=== PATIENT | male | born 1960 | race Caucasian/White ===

== ENCOUNTER 2017-10-08 10:06 | Emergency (ER) | payer MEDICAID ==
[~2017-10-08] VITALS: Ht 172.7 cm; Wt 59.0 kg
[~2017-10-08 10:06] MED LIST: DIVA500E1 PO
--- NOTE | 2017-10-08 10:07 | NUR ---
PT BIBA BLS AFTER FALL TO BED 7
[2017-10-08 10:10] VITALS: BP 161/80
--- NOTE | 2017-10-08 10:17 | NUR ---
57Y/M BIBA C/O RT HAND, RT KNEE PAIN S/P TRIP AND FALL YESTERDAY WITHOUT LOC. HE STATES HE LANDED ON HIS HANDS, ABRASIONS NOTED TO ROSEMARY HANDS. PATIENT STATES PAIN OF 7/10 AT THIS TIME; VSS; PATIENT POSITIONED FOR COMFORT; HOB ELEVATED; BEDRAILS UP X 1; BED DOWN. ER MD MADE AWARE OF PT STATUS.
[2017-10-08] MEDS ORDERED: oxyCODONE/APAP 5/325 MG 1 TAB TAB PO ONE (10:25)
[2017-10-08] MEDS ORDERED: cefTRIAXone 1,000 MG in LIDOCAINE MPF 1% - **ER/OR** 2.1 ML IM ONE (10:25)
--- NOTE | 2017-10-08 12:02 | NUR ---
Patient discharged with v/s stable. Written and verbal after care instructions given and explained. Patient alert, oriented and verbalized understanding of instructions. Ambulatory with steady gait. All questions addressed prior to discharge. ID band removed. Patient advised to follow up with PMD. Rx of DOXYCYCLINE HYCLATE AND MOTRIN given. Patient educated on indication of medication including possible reaction and side effects. Opportunity to ask questions provided and answered.
[2017-10-08 12:03] VITALS: BP 159/79
== END 2017-10-08 12:02 | disposition home or self-care (01) ==
LOC: MED 10:06
DX: S80.01XA Contusion of right knee, initial encounter (principal); S60.221A Contusion of right hand, initial encounter; Z88.0 Allergy status to penicillin; F17.210 Nicotine dependence, cigarettes, uncomplicated; W18.30XA Fall on same level, unspecified, initial encounter; Y93.89 Activity, other specified; Y92.89 Other specified places as the place of occurrence of the external cause; Y99.8 Other external cause status
CPT/HCPCS: 73110; 73130; 73562; 90471; 90715; 96372; 99284; J0696; J2001

== ENCOUNTER 2018-11-20 08:39 | Inpatient (IN) | payer OTHER, MEDICAID ==
[~2018-11-20] VITALS: Ht 175.3 cm; Wt 72.6 kg
--- NOTE | 2018-11-20 08:41 | NUR ---
0838-- PT BIBA BLS TO ER BED 5
--- NOTE | 2018-11-20 08:45 | NUR ---
PT BIB AMBULANCE TO THE ED FROM BOARD/CARE FOR C/O COUGH/CONGESTION X 4 DAYS WITH CHEST DISCOMFORT UPON COUGHING. LUNGS CLEAR ON AUSCULTATION. NO SOB OR DIFFICULTY BREATHING NOTED. SPO2 95% IN ROOM AIR. HOB ELEVATED. STATES PAIN OF 10/10 AT THIS TIME. DENIES OTHER PROBLEM AT THIS TIME. MED HX: COPD/HTN/SCHIZOEFFECTIVE
[2018-11-20 08:46] VITALS: BP 142/95
--- NOTE | 2018-11-20 08:53 | NUR ---
PT BEING EVALUATED BY EDUARDO RODRIGUEZ.
[2018-11-20] MEDS ORDERED: ALBUTEROL SULFATE/IPRATROPIU 3 ML SOL IH ONE (09:00)
--- NOTE | 2018-11-20 09:06 | NUR ---
X-RAY AT THE BEDSIDE.
--- NOTE | 2018-11-20 09:18 | NUR ---
EDUARDO RODRIGUEZ AT THE BEDSIDE.
--- NOTE | 2018-11-20 09:26 | NUR ---
RT AT THE BEDSIDE.
--- NOTE | 2018-11-20 09:42 | NUR ---
CALLED AND TALKED WITH PRISCILA THE ANIMAL CARE TAKER AT [facility] [phone] REGARDING LAST TB SHOT FOR PT. PER PRISCILA, LAST TB WAS GIVEN MAR 2010
[2018-11-20] MEDS ORDERED: LEVOFLOXACIN 750 MG/D5W PREMIX 150 ML IV ONE (09:50)
[2018-11-20] MEDS ORDERED: NACL 0.9% 1,000 ML IV ONE (09:50)
--- NOTE | 2018-11-20 10:02 | NUR ---
PT TAKEN TO THE CT.
[2018-11-20] MEDS ORDERED: ROB PO (10:10)
[2018-11-20] MEDS ORDERED: VALP250S5 PO (10:10)
[2018-11-20] MEDS ORDERED: OLAN15TA1 PO ×2 (10:10)
[2018-11-20] MEDS ORDERED: QUET200T PO (10:10)
[2018-11-20] MEDS ORDERED: OLAN2.5T1 PO (10:10)
[2018-11-20] MEDS ORDERED: QUET400T PO (10:10)
[2018-11-20] MEDS ORDERED: IBUP-1842 PO (10:10)
[2018-11-20 10:18] LABS: BASOPHILS % (AUTO) 0.2 % (0.0-2.0); EOSINOPHILS % (AUTO) 0.1 % (0.0-4.0); HEMATOCRIT 30.4 % (36-52); HEMOGLOBIN 10.2 g/dL (12.0-18.0); LYMPHOCYTES # (AUTO) 1.1 K/uL (2.0-11.5); LYMPHOCYTES % (AUTO) 13.2 % (20.5-51.1); MEAN CORPUSCULAR HEMOGLOBIN 28 pg (27-31); MEAN CORPUSCULAR HGB CONC 34 g/dL (33-37); MEAN CORPUSCULAR VOLUME 84.3 fL (80-94); MONOCYTES # (AUTO) 1.2 K/uL (0.8-1.0); NEUTROPHILS # (AUTO) 6.1 K/uL (1.8-7.7); NEUTROPHILS % (AUTO) 72.5 % (42.2-75.2); PLATELET COUNT (AUTO) 299 K/uL (140-450); RED BLOOD CELL COUNT(AUTO) 3.61 MIL/uL (4.20-6.10); RED CELL DISTRIBUTION WIDTH 15.6 % (11.6-13.7); WHITE BLOOD COUNT (AUTO) 8.5 K/uL (4.8-10.8)
[2018-11-20 10:51] LABS: ALBUMIN 2.4 g/dL (3.4-5.0); ANION GAP 11.7 (8-16); CARBON DIOXIDE 26.4 mmol/L (21-32); CREATININE 0.9 mg/dL (0.7-1.3); POTASSIUM 4.1 mmol/L (3.5-5.1); TOTAL BILIRUBIN 0.3 mg/dL (0.0-1.0)
[2018-11-20] MEDS ORDERED: LORazepam 2 MG/ML VIAL IM/IVP PRN (11:25)
[2018-11-20] MEDS ORDERED: ACETAMINOPHEN 325 MG TAB PO PRN (11:25)
[2018-11-20] MEDS ORDERED: MORPHINE SULFATE 2 MG/ML SYR IVP PRN (11:25)
[2018-11-20] MEDS ORDERED: ONDANSETRON 4 MG/2 ML VIAL IM/IVP PRN (11:25)
[2018-11-20] MEDS ORDERED: DOCUSATE SODIUM 100 MG GELCAP PO PRN (11:25)
[2018-11-20] MEDS ORDERED: HYDROcodone/APAP 5/325 MG 1 TAB TAB PO PRN (11:25)
[2018-11-20 12:09] LABS: PROTHROMBIN TIME 11.2 secs (10.8-13.4)
[2018-11-20] MEDS: NACL 0.9% 1,000 ML IV SCH ×2 (12:15→22:45)
[2018-11-20 12:20] LABS: MAGNESIUM 1.8 mg/dL (1.8-2.4); PHOSPHORUS 3.5 mg/dL (2.5-4.9)
[2018-11-20 12:21] LABS: FREE T4 (FREE THYROXINE) 0.72 ng/dL (0.76-1.46); THYROID STIMULATING HORMONE 4.13 uIU/mL (0.34-3.74)
[2018-11-20] MEDS ORDERED: hydrALAZINE 20 MG/ML VIAL IVP PRN (12:35)
[2018-11-20] MEDS ORDERED: ALBUTEROL SULFATE/IPRATROPIU 3 ML SOL IH SCH (13:00)
--- NOTE | 2018-11-20 13:00 | NUR ---
RECEIVED PATIENT REPORT FROM ED NURSE. PT IS AWAKE AND ALERT, NO S/S OF ANY ACUTE DISTRESS OR SOB. PT IS ON ROOM AIR, SKIN IS INTACT. IV SITE IS ON THE L AC, 20 G. PT IS AMBULATORY AND NOT A FALL RISK. NARES SWABBED FOR MRSA. BP IS ELEVATED (163/102) AT THIS TIME. MD IS AWARE OF PT'S HYPERTENSION. CALL LIGHT GIVEN WITHIN REACH. WILL CONTINUE TO MONITOR PT.
[2018-11-20 13:30] VITALS: BP 163/102
[2018-11-20 13:31] LABS: APPEARANCE,URINE CLEAR (CLEAR); BILIRUBIN,URINE NEGATIVE (NEGATIVE); BLOOD, URINE NEGATIVE (NEGATIVE); COLOR,URINE YELLOW (YELLOW); LEUKOCYTE ESTERASE ,URINE NEGATIVE (NEGATIVE); NITRITE, URINE NEGATIVE (NEGATIVE); PH,URINE 7.5 (5.0-9.0); UGLUCOSE NEGATIVE (NEGATIVE)
[2018-11-20 13:38] LABS: BARBITURATE, URINE NEG. ng/ml (NEG <=200); BENZODIAZEPINE, URINE NEG. ng/mL (NEG <=200); CANNABINOID, URINE NEG. ng/mL (NEG <=50); COCAINE, URINE NEG. ng/mL (NEG <=300); OPIATE, URINE NEG. ng/mL (NEG <=2000); PHENCYCLIDINE SCREEN,URINE NEG. ng/mL (NEG <=25)
--- NOTE | 2018-11-20 14:33 | NUR ---
PT IS TALKING ABOUT LEAVING AMA BECAUSE OUR HOSPITAL DOES NOT ALLOW TO SMOKE CIGARETTES. I TOLD PT THAT I NEED TO TALK TO THE MD FIRST, ABOUT POSSIBLY GETTING HIM A NICOTINE PATCH. I NOTIFIED DR PEREYRA OF PT'S DESIRE TO LEAVE AMA. SHE INFORMED ME THAT PT HAS A CONSERVATOR AND CANNOT MAKE HIS OWN DECISIONS. SHE SAID THAT SHE WILL GO TALK WITH THE PATIENT AND POSSIBLY ORDER HIM A NICOTINE PATCH.
[2018-11-20] MEDS ORDERED: BENZONATATE 100 MG CAPLF PO PRN (15:30)
[2018-11-20] MEDS ORDERED: PANTOPRAZOLE 40 MG TABEC PO SCH (15:45)
[2018-11-20 16:00] VITALS: BP 159/107
--- NOTE | 2018-11-20 16:07 | NUR ---
PT GIVEN A SAMPLE CUP AND IS AWARE THAT WE NEED A SAMPLE OF HIS SPUTUM FOR CULTURE.
[2018-11-20] MEDS: hydrALAZINE 20 MG/ML VIAL IVP SCH ×2 (16:33→18:30)
--- NOTE | 2018-11-20 16:42 | NUR ---
PRN HYDRALAZINE ADMINISTERED FOR PT'S BP OF 170/104. WILL REASSESS BP IN AN HOUR.
[2018-11-20] MEDS ORDERED: SODIUM FERRIC GLUCONATE 125 MG in NACL 0.9% 100 ML IV SCH (17:00)
[2018-11-20] MEDS ORDERED: LISINOPRIL 10 MG TAB PO SCH (18:00)
--- NOTE | 2018-11-20 18:02 | NUR ---
BP RECHECKED, IT IS 159/102 AT THIS TIME. ORDERED LISINOPRIL ADMINISTERED, WILL RECHECK IN ABOUT 15 MINUTES AND IF DBP IS STILL ABOVE 100, WILL ADMINISTER ANOTHER DOSE OF PRN HYDRALAZINE, PER DR PEREYRA.
[2018-11-20] MEDS: CLINDAMYCIN PHOS 600MG/D5W PM 50 ML IV SCH ×2 (18:06→23:07)
--- NOTE | 2018-11-20 18:30 | NUR ---
BP IS 184/108 AT THIS TIME, PRN HYDRALAZINE ADMINISTERED PER MD ORDER
--- NOTE | 2018-11-20 19:20 | NUR ---
PT ENDORSED TO UNIFIED COMMUNICATIONS ENGINEER IN STABLE CONDITION.
[2018-11-20] MEDS: BUDESONIDE 0.25 MG/2 ML NEBU INH SCH (19:30)
--- NOTE | 2018-11-20 19:30 | NUR ---
RECEIVED PT ON BED, AAOX4, ABLE TO MAKE NEEDS KNOWN, VITAL SIGNS TAKEN, BP SLIGHTLY ELEVATED BUT STABLE, 98% ON ROOM AIR, DENIES ANY PAIN, NO SOB NOTED, IVF INFUSING WELL, PLAN OF CARE DISCUSSED, INSTRUCTED TO COLLECT SPUTUM FOR TEST, CUP AT BEDSIDE, SAFETY MEASURES IN PLACE, CALL LIGHT WITHIN REACH.
--- NOTE | 2018-11-20 19:39 | NUR ---
PT REFUSED HHN TX OF PULMICORT. RN JIL AT BEDSIDE. PT IS AWAKE AND ALERT ON ROOM AIR WITH SPO2 98%. NO SOB OR DISTRESS NOTED. WILL CONTINUE TO MONITOR.
[2018-11-20 20:00] VITALS: BP 159/98
[2018-11-20] MEDS: guaiFENesin 600 MG TABER PO SCH (20:35)
[2018-11-20] MEDS: QUEtiapine FUMARATE 100 MG TAB PO SCH (20:35)
[2018-11-20] MEDS: methylPREDNISolone SS 40 MG/ML VIAL IVP SCH (20:38)
--- NOTE | 2018-11-20 20:40 | NUR ---
PT AMBULATORY TO BR WITH STEADY GAIT, VOIDED FREELY, NO SOB NOTED ON EXERTION, DUE MEDS ADMINISTERED, ALL NEEDS ATTENDED.
[2018-11-20] MEDS: OLANZapine 5 MG TAB PO SCH (20:49)
[2018-11-20] MEDS ORDERED: OLANZapine 2.5 MG TAB ONE (20:52)
[2018-11-20] MEDS ORDERED: VALPROIC ACID 250 MG/5 ML UDC PO SCH (21:00)
--- NOTE | 2018-11-20 21:30 | NUR ---
PT WANTS TO TAKE A SHOWER, PT BP STILL ELEVATED AT THIS TIME, ADVISE PT TO DO IT WHEN HIS BP IS BETTER, VERBALIZED UNDERSTANDING, PT PROVIDED WASHCLOTHS AND TOWEL, ABLE TO DO SPONGE BATH INDEPENDENTLY, MONITORED CLOSELY.
--- NOTE | 2018-11-20 23:30 | NUR ---
PT RESTING, VITAL SIGNS STABLE, NO SOB NOTED, DENIES ANY PAIN, CLEOCIN IVPB INFUSING WELL, UNABLE TO PROVIDE SPUTUM, PT HAS DRY COUGH, WILL TRY AGAIN LATER, CONTINUE TO MONITOR CLOSELY.
[2018-11-21] VITALS: BP 143/90
[2018-11-21 04:00] VITALS: BP 134/93
--- NOTE | 2018-11-21 04:00 | NUR ---
PT SLEEPING, EASILY AROUSABLE, VITAL SIGNS STABLE, BP-134/93, SAT-92% ON ROOM AIR, NO SIGNS OF RESP DISTRESS, MONITORED CLOSELY.
[2018-11-21] MEDS: methylPREDNISolone SS 40 MG/ML VIAL IVP SCH ×3 (05:03→20:57)
[2018-11-21] MEDS: CLINDAMYCIN PHOS 600MG/D5W PM 50 ML IV SCH ×3 (05:04→18:02)
[2018-11-21 06:16] LABS: ANION GAP 13.6 (8-16); CARBON DIOXIDE 22.5 mmol/L (21-32); POTASSIUM 4.1 mmol/L (3.5-5.1)
[2018-11-21] MEDS: LEVOTHYROXINE 0.025 MG TAB PO SCH (06:19)
[2018-11-21 06:34] LABS: CHOL/HDL RATIO 3.5 (1-4.5); MAGNESIUM 1.9 mg/dL (1.8-2.4); PHOSPHORUS 4.3 mg/dL (2.5-4.9)
--- NOTE | 2018-11-21 07:10 | NUR ---
PT SLEEPING, NO SIGNS OF DISTRESS, BEDSIDE REPORT GIVEN TO PINA LOZANO FOR CONTINUITY OF CARE.
--- NOTE | 2018-11-21 07:15 | NUR ---
OBTAINED PT REPORT FROM STORE DETECTIVE NURSE. PT IS ASLEEP, NO S/S OF ANY ACUTE DISTRESS NOTED. PT IS ON ROOM AIR, SKIN INTACT. IV SITE IS ON THE LAC 20 G, INFUSING NS 100 ML/HR. PT IS AMBULATORY AND NOT A FALL RISK. CALL LIGHT IS WITHIN REACH. WILL CONTINUE TO MONITOR.
[2018-11-21 07:17] LABS: HEMATOCRIT 34.1 % (36-52); HEMOGLOBIN 11.3 g/dL (12.0-18.0); LYMPHOCYTES # (AUTO) 0.9 K/uL (2.0-11.5); LYMPHOCYTES % (AUTO) 12.3 % (20.5-51.1); MEAN CORPUSCULAR HEMOGLOBIN 28 pg (27-31); MEAN CORPUSCULAR HGB CONC 33 g/dL (33-37); MEAN CORPUSCULAR VOLUME 85.4 fL (80-94); MONOCYTES # (AUTO) 0.2 K/uL (0.8-1.0); MONOCYTES % (AUTO) 3.4 % (1.7-9.3); NEUTROPHILS # (AUTO) 5.8 K/uL (1.8-7.7); NEUTROPHILS % (AUTO) 84.3 % (42.2-75.2); PLATELET COUNT (AUTO) 320 K/uL (140-450); RED BLOOD CELL COUNT(AUTO) 3.99 MIL/uL (4.20-6.10); RED CELL DISTRIBUTION WIDTH 15.8 % (11.6-13.7); WHITE BLOOD COUNT (AUTO) 6.9 K/uL (4.8-10.8)
[2018-11-21] MEDS: BUDESONIDE 0.25 MG/2 ML NEBU INH SCH ×2 (07:30→19:51)
[2018-11-21 07:52] VITALS: BP 131/98
[2018-11-21] MEDS: FERROUS SULFATE 325 MG TABEC PO SCH (08:00)
[2018-11-21] MEDS: LACTOBACILLUS RHAMNOSUS GG 1 EACH CAP PO SCH (09:00)
[2018-11-21] MEDS: NICOTINE TRANSD SYS 21 MG/24 HR PATCH TD SCH (09:00)
[2018-11-21] MEDS: LISINOPRIL 10 MG TAB PO SCH (09:00)
[2018-11-21] MEDS: guaiFENesin 600 MG TABER PO SCH ×2 (09:00→20:56)
[2018-11-21] MEDS: QUEtiapine FUMARATE 100 MG TAB PO SCH ×2 (09:00→20:56)
[2018-11-21] MEDS ORDERED: VALPROIC ACID 250 MG/5 ML UDC PO SCH ×2 (09:00→10:00)
[2018-11-21] MEDS ORDERED: LACTOBACILLUS RHAMNOSUS GG 1 EACH CAP PO SCH (09:00)
[2018-11-21] MEDS: PANTOPRAZOLE 40 MG TABEC PO SCH (09:00)
[2018-11-21] MEDS: OLANZapine 5 MG TAB PO SCH ×2 (09:00→20:56)
[2018-11-21] MEDS: NACL 0.9% 1,000 ML IV SCH ×2 (09:15→20:59)
--- NOTE | 2018-11-21 09:23 | NUR ---
PATIENT HAS BEEN SCREENED AND CATEGORIZED MODERATE NUTRITION RISK. PATIENT WILL BE SEEN WITHIN 3-5 DAYS OF ADMISSION. 11/22/18[address]
[2018-11-21] MEDS: LEVOFLOXACIN 750 MG/D5W PREMIX 150 ML IV SCH (10:35)
--- NOTE | 2018-11-21 10:50 | NUR ---
PT REFUSED THE ORDERED AM HEPARIN SUBQ INJECTION AND NICOTINE PATCH.
[2018-11-21 12:00] VITALS: BP 156/93
--- NOTE | 2018-11-21 12:00 | NUR ---
PT IS TALKING ABOUT WANTING TO GO HOME TO HIS BOARD AND CARE AND BE ABLE TO SMOKE AGAIN. STATES THAT HE WANTS US TO GET HIM A RIDE SO HE CAN LEAVE. DR PEREYRA IS AWARE AND SHE ALREADY SPOKE WITH HIM ABOUT THIS. SHE IS GOING TO CONTACT HIS B&C CONSERVATOR REGARDING THIS ISSUE.
[2018-11-21 16:00] VITALS: BP 164/93
--- NOTE | 2018-11-21 16:35 | NUR ---
PT REFUSED HIS SCHEDULED 17:[address] PEREYRA IS AWARE AND SHE WILL CANCEL THE ORDER.
--- NOTE | 2018-11-21 17:00 | NUR ---
PT REFUSED THE BILATERAL LE ULTRASOUND. DR PEREYRA WAS MADE AWARE BY THE MINING CONSULTANT.
--- NOTE | 2018-11-21 19:20 | NUR ---
PT ENDORSED TO RN ER NURSE IN STABLE CONDITION.
--- NOTE | 2018-11-21 19:21 | NUR ---
RECEIVED REPORT AT PT BEDSIDE FROM PINA LOZANO. PT IS AAOX4, ON ROOM AIR WITH SOME EXPIRATORY WHEEZING TO UPPER LOBES BL AND DIMINISHED LOWER LOBES BL. ABLE TO FOLLOW COMMANDS, AND ABLE TO MAKE NEEDS KNOWN. PT AMBULATES WITH STEADY GAIT INDEPENDENTLY. SKIN IS CLEAN, DRY, AND INTACT. PT HAS A 20G IV TO LEFT AC, ASYMPTOMATIC AND INTACT WITH IV FLUIDS INFUSING. NO SIGNS OR SYMPTOMS OF DISTRESS NOTED. DBP SLIGHTLY ELEVATED AT 107. OTHER VITAL SIGNS STABLE, DENIES HAVING ANY TYPE OF PAIN AT THIS MOMENT. BED IN LOWEST POSITION, CALL LIGHT WITHIN REACH. SAFETY MEASURES IN PLACE. WILL CONTINUE TO MONITOR.
[2018-11-21 20:00] VITALS: BP 149/107
--- NOTE | 2018-11-21 21:00 | NUR ---
ADMINISTERED SCHEDULED MEDICATIONS, PT TOLERATED WELL. PATIENT REFUSED HEPARIN INJECTION SAYING HE DIDN'T NEED THAT ONE. DR SORIA MADE AWARE OF REFUSAL.
[2018-11-22] VITALS: BP 165/99
--- NOTE | 2018-11-22 | NUR ---
VITAL SIGNS STABLE, DENIES HAVING ANY TYPE OF PAIN AT THIS MOMENT. NO SIGNS OR SYMPTOMS OF DISTRESS NOTED. BED IN LOWEST POSITION, CALL LIGHT WITHIN REACH. SAFETY MEASURES IN PLACE. WILL CONTINUE TO MONITOR.
[2018-11-22] MEDS: CLINDAMYCIN PHOS 600MG/D5W PM 50 ML IV SCH ×4 (00:33→17:56)
--- NOTE | 2018-11-22 00:35 | NUR ---
PT REPORTED FEELING ANXIOUS AND NOT BEING ABLE TO SLEEP, HE ASKED FOR ANXIETY MEDICATION. ATIVAN WAS AVAILABLE FOR ANXIETY PER ORDERS. ADMINISTERED 1MG (0.5ML) IV ATIVAN ORDERED, PT TOLERATED WELL.
--- NOTE | 2018-11-22 02:49 | NUR ---
PT AMBULATED TO RESTROOM WITH UNSTEADIER GAIT THAN BEFORE, HELPED PT WITH STANDBY ASSIST. NO SIGNS OR SYMPTOMS OF DISTRESS NOTED. BED IN LOWEST POSITION, CALL LIGHT WITHIN REACH. SAFETY MEASURES IN PLACE. WILL CONTINUE TO MONITOR.
--- NOTE | 2018-11-22 03:01 | NUR ---
TRIED TO PUT YELLOW GOWN ON PT ALONG WITH ARMBAND. PT REFUSED TO CHANGE GOWNS. ARMBAND AND FALLING STAR SIGN WERE PUT IN PLACE. BED ALARM TURNED ON. NO SIGNS OR SYMPTOMS OF DISTRESS NOTED. BED IN LOWEST POSITION, CALL LIGHT WITHIN REACH. SAFETY MEASURES IN PLACE. WILL CONTINUE TO MONITOR.
[2018-11-22 04:00] VITALS: BP 144/95
[2018-11-22] MEDS: methylPREDNISolone SS 40 MG/ML VIAL IVP SCH ×3 (05:28→20:58)
[2018-11-22] MEDS: LEVOTHYROXINE 0.025 MG TAB PO SCH (05:31)
--- NOTE | 2018-11-22 05:34 | NUR ---
ADMINISTERED SCHEDULED MEDICATIONS, PT TOLERATED WELL. NO SIGNS OR SYMPTOMS OF DISTRESS NOTED. BED IN LOWEST POSITION, CALL LIGHT WITHIN REACH. SAFETY MEASURES IN PLACE. WILL CONTINUE TO MONITOR.
[2018-11-22 06:14] LABS: FOLIC ACID 7.3 ng/mL (>3.0)
[2018-11-22 06:53] LABS: HEMATOCRIT 30.4 % (36-52); HEMOGLOBIN 10.1 g/dL (12.0-18.0); MEAN CORPUSCULAR HEMOGLOBIN 28 pg (27-31); MEAN CORPUSCULAR HGB CONC 33 g/dL (33-37); MEAN CORPUSCULAR VOLUME 84.8 fL (80-94); PLATELET COUNT (AUTO) 276 K/uL (140-450); RED BLOOD CELL COUNT(AUTO) 3.59 MIL/uL (4.20-6.10); RED CELL DISTRIBUTION WIDTH 15.8 % (11.6-13.7); WHITE BLOOD COUNT (AUTO) 20.2 K/uL (4.8-10.8)
[2018-11-22 07:04] LABS: MAGNESIUM 1.7 mg/dL (1.8-2.4)
[2018-11-22 07:12] LABS: ANION GAP 12.8 (8-16); CARBON DIOXIDE 23.7 mmol/L (21-32); CREATININE 0.8 mg/dL (0.7-1.3); POTASSIUM 4.5 mmol/L (3.5-5.1)
--- NOTE | 2018-11-22 07:27 | NUR ---
ENDORSED PT TO DAY SHIFT RN ISAI FOR CONTINUITY OF CARE, PT IN STABLE CONDITION.
[2018-11-22] MEDS: BUDESONIDE 0.25 MG/2 ML NEBU INH SCH ×2 (07:30→22:10)
--- NOTE | 2018-11-22 07:30 | NUR ---
SBAR REPORT RECEIVED AT PT BEDSIDE. PATIENT RESTING IN BED. ALERT AND ORIENTED, DROWSY. INTERMITTENT COUGHS, NON PRODUCTIVE. UPDATED ON CURRENT PLAN OF CARE, IN AGREEMENT. FALL PRECAUTIONS ENSURED. NO ACUTE DISTRESS NOTED. DENIES PAIN.
[2018-11-22 07:56] LABS: LYMPHOCYTES % (MANUAL) 7 % (20-46); MONOCYTES % (MANUAL) 3 % (5-12)
[2018-11-22 08:00] VITALS: BP 150/88
[2018-11-22] MEDS: FERROUS SULFATE 325 MG TABEC PO SCH (08:18)
[2018-11-22] MEDS: LISINOPRIL 10 MG TAB PO SCH (08:19)
[2018-11-22] MEDS: OLANZapine 5 MG TAB PO SCH ×2 (08:19→20:59)
[2018-11-22] MEDS: LACTOBACILLUS RHAMNOSUS GG 1 EACH CAP PO SCH (08:19)
[2018-11-22] MEDS: QUEtiapine FUMARATE 100 MG TAB PO SCH ×2 (08:19→20:58)
[2018-11-22] MEDS: PANTOPRAZOLE 40 MG TABEC PO SCH (08:19)
[2018-11-22] MEDS: guaiFENesin 600 MG TABER PO SCH ×2 (08:19→20:58)
[2018-11-22] MEDS: NACL 0.9% 1,000 ML IV SCH (08:20)
[2018-11-22] MEDS: NICOTINE TRANSD SYS 21 MG/24 HR PATCH TD SCH ×2 (08:21→10:40)
[2018-11-22] MEDS ORDERED: VALPROIC ACID 250 MG/5 ML UDC PO SCH (09:00)
--- NOTE | 2018-11-22 10:56 | NUR ---
PATIENT RESTING IN BED, NO ACUTE DISTRESS NOTED. DENIES PAIN/DISCOMFORT, CONTINUED ON ROOM AIR.
[2018-11-22] MEDS: LEVOFLOXACIN 750 MG/D5W PREMIX 150 ML IV SCH (11:31)
[2018-11-22 12:00] VITALS: BP 146/91
--- NOTE | 2018-11-22 14:06 | NUR ---
PATIENT CONTINUES DROWSY. NO ACUTE DISTRESS NOTED. DENIES PAIN/DISCOMFORT.
[2018-11-22] MEDS ORDERED: MAGNESIUM OXIDE 400 MG TAB PO SCH (14:56)
[2018-11-22 16:00] VITALS: BP 158/98
--- NOTE | 2018-11-22 16:40 | NUR ---
PATIENT RESTING IN BED, NO ACUTE DISTRESS NOTED. AMBULATORY TO BATHROOM WITH MINIMAL ASSIST. CALL LIGHT WITHIN REACH.
--- NOTE | 2018-11-22 19:16 | NUR ---
SBAR REPORT GIVEN AT PT BEDSIDE. PATIENT RESTING IN BED. NO ACUTE DISTRESS NOTED.
--- NOTE | 2018-11-22 19:17 | NUR ---
RECEIVED BEDSIDE REPORT FROM DAY SHIFT NURSEISAI. NO SOB OR ANY RESP DISTRESS NOTED. BREATHING EVEN AND UNLABORED. SKIN INTACT, WARM AND DRY TO TOUCH. IV SITE ON LAC, 20G, INTACT AND PATENT, RUNNING NS @ 80MLS/HR. BOARD UPDATED, BED IN LOW POSITION, CALL LIGHT WITHIN REACH.
[2018-11-22 20:00] VITALS: BP 164/99
--- NOTE | 2018-11-22 20:04 | NUR ---
PATIENT SHOWERING AT THIS TIME. WILL RETURN LATER FOR SCHEDULED BREATHING TREATMENT.
[2018-11-22] MEDS: VALPROIC ACID 250 MG/5 ML UDC PO SCH (20:55)
[2018-11-22] MEDS: hydrALAZINE 20 MG/ML VIAL IVP PRN (21:01)
--- NOTE | 2018-11-22 21:15 | NUR ---
GIVEN SCHEDULE MEDS ORDERED. GIVEN HYDRALAZINE D/T PT BP 164/99. PT TOLERATED WELL. WILL CONTINUE TO MONITOR.
--- NOTE | 2018-11-22 22:05 | NUR ---
CHECKED BP, 151/89. PT C/O COUGHING, GIVEN BENZONATATE ORDERED. PT TOLERATED WELL. WILL CONTINUE TO MONITOR.
[2018-11-22] MEDS: ALBUTEROL SULFATE/IPRATROPIU 3 ML SOL IH PRN (22:10)
--- NOTE | 2018-11-22 22:28 | NUR ---
RECEIVED PATIENT ON ROOM AIR, PULSE OX SAT 95%. PATIENT STATES TO BE COUGHING AND FEELING SOB. SCHEDULED BREATHING TREATMENT GIVEN ALONG WITH PRN BREATHING TREATMENT. TOLERATED TREATMENTS WELL. ORAL RINSE DONE POST TX. PATIENT STATES TO BE FEELING BETTER. NO RESPIRATORY DISTRESS NOTED AT THIS TIME. WILL CONTINUE TO MONITOR.
[2018-11-23] VITALS: BP 139/85
[2018-11-23] MEDS: CLINDAMYCIN PHOS 600MG/D5W PM 50 ML IV SCH ×4 (00:07→17:41)
--- NOTE | 2018-11-23 00:07 | NUR ---
PT PULLED OUT IV LINE. SITE INTACT AND NO BLEEDING. START IV ON RFA WITH 20G, GOOD BLOOD RETURN NOTED. PT TOLERATED WELL. GIVEN CLINDAMYCIN ORDERED.
--- NOTE | 2018-11-23 02:00 | NUR ---
PT LYING IN BED. BREATHING EVEN AND UNLABORED. BED IN LOW POSITION. CALL LIGHT WITHIN REACH.
[2018-11-23] MEDS: hydrALAZINE 20 MG/ML VIAL IVP PRN ×3 (03:55→20:46)
--- NOTE | 2018-11-23 03:55 | NUR ---
VS CHECKED, BP 153/95 NOTED. GIVEN HYDRALAZINE ORDERED. WILL CONTINUE TO MONITOR.
[2018-11-23 04:00] VITALS: BP 153/95
[2018-11-23] MEDS: methylPREDNISolone SS 40 MG/ML VIAL IVP SCH ×3 (04:57→20:44)
--- NOTE | 2018-11-23 05:01 | NUR ---
GIVEN SOLU-MEDROL AND CLINDAMYCIN ORDERED. PT TOLERATED WELL. BP CHECKED, 151/89. WILL CONTINUE TO MONITOR.
[2018-11-23] MEDS: LEVOTHYROXINE 0.025 MG TAB PO SCH (05:53)
--- NOTE | 2018-11-23 05:53 | NUR ---
GIVEN SYNTHROID DR. ORDERED. PT TOLERATED WELL.
[2018-11-23 07:03] LABS: ANION GAP 13.4 (8-16); CARBON DIOXIDE 23.8 mmol/L (21-32); CREATININE 0.8 mg/dL (0.7-1.3); POTASSIUM 4.2 mmol/L (3.5-5.1)
--- NOTE | 2018-11-23 07:11 | NUR ---
ENDORSED PT TO DAY SHIFT NURSE. PT IN STABLE CONDITION.
[2018-11-23] MEDS: BUDESONIDE 0.25 MG/2 ML NEBU INH SCH ×2 (07:12→19:35)
--- NOTE | 2018-11-23 07:12 | NUR ---
RECEIVED BED SIDE REPORT FROM ETHNOGRAPHER RN LUIZ. PT AWAKE BUT SLEEPY. EYES CLOSED, MASK OVER EYES. INTRODUCED SELF, URINAL AT BEDSIDE. SKIN INTACT. R FORARM 20G RUNNING NS AT 80ML/HR. PT NOT COUGHING, IN NO PAIN. WILL CONTINUE TO MONITOR
[2018-11-23 07:16] LABS: MAGNESIUM 1.7 mg/dL (1.8-2.4); PHOSPHORUS 3.7 mg/dL (2.5-4.9)
[2018-11-23 07:59] VITALS: BP 137/88
[2018-11-23 08:14] LABS: BASOPHILS % (AUTO) 0.1 % (0.0-2.0); HEMATOCRIT 28.5 % (36-52); HEMOGLOBIN 9.6 g/dL (12.0-18.0); LYMPHOCYTES # (AUTO) 1.1 K/uL (2.0-11.5); LYMPHOCYTES % (AUTO) 5.3 % (20.5-51.1); MEAN CORPUSCULAR HEMOGLOBIN 28 pg (27-31); MEAN CORPUSCULAR HGB CONC 34 g/dL (33-37); MEAN CORPUSCULAR VOLUME 84.4 fL (80-94); MONOCYTES # (AUTO) 0.7 K/uL (0.8-1.0); MONOCYTES % (AUTO) 3.4 % (1.7-9.3); NEUTROPHILS # (AUTO) 19.5 K/uL (1.8-7.7); NEUTROPHILS % (AUTO) 91.2 % (42.2-75.2); PLATELET COUNT (AUTO) 284 K/uL (140-450); RED BLOOD CELL COUNT(AUTO) 3.38 MIL/uL (4.20-6.10); RED CELL DISTRIBUTION WIDTH 15.8 % (11.6-13.7); WHITE BLOOD COUNT (AUTO) 21.3 K/uL (4.8-10.8)
[2018-11-23] MEDS: LACTOBACILLUS RHAMNOSUS GG 1 EACH CAP PO SCH (09:02)
[2018-11-23] MEDS: FERROUS SULFATE 325 MG TABEC PO SCH (09:03)
[2018-11-23] MEDS: guaiFENesin 600 MG TABER PO SCH ×2 (09:03→20:45)
[2018-11-23] MEDS: VALPROIC ACID 250 MG/5 ML UDC PO SCH ×2 (09:03→20:44)
[2018-11-23] MEDS: LISINOPRIL 10 MG TAB PO SCH (09:03)
[2018-11-23] MEDS: QUEtiapine FUMARATE 100 MG TAB PO SCH ×2 (09:04→20:45)
[2018-11-23] MEDS: PANTOPRAZOLE 40 MG TABEC PO SCH (09:04)
[2018-11-23] MEDS: NICOTINE TRANSD SYS 21 MG/24 HR PATCH TD SCH (09:05)
[2018-11-23] MEDS: OLANZapine 5 MG TAB PO SCH ×2 (09:05→20:45)
[2018-11-23] MEDS: LEVOFLOXACIN 750 MG/D5W PREMIX 150 ML IV SCH (09:07)
--- NOTE | 2018-11-23 09:43 | NUR ---
GAVE AM MEDS. PT REFUSED HEPARIN. EDUCATED PT ON THE IMPORTANCE OF RECEIVING HEPARIN D/T NOT BEING ACTIVE AND MOBILE HE NORMALLY IS. PT STILL REFUSED
[2018-11-23] MEDS ORDERED: LACTULOSE 20 GM/30 ML UDC PO SCH (11:00)
[2018-11-23] MEDS ORDERED: MAGNESIUM OXIDE 400 MG TAB PO SCH (11:00)
[2018-11-23] MEDS: NACL 0.9% 1,000 ML IV SCH ×3 (11:15→23:45)
--- NOTE | 2018-11-23 11:30 | NUR ---
PT REFUSED MAG OXIDE AND LACTULOSE. EDUCATED PT ON THE IMPORTANCE OF TAKING MEDS. PT STILL REFUSED. NOTIFIED MD AND MD MADE AWARE
[2018-11-23 12:00] VITALS: BP 142/89
--- NOTE | 2018-11-23 13:18 | NUR ---
Late entry. Confirmed with RN that Levoquin IVPB completed at 1200 and 1000ml 0.9NS IV bolus completed at 1130.
--- NOTE | 2018-11-23 15:20 | NUR ---
PT STABLE, RESTING IN BED. CALL LIGHT WITHIN REACH. PT ABLE TO AMBULATE TO BATHROOM WITH A STEADY GAIT.
[2018-11-23 15:55] VITALS: BP 165/102
[2018-11-23] MEDS: ALBUTEROL SULFATE/IPRATROPIU 3 ML SOL IH PRN (16:28)
--- NOTE | 2018-11-23 19:02 | NUR ---
ENDORSED PT TO DINING ROOM COORDINATOR PINA DEE. PT IN STABLE CONDITION
--- NOTE | 2018-11-23 19:10 | NUR ---
RECEIVED BEDSIDE REPORT FROM DAY SHIFT NURSE. NO SOB OR ANY RESP DISTRESS NOTED. BREATHING EVEN AND UNLABORED. SKIN INTACT, WARM AND DRY TO TOUCH. IV SITE ON RFA, 20G, INTACT AND PATENT, RUNNING NS @ 80MLS/HR. BOARD UPDATED, BED IN LOW POSITION, CALL LIGHT WITHIN REACH.
[2018-11-23 20:00] VITALS: BP 177/94
--- NOTE | 2018-11-23 20:53 | NUR ---
GIVEN ALL SCHEDULE MEDS DR. ORDERED. BP177/94, GIVEN HYDRALAZINE DR. ORDERED. PT TOLERATED WELL. WILL CONTINUE TO MONITOR.
[2018-11-24] VITALS: BP 149/85
[2018-11-24] MEDS: CLINDAMYCIN PHOS 600MG/D5W PM 50 ML IV SCH ×2 (00:03→05:09)
--- NOTE | 2018-11-24 00:03 | NUR ---
GIVEN CLINDAMYCIN DR. ORDERED. PT TOLERATED WELL. WILL CONTINUE TO MONITOR.
--- NOTE | 2018-11-24 02:46 | NUR ---
PT AWAKE IN BED. ENCOURAGE PT TO SLEEP. NO ACUTE DISTRESS NOTED. BED IN LOW POSITION. CALL LIGHT WITHIN REACH.
[2018-11-24] MEDS: NACL 0.9% 1,000 ML IV SCH (03:36)
[2018-11-24 04:00] VITALS: BP 140/76
[2018-11-24] MEDS: methylPREDNISolone SS 40 MG/ML VIAL IVP SCH ×2 (05:03→12:16)
--- NOTE | 2018-11-24 05:09 | NUR ---
GIVEN SOLU-MEDROL, CLINDAMYCIN DR. ORDERED. PT C/O BILATERAL FEET PAIN 11/06, GIVEN NORCO DR. ORDERED. PT TOLERATED WELL. WILL CONTINUE TO MONITOR.
[2018-11-24] MEDS: LEVOTHYROXINE 0.025 MG TAB PO SCH (05:35)
--- NOTE | 2018-11-24 05:35 | NUR ---
GIVEN SYNTHROID DR. ORDERED. PT TOLERATED WELL.
--- NOTE | 2018-11-24 07:20 | NUR ---
ENDORSED PT TO DAY SHIFT NURSE. PT IN STABLE CONDITION.
--- NOTE | 2018-11-24 07:21 | NUR ---
RECEIVED BEDSIDE REPORT FROM NIGHT NURSE. PT STABLE AT THIS TIME BREATHING UNLABORED AOX3, PT HAS A RIGHT FOREARM IV THAT IS ASYMPTOMATIC AND PATENT INFUSING 80 ML/HR OF NORMAL SALINE AT THIS TIME. EXPLAINED TO PATIENT TO NOTIFY WHEN HAVING BOWEL MOVEMENT FOR OCCULT BLOOD SAMPLE, ENDORSED TO ME BY NIGHT NURSE. ALL SAFETY MEASURES IN PLACE WITH CALL LIGHT WITHIN REACH.
[2018-11-24 07:31] LABS: MAGNESIUM 1.8 mg/dL (1.8-2.4); PHOSPHORUS 3.9 mg/dL (2.5-4.9)
--- NOTE | 2018-11-24 07:55 | NUR ---
DR MEDRANO AND RESIDENTS AT BEDSIDE EXPLAINING TO PT THAT IF HE WANTS TO DISCHARGE TODAY WE CAN PLAN ON DOING THAT TODAY.
[2018-11-24 08:00] VITALS: BP 149/90
[2018-11-24] MEDS: BUDESONIDE 0.25 MG/2 ML NEBU INH SCH (08:00)
[2018-11-24 08:06] LABS: ANION GAP 10.9 (8-16); CARBON DIOXIDE 24.4 mmol/L (21-32); CREATININE 0.9 mg/dL (0.7-1.3); POTASSIUM 4.3 mmol/L (3.5-5.1)
[2018-11-24] MEDS: VALPROIC ACID 250 MG/5 ML UDC PO SCH (08:13)
[2018-11-24] MEDS: NICOTINE TRANSD SYS 21 MG/24 HR PATCH TD SCH (08:13)
[2018-11-24] MEDS: LACTOBACILLUS RHAMNOSUS GG 1 EACH CAP PO SCH (08:14)
[2018-11-24] MEDS: OLANZapine 5 MG TAB PO SCH (08:14)
[2018-11-24] MEDS: guaiFENesin 600 MG TABER PO SCH (08:15)
[2018-11-24] MEDS: PANTOPRAZOLE 40 MG TABEC PO SCH (08:15)
[2018-11-24] MEDS: QUEtiapine FUMARATE 100 MG TAB PO SCH (08:15)
[2018-11-24] MEDS: LISINOPRIL 10 MG TAB PO SCH (08:16)
[2018-11-24] MEDS: FERROUS SULFATE 325 MG TABEC PO SCH (08:16)
--- NOTE | 2018-11-24 08:22 | NUR ---
ADMINISTERED MEDICATIONS, PT REFUSED HEPARIN STATING HE DOES NOT NEED IT OVER CONCERN FOR HIS BLOOD OCCULT AND THAT HE IS GOING HOME TODAY. PLATELET LEVELS WNL ON 11/23/18 MOST RECENT LAB VALUES. DISCUSSED WITH PATIENT THAT I WILL INFORM HIM WHEN DISCHARGE ORDER IS PLACED AND KEEP HIM UP TO DATE. PT HAS NO REQUESTS AT THIS TIME AND IS BREATHING UNLABORED WITH NO SIGNS OF DISTRESS. Addendum: 11/24/18 at 0826 by Maikol Stern RN REVIEWED MEDICATION INDICATIONS WITH PT WELL.
[2018-11-24] MEDS ORDERED: LACT10CA1 PO (08:56)
[2018-11-24] MEDS ORDERED: CLIN300C2 PO ×2 (08:56→14:20)
[2018-11-24] MEDS ORDERED: OLAN15TA1 PO (08:56)
[2018-11-24] MEDS ORDERED: LEVO750T2 PO (08:56)
[2018-11-24] MEDS ORDERED: SODIUM CHLORIDE 1 GM TAB PO SCH (09:00)
[2018-11-24] MEDS ORDERED: LACTULOSE 20 GM/30 ML UDC PO SCH (09:00)
[2018-11-24] MEDS: LEVOFLOXACIN 750 MG/D5W PREMIX 150 ML IV SCH (09:10)
[2018-11-24 09:19] LABS: BASOPHILS % (AUTO) 0.1 % (0.0-2.0); HEMATOCRIT 31.4 % (36-52); HEMOGLOBIN 10.3 g/dL (12.0-18.0); LYMPHOCYTES # (AUTO) 1.7 K/uL (2.0-11.5); LYMPHOCYTES % (AUTO) 8.9 % (20.5-51.1); MEAN CORPUSCULAR HEMOGLOBIN 28 pg (27-31); MEAN CORPUSCULAR HGB CONC 33 g/dL (33-37); MONOCYTES % (AUTO) 5.1 % (1.7-9.3); NEUTROPHILS # (AUTO) 16.6 K/uL (1.8-7.7); NEUTROPHILS % (AUTO) 85.9 % (42.2-75.2); PLATELET COUNT (AUTO) 334 K/uL (140-450); RED CELL DISTRIBUTION WIDTH 15.9 % (11.6-13.7); WHITE BLOOD COUNT (AUTO) 19.3 K/uL (4.8-10.8)
--- NOTE | 2018-11-24 09:19 | NUR ---
ADMINISTERED MEDICATIONS. WAS RELAYED A MESSAGE FROM DR DOMINGUEZ TO MAKE SURE I GIVE THE SODIUM CHLORIDE TABLETS SOON POSSIBLE INFORMED THEM I DID ADMINISTER THEM JUST NOW. PT IS FREE OF OBVIOUS SIGNS OF DISTRESS AT THIS TIME.
--- NOTE | 2018-11-24 10:10 | NUR ---
DR DOMINGUEZ AT BEDSIDE, EXPLAINED TO PATIENT WE ARE PENDING RESULTS THIS AFTERNOON OF BLOOD VALUES THEN HE CAN DISCHARGE IF ALL IS FINE. PT IS AGREEABLE AND FREE OF OBVIOUS SIGNS OF DISTRESS.
[2018-11-24] MEDS ORDERED: METR500T1 PO (10:40)
[2018-11-24] MEDS ORDERED: ALBU-118 IH (10:40)
--- NOTE | 2018-11-24 11:39 | NUR ---
WAS INQUIRED BY LAB RATHER TO CONTINUE WITH LAB DRAW DUE TO PATIENT POSSIBLE DISCHARGE. INFORMED THEM THAT DR. DOMINGUEZ INFORMED ME THAT HE IS PENDING DISCHARGE RELIANT ON LAB RESULTS AND TO CONTINUE WITH ORDERED LAB DRAW.
[2018-11-24 12:00] VITALS: BP 149/99
[2018-11-24] MEDS ORDERED: CLINDAMYCIN PHOS 600MG/D5W PM 50 ML IV SCH (12:00)
[2018-11-24] MEDS: hydrALAZINE 20 MG/ML VIAL IVP PRN (12:16)
[2018-11-24 12:22] LABS: ANION GAP 15.3 (8-16); CARBON DIOXIDE 23.2 mmol/L (21-32); POTASSIUM 4.5 mmol/L (3.5-5.1)
[2018-11-24 12:23] LABS: CREATININE 0.9 mg/dL (0.7-1.3)
--- NOTE | 2018-11-24 12:25 | NUR ---
ADMINISTERED MEDICATIONS INCLUDING HYDRALAZINE PRN DUE TO 149/[address] DOMINGUEZ OF THIS. Addendum: 11/24/18 at 1226 by Maikol Stern RN PT RESTING IN BED EATING LUNCH NO OBVIOUS DISTRESS.
--- NOTE | 2018-11-24 12:39 | NUR ---
SPOKE WITH DR DOMINGUEZ WHO INFORMED ME TO RECHECK BLOOD PRESSURE IN ABOUT HALF AN HOUR AND IF IT IS TRENDING DOWN THEN HE IS OKAY TO DISCHARGE.
[2018-11-24 13:16] VITALS: BP 132/88
--- NOTE | 2018-11-24 13:16 | NUR ---
PATIENT BLOOD PRESSURE 132/88 WITH HEART RATE 102
--- NOTE | 2018-11-24 13:40 | NUR ---
Spoke with Melanie director from board and care located at [address] [facility]. Informed her that pt is already discharged and is ready to be picked up. They will come and pick pack worker the pt at 1500. Informed Pablito ADAMS regarding time of pick pack worker will be at 1500.
--- NOTE | 2018-11-24 13:48 | NUR ---
DR CORADO INFORMED ME THAT THE PATIENT SHOULD NOT DISCHARGE WITH FLAGYL AND TO INFORM DR. DOMINGUEZ OF THIS. INFORMED CHARGE NURSE DR. DOMINGUEZ NOT AVAILABLE AT THIS TIME AND I WAS INFORMED DR. DOMINGUEZ WILL BE BACK SOON. I ALSO SPOKE WITH MOSHE AT [facility] WHO INFORMED ME SHE WILL COME BUILDING SUPERINTENDENT THE PATIENT AT ABOUT 1500.
--- NOTE | 2018-11-24 13:54 | NUR ---
PT INFORMING ME THAT HE IS UP TO DATE WITH HIS VACCINES AND NOT INTERESTED IN RECEIVING THE PNEUMONIA VACCINE.
--- NOTE | 2018-11-24 14:06 | NUR ---
NOTIFIED DR. DOMINGUEZ OF PATIENT LACK OF BOWEL MOVEMENT AND THAT PATIENT REPORTS IT'S NORMAL FOR HIM TO GO GREATER THAN 3 DAYS BEFORE A BOWEL MOVEMENT. SHE INFORMED ME SHE WILL ORDER DULCOLAX FOR HIM TO TAKE BEFORE DISCHARGE. ALSO INFORMED HER OF DR. CORADO'S INSTRUCTIONS TO RELAY TO HER TO DISCONTINUE FLAGYL A DISCHARGE MEDICATION.
--- NOTE | 2018-11-24 14:18 | NUR ---
ADMINISTERED SUPPOSITORY PT TOLERATED WELL NO OBVIOUS SIGNS OF DISTRESS AT THIS TIME.
--- NOTE | 2018-11-24 14:26 | NUR ---
SPOKE WITH SECURITY AND REQUESTED THEY BRING A PAIR OF PANTS FOR PATIENT SINCE PATIENT SAID HIS PERSONAL PANTS HE HAD IN HIS POSSESSION THAT HE PUT ON TO DISCHARGE ON SMELL BAD AND HE DOESN'T KNOW WHY. THEY INFORMED ME THEY WILL BRING HIM A PAIR OF PANTS.
[2018-11-24] MEDS ORDERED: BISACODYL 10 MG SUPP RC SCH (14:30)
--- NOTE | 2018-11-24 14:34 | NUR ---
PT IS REFUSING PANTS SECURITY BROUGHT HIM STATING HE DOESN'T NEED THEM.
--- NOTE | 2018-11-24 14:53 | NUR ---
PT INFORMED ME THAT HE HAD A BOWEL MOVEMENT FORMED WITH NO ISSUES.
--- NOTE | 2018-11-24 15:32 | NUR ---
REVIEWED DISCHARGE PAPERWORK WITH PATIENT AND HE SIGNED ALL PAPERWORK REVIEWING EACH SHEET AND PT DENIES ANY QUESTIONS. PT HAS POSSESSIONS WITH HIM AND ALL DRAWERS CHECKED FOR ANY REMAINING PROPERTIES AND HE STATES HE HAS EVERYTHING WITH HIM. IV REMOVED WITH CATHETER TIP INTACT. PT IS REQUESTING ALL ID BANDS REMOVED EXCEPT ONE ON HIS LEFT WRIST. LEFT THIS BAND PER PATIENT REQUEST. PATIENT IS WEARING HIS CLOTHING HE CAME IN AND PREVIOUSLY DENIED A CLEAN PAIR OF SHORTS BROUGHT TO HIM TO WEAR IF HE DESIRED TO. DISCHARGE PACKET WITH PATIENT AND PAPERWORK INCLUDING FOLLOW UP APPOINTMENT DATE AND DISCHARGING MEDICINE PRESCRIPTIONS EXPLAINED TO PATIENT WELL TRANSPORTER, MYRNA, WHO IS EMPLOYEE AT PATIENT'S [employer] [employer], AND WHO PATIENT STATES CAN DISCUSS ALL HEALTH INFORMATION IN HIS REGARD. ESCORTED PATIENT TO FRONT OF HOSPITAL VIA WHEELCHAIR AND ASSISTED PATIENT TO CAR BEING DRIVEN BY MYRNA. Addendum: 11/24/18 at 1535 by Maikol Stern RN *CLARIFICATION 1525 WAS EXACT MINUTE OF PATIENT DEPARTURE FROM HOSPITAL.
== END 2018-11-24 15:25 | DRG 177 ==
LOC: MED 08:39 → MTU 11:24
PROVIDERS: ADMIT General Practice; ATTEND General Practice
DX: J69.0 Pneumonitis due to inhalation of food and vomit (principal); E43 Unspecified severe protein-calorie malnutrition; J96.01 Acute respiratory failure with hypoxia; J44.1 Chronic obstructive pulmonary disease with (acute) exacerbation; E87.1 Hypo-osmolality and hyponatremia; J44.0 Chronic obstructive pulmonary disease with (acute) lower respiratory infection; M94.0 Chondrocostal junction syndrome [Tietze]; D64.9 Anemia, unspecified; F20.9 Schizophrenia, unspecified; F17.210 Nicotine dependence, cigarettes, uncomplicated; I10 Essential (primary) hypertension; E02 Subclinical iodine-deficiency hypothyroidism; D72.829 Elevated white blood cell count, unspecified; T38.0X5A Adverse effect of glucocorticoids and synthetic analogues, initial encounter; E83.42 Hypomagnesemia; Z68.23 Body mass index [BMI] 23.0-23.9, adult; Z88.0 Allergy status to penicillin; Y92.89 Other specified places as the place of occurrence of the external cause
CPT/HCPCS: 36415; 71045; 71250; 76604; 80048; 80053; 80305; 81003; 82140; 82150; 82607; 82728; 82746; 83036; 83540; 83605; 83690; 83735; 83880; 84100; 84439; 84443; 84479; 84484; 85025; 85045; 85610; 85730; 87040; 87070; 87081; 87186; 87205; 94640; 94761; 96365; 97110; 97116; 97161-GP; 97530; 99285; J0360; J1644; J1956; J2060; J2916; J2920; J3490; J7030; J7060; J7620; J7626; Q0092

== ENCOUNTER 2019-01-30 19:36 | Inpatient (IN) | payer OTHER, MEDICAID ==
[~2019-01-30] VITALS: Ht 175.3 cm; Wt 81.6 kg
[2019-01-30 19:36] VITALS: BP 148/90
[~2019-01-30 19:36] MED LIST changes: +ALBU-118 IH; +CLIN300C2 PO; -DIVA500E1 PO; +IBUP-1842 PO; +LACT10CA1 PO; +LEVO750T2 PO; +OLAN15TA1 PO; +QUET200T PO; +QUET400T PO; +ROB PO; +VALP250S5 PO
--- NOTE | 2019-01-30 19:36 | NUR ---
VIOLETTA FROM [facility], TO BED AT THIS TIME.
--- NOTE | 2019-01-30 19:40 | NUR ---
58 [facility] EXTREMELY SLEEPY, DROOLING, 2 HRS AGO. PT IS AOX4, GCS 15, NO DROOLING AT THIS TIME. SIDERAILS X2 ERMD AWARE OF STATUS. HX COPD, SCHIZOPHRENIA, HTN, HYPOTHYROID RX SEROQUEL, ZYPREXA, DEPAKENE, SYNTHROID ALLERGIES:PCN
[2019-01-30] MEDS ORDERED: NACL 0.9% 500 ML IV SCH (20:23)
--- NOTE | 2019-01-30 20:32 | NUR ---
PT WENT TO CT
--- NOTE | 2019-01-30 21:05 | NUR ---
PT AMBULATED WITH ISOLATION PPE MASK ON TO BED #1
[2019-01-30 21:12] LABS: BASOPHILS % (AUTO) 0.4 % (0.0-2.0); EOSINOPHILS # (AUTO) 0.1 K/uL (0-0.4); HEMATOCRIT 27.9 % (36-52); HEMOGLOBIN 9.5 g/dL (12.0-18.0); LYMPHOCYTES # (AUTO) 1.9 K/uL (2.0-11.5); LYMPHOCYTES % (AUTO) 29.3 % (20.5-51.1); MEAN CORPUSCULAR HEMOGLOBIN 29 pg (27-31); MEAN CORPUSCULAR HGB CONC 34 g/dL (33-37); MEAN CORPUSCULAR VOLUME 84.3 fL (80-94); MONOCYTES # (AUTO) 0.7 K/uL (0.8-1.0); MONOCYTES % (AUTO) 11.2 % (1.7-9.3); NEUTROPHILS # (AUTO) 3.7 K/uL (1.8-7.7); NEUTROPHILS % (AUTO) 58.1 % (42.2-75.2); PLATELET COUNT (AUTO) 340 K/uL (140-450); RED BLOOD CELL COUNT(AUTO) 3.31 MIL/uL (4.20-6.10); RED CELL DISTRIBUTION WIDTH 17.2 % (11.6-13.7); WHITE BLOOD COUNT (AUTO) 6.3 K/uL (4.8-10.8)
[2019-01-30 21:29] LABS: PROTHROMBIN TIME 12.5 secs (10.8-13.4)
[2019-01-30 21:40] LABS: ALBUMIN 2.2 g/dL (3.4-5.0); CARBON DIOXIDE 26.5 mmol/L (21-32); CREATININE 0.9 mg/dL (0.7-1.3); POTASSIUM 4.5 mmol/L (3.5-5.1); TOTAL BILIRUBIN 0.2 mg/dL (0.0-1.0)
[2019-01-30] MEDS ORDERED: LEVOFLOXACIN 500 MG/D5W PREMIX 100 ML IV ONE (22:00)
[2019-01-30 22:09] LABS: APPEARANCE,URINE CLEAR (CLEAR); BILIRUBIN,URINE NEGATIVE (NEGATIVE); BLOOD, URINE NEGATIVE (NEGATIVE); COLOR,URINE YELLOW (YELLOW); LEUKOCYTE ESTERASE ,URINE NEGATIVE (NEGATIVE); NITRITE, URINE NEGATIVE (NEGATIVE); UGLUCOSE NEGATIVE (NEGATIVE)
[2019-01-30] MEDS ORDERED: ACETAMINOPHEN 325 MG TAB PO PRN (22:15)
[2019-01-30] MEDS ORDERED: ONDANSETRON 4 MG/2 ML VIAL IM/IVP PRN (22:15)
[2019-01-30] MEDS ORDERED: MORPHINE SULFATE 2 MG/ML SYR IVP PRN (22:15)
[2019-01-30] MEDS ORDERED: HYDROcodone/APAP 7.5/325 MG 1 TAB PO PRN (22:15)
[2019-01-30] MEDS ORDERED: DOCUSATE SODIUM 100 MG GELCAP PO PRN (22:15)
--- NOTE | 2019-01-30 22:51 | NUR ---
Patient will be admitted to care of [facility]. Admited to Med/Surg. Will go to room 117. Belongings list completed. Report to PINA MIGUEL.
--- NOTE | 2019-01-30 23:00 | NUR ---
ADMITTED 58 YEARS OLD MALE FROM ER VIA WHEELCHAIR TO 117. CARE BOARD STARTED. CC: GENERALIZED WEAKNESS. DX: HYPONATREMIA AND PNA. ORIENTED TO ROOM AND UNIT ROUTINES. SEE NURSING ADMISSION ASSESSMENT AND HISTORY. ORIENTED TO ROOM AND UNIT ROUTINES. CALL LIGHT WITHIN REACH.
[2019-01-30 23:33] LABS: BARBITURATE, URINE NEG. ng/ml (NEG <=200); BENZODIAZEPINE, URINE NEG. ng/mL (NEG <=200); CANNABINOID, URINE NEG. ng/mL (NEG <=50); COCAINE, URINE NEG. ng/mL (NEG <=300); OPIATE, URINE NEG. ng/mL (NEG <=2000); PHENCYCLIDINE SCREEN,URINE NEG. ng/mL (NEG <=25)
[2019-01-30 23:45] LABS: CHOL/HDL RATIO 3.1 (1-4.5); MAGNESIUM 1.6 mg/dL (1.8-2.4); PHOSPHORUS 4.1 mg/dL (2.5-4.9); THYROID STIMULATING HORMONE 5.89 uIU/mL (0.34-3.74)
[2019-01-30] MEDS: NACL 0.9% 1,000 ML IV SCH (23:58)
[2019-01-31 00:05] VITALS: BP 156/95
--- NOTE | 2019-01-31 00:45 | NUR ---
CT OF CHEST WITH IV CONTRAST ORDERED. PATIENT SIGNED CONSENT. NPO TILL CT DONE. ASSISTED BRP. CALL LIGHT WITHIN REACH.
[2019-01-31] MEDS ORDERED: ALBUTEROL SULFATE/IPRATROPIU 3 ML SOL IH PRN (01:50)
[2019-01-31] MEDS ORDERED: MAGNESIUM OXIDE 400 MG TAB PO SCH ×2 (02:30→11:15)
--- NOTE | 2019-01-31 03:19 | NUR ---
ASLEEP, ASSISTED BY MARKETING COMMUNICATIONS ASSOCIATE TO BRP. CT OF CHEST AT 0500. CONSENT SIGNED. CALL LIGHT WITHIN REACH.
[2019-01-31] MEDS ORDERED: CLINDAMYCIN 600 MG/4 ML VIAL ONE (04:40)
[2019-01-31] MEDS: CLINDAMYCIN 600 MG in DEXTROSE 5% 50 ML IV SCH ×3 (05:02→19:59)
--- NOTE | 2019-01-31 06:12 | NUR ---
TO CT DEPARTMENT VIA WHEELCHAIR.
--- NOTE | 2019-01-31 06:40 | NUR ---
BACK FROM CT DEPARTMENT, NO DISTRESS. TOLERATED WELL. CALL LIGHT WITHIN REACH.
--- NOTE | 2019-01-31 07:25 | NUR ---
ENDORSED CARE AT BEDSIDE WITH ARNAUD HELLER, PATIENT IN STABLE CONDITION.
--- NOTE | 2019-01-31 07:38 | NUR ---
RECEIVED REPORT FROM [employer] CONSERVATION LABORER RN. PT AAOX4, SITTING UP IN BED AWAITING BREAKFAST. IV IN RIGHT AC 20G INFUSING NS @ 100ML/HR. ORIENTED PT TO ROOM AND UNIT ROUTINES. DISCUSSED POC WITH PT, PT VERBALIZED UNDERSTANDING. CALL LIGHT WITHIN REACH. BED IN LOW POSITION, WILL ROUND FREQUENTLY ON PT.
[2019-01-31 08:00] VITALS: BP 171/95
[2019-01-31] MEDS: BUDESONIDE 0.5 MG/2 ML NEBU INH SCH ×2 (08:01→19:43)
[2019-01-31] MEDS: NACL 0.9% 1,000 ML IV SCH ×2 (08:11→17:32)
[2019-01-31 08:15] LABS: BASOPHILS % (AUTO) 0.1 % (0.0-2.0); EOSINOPHILS % (AUTO) 0.7 % (0.0-4.0); HEMATOCRIT 31.2 % (36-52); HEMOGLOBIN 10.5 g/dL (12.0-18.0); LYMPHOCYTES # (AUTO) 1.2 K/uL (2.0-11.5); LYMPHOCYTES % (AUTO) 17.3 % (20.5-51.1); MEAN CORPUSCULAR HEMOGLOBIN 29 pg (27-31); MEAN CORPUSCULAR HGB CONC 34 g/dL (33-37); MEAN CORPUSCULAR VOLUME 84.9 fL (80-94); MONOCYTES % (AUTO) 14.1 % (1.7-9.3); NEUTROPHILS # (AUTO) 4.7 K/uL (1.8-7.7); NEUTROPHILS % (AUTO) 67.8 % (42.2-75.2); PLATELET COUNT (AUTO) 439 K/uL (140-450); RED BLOOD CELL COUNT(AUTO) 3.67 MIL/uL (4.20-6.10); RED CELL DISTRIBUTION WIDTH 17.2 % (11.6-13.7); WHITE BLOOD COUNT (AUTO) 6.9 K/uL (4.8-10.8)
--- NOTE | 2019-01-31 08:21 | NUR ---
PATIENT HAS BEEN SCREENED AND CATEGORIZED MODERATE NUTRITION RISK. PATIENT WILL BE SEEN WITHIN 3-5 DAYS OF ADMISSION. 02/03/[address]
[2019-01-31] MEDS ORDERED: LACTOBACILLUS RHAMNOSUS GG 1 EACH CAP PO SCH (09:00)
--- NOTE | 2019-01-31 09:21 | NUR ---
INSTRUCTED PT THAT CLEAN CATCH URINE SAMPLE IS ORDERED BY . PT VERBALIZED UNDERSTANDING. 24HR URINE COLLECTION ALSO REQUIRED. WILL BEGIN COLLECTION.
--- NOTE | 2019-01-31 09:27 | NUR ---
PT RESTING IN BED. ASKING FOR SNACK. WILL CALL [facility]. TO GET PT SANDWICH. ALL OTHER NEEDS MET. WILL CONTINUE TO ROUND ON PT.
[2019-01-31] MEDS: VALPROIC ACID 250 MG/5 ML UDC PO SCH (09:35)
[2019-01-31] MEDS: NICOTINE TRANSD SYS 21 MG/24 HR PATCH TD SCH (09:35)
[2019-01-31] MEDS: QUEtiapine FUMARATE 100 MG TAB PO SCH ×3 (09:36→19:58)
[2019-01-31] MEDS: OLANZapine 5 MG TAB PO SCH ×2 (09:36→19:58)
[2019-01-31] MEDS: LISINOPRIL 5 MG TAB PO SCH (09:37)
[2019-01-31] MEDS: LACTOBACILLUS RHAMNOSUS GG 1 EACH CAP PO SCH (09:37)
[2019-01-31] MEDS: hydrALAZINE 20 MG/ML VIAL IVP PRN (09:38)
[2019-01-31 09:50] LABS: ANION GAP 14.3 (8-16); CARBON DIOXIDE 25.5 mmol/L (21-32); CREATININE 0.9 mg/dL (0.7-1.3); POTASSIUM 4.8 mmol/L (3.5-5.1)
[2019-01-31 09:55] LABS: MAGNESIUM 1.7 mg/dL (1.8-2.4); PHOSPHORUS 3.8 mg/dL (2.5-4.9)
--- NOTE | 2019-01-31 11:28 | NUR ---
PT RESTING IN BED WATCHING TV. WILL CONTINUE TO ROUND FREQUENTLY ON PT.
--- NOTE | 2019-01-31 15:57 | NUR ---
PT SLEEPING IN BED. ALL NEEDS MET. WILL CONTINUE TO ROUND FREQUENTLY ON PT
--- NOTE | 2019-01-31 15:59 | NUR ---
PT NOT COMPLIANT WITH URINE COLLECTION. PT USING RESTROOM AFTER INSTRUCTED TO UE URINAL. REINFORCED INSTRUCTIONS ON COLLECTING URINE. PT VERBALIZED UNDERSTANDING.
[2019-01-31 16:00] VITALS: BP 142/84
--- NOTE | 2019-01-31 17:45 | NUR ---
PT RESTING IN BED. ALL NEEDS MET. WILL CONTINUE TO ROUND FREQUENTLY ON PT.
--- NOTE | 2019-01-31 19:35 | NUR ---
RECEIVED FROM AM RN IN BED AT THIS TIME BUT SEEN HIM COME OUT FROM RESTROOM LOCATED INSIDE ROOM AND URINATED . REMINDED TO PLEASE URINATE IN URINAL RT WITH 24 HOUR URINE COLLECTION. "OK" CALL LIGHT WITH IN REACH. CARE PLANS FOR THE NIGHT DISCUSSED WITH HIM. PER AM RN PT. HAVE PERIODS OF FORGETFULNESS. BED ALARM ON. WITH RAC #20 INFUSING NS AT 100 ML /H. DX. OF PNA AND HYPONATREMIA. VERBALIZES NEEDS WELL.
--- NOTE | 2019-01-31 19:52 | NUR ---
ENDORSED PT TO WHIPPED TOPPING FINISHER FOR CONTINUITY OF CARE. PT IN STABLE CONDITION AT THIS TIME.
[2019-01-31] MEDS: methylPREDNISolone SS 40 MG/ML VIAL IVP SCH (19:59)
[2019-01-31] MEDS: LEVOFLOXACIN 500 MG/D5W PREMIX 100 ML IV SCH (20:48)
--- NOTE | 2019-01-31 21:36 | NUR ---
MD FOWLER INFECTION SPECIALIST IN HERE TO SEE PT. NO ORDERS GIVEN. PT. REMINDED AGAIN TO URINATE IN URINAL FOR 24 HOUR COLLECTION. "OK" ABLE TO COLLECT URINE 400 ML THIS TIME IN MY SHIFT. PLACED IN BAG . PROVIDED WITH SANDWICH AND PUDDING REQUESTED BY PT. NO COMPLAINTS DONE.
[2019-01-31 23:10] VITALS: BP 160/96
--- NOTE | 2019-02-01 | NUR ---
CNAS ATTENDING TO PT.S PERSONAL HYGIENE AND REMINDED HIM TO URINATE IN URINAL. "OK"
--- NOTE | 2019-02-01 01:03 | NUR ---
PT. BEEN SLEEPING WELL . NO RESTLESSNESS. PT. PERSONAL HYGIENE DONE AT 0000 BY CNAS. STILL ON 24 HOUR URINE COLLECTION.
--- NOTE | 2019-02-01 03:29 | NUR ---
SLEEPING WELL. NO RESTLESSNESS. CALL LIGHT WITH IN REACH. USING URINAL TO URINATE.
[2019-02-01] MEDS: NACL 0.9% 1,000 ML IV SCH ×2 (04:11→14:11)
[2019-02-01] MEDS: CLINDAMYCIN 600 MG in DEXTROSE 5% 50 ML IV SCH ×3 (04:57→21:36)
[2019-02-01 06:07] LABS: T4 (THYROXINE) 4.7 ug/dL (4.5-12.0)
--- NOTE | 2019-02-01 06:47 | NUR ---
SLEEPING WELL AT THIS TIME. NO RESTLESSNESS. PROVIDED WITH WARM BLANKET . COMFORTABLE. IVF SITE TO RAC INTACT AND WITH GOOD BLOOD RETURN.
--- NOTE | 2019-02-01 07:15 | NUR ---
RECEIVED REPORT FROM WIRE PHOTO OPERATOR NEWS NURSE. PATIENT IS SLEEPING IN BED. PATIENT IS ON ROOM AIR WITH AN IV TO RIGHT AC. INFORMED ON 24H URINE COLLECTION. INFORMED PATIENT TO USE URINAL AND TO NOT VOID IN TOILET. WILL CONTINUE TO MONITOR
--- NOTE | 2019-02-01 07:25 | NUR ---
ENDORSED TO THE NEXT RN FOR CONTINUITY OF CARE. AWAKE AND ALERT. ABLE TO VERBALIZE NEEDS WELL.
[2019-02-01] MEDS: BUDESONIDE 0.5 MG/2 ML NEBU INH SCH ×2 (07:52→19:51)
[2019-02-01 08:00] VITALS: BP 152/70
[2019-02-01] MEDS: LACTOBACILLUS RHAMNOSUS GG 1 EACH CAP PO SCH (08:26)
[2019-02-01] MEDS: QUEtiapine FUMARATE 100 MG TAB PO SCH ×3 (08:26→20:31)
[2019-02-01] MEDS: VALPROIC ACID 250 MG/5 ML UDC PO SCH (08:27)
[2019-02-01] MEDS: OLANZapine 5 MG TAB PO SCH ×2 (08:27→20:30)
[2019-02-01] MEDS: LISINOPRIL 5 MG TAB PO SCH (08:29)
[2019-02-01] MEDS: methylPREDNISolone SS 40 MG/ML VIAL IVP SCH ×2 (08:29→20:31)
[2019-02-01] MEDS: NICOTINE TRANSD SYS 21 MG/24 HR PATCH TD SCH (08:29)
--- NOTE | 2019-02-01 09:00 | NUR ---
PATIENT IS SITTING UP IN BED EATING BREAKFAST. PATIENT WAS GIVEN MORNING MEDICATION AND TOLERATED WELL.
[2019-02-01 09:28] LABS: BASOPHILS % (AUTO) 0.2 % (0.0-2.0); EOSINOPHILS % (AUTO) 0.1 % (0.0-4.0); HEMATOCRIT 30.6 % (36-52); HEMOGLOBIN 10.1 g/dL (12.0-18.0); LYMPHOCYTES # (AUTO) 0.9 K/uL (2.0-11.5); LYMPHOCYTES % (AUTO) 12.3 % (20.5-51.1); MEAN CORPUSCULAR HEMOGLOBIN 28 pg (27-31); MEAN CORPUSCULAR HGB CONC 33 g/dL (33-37); MEAN CORPUSCULAR VOLUME 86.1 fL (80-94); MONOCYTES # (AUTO) 0.5 K/uL (0.8-1.0); MONOCYTES % (AUTO) 6.5 % (1.7-9.3); NEUTROPHILS # (AUTO) 6.1 K/uL (1.8-7.7); NEUTROPHILS % (AUTO) 80.9 % (42.2-75.2); PLATELET COUNT (AUTO) 390 K/uL (140-450); RED BLOOD CELL COUNT(AUTO) 3.56 MIL/uL (4.20-6.10); RED CELL DISTRIBUTION WIDTH 17.6 % (11.6-13.7); WHITE BLOOD COUNT (AUTO) 7.6 K/uL (4.8-10.8)
[2019-02-01 09:34] LABS: ANION GAP 13.2 (8-16); CARBON DIOXIDE 23.4 mmol/L (21-32); CREATININE 0.9 mg/dL (0.7-1.3); POTASSIUM 4.6 mmol/L (3.5-5.1)
[2019-02-01 09:38] LABS: MAGNESIUM 1.6 mg/dL (1.8-2.4); PHOSPHORUS 3.6 mg/dL (2.5-4.9)
--- NOTE | 2019-02-01 12:00 | NUR ---
PATIENT IS RESTING QUIETLY IN BED. NO SIGNS OF RESP DISTRESS. PATIENT ON ROOM AIR, WILL CONTINUE TO MONITOR
[2019-02-01 16:00] VITALS: BP 163/97
--- NOTE | 2019-02-01 16:00 | NUR ---
SPOKE TO PATIENT REGARDING OBTAINING CONSENT FOR CT NEEDLE BIOPSY. PATIENT REFUSED PROCEDURE. NOTIFIED MD BANGURA. MD INFORMED ME HE WILL SPEAK TO PATIENT REGARDING THE MATTER. WILL CONTINUE TO MONITOR SITUATION.
--- NOTE | 2019-02-01 19:30 | NUR ---
RECEIVED FROM AM RN IN BED AWAKE AND ALERT. VERBALIZES WELL. NO SOB. NO C/O PAIN DONE. NEW IVF SITE TO LEFT HAND NOTED. ENCOURAGED PT. TO PLEASE USE CALL LIGHT FOR ANY HELP HE MAY NEED. CARE PLANS FOR THE NIGHT DISCUSSED WITH HIM. DX. PNA AND HYPONATREMIA.
--- NOTE | 2019-02-01 20:00 | NUR ---
RECEIVED PATIENT ON ROOM AIR, PULSE OX SAT 96%. SCHEDULED BREATHING TREATMENT ADMINISTERED. TOLERATED WELL WITHOUT ADVERSE SIDE EFFECTS. ORAL RINSE DONE POST TX. NO ACUTE RESPIRATORY DISTRESS NOTED AT THIS TIME. WILL CONTINUE TO MONITOR.
[2019-02-01] MEDS: LEVOFLOXACIN 500 MG/D5W PREMIX 100 ML IV SCH (20:31)
--- NOTE | 2019-02-01 20:38 | NUR ---
PT. ABLE TO STAND UP AND USE URINAL TO URINATE. NOTED ABLE TO VERBALIZE SIMPLE NEEDS MORE CLEARLY BUT TALKING SLOW. ENCOURAGED TO USE CALL LIGHT FOR HELP. "OK" IVF SITE INTACT AND NO INFILTRATION NOTED #22.
[2019-02-02] MEDS: NACL 0.9% 1,000 ML IV SCH ×2 (00:11→04:46)
[2019-02-02 00:14] VITALS: BP 144/88
--- NOTE | 2019-02-02 00:23 | NUR ---
PT. STOOD UP TO URINATE IN URINAL. ENCOURAGED TO CALL FOR HELP. NOTED STEADY UPON STANDING UP. ABLE TO VERBALIZE NEEDS WELL. IVF SITE INTACT. CALL LIGHT WITH IN REACH. NO SOB. DENIES PAIN.
--- NOTE | 2019-02-02 02:00 | NUR ---
SLEEPING WELL. NO RESTLESSNESS. CALL LIGHT WITH IN REACH.
[2019-02-02] MEDS: CLINDAMYCIN 600 MG in DEXTROSE 5% 50 ML IV SCH (04:35)
[2019-02-02 05:08] VITALS: BP 166/95
[2019-02-02] MEDS: hydrALAZINE 20 MG/ML VIAL IVP PRN (05:13)
[2019-02-02 06:25] VITALS: BP 150/84
--- NOTE | 2019-02-02 06:25 | NUR ---
PT. SLEEPING AT THIS TIME. LATEST BP WNL. ABLE TO WAKE UP EASILY WHEN TOUCHED OR CALLED BY NAME. A/O X 4. ROM X 4. CLEAR SPEECH. WILL ENDORSE TO AM RN FOR CONTINUITY OF CARE.
--- NOTE | 2019-02-02 07:05 | NUR ---
RECEIVED REPORT FROM TELEMETRY RN NURSE. WAS INFORMED PATIENT WANTS TO LEAVE AMA. PATIENT IS INFORMED ON CONSEQUENCES OF LEAVING. DR BANGURA INFORMED ON THIS AND TALKED TO PATIENT. WILL CONTINUE WITH AMA PAPERWORK.
[2019-02-02] MEDS: BUDESONIDE 0.5 MG/2 ML NEBU INH SCH (07:38)
--- NOTE | 2019-02-02 08:04 | NUR ---
SPOKE WITH HAI AT [facility] TO NOTIFY OF PT AMA AND TO REQUEST RIDE FOR PT.
--- NOTE | 2019-02-02 08:04 | NUR ---
PT GOING AMA. [facility] CALLED AT TO NOTIFY OF PT LEAVING HOSPITAL. PER SHOT EXAMINER, PT WILL BE PICKED UP IN 20MINS. PT WILL WAIT OUTSIDE FOR RIDE. PT IN STABLE CONDITION.
--- NOTE | 2019-02-02 08:07 | NUR ---
PT LEFT AMA. IV WAS REMOVED PRIOR, CANNULA INTACT. PATIENT GOT DRESSED AND TOOK ALL OF HIS BELONGINGS. WRIST BANDS WERE ALL REMOVED FROM PATIENTS WRISTS. PT LEFT IN STABLE CONDITION.
== END 2019-02-02 08:05 | disposition left against medical advice (07) | DRG 193 ==
LOC: MED 19:36 → MTU 22:11
PROVIDERS: ADMIT General Practice; ATTEND General Practice
DX: J18.9 Pneumonia, unspecified organism (principal); G93.41 Metabolic encephalopathy; E43 Unspecified severe protein-calorie malnutrition; J96.01 Acute respiratory failure with hypoxia; E87.1 Hypo-osmolality and hyponatremia; J44.0 Chronic obstructive pulmonary disease with (acute) lower respiratory infection; J44.1 Chronic obstructive pulmonary disease with (acute) exacerbation; E03.9 Hypothyroidism, unspecified; F20.9 Schizophrenia, unspecified; I10 Essential (primary) hypertension; F17.210 Nicotine dependence, cigarettes, uncomplicated; I16.0 Hypertensive urgency; R91.8 Other nonspecific abnormal finding of lung field; Z53.21 Procedure and treatment not carried out due to patient leaving prior to being seen by health care provider; Z68.26 Body mass index [BMI] 26.0-26.9, adult; Z88.0 Allergy status to penicillin; Z56.0 Unemployment, unspecified
CPT/HCPCS: 36415; 70450; 71045; 71260; 80048; 80053; 80305; 81003; 82150; 82436; 82570; 82948; 83036; 83605; 83690; 83735; 83880; 83930; 83935; 84100; 84436; 84443; 84484; 85025; 85610; 85730; 87040; 87081; 87086; 93005; 94640; 96360; 99285; J0360; J1956; J2920; J3490; J7030; J7060; J7620; J7626; Q9967

== ENCOUNTER 2019-02-12 20:23 | Emergency (ER) | payer OTHER, MEDICAID ==
[~2019-02-12] VITALS: Ht 170.2 cm; Wt 95.3 kg
[2019-02-12 20:23] VITALS: BP 170/94
[~2019-02-12 20:23] MED LIST changes: -CLIN300C2 PO; -LACT10CA1 PO; -LEVO750T2 PO
--- NOTE | 2019-02-12 20:24 | NUR ---
PT BIBA TO BED 10.
--- NOTE | 2019-02-12 20:26 | NUR ---
Dr. Montoya examining patient.
[2019-02-12] MEDS ORDERED: NACL 0.9% 1,000 ML IV ONE ×2 (20:35→22:35)
--- NOTE | 2019-02-12 20:35 | NUR ---
EMT PERFORMING EKG AT BEDSIDE.
--- NOTE | 2019-02-12 20:39 | NUR ---
XRAY AT BEDSIDE.
[2019-02-12 21:11] LABS: BASOPHILS % (AUTO) 0.4 % (0.0-2.0); EOSINOPHILS % (AUTO) 0.5 % (0.0-4.0); HEMATOCRIT 26.4 % (36-52); LYMPHOCYTES # (AUTO) 2.4 K/uL (2.0-11.5); LYMPHOCYTES % (AUTO) 32.2 % (20.5-51.1); MEAN CORPUSCULAR HEMOGLOBIN 29 pg (27-31); MEAN CORPUSCULAR HGB CONC 34 g/dL (33-37); MEAN CORPUSCULAR VOLUME 85.5 fL (80-94); MONOCYTES # (AUTO) 0.7 K/uL (0.8-1.0); MONOCYTES % (AUTO) 9.4 % (1.7-9.3); NEUTROPHILS # (AUTO) 4.4 K/uL (1.8-7.7); NEUTROPHILS % (AUTO) 57.5 % (42.2-75.2); PLATELET COUNT (AUTO) 329 K/uL (140-450); RED BLOOD CELL COUNT(AUTO) 3.09 MIL/uL (4.20-6.10); RED CELL DISTRIBUTION WIDTH 17.4 % (11.6-13.7); WHITE BLOOD COUNT (AUTO) 7.6 K/uL (4.8-10.8)
--- NOTE | 2019-02-12 21:20 | NUR ---
PT C/O LT ANTERIOR CHEST WALL PAIN X2 MONTHS. NON CARDIAC RELATED CHEST PAIN. PT STATES HE LIVES IN [facility] IN [place]. DENIES DRUG USE. RESPIRATIONS EVEN, UNLABORED. DENIES ABD PAIN. SITTING IN BED, CALM AND PLEASANT. NO COMPLAINTS AT THIS TIME. MEDHX: HTN, COPD, PSYCH HX ALLERGIES: PENICILLIN
[2019-02-12 21:34] LABS: APPEARANCE,URINE CLEAR (CLEAR); BILIRUBIN,URINE NEGATIVE (NEGATIVE); BLOOD, URINE NEGATIVE (NEGATIVE); COLOR,URINE YELLOW (YELLOW); LEUKOCYTE ESTERASE ,URINE NEGATIVE (NEGATIVE); NITRITE, URINE NEGATIVE (NEGATIVE); UGLUCOSE NEGATIVE (NEGATIVE)
[2019-02-12 21:45] LABS: ALBUMIN 2.5 g/dL (3.4-5.0); ANION GAP 11.7 (8-16); CARBON DIOXIDE 24.7 mmol/L (21-32); CREATININE 0.8 mg/dL (0.7-1.3); POTASSIUM 4.4 mmol/L (3.5-5.1); TOTAL BILIRUBIN 0.2 mg/dL (0.0-1.0)
[2019-02-12 23:05] LABS: POTASSIUM 4.1 mmol/L (3.5-5.1)
[2019-02-12 23:06] LABS: ANION GAP 13.2 (8-16); CARBON DIOXIDE 23.9 mmol/L (21-32); CREATININE 0.8 mg/dL (0.7-1.3)
[2019-02-12] MEDS ORDERED: cloNIDine 0.1 MG TAB PO ONE ×2 (23:10→23:30)
[2019-02-12] MEDS ORDERED: LEVOFLOXACIN 750 MG TAB PO ONE (23:10)
--- NOTE | 2019-02-12 23:36 | NUR ---
Patient discharged with v/s stable. Written and verbal after care instructions given and explained. Patient alert, oriented and verbalized understanding of instructions. Ambulatory with to car. All questions addressed prior to discharge. ID band removed. Patient advised to follow up with PMD. Rx of IBURPROFEN AND LEVAQUIN given. Patient educated on indication of medication including possible reaction and side effects. Opportunity to ask questions provided and answered. PTS RIDE AWAITING OUTSIDE OF ER
[2019-02-12 23:41] VITALS: BP 169/106
--- NOTE | 2019-02-14 13:18 | NUR ---
Late entry. Confirmed with RN that 0.9 NS 1000ml IV completed at 2335
== END 2019-02-12 23:36 | disposition home or self-care (01) ==
LOC: MED 20:23
DX: J18.9 Pneumonia, unspecified organism (principal); R07.89 Other chest pain; E87.1 Hypo-osmolality and hyponatremia; D64.9 Anemia, unspecified; I10 Essential (primary) hypertension; J44.9 Chronic obstructive pulmonary disease, unspecified; F17.210 Nicotine dependence, cigarettes, uncomplicated; Z79.899 Other long term (current) drug therapy; Z79.1 Long term (current) use of non-steroidal anti-inflammatories (NSAID); Z79.51 Long term (current) use of inhaled steroids; Z88.0 Allergy status to penicillin
CPT/HCPCS: 36415; 71045; 80048; 80053; 81003; 83605; 83880; 84484; 85025; 87040; 87086; 93005; 99284; J7030

== ENCOUNTER 2022-07-25 15:32 | Emergency (ER) | payer OTHER, MEDICAID ==
[~2022-07-25] VITALS: Ht 170.2 cm; Wt 68.0 kg
--- NOTE | 2022-07-25 15:46 | NUR ---
BIBA BLS TO ER BED 4
[2022-07-25 15:58] VITALS: BP 155/85
--- NOTE | 2022-07-25 16:52 | NUR ---
PT REFUSING TO PUT ON GOWN.
[2022-07-25] MEDS ORDERED: BACTO TP (17:58)
[2022-07-25] MEDS ORDERED: IBUPROFEN 600 MG TAB PO ONE (18:00)
[2022-07-25] MEDS ORDERED: ACETAMINOPHEN EXTRA STRENGTH 500 MG TAB PO ONE (18:00)
--- NOTE | 2022-07-25 18:00 | NUR ---
MOTHER JOVON DEDRA [phone]
[2022-07-25] MEDS ORDERED: ACETAMINOPHEN EXTRA STRENGTH 500 MG TAB ONE (19:21)
--- NOTE | 2022-07-25 19:21 | NUR ---
REPORT GIVEN TO EDDIE RANDALL. TRANSFER OF CARE AT THIS TIME.
[2022-07-25] MEDS ORDERED: IBUPROFEN 600 MG TAB ONE (19:22)
--- NOTE | 2022-07-25 20:04 | NUR ---
ATTEMPTED TO CONTACT PT BROTHER BRENT , LEFT VOICEMAIL. SPOKE WITH PT MOTHER, UNABLE TO CIVIL ENGINEERING PROFESSOR PT.
[2022-07-25 22:38] VITALS: BP 145/78
--- NOTE | 2022-07-25 22:54 | NUR ---
Laying down on bed at this time. Provided c food and juice. No complaints of pain
--- NOTE | 2022-07-26 00:02 | NUR ---
Patient discharged with v/s stable. Written and verbal after care instructions given and explained. Patient alert, oriented and verbalized understanding of instructions. Wheel Chair Assisted with to fpc. All questions addressed prior to discharge. ID band removed. Patient advised to follow up with PMD. Rx of BACTROBAN given.
== END 2022-07-26 00:02 | disposition home or self-care (01) ==
LOC: MED 15:32
DX: S90.31XA Contusion of right foot, initial encounter (principal); Z20.822 Contact with and (suspected) exposure to COVID-19; J44.9 Chronic obstructive pulmonary disease, unspecified; I10 Essential (primary) hypertension; Z88.0 Allergy status to penicillin; Z79.899 Other long term (current) drug therapy; X58.XXXA Exposure to other specified factors, initial encounter; Y93.89 Activity, other specified; Y92.89 Other specified places as the place of occurrence of the external cause; Y99.8 Other external cause status
CPT/HCPCS: 29515; 73630; 87426; 99284; Q0092

== ENCOUNTER 2022-09-03 14:01 | Inpatient (IN) | payer OTHER, MEDICAID ==
[~2022-09-03] VITALS: Ht 172.7 cm; Wt 65.8 kg
[~2022-09-03 14:01] MED LIST changes: +BACTO TP
[2022-09-03 14:15] VITALS: BP 167/96
--- NOTE | 2022-09-03 15:23 | NUR ---
PT REFUSED TO COME BACK. STATED " GIVE ME 30 MINUTES TO FINISH MY SMOKES ".
--- NOTE | 2022-09-03 16:57 | NUR ---
AMB BED 3, PT STATES THAT 'HE RAN OUT OF SMOKES SO IM GOOD NOW"
--- NOTE | 2022-09-03 17:10 | NUR ---
FIRST CONTACT. PT REFUSING TO REMOVE ANY CLOTHING,. WARM BLANKETS PROVIDED. PT SMELLS OF ALCOHOL AND CIGARETTE SMOKE. PT DENIES CONSUMING OF SMOKING ANYTHING.
[2022-09-03 17:18] LABS: BASOPHILS % (AUTO) 0.2 % (0.0-2.0); EOSINOPHILS % (AUTO) 0.1 % (0.0-4.0); HEMOGLOBIN 12.2 g/dL (12.0-18.0); LYMPHOCYTES # (AUTO) 1.8 K/uL (2.0-11.5); LYMPHOCYTES % (AUTO) 12.9 % (20.5-51.1); MEAN CORPUSCULAR HEMOGLOBIN 28 pg (27-31); MEAN CORPUSCULAR HGB CONC 34 g/dL (33-37); MEAN CORPUSCULAR VOLUME 81.3 fL (80-94); MONOCYTES # (AUTO) 0.7 K/uL (0.8-1.0); MONOCYTES % (AUTO) 4.8 % (1.7-9.3); NEUTROPHILS # (AUTO) 11.4 K/uL (1.8-7.7); PLATELET COUNT (AUTO) 482 K/uL (140-450); RED BLOOD CELL COUNT(AUTO) 4.43 MIL/uL (4.20-6.10); RED CELL DISTRIBUTION WIDTH 17.8 % (11.6-13.7); WHITE BLOOD COUNT (AUTO) 13.9 K/uL (4.8-10.8)
[2022-09-03 17:48] LABS: ALBUMIN 3.2 g/dL (3.4-5.0); ANION GAP 15.2 (8-16); CARBON DIOXIDE 25.5 mmol/L (21-32); CREATININE 0.7 mg/dL (0.6-1.3); POTASSIUM 4.7 mmol/L (3.5-5.1); TOTAL BILIRUBIN 0.2 mg/dL (0.0-1.0)
[2022-09-03] MEDS ORDERED: NACL 0.9% 2,000 ML IV ONE (17:55)
[2022-09-03] MEDS ORDERED: cefTRIAXone 2,000 MG in DEXTROSE 5% 100 ML IV ONE (17:55)
[2022-09-03] MEDS ORDERED: POTASSIUM CHLORIDE 10 MEQ TABER PO PRN (18:00)
[2022-09-03] MEDS ORDERED: MAG SULF 2000 MG/WATER PREMIX 50 ML IV PRN (18:00)
[2022-09-03] MEDS ORDERED: ACETAMINOPHEN 325 MG TAB PO PRN (18:00)
[2022-09-03] MEDS ORDERED: VANCOMYCIN PER PHARMACY MC PRN (18:00)
[2022-09-03] MEDS ORDERED: ONDANSETRON 4 MG/2 ML VIAL IVP PRN (18:00)
[2022-09-03] MEDS ORDERED: ZOLPIDEM 10 MG TAB PO PRN (18:00)
[2022-09-03] MEDS ORDERED: LORazepam 2 MG/ML VIAL IVP PRN (18:00)
[2022-09-03] MEDS ORDERED: NACL 0.9% 1,000 ML IV ONE (18:00)
[2022-09-03] MEDS ORDERED: MORPHINE SULFATE 2 MG/ML SYR IVP PRN (18:00)
[2022-09-03] MEDS ORDERED: DOCUSATE SODIUM 100 MG GELCAP PO PRN (18:00)
[2022-09-03] MEDS ORDERED: INSULIN LISPRO SLIDING SCALE 100 UNITS/ML VIAL SUBQ PRN (18:00)
[2022-09-03] MEDS ORDERED: DEXTROSE 50% 50 ML SYR IVP PRN (18:00)
[2022-09-03 18:10] VITALS: BP 168/98
--- NOTE | 2022-09-03 18:11 | NUR ---
ASSESMENT PER FLOWSHEET. IV ESTABLISHED. COMFORT MEASURES AND SUPPORTIVE CARE INITIATED. SEEN BY ERMD. PENDING ADMIT. PT AGREES TO STAY.
[2022-09-03] MEDS ORDERED: cefTRIAXone 2,000 MG VIAL ONE (18:18)
--- NOTE | 2022-09-03 19:35 | NUR ---
PENDING ADMIT. PT REMAINS STABLE. INCREASED B/P NOTED. ENDORSED TO EDDIE HELLER.
[2022-09-03] MEDS ORDERED: VANCOMYCIN 1,000 MG in DEXTROSE 5% 250 ML IV SCH (20:00)
--- NOTE | 2022-09-03 20:00 | NUR ---
PT DECLINCING MEDICAL CARE . REFUSAL OF MEDICATIONS AND ANTIBOTICS
[2022-09-03] MEDS ORDERED: VANCOMYCIN 1,000 MG VIAL ONE (20:41)
--- NOTE | 2022-09-03 20:51 | NUR ---
PT HAS BEEN TO ADMITED TO HOSIPTAL PT IS REFUSING TO STAY . AMA FORM SIGNED. PT IS A&OX4 . PT RESIDES IN A USP. [facility] WAS CONTACTED SPOKE TO ASHU EXPLAINED THE AMA PROCESS AND RISKS . Addendum: 09/03/22 at 2248 by MNURPM PT SIGNED AMA FORM AND LEFT AMA
--- NOTE | 2022-09-03 20:52 | NUR ---
CALLED DR. CEDENO TO NOTIFY HIM THAT PT WISHES TO AMA AT THIS TIME.
[2022-09-03] MEDS ORDERED: BLOOD GLUCOSE MONITORING 1 DEV DEV FS SCH (21:00)
--- NOTE | 2022-09-03 21:05 | NUR ---
CALLED ALLAN LANDRY AT [phone]. LEFT MESSAGE WITH EXCHANGE TO PHONE BACK.
--- NOTE | 2022-09-03 21:36 | NUR ---
RETURN CALL FROM SHANIQUA MCNEAL FROM CONSERVATIVE OFFICE, INFORMED OF PT REQUEST TO AMA AND PT CONDITION. SHANIQUA IN AGREEANCE THAT IF PT IS ABLE TO MAKE NEEDS KNOWN AND IS DECLINING TREATMENT THEN PT CANNOT BE KEPT AGAINST HIS WILL.
== END 2022-09-04 18:23 | disposition left against medical advice (07) | DRG 872 ==
LOC: MED 14:01 → MTU 17:56
PROVIDERS: ADMIT Family Medicine; ATTEND Family Medicine
DX: A41.9 Sepsis, unspecified organism (principal); L03.115 Cellulitis of right lower limb; E87.1 Hypo-osmolality and hyponatremia; M86.9 Osteomyelitis, unspecified; E11.69 Type 2 diabetes mellitus with other specified complication; I10 Essential (primary) hypertension; Z20.822 Contact with and (suspected) exposure to COVID-19; F20.9 Schizophrenia, unspecified; L08.9 Local infection of the skin and subcutaneous tissue, unspecified; J44.9 Chronic obstructive pulmonary disease, unspecified; Z88.0 Allergy status to penicillin
CPT/HCPCS: 36415; 73630; 80053; 83605; 85025; 87040; 96361; 96365; 99285; J0696; J1815; J3370; J7060

== ENCOUNTER 2022-09-05 21:05 | Emergency (ER) | payer OTHER, MEDICAID ==
[~2022-09-05] VITALS: Ht 170.2 cm; Wt 72.6 kg
--- NOTE | 2022-09-05 21:44 | NUR ---
called to triage no response
[2022-09-05 21:45] VITALS: BP 187/84
--- NOTE | 2022-09-06 01:30 | NUR ---
c/o right leg pain 03/08. hx schizophrenia, HTN, COPD, allergy, PCN. allergy to penicillin
[2022-09-06] MEDS ORDERED: SULF-59 PO (03:43)
[2022-09-06] MEDS ORDERED: ACET-8905 PO (03:43)
[2022-09-06] MEDS ORDERED: IBUP-2213 PO (03:43)
--- NOTE | 2022-09-06 04:10 | NUR ---
PT IS ASKING FOR SOCKS, ITEM WAS PROVIDED.
[2022-09-06 04:14] VITALS: BP 187/84
--- NOTE | 2022-09-06 04:17 | NUR ---
Patient discharged with v/s stable. Written and verbal after care instructions given and explained. Patient verbalized understanding. Ambulatory with steady gait. All questions addressed prior to discharge. Advised to follow up with PMD. PATIENT LEFT WITH HIS BELONIGINGS.
== END 2022-09-06 04:17 | disposition home or self-care (01) ==
LOC: MED 21:05
DX: L03.116 Cellulitis of left lower limb (principal); L03.115 Cellulitis of right lower limb; L97.529 Non-pressure chronic ulcer of other part of left foot with unspecified severity; L97.519 Non-pressure chronic ulcer of other part of right foot with unspecified severity; J44.9 Chronic obstructive pulmonary disease, unspecified; E11.9 Type 2 diabetes mellitus without complications; I10 Essential (primary) hypertension; F17.210 Nicotine dependence, cigarettes, uncomplicated; Z79.899 Other long term (current) drug therapy; Z79.1 Long term (current) use of non-steroidal anti-inflammatories (NSAID); Z79.2 Long term (current) use of antibiotics; Z88.0 Allergy status to penicillin
CPT/HCPCS: 99283

== ENCOUNTER 2022-09-20 22:38 | Inpatient (IN) | payer OTHER, MEDICAID ==
[~2022-09-20] VITALS: Ht 160 cm; Wt 50.8 kg
[~2022-09-20 22:38] MED LIST changes: +ACET-8905 PO; +IBUP-2213 PO; +SULF-59 PO
[2022-09-20 22:55] VITALS: BP 112/75
--- NOTE | 2022-09-20 22:58 | NUR ---
PT OFFLOADED TO [facility]
--- NOTE | 2022-09-21 06:41 | NUR ---
Dr. Becerra examining patient.
--- NOTE | 2022-09-21 06:48 | NUR ---
PT TAKEN TO BED 8
[2022-09-21] MEDS ORDERED: LEVOFLOXACIN 500 MG/D5W PREMIX 100 ML IV ONE (07:00)
--- NOTE | 2022-09-21 07:24 | NUR ---
PT BLOODDRAWS AND SWABS WALKED TO LAB AND HANDED TO LAB PERSONEL
--- NOTE | 2022-09-21 07:27 | NUR ---
Pt report given to Thuy RANDALL. Transfer of care at this time.
--- NOTE | 2022-09-21 07:28 | NUR ---
REPORT RECEIVED FROM CRISTINE RANDALL. ASSUMED CARE AT THIS TIME
[2022-09-21 07:52] LABS: HEMATOCRIT 37.3 % (36-52); HEMOGLOBIN 13.2 g/dL (12.0-18.0); MEAN CORPUSCULAR HEMOGLOBIN 28 pg (27-31); MEAN CORPUSCULAR HGB CONC 36 g/dL (33-37); PLATELET COUNT (AUTO) 398 K/uL (140-450); RED BLOOD CELL COUNT(AUTO) 4.78 MIL/uL (4.20-6.10); RED CELL DISTRIBUTION WIDTH 17.5 % (11.6-13.7); WHITE BLOOD COUNT (AUTO) 9.1 K/uL (4.8-10.8)
--- NOTE | 2022-09-21 08:00 | NUR ---
Note undone in EDM - 09/21/22 at 1111 by PHSEP 62Y0 MALE PT BIBA C/O INCREASED ROSEMARY FOOT PAIN AND URINARY RETENTION . PAIN AT MOST ON BEARING WEIGHT. WOUNDS NOTED ON L SIDE OF FOOT AND R 4TH AND 5TH DIGIT. NO ACTIVE DRAINAGE. ABD DISTENDED, NON TENDER. PT RECENTLY SEEN IN ER FOR FOOT PAIN S/S- LEFT AMA. DENIES N/V/D, CHEST PAIN, SOB, FEVER OR CHILLS. 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 SEIZURE PADS IN PLACE. HX: COPD, HTN, DIABETES, SEIZURES, SCHIZO ALLERGIES: PENICILLIN
--- NOTE | 2022-09-21 08:00 | NUR ---
[age] MALE PT BIBA C/O INCREASED ROSEMARY FOOT PAIN AND URINARY RETENTION . PAIN AT MOST ON BEARING WEIGHT. WOUNDS NOTED ON L 5TH DIGIT, R SIDE OF FOOT AND R 4TH AND 5TH DIGIT. NO ACTIVE DRAINAGE. ABD DISTENDED, NON TENDER. PT RECENTLY SEEN IN ER FOR FOOT PAIN S/S- LEFT AMA. DENIES N/V/D, CHEST PAIN, SOB, FEVER OR CHILLS. 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 SEIZURE PADS IN PLACE. HX: COPD, HTN, DIABETES, SEIZURES, SCHIZO ALLERGIES: PENICILLIN
--- NOTE | 2022-09-21 08:00 | NUR ---
Note undone in EDM - 09/21/22 at 1115 by PHSEP 62Y0 MALE PT BIBA C/O INCREASED ROSEMARY FOOT PAIN AND URINARY RETENTION . PAIN AT MOST ON BEARING WEIGHT. WOUNDS NOTED ON L 5TH DIGIT, R SIDE OF FOOT AND R 4TH AND 5TH DIGIT. NO ACTIVE DRAINAGE. ABD DISTENDED, NON TENDER. PT RECENTLY SEEN IN ER FOR FOOT PAIN S/S- LEFT AMA. DENIES N/V/D, CHEST PAIN, SOB, FEVER OR CHILLS. 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 SEIZURE PADS IN PLACE. HX: COPD, HTN, DIABETES, SEIZURES, SCHIZO ALLERGIES: PENICILLIN
--- NOTE | 2022-09-21 08:01 | NUR ---
RECEIVED CALL FROM ALLAN LANDRY AT THE [facility] OFFICE. PER ALLAN, PT IS ON A CONSERVATORSHIP AND IS NOT ABLE TO SIGN. ALLAN STATED THAT PAPERWORK CAN BE FAXED TO [phone] AND TO NOTIFY THEM IF DISCHARGED FOR TRANSPORTATION.
[2022-09-21 08:07] LABS: LYMPHOCYTES % (MANUAL) 14 % (20-46); MONOCYTES % (MANUAL) 7 % (5-12)
--- NOTE | 2022-09-21 08:20 | NUR ---
SPOKE WITH ALLAN LANDRY, ASSIGNED DEPUTY ON HIS CASE ([phone] OR [phone]). STATED THEY CALLED 911 LAST WEEK TO TAKE HIM TO HOSPITAL FOR HIS FEET BUT PT REFUSED TREATMENT AND PD AND PARAMEDICS REFUSED TO TAKE HIM TO HOSPITAL. SHE REPORTED THAT HE WAS TAKING [place] FOR HIS FEET PAIN AND DIDNT WANT TO GO TO HOSPITAL BECAUSE "HE WASNT FEELING THE PAIN". DR CALVO AWARE. PT HISTORY: SCHIZOPHRENIA, COPD, HTN, HYPERTHROIDISM, EPILEPSY ALLERGIES:PCN
[2022-09-21 09:03] LABS: APPEARANCE,URINE CLEAR (CLEAR); BILIRUBIN,URINE NEGATIVE (NEGATIVE); BLOOD, URINE NEGATIVE (NEGATIVE); COLOR,URINE YELLOW (YELLOW); LEUKOCYTE ESTERASE ,URINE NEGATIVE (NEGATIVE); NITRITE, URINE NEGATIVE (NEGATIVE); PH,URINE 6.5 (5.0-9.0); UGLUCOSE NEGATIVE (NEGATIVE)
[2022-09-21] MEDS ORDERED: OLAN2.5T1 PO (09:12)
[2022-09-21] MEDS ORDERED: LEVO-481 PO (09:12)
[2022-09-21] MEDS ORDERED: QUET200T PO (09:12)
[2022-09-21] MEDS ORDERED: QUET400T PO (09:12)
[2022-09-21] MEDS ORDERED: AMLO5TAB PO (09:12)
[2022-09-21] MEDS ORDERED: VALP-22 PO (09:12)
[2022-09-21] MEDS ORDERED: OLAN20TA1 PO (09:12)
[2022-09-21 09:15] LABS: ALBUMIN 2.9 g/dL (3.4-5.0); CARBON DIOXIDE 28.6 mmol/L (21-32); CREATININE 0.6 mg/dL (0.6-1.3); POTASSIUM 3.7 mmol/L (3.5-5.1); TOTAL BILIRUBIN 0.2 mg/dL (0.0-1.0)
[2022-09-21] MEDS ORDERED: KETOROLAC 15 MG/ML VIAL IVP ONE (09:30)
--- NOTE | 2022-09-21 09:34 | NUR ---
xray at bedside
[2022-09-21 10:07] LABS: ANION GAP 9.1 (8-16)
[2022-09-21] MEDS ORDERED: NACL 0.9% 1,000 ML IV ONE (10:25)
[2022-09-21] MEDS ORDERED: ACETAMINOPHEN 325 MG TAB PO PRN (10:30)
[2022-09-21] MEDS ORDERED: ONDANSETRON 4 MG/2 ML VIAL IM/IVP PRN (10:30)
[2022-09-21] MEDS ORDERED: guaiFENesin DM 200/20 MG-10 ML 10 ML UDC PO PRN (10:30)
[2022-09-21] MEDS ORDERED: ZOLPIDEM 5 MG TAB PO PRN (10:30)
[2022-09-21] MEDS ORDERED: DOCUSATE SODIUM 100 MG GELCAP PO PRN (10:30)
[2022-09-21] MEDS ORDERED: HYDROcodone/APAP 7.5/325 MG 1 TAB PO PRN (10:30)
--- NOTE | 2022-09-21 10:45 | NUR ---
MD HAQUE AT BEDSIDE FOR EVALUATION
--- NOTE | 2022-09-21 10:53 | NUR ---
BP 162/116. DR HAQUE AT BEDSIDE AND AWARE. NO ORDERS RECEIVED.
--- NOTE | 2022-09-21 10:53 | NUR ---
MD SCANLON AT [facility] FOR EVALUAITION Addendum: 09/21/22 at 1058 by PHSEP REQUESTING BNP UPDATE - [phone]
[2022-09-21 10:55] LABS: PROTHROMBIN TIME 10.4 secs (10.8-13.4)
[2022-09-21] MEDS ORDERED: FUROSEMIDE 20 MG/2 ML VIAL IVP SCH (10:55)
[2022-09-21] MEDS: amLODIPine 5 MG TAB PO SCH (10:55)
[2022-09-21] MEDS: NACL 0.9% 1,000 ML IV SCH ×2 (10:58→20:36)
[2022-09-21 11:07] LABS: CHOL/HDL RATIO 1.7 (1-4.5); FREE T4 (FREE THYROXINE) 0.94 ng/dL (0.76-1.46); MAGNESIUM 1.2 mg/dL (1.8-2.4); PHOSPHORUS 3.1 mg/dL (2.5-4.9); THYROID STIMULATING HORMONE 1.01 uIU/mL (0.34-3.74)
--- NOTE | 2022-09-21 11:25 | NUR ---
2000ML CLEAR YELLOW URINE COLLECTED AND EMPTIED VIA FRIEDMAN
--- NOTE | 2022-09-21 11:28 | NUR ---
Patient will be admitted to care of MD HAQUE. Admited to TELE. Will go to room 110A. Belongings list completed. Report to ALBERT RN.
--- NOTE | 2022-09-21 11:30 | NUR ---
The patient's care was reviewed and supervised by Christy Sibley RN.
[2022-09-21 12:05] LABS: ANION GAP 7.6 (8-16); CARBON DIOXIDE 29.8 mmol/L (21-32); CREATININE 0.6 mg/dL (0.6-1.3); POTASSIUM 3.4 mmol/L (3.5-5.1)
--- NOTE | 2022-09-21 12:30 | NUR ---
RECEIVED PATIENT FROM ED NURSE. PATIENT WAS SEEN ON BED AWAKE ALERT AND HAVING A FLIGHT OF IDEAS.
--- NOTE | 2022-09-21 15:17 | NUR ---
PATIENT HAS BEEN SCREENED AND CATEGORIZED MODERATE NUTRITION RISK. PATIENT WILL BE SEEN WITHIN 3-5 DAYS OF ADMISSION. REVIEWED BY KACI JU[address]REZ RD
[2022-09-21 16:00] VITALS: BP 135/76
[2022-09-21] MEDS: FUROSEMIDE 20 MG/2 ML VIAL IVP SCH (17:26)
--- NOTE | 2022-09-21 17:50 | NUR ---
COLLECTED PATIENT URINE FOR DRUG SCREENING. LAB NOTIFIED.
[2022-09-21] MEDS: POTASSIUM CHLORIDE 10 MEQ TABER PO PRN (18:05)
[2022-09-21 18:22] LABS: BARBITURATE, URINE NEGATIVE ng/ml (NEG <=200); BENZODIAZEPINE, URINE NEGATIVE ng/mL (NEG <=200); CANNABINOID, URINE NEGATIVE ng/mL (NEG <=50); COCAINE, URINE NEGATIVE ng/mL (NEG <=300); PHENCYCLIDINE SCREEN,URINE NEGATIVE ng/mL (NEG <=25)
[2022-09-21 18:23] LABS: OPIATE, URINE POSITIVE ng/mL (NEG <=2000)
--- NOTE | 2022-09-21 19:25 | NUR ---
ENDORSED PATIENT TO PM NURSE FOR CONTINUATION OF CARE. PATIENT SEEN ON BED AWAKE, READING BOOK.
[2022-09-21 20:00] VITALS: BP 165/109
[2022-09-21] MEDS: QUEtiapine FUMARATE 100 MG TAB PO SCH (20:36)
[2022-09-21] MEDS: OLANZapine 5 MG TAB PO SCH (20:36)
--- NOTE | 2022-09-21 21:47 | NUR ---
NOTIFIED MD ABOUT LOW MAG OF 1.2 STATES TO GIVE 1G X1
[2022-09-21] MEDS ORDERED: MAG SULF 2000 MG/WATER PREMIX 50 ML IV SCH (21:50)
--- NOTE | 2022-09-21 21:56 | NUR ---
NOTIFIED THAT SYSTEM DOESN'T ALLOW 1 G OF MAGNESIUM STATES OK TO GIVE 2GRAMS
[2022-09-21] MEDS ORDERED: MAG SULF 2000 MG/WATER PREMIX 50 ML IV ONE (21:58)
--- NOTE | 2022-09-21 23:50 | NUR ---
PT. WITH NOTED GANGRENE TO 4TH AND 5TH DIGIT TO RT. FOOT, PHOTO TAKEN AND PLACED IN CHART
[2022-09-22] VITALS: BP 156/97
[2022-09-22 04:00] VITALS: BP 128/89
[2022-09-22] MEDS: NACL 0.9% 1,000 ML IV SCH (05:19)
[2022-09-22] MEDS: PANTOPRAZOLE 40 MG TABEC PO SCH (05:47)
[2022-09-22 06:55] LABS: BASOPHILS % (AUTO) 0.1 % (0.0-2.0); HEMATOCRIT 36.3 % (36-52); HEMOGLOBIN 12.5 g/dL (12.0-18.0); LYMPHOCYTES # (AUTO) 0.8 K/uL (2.0-11.5); LYMPHOCYTES % (AUTO) 10.3 % (20.5-51.1); MEAN CORPUSCULAR HEMOGLOBIN 27 pg (27-31); MEAN CORPUSCULAR HGB CONC 35 g/dL (33-37); MEAN CORPUSCULAR VOLUME 79.1 fL (80-94); MONOCYTES # (AUTO) 0.5 K/uL (0.8-1.0); MONOCYTES % (AUTO) 6.8 % (1.7-9.3); NEUTROPHILS # (AUTO) 6.3 K/uL (1.8-7.7); NEUTROPHILS % (AUTO) 82.8 % (42.2-75.2); PLATELET COUNT (AUTO) 346 K/uL (140-450); RED BLOOD CELL COUNT(AUTO) 4.58 MIL/uL (4.20-6.10); RED CELL DISTRIBUTION WIDTH 16.4 % (11.6-13.7); WHITE BLOOD COUNT (AUTO) 7.6 K/uL (4.8-10.8)
[2022-09-22 07:02] LABS: ANION GAP 8.8 (8-16); CARBON DIOXIDE 30.4 mmol/L (21-32); CREATININE 0.6 mg/dL (0.6-1.3); POTASSIUM 3.2 mmol/L (3.5-5.1)
--- NOTE | 2022-09-22 07:30 | NUR ---
RECEIVED REPORT FROM HAM ROLLING MACHINE OPERATOR NURSE. PT CURRENTLY RESTING WITH CHEST RISING AND FALLING. NO ACUTE S/S OF DISTRESS. ALL SAFETY MEASURES IN PLACE. CALL LIGHT WITHIN REACH.
[2022-09-22 08:00] VITALS: BP 113/76
[2022-09-22 08:08] LABS: T4 (THYROXINE) 6.6 ug/dL (4.5-12.0)
[2022-09-22] MEDS: VALPROIC ACID 250 MG/5 ML UDC PO SCH (09:00)
[2022-09-22] MEDS ORDERED: OLANZapine 5 MG TAB PO SCH (09:00)
[2022-09-22] MEDS: QUEtiapine FUMARATE 100 MG TAB PO SCH ×2 (09:00→20:24)
[2022-09-22] MEDS: FUROSEMIDE 20 MG/2 ML VIAL IVP SCH ×2 (09:00→17:30)
[2022-09-22] MEDS: LEVOFLOXACIN 750 MG/D5W PREMIX 150 ML IV SCH (09:00)
[2022-09-22] MEDS: amLODIPine 5 MG TAB PO SCH (09:00)
--- NOTE | 2022-09-22 09:08 | NUR ---
PT. REFUSES WOUND CONSULT. PT. DOES NOT WANT TO BE TOUCHED. ALL RISKS AND BENEFITS EXPLAINED PT STILL REFUSED. ATTEMPTS X 3. PRIMARY RN AT BEDSIDE POC DISCUSSED MAY START WITH SKIN CARE PROTOCOL IF PT. ALLOWS.
--- NOTE | 2022-09-22 09:10 | NUR ---
REFUSING ALL MEDICATIONS AND WOUND CARE EVAL BY WOUND NURSE AT BEDSIDE. WANTS TO LEAVE AMA. PATIENT IS AAOX3. NOTIFIED DR. RAJPUT, WILL CONTACT CONSERVATOR ALLAN LANDRY [phone] ON FILE AND LET HER KNOW.
--- NOTE | 2022-09-22 09:20 | NUR ---
CALLED CONSERVGARETT LEMUS, UNABLE AT THIS TIME PER TOP STITCHER. LEFT MSG AND CALL BACK NUMBER.
[2022-09-22] MEDS: hydrALAZINE 20 MG/ML VIAL IVP PRN (12:56)
--- NOTE | 2022-09-22 13:00 | NUR ---
BP 184/126, HR:122, NOTIFIED DR. RAJPUT. HYDRALAZINE PRN ORDERED, GIVEN PER MD ORDERS.
[2022-09-22 13:05] VITALS: BP 184/126
--- NOTE | 2022-09-22 13:19 | NUR ---
DC PLANNING ASSESSMENT COMPLETE PLEASE REFER TO ASSESSMENT FOR ADDITIONAL DETAILS ATTEMPTED TO MEET PT AT BEDSIDE HOWEVER, PT STRUGGLED TO PARTICIPATE IN ASSESSMENT, PT SPEAKING TO HIMSELF. THEREFORE JUAN OUTREACHED TO ALLAN LANDRY [facility], HOWEVER, NO ANSWER. MESSAGE LEFT, REQUESTING RETURN PHONE CALL. OUTREACHED TO SECOND NUMBER ON FILE, AND SPOKE WITH PAUL. PAUL REPORTS ALLAN OUT IN THE FIELD AND CALL WAS FORWARDED TO ROLA Taveras DEPUTY OF THE DAY. COLLAT INFO GATHERED FROM ROLA. NOTIFIED ROLA PT REQUESTING TO AMA.ROLA REPORTS PT UNABLE TO DENY MEDICAL CARE HE [facility] AND DOES NOT HAVE AUTHORITY TO AMA. MARIBEL REPORTS HE IS EMAILING/CALLING ALLAN AND IS REQUESTING SHE CALL HOSPITAL. 1015AM;JUAN NOTIFIED PHYSICIAN AND PTS NURSE, PER MARIBEL, PT DOES NOT HAVE AUTHORITY TO DECLINE MEDICAL TX AND CAN NOT SIGN AMA. MARIBEL REPORTS TENTATIVE DC PLAN IS FOR PT TO RETURN TO [facility] PENDING PHYSICIANS RECOMMENDATIONS. Addendum: 09/22/22 at 1320 by Kelly CASTILLO Amended: Links added. Addendum: 09/24/22 at 1249 by Kelly CASTILLO 1045: OUTREACHED TO PTS CONSERVATOR; ALLAN [phone] HOWEVER SPOKE WITH PAUL CAPTION WRITER WHO REPORTS ALLAN IS OUT OF THE OFFICE FOR HER FLEX TUESDAY. JUAN REQUESTED TO SPEAK WITH DEPUTChip OF THE DAY MICHELLE HOWEVER, PAUL REPORTS HE IS CURRENTLY ON ANOTHER CALL. JUAN REQUESTED SHE NOTIFY MICHELLE OF PTS NONCOMPLIANCE WITH MEDICATION AND IS REQUESTING FOR CONSERVATOR SPEAK WITH PT. PAUL REPORTS E-MAIL WILL BE SENT TO MICHELLE, ALL CONTACT INFO FOR JUAN AND LOREE, PROVIDED TO PAUL
[2022-09-22 16:00] VITALS: BP 190/107
[2022-09-22 17:00] VITALS: BP 155/105
[2022-09-22] MEDS: NICOTINE TRANSD SYS 14 MG/24 HR PATCH TD SCH (17:30)
--- NOTE | 2022-09-22 17:37 | NUR ---
SCHEDULED MEDICATIONS DUE GIVEN. WILL CONTINUE TO MONITOR.
--- NOTE | 2022-09-22 17:55 | NUR ---
PT REFUSING ALL MEDICATIONS. UNABLE TO COVER POTASSIUM PRN.
--- NOTE | 2022-09-22 19:22 | NUR ---
GAVE REPORT TO DIRECTOR COUNSELING BUREAU NURSE. PT IN STABLE CONDITION.
--- NOTE | 2022-09-22 19:23 | NUR ---
RECEIVED PT FROM MORNING SHIFT NURSE. PT IS AOX3 AND ON BEDREST. PT IS ON ROOM 6L NC AND ON REGULAR DIET. PT HAS FRIEDMAN CATHETER AND HAS RIGHT UPPER ARM GAUGE 20 RUNNING WITH NS AT TKO. PT HAS CELLULITIS ON 2ND, 4TH AND 5TH ON RIGHT TOE AND ON 5TH LEFT TOE. NO COMPLAIN OF PAIN AND NO S/S OF RESPIRATORY DISTRESS NOTED. ALL SAFETY MEASURES IMPLEMENTED. BED IN LOW POSITION, BED WHEELS ON LOCK AND CALL LIGHT WITHIN REACH.
--- NOTE | 2022-09-22 20:00 | NUR ---
ACCORDING TO CHRISTY, PT REFUSED VS. EDUCATED THE PT THE IMPORTANCE OF IT BUT PT STILL REFUSED OF TAKING OF IT.
[2022-09-22] MEDS: OLANZapine 5 MG TAB PO SCH (20:24)
--- NOTE | 2022-09-22 20:24 | NUR ---
CONVINCED THE PT TO TOOK THE MEDICATION BUT HIS CONDITION IS TO TAKE IT BY 2'S. ALL SAFETY MEASURES IMPLEMENTED. BED IN LOW POSITION, BED WHEELS ON LOCK AND CALL LIGHT WITHIN REACH.
--- NOTE | 2022-09-22 22:00 | NUR ---
RECONNECT PT'S LEADS OF HEART MONITOR. WATER WAS GIVEN TO PT PER PT REQUESTED. TURN THE PT'S POSITION WELL. ALL SAFETY MEASURES IMPLEMENTED. BED IN LOW POSITION, BED WHEELS ON LOCK AND CALL LIGHT WITHIN REACH.
--- NOTE | 2022-09-23 | NUR ---
PT IS ON SLEEP. CHEST RISE AND FALL SYMMETRICALLY NOTED. RESPIRATION IS EVEN AND UNLABORED. ALL SAFETY MEASURES IMPLEMENTED. BED WHEELS ON LOCK, BED IN LOW POSITION AND CALL LIGHT WITHIN REACH.
--- NOTE | 2022-09-23 02:00 | NUR ---
CHECKED THE PT, STILL ON SLEEP. CHEST RISE AND FALL SYMMETRICALLY NOTED. RESPIRATION IS EVEN AND UNLABORED. ALL SAFETY MEASURES IMPLEMENTED. BED WHEELS ON LOCK, BED IN LOW POSITION AND CALL LIGHT WITHIN REACH.
--- NOTE | 2022-09-23 03:47 | NUR ---
PT REMOVED FRIEDMAN CATHETER. PT REFUSED TO RE-INSERT A NEW ONE. EXPLAINED TO PT BUT PT STILL REFUSED.
--- NOTE | 2022-09-23 03:48 | NUR ---
HEMATURIA WAS NOTED TO PT DUE TO REMOVAL OF FRIEDMAN CATHETER. ALL SAFETY MEASURES IMPLEMENTED. BED IN LOW POSITION, BED WHEELS ON LOCK, BE DIN LOW POSITION AND CALL LIGHT WITHIN REACH.
--- NOTE | 2022-09-23 04:30 | NUR ---
MORNING CARE WAS DONE TO PT. CHANGED DIAPER, GOWN AND LINENS. ALL SAFETY MEASURES IMPLEMENTED. BED IN LOW POSITION, BED WHEELS ON LOCK AND CALL LIGHT WITHIN REACH.
[2022-09-23] MEDS: PANTOPRAZOLE 40 MG TABEC PO SCH (05:35)
--- NOTE | 2022-09-23 05:35 | NUR ---
PT REFUSED PANTOPRAZOLE 40MG. TRIED TO CONVINCED THE PT BUT PT STILL REFUSED.
[2022-09-23 06:48] LABS: BASOPHILS % (AUTO) 0.4 % (0.0-2.0); HEMOGLOBIN 12.3 g/dL (12.0-18.0); LYMPHOCYTES % (AUTO) 12.5 % (20.5-51.1); MEAN CORPUSCULAR HEMOGLOBIN 27 pg (27-31); MEAN CORPUSCULAR HGB CONC 34 g/dL (33-37); MEAN CORPUSCULAR VOLUME 79.4 fL (80-94); MONOCYTES # (AUTO) 0.6 K/uL (0.8-1.0); MONOCYTES % (AUTO) 7.3 % (1.7-9.3); NEUTROPHILS # (AUTO) 6.5 K/uL (1.8-7.7); NEUTROPHILS % (AUTO) 79.8 % (42.2-75.2); PLATELET COUNT (AUTO) 263 K/uL (140-450); RED BLOOD CELL COUNT(AUTO) 4.53 MIL/uL (4.20-6.10); RED CELL DISTRIBUTION WIDTH 16.5 % (11.6-13.7); WHITE BLOOD COUNT (AUTO) 8.2 K/uL (4.8-10.8)
[2022-09-23 06:58] LABS: ANION GAP 7.3 (8-16); CARBON DIOXIDE 33.6 mmol/L (21-32); CREATININE 0.6 mg/dL (0.6-1.3)
--- NOTE | 2022-09-23 07:05 | NUR ---
NOTIFIED DR. RAJPUT THAT PT HAS CRITICAL VALUE OF NA-111 AND K-2.9
[2022-09-23 07:06] LABS: POTASSIUM 2.9 mmol/L (3.5-5.1)
--- NOTE | 2022-09-23 07:22 | NUR ---
Pt is stable. Endorsed pt to morning shift nurse for continuity of care.
--- NOTE | 2022-09-23 07:30 | NUR ---
RECEIVED REPORT FROM BOX PACKER NURSE. PT RECEIVING 6L NASAL CANULA OXYGEN. PT IS SLEEPING WITH CHEST RISING AND FALLING. NO ACUTE S/S OF DISTRESS. ALL SAFETY MEASURES IN PLACE. CALL LIGHT WITHIN REACH.
--- NOTE | 2022-09-23 07:44 | NUR ---
RECEIVED ON SUPPLEMENTAL OXYGEN AT 2 LPM VIA NC SATURATION 94%; PATIENT ASSESSMENT NOTED: AWAKE AND ALERT; PMHX: COPD CHF DIABETES THYROID DISEASE; REVIEWED CXR IMPRESSION DATED 09/22/22; PATIENT STATES SMOKIN HX 15+ YEARS AND CURRENTLY SMOKES; MDI 3 PUFFS CAN'T REMEMBER DRUG TYPE; OXYGEN USE AT HOME NEEDED; PATIENT REQUESTING BREATHING TREATMENT; NEW MEDIA STRATEGIST TO REFER TO PCP FOR ORDERS
[2022-09-23 08:00] VITALS: BP 122/83
--- NOTE | 2022-09-23 08:05 | NUR ---
REVIEWED WITH DR. ABRAHAM RAJPUT PMHX: COPD; PREBOARDER ASSESSMENT NOTED; VORBO DR. RAJPUT: HHN UD ALBUTEROL Q6 PRN FOR SOB/WHEEZE; OXYGEN 2 LPM VIA NC KEEP SATURATION GREATER THAN 90%
--- NOTE | 2022-09-23 08:30 | NUR ---
PATIENT IS NOW STATING " I DON'T WANT THE BREATHING TREATMENT" EVEN THOUGH PATIENT STATED AT 0744 THAT HE WANTED A BREATHING TREATMENT
[2022-09-23] MEDS: amLODIPine 5 MG TAB PO SCH ×2 (09:00→09:31)
[2022-09-23] MEDS: VALPROIC ACID 250 MG/5 ML UDC PO SCH ×2 (09:00→09:30)
--- NOTE | 2022-09-23 09:05 | NUR ---
PT REPORTING FEELING SOB. O2 INCREASED TO 5L, RT NOTIFIED. PT STATES HE DOES NOT WANT BREATHING TX, THAT HE WANTS OXYGEN. EDUCATED ON OXYGEN COMING FROM WALL AND THAT PT HAS NASAL CANULA ON, THE OXYGEN IS GOING THROUGH THE TUBE. PT HAVING SPURTS OF CONFUSION AND FORGETFULNESS. O2 SATURATION AT 94%. NO ACUTE S/S OF DISTRESS.
[2022-09-23] MEDS: LEVOFLOXACIN 750 MG/D5W PREMIX 150 ML IV SCH (09:30)
[2022-09-23] MEDS: QUEtiapine FUMARATE 100 MG TAB PO SCH ×2 (09:30→21:19)
[2022-09-23] MEDS: FUROSEMIDE 20 MG/2 ML VIAL IVP SCH ×2 (09:31→17:00)
[2022-09-23] MEDS: NICOTINE TRANSD SYS 14 MG/24 HR PATCH TD SCH (09:31)
--- NOTE | 2022-09-23 09:47 | NUR ---
PT REFUSED 2 MORNING MEDICATIONS. SEE EMAR. EDUCATION PROVIDED TO PT REGARDING IMPORTANCE OF TAKING THESE MEDS, PT STATES HE "DOES NOT CARE, I DO NOT WANT THEM". IV PATENT AND INTACT, PT REFUSING FRIEDMAN CATH, STATING IT HURTS. PROVIDED WITH URINAL, EDUCATED ON IMPORTANCE OF USING IT SO URINE CAN BE CALCULATED. ALL SAFETY MEASURES IN PLACE, CALL LIGHT WITHIN REACH.
--- NOTE | 2022-09-23 09:55 | NUR ---
UNABLE TO COVER ELECTROLYTES DUE TO PT REFUSAL OF MEDICATION.
--- NOTE | 2022-09-23 11:41 | NUR ---
DC PLANNING A 62 Y.O.MALE PATIENT RESIDENT OF [facility] WHO WAS ADMITTED FOR WORSENING FOOT PAIN.USES CANE TO WALK AROUND.HX OF SCHIZOPHRENIA,COPD,HTN AND SEIZURE DISORDER.PATIENT HAS A CONSERVATOR WHO'S MAKING DECISION FOR HIM.PRELIM BLOOD CULTURE (+) FOR GM POSITIVE COCCI IN CL[place]ERS.ON LEVOFLOXACIN BUT HAS BEEN REFUSING MEDS AND CARE.WANTS TO GO AMA.NA+ LEVEL LOW (114).[facility] FOLLOWING.CM TO FOLLOW. Addendum: 09/27/22 at 1353 by RADHA EDWARD CM DC PLANNING: PT IS AWAKE BUT MUMBLING WORDS.NA LEVEL BETTER AFTER RECEIVING HYPERTONIC SOLUTION.STILL REFUSING CARE.MIGHT NEED SNF PLACEMENT.WILL TALK TO [facility] FOR DC PLAN WHEN PATIENT IS READY.CM TO FOLLOW. Addendum: 09/27/22 at 1417 by RADHA EDWARD CM DC PLANNING LATE ENTRY TALKED TO ALLAN AT [facility] .PATIENT HAS AN ORDER FOR SNF PLACEMENT FOR CELLULITIS, REHAB AND SODIUM MONITORING.PRISCILA, THE [facility] NOT AVAILABLE..ALLAN SAID TO CALL BACK FOR AN ACCEPTING SNF.CM TO FOLLOW. Addendum: 09/27/22 at 1647 by Margo Johnson RN DC PLANNING: PATIENT HAS A DC PLANNING TO SNF FOR PT, WOUND CARE AND POSSIBLE IV ABX FAXED TO [facility] AND [facility] CM TO FOLLOW Addendum: 09/28/22 at 1126 by RADHA EDWARD CM DC PLANNING NA LEVEL 121.[facility] FOLLOWING.DC PLAN -TO SNF FOR WOUND CARE, IVF MGT AND POSSIBLE IV ABX.CM TO FOLLOW. Addendum: 09/28/22 at 1129 by RADHA EDWARD CM LATE ENTRY TALKED TO [facility] AND INFORMED HER OF PLAN FOR SNF. Addendum: 09/29/22 at 1153 by CECELIA TIDWELL CM FAXED PAPERWORK TO [facility], [facility] AND [facility] IS REVIEWING AND WILL POSSIBLE ACCEPT PATIENT Addendum: 09/29/22 at 1230 by RADHA EDWARD CM DC PLANNING PATIENT WILL GO TO [facility] UNDER [address] ALFA NOYOLA.DC HEALTH SERVICES ADMINISTRATOR TO ARRANGE FOR EMS TRANSPORT. Addendum: 09/29/22 at 1341 by CECELIA TIDWELL CM [facility] LOC[facility] AT [address] [address]. [facility]. TRANSPORTATION ARRANGED WITH [facility] FOR A 8 PM WAITRESS TIME. CHARGE NURSE SOUMYA MANZANO OF COURT AWARE OF THE ABOVE INFORMATION. Addendum: 09/30/22 at 1108 by RADHA EDWARD CM DC PLANNING PATIENT WAS NOT PICKED UP BY [facility] LAST NIGHT.PATIENT REFUSED TO GO.TALKED TO HIM TODAY AND STILL REFUSING TO GO .PATIENT CANNOT REFUSE PER CONSERVATOR.WILL GIVE PATIENT PRN FOR AGITATION BEFORE ANOTHER ATTEMPT FOR TRANSFER TO [facility]. Addendum: 09/30/22 at 1212 by RADHA EDWARD CM LATE ENTRY [facility] TRANSPORT BY EMS ARRANGED BY DIRECTOR ASHLEIGH AlvaWAITRESS TIME AT 2PM .FLOOR NURSE [place] NOTIFIED.REACHED OUT TO DIRECTOR OF MED -SURG/TELEMETRY TO ASSIST PATIENT IN CASE PATIENT REFUSES AGAIN.CM TO FOLLOW.
[2022-09-23 12:00] VITALS: BP 153/95
--- NOTE | 2022-09-23 13:01 | NUR ---
PT REFUSING CT. NOTIFIED RADIOLOGY AND DR RAJPUT WELL.
--- NOTE | 2022-09-23 15:40 | NUR ---
PT PULLED IV OUT, SITE ASSESSED NO BLEEDING NOTED. PT REFUSING NEW IV, EDUCATED ON IMPORTANCE, STILL REFUSING. MD NOTIFIED, MD STATED SHE WILL DISCUSS WITH PT IN THE AM.
[2022-09-23 16:00] VITALS: BP 151/93
--- NOTE | 2022-09-23 16:22 | NUR ---
PT STILL NOT PRODUCING URINE, PT ALLOWED A BLADDER SCAN TO BE COMPLETED. >200CC URINE RETENTION. PT EDUCATED ON NEEDING TO REINSERT FRIEDMAN BECAUSE HE IS NOT URINATING. PT STATED HE DOES NOT HAVE TO PEE RIGHT NOW AND WILL NOT LET THE RN PLACE A FRIEDMAN. PT SWATTING RN AWAY. MD WILL BE NOTIFIED.
--- NOTE | 2022-09-23 16:28 | NUR ---
MD ORDER PO 1MG ATIVAN, AND TO REATTEMPT. WILL FOLLOW THROUGH
[2022-09-23] MEDS ORDERED: LORazepam 1 MG TAB PO PRN (16:30)
--- NOTE | 2022-09-23 17:21 | NUR ---
PT REFUSING IV INSERT FOR IV MEDICATION. EDUCATED ON IMPORTANCE OF IT TO HELP WITH THE SODIUM LEVEL. PT STATED HE ABSOLUTELY WILL NOT LET ANYONE INSERT AN IV. PT ACCEPTING ORDERED ATIVAN. EDUCATED ON WHY THIS MEDICATION IS GIVEN.
--- NOTE | 2022-09-23 17:37 | NUR ---
PT REFUSING TO GET BED BATH OR SHEETS CHANGED. YELLING AT THE DRINK BOX MECHANIC TO LEAVE THE ROOM.
--- NOTE | 2022-09-23 18:26 | NUR ---
ATTEMPTED TO PLACE FRIEDMAN FOR PT AGAIN, PT STILL REFUSING AND STATES HE DOES NOT CARE THE REASONING HE WILL NOT LET A CATHETER TO BE PLACED AGAIN. NOTIFIED. STATED NO NEW ORDERS.
--- NOTE | 2022-09-23 19:15 | NUR ---
RECEIVED PT FROM MORNING SHIFT NURSE. PT IS AOX3 AND ON BEDREST. PT IS ON 3L NC AND ON REGULAR DIET. PT HAS NO IV AND DR. RAJPUT WAS ALREADY NOTIFIED BY THE MORNING NURSE. PT HAS CELLULITIS ON 2ND, 4TH AND 5TH ON RIGHT TOE AND ON 5TH LEFT TOE. PT REFUSED ALL THE MEDICAL TREATMENT AND DR. RAJPUT WAS AWARE. NO COMPLAIN OF PAIN AND NO S/S OF RESPIRATORY DISTRESS NOTED. ALL SAFETY MEASURES IMPLEMENTED. BED IN LOW POSITION, BED WHEELS ON LOCK AND CALL LIGHT WITHIN REACH.
[2022-09-23 20:00] VITALS: BP 147/93
[2022-09-23] MEDS: OLANZapine 5 MG TAB PO SCH (21:19)
--- NOTE | 2022-09-23 21:19 | NUR ---
PT REFUSED ALL MEDICATION THAT IS DUE AT 2100 (SEROQUEL AND ZYPREXA). EDUCATED THE PT BUT PT STILL REFUSED.
[2022-09-24] VITALS: BP 149/100
--- NOTE | 2022-09-24 | NUR ---
PT IS ON SLEEP. CHEST RISE AND FALL SYMMETRICALLY NOTED. RESPIRATION IS EVEN AND UNLABORED. ALL SAFETY MEASURES IMPLEMENTED. BED IN LOW POSITION, BED WHEELS ON LOCK AND CALL LIGHT WITHIN REACH.
--- NOTE | 2022-09-24 | NUR ---
IV WAS INFILTRATED. INSERTED NEW IV ON LEFT HAND GAUGE 20. ALL SAFETY MEASURES IMPLEMENTED. BED IN LOW POSITION, BED WHEELS ON LOCK AND CALL LIGHT WITHIN REACH. Addendum: 09/24/22 at 0315 by Magi Manjarrez RN WRONG PT
--- NOTE | 2022-09-24 02:00 | NUR ---
CHECKED THE PT,STILL ON SLEEP. CHEST RISE AND FALL SYMMETRICALLY NOTED. RESPIRATION IS EVEN AND UNLABORED. ALL SAFETY MEASURES IMPLEMENTED. BED IN LOW POSITION, BED WHEELS ON LOCK AND CALL LIGHT WITHIN REACH.
[2022-09-24 04:00] VITALS: BP 134/84
--- NOTE | 2022-09-24 04:00 | NUR ---
PT REFUSED TO CLEANED AND TO THE MORNING CARE. CONVINCED THE PT BUT PT STILL REFUSED AND WANTS TO SLEEP.
[2022-09-24] MEDS: PANTOPRAZOLE 40 MG TABEC PO SCH (05:34)
--- NOTE | 2022-09-24 05:34 | NUR ---
PT REFUSED PANTOPRAZOLE. EDUCATED AND CONVINCED THE PT BUT PT STILL REFUSED IT.
[2022-09-24 06:51] LABS: BASOPHILS % (AUTO) 0.3 % (0.0-2.0); HEMOGLOBIN 12.7 g/dL (12.0-18.0); LYMPHOCYTES # (AUTO) 0.9 K/uL (2.0-11.5); LYMPHOCYTES % (AUTO) 12.3 % (20.5-51.1); MEAN CORPUSCULAR HEMOGLOBIN 27 pg (27-31); MEAN CORPUSCULAR HGB CONC 34 g/dL (33-37); MONOCYTES # (AUTO) 0.5 K/uL (0.8-1.0); MONOCYTES % (AUTO) 7.3 % (1.7-9.3); NEUTROPHILS % (AUTO) 80.1 % (42.2-75.2); PLATELET COUNT (AUTO) 268 K/uL (140-450); RED BLOOD CELL COUNT(AUTO) 4.69 MIL/uL (4.20-6.10); RED CELL DISTRIBUTION WIDTH 16.2 % (11.6-13.7); WHITE BLOOD COUNT (AUTO) 7.5 K/uL (4.8-10.8)
[2022-09-24 06:56] LABS: CREATININE 0.5 mg/dL (0.6-1.3)
--- NOTE | 2022-09-24 07:24 | NUR ---
Pt is stable. Endorsed pt to morning shift nurse for continuity of care.
--- NOTE | 2022-09-24 07:40 | NUR ---
RECEIVED PT CARE OR REPORT FROM JOSE MANUEL HELLER. PT IS RESTING IN BED ON LEFT SIDE IN POSITION. NC OFF OF PATIENT. SPO2 AT 86%. PLACED BACK ON BY JOSE MANUEL. PT HAS OU CLOSED WITH NO VISIBLE S.S OF DISTRESS, DISCOMFORT, PAIN OR SOB. CALL LIGHT IS WITHIN REACH OF PATIENT, ALL NEEDS MET AT THIS TIME. INFORMED BY [facility] SHIFT NURSE THAT PATIENT HAS CONTINUOUSLY REFUSED MEDICATIONS, IV INSERTION AND OTHER MEDICAL CARE. DR. RAJPUT TO COME SPEAK TO PATIENT.
[2022-09-24 08:00] VITALS: BP 129/86
--- NOTE | 2022-09-24 08:53 | NUR ---
ATTEMPT TO ASSESS PT'S SKIN/WOUND, PT. REFUSES, ABLE TO OBSERVED TOES AND INTERSPACE ARE WITH MULTIPLE DRY GANGRENE AND PEELING STABLE SCABS. CONTINUE EXPLAIN RISKS AND BENIFIT TO PT. AND ENCOURAGE PT TO ALLOW STAFF TO PROVIDE CARES. PT. IGNORE AND USE A BLANKET COVER TO HIS HEAD.
[2022-09-24] MEDS: VALPROIC ACID 250 MG/5 ML UDC PO SCH (09:00)
[2022-09-24] MEDS: LEVOFLOXACIN 750 MG/D5W PREMIX 150 ML IV SCH (09:00)
[2022-09-24] MEDS: QUEtiapine FUMARATE 100 MG TAB PO SCH ×2 (09:00→20:52)
[2022-09-24] MEDS: amLODIPine 5 MG TAB PO SCH (09:00)
[2022-09-24] MEDS: NICOTINE TRANSD SYS 14 MG/24 HR PATCH TD SCH ×2 (09:00→10:49)
[2022-09-24] MEDS ORDERED: FUROSEMIDE 20 MG TAB PO SCH (10:45)
[2022-09-24] MEDS ORDERED: NACL 3% 500 ML IV SCH (10:55)
--- NOTE | 2022-09-24 11:18 | NUR ---
KCL 20MEQ ORDERED FOR PATIENT BY DR. SANCHES. TEXTED TO INFORM THAT PATIENT DOES NOT HAVE IV ACCESS AT THIS TIME AND IS REFUSING INSERTION OF NEW IV, REQUESTING THAT MED BE CHANGED TO PO. AWAITING ORDERS.
--- NOTE | 2022-09-24 11:20 | NUR ---
SPOKE WITH DR. SANCHES. DR WANTS TO START PATIENT ON IV FLUIDS FOR DEHYDRATION. EXPLAINED TO DR. THAT PATIENT HAS BEEN REFUSING CARE, INCLUDING IV AND MED REFUSAL. DR STATED HE WOULD SPEAK WITH PATIENT ABOUT PLAN OF CARE. ASKED IF I COULD TRY TO START IV AGAIN.
[2022-09-24] MEDS ORDERED: KCL 20 MEQ IN 100 mL PREMIX 200 ML IV SCH (11:30)
[2022-09-24 12:00] VITALS: BP 144/93
--- NOTE | 2022-09-24 12:00 | NUR ---
SPOKE TO PATIENT ABOUT DEHYDRATION AND NEED FOR IV HYDRATION. ATTEMPTED TO EDUCATE PATIENT. HOWEVER, PT WAS UNWILLING TO LISTEN AND CONTINUES TO REFUSE IV INSERTION.
[2022-09-24] MEDS ORDERED: POTASSIUM CHLORIDE 10 MEQ TABER PO SCH ×2 (13:00→18:10)
--- NOTE | 2022-09-24 13:37 | NUR ---
PT TOOK 2/4 OF KDUR PILLS AND STATED HE DOES NOT WANT TO TAKE THE REST. EXPLAINED TO PATIENT THAT POTASSIUM LEVEL WAS LOW AND EDUCATED ON MEDICATION INDICATION. PT CONTINUES TO REFUSE.
[2022-09-24 14:04] LABS: CARBON DIOXIDE 35.1 mmol/L (21-32); CREATININE 0.6 mg/dL (0.6-1.3); POTASSIUM 3.1 mmol/L (3.5-5.1)
[2022-09-24 16:00] VITALS: BP 144/84
--- NOTE | 2022-09-24 16:22 | NUR ---
09/24/22 RD INITIAL ASSESSMENT COMPLETED PLEASE REFER TO NUTRITION ASSESSMENT UNDER CARE ACTIVITY FOR ESTIMATED NUTRITIONAL NEEDS. 1. CONTINUE REGULAR DIET TOLERATED 2. RECOMMEND ENSURE 1/DAY -PROVIDES 350 KCAL AND [address] TO FOLLOW-UP 3-5 DAYS, MODERATE RISK REVIEWED BY KACI JUÁREZ RD
--- NOTE | 2022-09-24 17:05 | NUR ---
BLADDER SCAN PERFORMED ON PATIENT. HIGHEST AMOUNT NOTED WAS 140ML OF URINE. MULTIPLE AREAS SCANNED.
--- NOTE | 2022-09-24 17:05 | NUR ---
ATTEMPTED TO CALL CONSERVATOR ALLAN RAMIREZ X1 ATTEMPT WITH NO ANSWER, CALL DID NOT GO TO VOICEMAIL.
--- NOTE | 2022-09-24 18:20 | NUR ---
CLEANED LARGE, SOFT, BROWN BM. PATIENT HAD 4 LARGE BMS THROUGHOUT SHIFT.
--- NOTE | 2022-09-24 18:37 | NUR ---
PT IS RESTING ON LEFT SIDE WITH OU CLOSED. NO VISIBLE S/S OF DISTRESS, DISCOMFORT, PAIN OR SOB. CALL LIGHT IS WITHIN REACH. ALL NEEDS MET AT THIS TIME AND THROUGHOUT SHIFT. WILL ENDORSE TO NOC SHIFT.
--- NOTE | 2022-09-24 19:15 | NUR ---
RECEIVED PT FROM MORNING SHIFT NURSE. PT IS AOX3 AND ON BEDREST. PT IS ON ROOM AND ON REGULAR DIET. PT HAS NO IV AND DOCTOR KNOWS IT. PT HAS CELLULITIS ON 2ND, 4TH AND 5TH ON RIGHT TOE AND ON 5TH LEFT TOE. PT REFUSED ALL THE MEDICAL TREATMENT AND DR. RAJPUT WAS AWARE. NO COMPLAIN OF PAIN AND NO S/S OF RESPIRATORY DISTRESS NOTED. ALL SAFETY MEASURES IMPLEMENTED. BED IN LOW POSITION, BED WHEELS ON LOCK AND CALL LIGHT WITHIN REACH.
[2022-09-24 20:00] VITALS: BP 113/90
--- NOTE | 2022-09-24 20:00 | NUR ---
RT PUT 2L NC TO PT. PT IS NOW SATING AT 93%
[2022-09-24 20:26] LABS: ANION GAP 5.4 (8-16); CARBON DIOXIDE 33.9 mmol/L (21-32); CREATININE 0.5 mg/dL (0.6-1.3); POTASSIUM 3.3 mmol/L (3.5-5.1)
--- NOTE | 2022-09-24 20:27 | NUR ---
RECEIVED A CALL FROM LAB THE SODIUM LEVEL OF PT IS 109. NOTIFIED DR. GUAMAN. PSYCH CONSULT WAS ALSO INCLUDED TO THE ORDER OF DR. GUAMAN. ORDER WAS CARRIED OUT AND MADE.
[2022-09-24] MEDS: OLANZapine 5 MG TAB PO SCH (20:51)
--- NOTE | 2022-09-24 20:52 | NUR ---
PT JUST WANT TO TOOK 2 TABLET. 1 TAB OF OLANZAPINE AND 1 TAB OF SEROQUEL AND REFUSED THE 3 REMAINING TABLET. EDUCATED THE PT TO TOOK ALL THE MEDICATION BUT PT STILL REFUSED IT.
[2022-09-24] MEDS: SODIUM CHLORIDE 1 GM TAB PO SCH (21:50)
--- NOTE | 2022-09-24 22:37 | NUR ---
PT REFUSED SALT 1GM TAB. AND CONVINCED PT FOR THE IV BUT PT STILL REFUSED. DR. GUAMAN MADE AWARE
[2022-09-25] VITALS: BP 113/90
[2022-09-25 04:00] VITALS: BP 142/90
--- NOTE | 2022-09-25 04:00 | NUR ---
INSERTED NEW IB ON RIGHT UPPER ARM GAUGE 22.
--- NOTE | 2022-09-25 05:35 | NUR ---
PT REFUSED PANTOPRAZOLE. EDUCATED THE PT BUT PT STILL REFUSED.
[2022-09-25] MEDS: PANTOPRAZOLE 40 MG TABEC PO SCH (05:43)
--- NOTE | 2022-09-25 07:26 | NUR ---
PT IS STABLE. ENDORSED PT TO MORNING SHIFT NURSE FOR CONTINUITY OF CARE.
--- NOTE | 2022-09-25 07:26 | NUR ---
RECEIVED REPORT FROM NIGHTSRIFT NURSE JOSE MNAUEL FOR CONTINUITY OF CARE. PT IN STABLE CONDITION.
[2022-09-25 07:28] LABS: BASOPHILS % (AUTO) 0.2 % (0.0-2.0); HEMOGLOBIN 12.5 g/dL (12.0-18.0); LYMPHOCYTES # (AUTO) 1.3 K/uL (2.0-11.5); LYMPHOCYTES % (AUTO) 15.1 % (20.5-51.1); MEAN CORPUSCULAR HEMOGLOBIN 27 pg (27-31); MEAN CORPUSCULAR HGB CONC 35 g/dL (33-37); MEAN CORPUSCULAR VOLUME 78.3 fL (80-94); MONOCYTES # (AUTO) 0.7 K/uL (0.8-1.0); MONOCYTES % (AUTO) 8.3 % (1.7-9.3); NEUTROPHILS # (AUTO) 6.3 K/uL (1.8-7.7); NEUTROPHILS % (AUTO) 76.4 % (42.2-75.2); PLATELET COUNT (AUTO) 298 K/uL (140-450); WHITE BLOOD COUNT (AUTO) 8.3 K/uL (4.8-10.8)
[2022-09-25 07:33] LABS: ANION GAP 6.4 (8-16); CARBON DIOXIDE 34.6 mmol/L (21-32); CREATININE 0.6 mg/dL (0.6-1.3)
--- NOTE | 2022-09-25 07:51 | NUR ---
RECEIVED CRITICAL LAB VALUE, PT'S NA WAS 112, RESULT REPORTED TO DR. GUAMAN AND DR. SCANLON.
[2022-09-25 08:00] VITALS: BP 146/89
[2022-09-25] MEDS: LEVOFLOXACIN 750 MG/D5W PREMIX 150 ML IV SCH (09:20)
[2022-09-25] MEDS: VALPROIC ACID 250 MG/5 ML UDC PO SCH (09:20)
[2022-09-25] MEDS: QUEtiapine FUMARATE 100 MG TAB PO SCH ×2 (09:21→21:06)
[2022-09-25] MEDS: SODIUM CHLORIDE 1 GM TAB PO SCH (09:21)
[2022-09-25] MEDS: POTASSIUM CHLORIDE 10 MEQ TABER PO PRN (09:22)
[2022-09-25] MEDS: amLODIPine 5 MG TAB PO SCH (09:22)
--- NOTE | 2022-09-25 09:22 | NUR ---
PT COMPLIED WITH CYLINDER DEVALVER, REQUESTING TO TAKE 2 PILLS AT A TIME WITH "LONG BREAKS IN BETWEEN." MEDICATED PRN KDUR 40 MEQ FOR K 3.0.
--- NOTE | 2022-09-25 10:00 | NUR ---
PT REFUSED BED BATH AND LINEN CHANGE. DIAPER VISIBLY SOILED. EDUCATED PT ON RISKS TO SKIN INTEGRITY, PT STILL REFUSED.
--- NOTE | 2022-09-25 10:50 | NUR ---
DR. GUAMAN IN TO SEE PT.
--- NOTE | 2022-09-25 11:05 | NUR ---
RECEIVED NEW ORDER FOR 3% NS TO BE INFUSED AT 50CC/HR FOR TOTAL OF 250CC AND TO REASSESS NA AFTER 1 HOUR OF FINISHED INFUSION.
[2022-09-25] MEDS ORDERED: NACL 3% 500 ML IV SCH (11:15)
[2022-09-25 12:00] VITALS: BP 95/68
--- NOTE | 2022-09-25 13:00 | NUR ---
PT AGREED TO BED BATH AND LINEN CHANGE.
--- NOTE | 2022-09-25 14:00 | NUR ---
DR. SAM IN TO SEE PT.
--- NOTE | 2022-09-25 15:53 | NUR ---
DR. PARIKH CALLED AND PERFORMED TELEPSYCH CONSULT. PT WAS RECEPTIVE AND COOPERATIVE, BUT A/OX1-2. PER DR. PARIKH, HE WILL ADJUST HIS MEDICATION DOSES AND ADD ADDITIONAL PRN MEDICATIONS. PER DR. PARIKH, SINCE PT HAS CONSERVATOR, PT IS NOT ALLOWED TO REFUSED MEDICATIONS OR SIGN AMA, MUST HAVE CONSERVATOR'S AGREEMENT. NOTIFIED DR. GUAMAN.
[2022-09-25 16:00] VITALS: BP 111/80
[2022-09-25] MEDS ORDERED: QUEtiapine FUMARATE 25 MG TAB PO PRN (16:05)
--- NOTE | 2022-09-25 17:30 | NUR ---
SPINDRAW OPERATOR ATTEMPTED TO DRAW CMP, PT BEGAN GETTING AGITATED AND REQUESTED TO "DO IT LATER." WILL ATTEMPT AGAIN.
--- NOTE | 2022-09-25 18:50 | NUR ---
CMP DRAW WAS SUCCESSFUL. RECEIVED NEW ORDER FOR PRN HALDOL 5MG IM FOR AGITATION.
--- NOTE | 2022-09-25 19:30 | NUR ---
RECEIVED REPORT FROM DAY SHIFT NURSE ZABRINA FOR CONTINUITY OF CARE. PATIENT IS A&O X2-3. PATIENT IS ON NC 2-3L (KEEPS REMOVING, AND IS NON-COMPLIANT), BREATHING IS NORMAL WITH SYMMETRICAL RISE AND FALL OF CHEST. IV IS A 20G OSVALDO, NO FLUIDS RUNNING AT THIS TIME. PATIENT IS AWAKE, LYING SEMI-FOWLERS POSITION. BED IS IN LOWEST POSITION, WHEELS LOCKED, CALL LIGHT IN PLACE. WILL CONTINUE TO OBSERVE PATIENT.
--- NOTE | 2022-09-25 19:30 | NUR ---
ENDORSED PT TO NIGHTSHIFT NURSE PATRIZIA Maldonado FOR CONTINUITY OF CARE. PT IN STABLE CONDITION.
[2022-09-25 20:00] VITALS: BP 107/80
[2022-09-25 20:16] LABS: ANION GAP 4.6 (8-16); CARBON DIOXIDE 34.4 mmol/L (21-32); CREATININE 0.7 mg/dL (0.6-1.3)
--- NOTE | 2022-09-25 21:00 | NUR ---
RECEIVED CRITICAL LAB OF NA 118 (TRENDING UP). NOTIFIED YARROW GATHERER PHYSICIAN DR. GUAMAN OF PATIENT'S NEW LABS AND THAT THEY WERE TRENDING UP. RESPONDED STATING "NICE". NO NEW ORDERS WERE GIVEN. WILL CONTINUE TO OBSERVE PATIENT.
[2022-09-25] MEDS: OLANZapine 5 MG TAB PO SCH (21:06)
--- NOTE | 2022-09-25 22:30 | NUR ---
PATIENT HAS BEEN TAKING OFF NC AND THEN COMPLAINING HE CAN'T BREATH. PATIENT REQUIRES NEGOTIATING TO ENCOURAGE HIM TO KEEP NC ON AND TO TAKE MEDS. PATIENT REFUSED MEDS AT FIRST BUT THEN AGREED TO TAKE MEDS ONE AT A TIME EVERY 10 MINUTES. WILL CONTINUE TO OBSERVE PATIENT.
[2022-09-26] VITALS: BP 127/92
--- NOTE | 2022-09-26 | NUR ---
PATIENT IS AWAKE. PATIENT HAS REQUESTED MULTIPLE DRINKS; PATIENT HAS BEEN GIVEN ORANGE JUICE, CRANBERRY JUICE, MILK, AND A BRAND NEW PITCHER OF WATER. PATIENT STILL TAKES NC OFF FROM TIME TO TIME AND THEN COMPLAINS THAT HE CAN'T BREATH. HAVE EDUCATED PATIENT ON THE IMPORTANCE OF KEEPING HIS NC ON. PATIENT INSISTS NO O2 IS COMING FROM NC, DESPITE BEING SHOWN HIS IMPROVED O2 SATURATION ON THE MONITOR WHEN ON IT. WILL CONTINUE TO OBSERVE PATIENT.
[2022-09-26] MEDS: ALBUTEROL 0.083% 2.5 MG/3 ML NEBU INH PRN ×2 (00:22→07:24)
--- NOTE | 2022-09-26 01:40 | NUR ---
PT GIVEN A PRN TREATMENT OF ALBUTEROL BECAUSE HE WAS AUDIBLY WHEEZING AND WAS SHORT OF BREATH. POST TREATMENT AERATION INCREASED. PT IS CONFUSED AND KEEPS TAKING OFF NC, BUT HAS BEEN WILLING TO REPLACE IT WHEN HE REALIZES HE IS HAVING DIFFICULTY BREATHING.
--- NOTE | 2022-09-26 03:37 | NUR ---
PATIENT HAS REFUSED BEING CHANGED DURING THE NIGHT. TOLD PATIENT AT 0330 THAT HE NEEDS TO BE CHANGED AND WE WILL DO IT QUICKLY. PATIENT STILL REFUSED, STATING "NOT NOW, LATER." TONIA ACHARYA WAS PRESENT WITH ME WHEN PATIENT DID THIS REFUSAL. PATIENT ALSO INSISTED THAT A DIAPER BE LEFT FOR HIM, AND HE WILL CHANGE HIMSELF WHEN HE'S READY. LEFT DIAPER FOR PATIENT AT BEDSIDE WITHIN HIS REACH. PATIENT IS ALSO COMPLAINING THAT HE NEEDS COLD O2 GIVEN TO HIM THROUGH HIS MASK AND STATES THAT O2 WE ARE GIVING NOW IS WARM. EXPLAINED TO PATIENT THAT WE JUST HAVE THE ONE FORM OF OXYGEN AVAILABLE AND THAT I HAVE NO WAY OF MAKING THE OXYGEN COLDER. PATIENT DID NOT RESPOND. WILL MAKE ONE MORE ATTEMPT TO CHANGE PATIENT BEFORE END OF SHIFT. WILL CONTINUE TO OBSERVE PATIENT.
[2022-09-26 04:00] VITALS: BP 124/97
[2022-09-26] MEDS: PANTOPRAZOLE 40 MG TABEC PO SCH (05:50)
--- NOTE | 2022-09-26 06:01 | NUR ---
ATTEMPTED WITH PINA MATA AT 0530 TO CONVINCE PATIENT TO ALLOW US TO CHANGE HIM. PATIENT STILL REFUSED. IT WAS EXPLAINED TO PATIENT THAT HE NEEDED TO BE CHANGED SINCE HE WAS WET; BUT PATIENT CONTINUED TO REFUSE TO BE CHANGED AND REFUSED TO ALLOW US TO CHECK HIM. WAS UNABLE TO FIND A METHOD OF NEGOTIATION THAT PATIENT WOULD ACCEPT TO ALLOW US TO CHANGE HIM. LEFT ROOM AND WENT BACK IN TO ADMINISTER 0630 PROTONIX TO PATIENT. PATIENT AGREED TO TAKE THE PROTONIX IF I GAVE HIM 3 CRANBERRY JUICE DRINKS; TOLD PATIENT I CAN GET HIM ONE FOR NOW. PATIENT SAID, HOW ABOUT TWO. I GAVE THE PATIENT TWO CRANBERRY JUICE DRINKS AND HE TOOK THE MEDICATION. WILL CONTINUE TO OBSERVE PATIENT.
--- NOTE | 2022-09-26 06:13 | NUR ---
WAS INFORMED BY HUMAN SERVICES PROGRAM SPECIALIST THAT PATIENT REFUSED MORNING LABS; AND WOULD NOT HAVE HIS BLOOD DRAWN. TALKED TO PATIENT ABOUT LAB DRAW; PATIENT ASKED ME WHAT WAS NEEDED WITH ALL THIS BLOOD THAT WAS TAKEN. I INFORMED PATIENT THAT IT WAS NECESSARY TO RUN TESTS THAT THE DOCTOR ORDERED. PATIENT STILL REFUSED BLOOD DRAW. WILL INFORM DAY SHIFT NURSE OF PATIENT'S REFUSAL.
--- NOTE | 2022-09-26 07:21 | NUR ---
ENDORSED TO DAY SHIFT NURSE KATHERIN FOR CONTINUITY OF CARE. PATIENT IS STABLE.
--- NOTE | 2022-09-26 07:24 | NUR ---
PATIENT PRESENTING WITH INCREASED SOB AT 24 BPM; BREATH SOUNDS RALES WITH EXPIRATORY AUDIBLE WHEEZE; INTERMITTENT SPONTANEOUS COUGH; LOC AWAKE AND ALERT VERBALLY RESPONSIVE; GOOD CHEST RISE; REVIEWED CXR 09/22; PALLETISER OPERATOR SUGGESTION SCHEDULED HHN THERAPY Addendum: 09/26/22 at 1145 by Dilshad Godoy RT RECEIVED ON SUPPLEMENTAL OXYGEN AT 3 LPM VIA NC SATURATION 98%; POST HHN THERAPY TITRATED FIO2 TO 2 LPM
[2022-09-26 07:59] VITALS: BP 156/97
[2022-09-26 08:18] LABS: BASOPHILS % (AUTO) 0.1 % (0.0-2.0); HEMATOCRIT 36.3 % (36-52); HEMOGLOBIN 12.2 g/dL (12.0-18.0); LYMPHOCYTES # (AUTO) 1.7 K/uL (2.0-11.5); LYMPHOCYTES % (AUTO) 17.3 % (20.5-51.1); MEAN CORPUSCULAR HEMOGLOBIN 27 pg (27-31); MEAN CORPUSCULAR HGB CONC 34 g/dL (33-37); MEAN CORPUSCULAR VOLUME 79.5 fL (80-94); MONOCYTES # (AUTO) 0.8 K/uL (0.8-1.0); MONOCYTES % (AUTO) 7.8 % (1.7-9.3); NEUTROPHILS # (AUTO) 7.3 K/uL (1.8-7.7); NEUTROPHILS % (AUTO) 74.8 % (42.2-75.2); PLATELET COUNT (AUTO) 302 K/uL (140-450); RED BLOOD CELL COUNT(AUTO) 4.57 MIL/uL (4.20-6.10); RED CELL DISTRIBUTION WIDTH 16.3 % (11.6-13.7); WHITE BLOOD COUNT (AUTO) 9.7 K/uL (4.8-10.8)
[2022-09-26 08:36] LABS: ANION GAP 6.5 (8-16); CARBON DIOXIDE 34.5 mmol/L (21-32); CREATININE 0.7 mg/dL (0.6-1.3)
[2022-09-26] MEDS ORDERED: NACL 0.9% 1,000 ML IV SCH (08:55)
[2022-09-26] MEDS: QUEtiapine FUMARATE 100 MG TAB PO SCH ×2 (09:16→21:55)
[2022-09-26] MEDS: amLODIPine 5 MG TAB PO SCH (09:16)
[2022-09-26] MEDS: VALPROIC ACID 250 MG/5 ML UDC PO SCH (09:17)
[2022-09-26] MEDS: NICOTINE TRANSD SYS 14 MG/24 HR PATCH TD SCH (09:17)
[2022-09-26] MEDS: LEVOFLOXACIN 750 MG/D5W PREMIX 150 ML IV SCH (12:58)
[2022-09-26] MEDS: ALBUTEROL SULFATE/IPRATROPIU 3 ML SOL IH SCH ×2 (13:00→19:00)
--- NOTE | 2022-09-26 13:24 | NUR ---
PATIENT REFUSED HHN THERAPY; STATED "I DON'T NEED YOU GET OUT OF MY ROOM"
[2022-09-26] MEDS: NACL 0.9% 500 ML IV SCH (14:35)
[2022-09-26 20:00] VITALS: BP 122/89
[2022-09-26] MEDS: OLANZapine 5 MG TAB PO SCH (21:55)
[2022-09-27] MEDS: NACL 0.9% 500 ML IV SCH ×2 (01:50→17:45)
[2022-09-27] MEDS: PANTOPRAZOLE 40 MG TABEC PO SCH (06:30)
[2022-09-27] MEDS: ALBUTEROL SULFATE/IPRATROPIU 3 ML SOL IH SCH ×3 (07:00→19:35)
--- NOTE | 2022-09-27 07:16 | NUR ---
PATIENT REFUSING HHN THERAPY "NO I DON'T WANT IT"; CONFUSED TALKING TO HIMSELF; SATURATION 95% ROOM AIR; HR 103 RR 20; GOOD CHEST RISE; BREATH SOUNDS DIFFUSED EXPIRATORY WHEEZE BILATERAL
--- NOTE | 2022-09-27 07:20 | NUR ---
Patient refuses morning laboratory draw.
[2022-09-27 08:00] VITALS: BP 163/121
[2022-09-27] MEDS: NICOTINE TRANSD SYS 14 MG/24 HR PATCH TD SCH (08:47)
[2022-09-27] MEDS: hydrALAZINE 20 MG/ML VIAL IVP PRN ×2 (08:48→16:25)
[2022-09-27] MEDS: HALOPERIDOL IM 5 MG/ML VIAL IM PRN (08:48)
[2022-09-27] MEDS: QUEtiapine FUMARATE 100 MG TAB PO SCH ×2 (08:59→22:00)
[2022-09-27] MEDS: VALPROIC ACID 250 MG/5 ML UDC PO SCH (08:59)
[2022-09-27] MEDS: amLODIPine 5 MG TAB PO SCH (08:59)
--- NOTE | 2022-09-27 12:13 | NUR ---
WOUND CONSULT NOT DONE. PT. AMA. Addendum: 09/29/22 at 1054 by Noah Mckinley RN (Grace) DELET ABOVE INFORMATION. WRONG PT.
[2022-09-27] MEDS ORDERED: NON ADHERENT DRESSING TP PRN (12:15)
--- NOTE | 2022-09-27 13:12 | NUR ---
PATIENT REFUSED SCHEDULED HHN THERAPY; PATIENT STATED "NO"
[2022-09-27] MEDS: NON ADHERENT DRESSING TP SCH (13:17)
[2022-09-27] MEDS: LEVOFLOXACIN 750 MG/D5W PREMIX 150 ML IV SCH (13:21)
[2022-09-27] MEDS ORDERED: NACL PO (13:48)
[2022-09-27 16:00] VITALS: BP 161/107
[2022-09-27] MEDS ORDERED: NACL 3% 500 ML IV ONE (16:00)
--- NOTE | 2022-09-27 19:25 | NUR ---
Patient endorsement to night team nurse Ana, one haldol IM injection given this morning as patient refused pills and threw the medication and liquid depakote across the room.
[2022-09-27 20:00] VITALS: BP 140/85
--- NOTE | 2022-09-27 20:22 | NUR ---
RN CALLED STATING THAT PATIENT HAD LABORED BREATHING. WENT TO ASSESS PATIENT. NOTED NO RESPIRATORY DISTRESS, HOWEVER PT WAS ONLY SATING AT 90%. PATIENT WAS NOT WEARING THEIR NASAL CANNULA AND PLACED PATIENT BACK ON 2L. PATIENT THEN RETURNED TO SATING IN THE MID TO HIGH 90S.
[2022-09-27] MEDS: OLANZapine 5 MG TAB PO SCH (22:01)
[2022-09-28] VITALS: BP 145/90
[2022-09-28] MEDS: NACL 0.9% 500 ML IV SCH (02:03)
--- NOTE | 2022-09-28 03:00 | NUR ---
still awake , keep talking , bp 140 / 78 , o2 sat 97 % , rr 20 - will medicate Addendum: 09/28/22 at 0306 by Ana Gilbert RN at [phone] pr [phone]
[2022-09-28 04:00] VITALS: BP 152/86
--- NOTE | 2022-09-28 06:00 | NUR ---
THERE IS WOUND ON BOTH FEET , OPEN WOUND ON THE SACRAL AREA - REVIEWED DR'S ORDER NO WOUND CONSULT , NO FNS ORDER - WILL PUT THE ORDER PROTOCOL
[2022-09-28] MEDS: PANTOPRAZOLE 40 MG TABEC PO SCH (06:01)
[2022-09-28 07:08] LABS: ANION GAP 11.3 (8-16); CARBON DIOXIDE 28.1 mmol/L (21-32); CREATININE 0.6 mg/dL (0.6-1.3); POTASSIUM 4.4 mmol/L (3.5-5.1)
[2022-09-28 07:25] LABS: BASOPHILS % (AUTO) 0.3 % (0.0-2.0); HEMATOCRIT 36.7 % (36-52); HEMOGLOBIN 12.3 g/dL (12.0-18.0); LYMPHOCYTES # (AUTO) 1.4 K/uL (2.0-11.5); LYMPHOCYTES % (AUTO) 17.2 % (20.5-51.1); MEAN CORPUSCULAR HEMOGLOBIN 27 pg (27-31); MEAN CORPUSCULAR HGB CONC 33 g/dL (33-37); MEAN CORPUSCULAR VOLUME 80.2 fL (80-94); MONOCYTES # (AUTO) 0.9 K/uL (0.8-1.0); MONOCYTES % (AUTO) 10.9 % (1.7-9.3); NEUTROPHILS # (AUTO) 5.7 K/uL (1.8-7.7); NEUTROPHILS % (AUTO) 71.6 % (42.2-75.2); PLATELET COUNT (AUTO) 289 K/uL (140-450); RED BLOOD CELL COUNT(AUTO) 4.58 MIL/uL (4.20-6.10); RED CELL DISTRIBUTION WIDTH 16.6 % (11.6-13.7); WHITE BLOOD COUNT (AUTO) 7.9 K/uL (4.8-10.8)
--- NOTE | 2022-09-28 07:28 | NUR ---
ENDORSED PT FOR CONT. OF CARE , I ENDORSED TO AM NURSE TO TAKE A PHOTO OF THE WOUND . ANDD FF UP THE FNS , WOUND CONSULT , AND REMIND THE DR. IF THE DR. WANT TO MONITOR THE BLOOD SUGAR - AM NURSE VERBALIZES UNDERSTANDING .
[2022-09-28 08:00] VITALS: BP 176/114
[2022-09-28] MEDS: amLODIPine 5 MG TAB PO SCH (09:00)
[2022-09-28] MEDS: VALPROIC ACID 250 MG/5 ML UDC PO SCH (09:00)
[2022-09-28] MEDS: NICOTINE TRANSD SYS 14 MG/24 HR PATCH TD SCH (09:00)
[2022-09-28] MEDS: QUEtiapine FUMARATE 100 MG TAB PO SCH ×2 (09:00→21:06)
[2022-09-28] MEDS: hydrALAZINE 20 MG/ML VIAL IVP PRN (10:13)
[2022-09-28] MEDS: NON ADHERENT DRESSING TP SCH (13:00)
[2022-09-28] MEDS: LEVOFLOXACIN 750 MG/D5W PREMIX 150 ML IV SCH (13:43)
--- NOTE | 2022-09-28 14:46 | NUR ---
09/28/22 RD FOLLOW UP COMPLETED PLEASE REFER TO NUTRITION ASSESSMENT UNDER CARE ACTIVITY FOR ESTIMATED NUTRITIONAL NEEDS. 1. CONTINUE REGULAR DIET WITH ENSURE BID FOR WOUND SUPPORT - ENSURE PROVIDES 700 KCAL AND 40 GM PROTEIN DAILY 2. MONITOR PO INTAKE AND NUTRITION RELATED LAB VALUES 3. RD TO FOLLOW-UP 3-5 DAYS, MODERATE RISK REVIEWED BY KACI JUÁREZ RD
[2022-09-28] MEDS ORDERED: NACL 3% 500 ML IV ONE (15:00)
[2022-09-28 15:20] LABS: ANION GAP 8.8 (8-16); CARBON DIOXIDE 28.6 mmol/L (21-32); CREATININE 0.6 mg/dL (0.6-1.3); POTASSIUM 4.4 mmol/L (3.5-5.1)
--- NOTE | 2022-09-28 15:21 | NUR ---
ATTEMPTED TO DO WOUND CARE PATIENT REFUSED
--- NOTE | 2022-09-28 15:42 | NUR ---
RECEIVED CALL FROM LAB REGARDING SODIUM OF 117 NOTIFIED ADMINISTRATION DEAN ABOUT CURRENT LEVEL
--- NOTE | 2022-09-28 16:41 | NUR ---
P.T. NOTES P.T. EVAL INITIATED; REFER TO EVAL FOR DETAILS.
[2022-09-28] MEDS: MORPHINE SULFATE 2 MG/ML SYR IVP PRN (17:36)
--- NOTE | 2022-09-28 17:45 | NUR ---
PT. WITH SKIN TEAR TO BUTTOCKS, OPTIFOAM PLACEED, AND ENCOURAGED PATIENT TO TURN TO SIDE TO RELIEVE PRESSURE
[2022-09-28 20:00] VITALS: BP 142/94
[2022-09-28] MEDS: OLANZapine 5 MG TAB PO SCH (21:02)
--- NOTE | 2022-09-28 21:02 | NUR ---
ADMINISTERED ALL SCHEDULED MEDICATIONS ORDERED. PATIENT AWAKE ON 2L NC SATING 98%. NO ACUTE DISTRESS. CONFUSED. IVF INFUSING ORDERED. NO COMPLAINTS OF PAIN. CALL LIGHT WITHIN REACH. BED WHEELS LOCKED IN LOW POSITION.
--- NOTE | 2022-09-29 03:00 | NUR ---
PATIENT REFUSED TO BE CHANGED.
[2022-09-29] MEDS: PANTOPRAZOLE 40 MG TABEC PO SCH (06:53)
--- NOTE | 2022-09-29 07:23 | NUR ---
BEDSIDE REPORT GIVEN TO AM NURSE FOR CONTINUITY OF CARE.
--- NOTE | 2022-09-29 07:45 | NUR ---
Patient agitation yelling about needing oxygen and has an oxygen saturation of 92% on room air.
[2022-09-29 08:00] VITALS: BP 126/54
[2022-09-29] MEDS: ALBUTEROL SULFATE/IPRATROPIU 3 ML SOL IH SCH ×3 (08:00→20:03)
--- NOTE | 2022-09-29 08:00 | NUR ---
PT REFUSED DUONEB TX. STATED "GO AWAY. I DON'T WANT THAT." NO DISTRESS NOTED.
[2022-09-29] MEDS: NICOTINE TRANSD SYS 14 MG/24 HR PATCH TD SCH (09:09)
[2022-09-29] MEDS: QUEtiapine FUMARATE 100 MG TAB PO SCH ×2 (09:09→20:35)
[2022-09-29] MEDS: amLODIPine 5 MG TAB PO SCH (09:10)
[2022-09-29] MEDS: VALPROIC ACID 250 MG/5 ML UDC PO SCH (09:10)
--- NOTE | 2022-09-29 09:53 | NUR ---
SKIN ASSESSMENT DONE, PT IS MORE APPROACHABLE NOW. PT. WITH WORD SALAD WITH A C.N.A. ASSISTANCE TO DISTRACT PT. BY TALKING TO HIM DURING ASSESSMENT. BILATERAL FEET COLD TO TOUCH LIGHT PURPLE COLOR, PT. UNABLE TO SAID PAIN SCALE BUT WITHDRAW HIS FEET WHEN DORSAL FEET WERE TOUCHED. LEFT FIFTH TOE DRY GANGRENE, RIGHT FOURTH AND FIFTH TOES AND INTERSPACES DRY GANGRENE, LEFT AND RIGHT LATERAL FEET DRY STABLE BROWN SCABS. PT. REFUSES TO TURN AND REMOVING CLOTHING TO ASSESS TRUNK OF BODY, PT. START TO HOLDING BLANKET TO COVER. DR. BAUMAN INFORM OF RECOMMEND ARTERIAL ULTRASOUND TO BILATERAL FEET CHARGE NURSE ZABRINA NOTIFY. RECOMMENDATIONS -ARTERIAL ULTRASOUNDS TO BLE/FEET/TOES -APPLY SOAKED BETADINE 4X4 DRESSING TO LEFT FIFTH TOE DRY GANGRENE, RIGHT FOURTH AND FIFTH TOES AND INTERSPACES DRY GANGRENE, LEFT AND RIGHT LATERAL FEET DRY STABLE BROWN SCABS, COVER WITH DRY DRESSING AND SECURE WITH TAPE. NO COMPRESSION DRESSING PLEASE
[2022-09-29] MEDS: HALOPERIDOL IM 5 MG/ML VIAL IM PRN (11:00)
--- NOTE | 2022-09-29 11:03 | NUR ---
Patient psychosis repeating words like "radios" in a shouting voice.
[2022-09-29] MEDS: LEVOFLOXACIN 750 MG/D5W PREMIX 150 ML IV SCH (12:36)
[2022-09-29] MEDS ORDERED: GAUZE TP SCH (13:00)
[2022-09-29] MEDS ORDERED: QUET25TA46 PO (13:31)
[2022-09-29] MEDS ORDERED: LEVO750P5 IV (13:31)
--- NOTE | 2022-09-29 13:52 | NUR ---
RN MEDICALLY CLEARED PATIENT FOR PT TREATMENT HOWEVER PATIENT REFUSED STATING EVERYTHING HURTS. MAX ENCOURAGEMENT GIVEN BUT PATIENT CONTINUES TO REFUSE. WILL TRY AGAIN TOMORROW.
--- NOTE | 2022-09-29 15:58 | NUR ---
Transfer report with Flor at [facility]. Patient to transfer to room 246 at 8 pm.
[2022-09-29 16:00] VITALS: BP 128/56
--- NOTE | 2022-09-29 19:30 | NUR ---
RECEIVED PT FROM MORNING SHIFT NURSE. PT IS AOX2-3 AND BEDREST. PT IS ON 3L NC AND ON REGULAR DIET. PT HAS IV ON RIGHT UPPER ARM GAUGE 20, SALINE LOCK. PT HAS STAGE 2 PRESSURE ULCER ON THE COCCYX AND WOUND ON RIGHT BUTTOCK AND HAS GANGRENE WOUND ON RIGHT 2ND, 3RD AND 5TH TOE AND ON LEFT 5TH TOE. NO S/S OF RESPIRATORY DISTRESS NOTED. ALL SAFETY MEASURES IMPLEMENTED. BED IN LOW POSITION, BED WHEELS ON LOCK AND CALL LIGHT WITHIN REACH.
--- NOTE | 2022-09-29 19:50 | NUR ---
[facility] TRAN[facility]ORT CAME TO COMPLIANCE ENGINEER THE PT BUT THE PT REFUSED TO LEAVE THE HOSPITAL CONVINCE THE PT WITH THE SECURITY BEDSIDE BUT PT STILL REFUSED.
--- NOTE | 2022-09-29 20:05 | NUR ---
CALL THE CONSERVATOR BUT DIDN'T ANSWER.
--- NOTE | 2022-09-29 20:13 | NUR ---
NOTIFY DR. HAQUE THAT PT IS REFUSING TO LEAVE THE HOSPITAL.
[2022-09-29] MEDS: OLANZapine 5 MG TAB PO SCH (20:35)
--- NOTE | 2022-09-29 20:35 | NUR ---
ALL SCHEDULED AND PRESCRIBED MEDICATION WAS GIVEN TO PT PER MD ORDER. ALL SAFETY MEASURES IMPLEMENTED. BED IN LOW POSITION, BED WHEELS ON LOCK AND CALL LIGHT WITHIN REACH.
[2022-09-30] MEDS: MORPHINE SULFATE 2 MG/ML SYR IVP PRN (00:18)
--- NOTE | 2022-09-30 00:18 | NUR ---
PRN PAIN MEDICATION WAS GIVEN TO PT DUE TO PAIN ON LEFT LEG WITH PAIN SCALE OF 6/10. ALL SAFETY MEASURES IMPLEMENTED. BED IN LOW POSITION, BED WHEELS ON LOCK AND CALL LIGHT WITHIN REACH.
[2022-09-30 04:00] VITALS: BP 138/98
--- NOTE | 2022-09-30 04:00 | NUR ---
PT REFUSED FOR THE MORNING CARE. EDUCATED THE PT BUT PT STILL REFUSED.
[2022-09-30] MEDS: PANTOPRAZOLE 40 MG TABEC PO SCH (05:43)
--- NOTE | 2022-09-30 05:43 | NUR ---
PT REFUSED TO TAKE PANTOPRAZOLE. EDUCATED AND CONVINCED THE PT BUT THE PT STILL REFUSED.
[2022-09-30] MEDS: ALBUTEROL SULFATE/IPRATROPIU 3 ML SOL IH SCH ×2 (07:00→13:50)
--- NOTE | 2022-09-30 07:31 | NUR ---
PT IS STABLE. ENDORSED PT TO MORNING NURSE FOR CONTINUITY OF CARE.
--- NOTE | 2022-09-30 07:32 | NUR ---
RECEIVED BEDSIDE REPORT FROM NIGHTSHIFT NURSE. PT RESTING IN BED, WOKE TO NAME AND TOUCH, AOX3. NO SIGNS OF DISTRESS/PAIN/DISCOMFORT. REORIENTED PT TO CALL LIGHT. BED IN LOWEST POSITION, 2 SIDE RAILS UP, CALL LIGHT WITHIN REACH. NO FURTHER NEEDS ARE TO BE MET AT THIS TIME. WILL CONTINUE WITH CARE.
[2022-09-30] MEDS: QUEtiapine FUMARATE 100 MG TAB PO SCH (09:00)
[2022-09-30] MEDS: amLODIPine 5 MG TAB PO SCH (09:00)
[2022-09-30] MEDS: NICOTINE TRANSD SYS 14 MG/24 HR PATCH TD SCH (09:00)
[2022-09-30] MEDS: VALPROIC ACID 250 MG/5 ML UDC PO SCH (09:00)
--- NOTE | 2022-09-30 09:10 | NUR ---
PT REFUSED LAB DRAW AND MORNING MEDS, EDUCATED PT ON RISKS/BENEFITS, PT STILL REFUSED.
--- NOTE | 2022-09-30 10:01 | NUR ---
PT REFUSED MEDICATION THIS MORNING (7035). PT EDUCATED ABOUT PURPOSE OF MEDICATION BUT STILL REFUSED.
--- NOTE | 2022-09-30 12:00 | NUR ---
ALMAZ RODRIGUEZ REQUEST TO ATTEMPT LAB DRAW AGAIN. SPOKE TO PT AGAIN, PT AGREED TO LAB DRAW. CRITICAL LAB VALUE REPORT, NA: 117. NEPHSUAL RODRIGUEZ INFORMED. 3% NS ORDERED AND TO BE GIVEN BEFORE DISCHARGE.
[2022-09-30 12:01] LABS: ANION GAP 9.5 (8-16); CARBON DIOXIDE 27.3 mmol/L (21-32); CREATININE 0.7 mg/dL (0.6-1.3); POTASSIUM 4.8 mmol/L (3.5-5.1)
[2022-09-30] MEDS ORDERED: NACL 3% 500 ML IV ONE (12:25)
[2022-09-30] MEDS ORDERED: HALOPERIDOL IM 5 MG/ML VIAL IM SCH (13:00)
--- NOTE | 2022-09-30 14:00 | NUR ---
PT LEFT MST UNIT WITH [facility] AT @1400. NO SIGNS OF DISTRESS, NO REPORTS OF PAIN/DISCOMFORT. ID BAND REMOVED. IV KEPT PER PT DC FACILITY REQUEST. NO FURTHER NEEDS ARE TO BE MET AT THIS TIME.
== END 2022-09-30 14:10 | DRG 871 ==
LOC: MED 22:38 → MTU 09-21 10:42
PROVIDERS: ADMIT Family Medicine; ATTEND Family Medicine
PROC: 0T9B70Z Drainage of Bladder with Drainage Device, Via Natural or Artificial Opening (ICD-10-PCS; principal; 2022-09-21)
DX: A41.9 Sepsis, unspecified organism (principal); G93.41 Metabolic encephalopathy; L03.115 Cellulitis of right lower limb; E87.1 Hypo-osmolality and hyponatremia; L03.116 Cellulitis of left lower limb; E44.0 Moderate protein-calorie malnutrition; Z68.1 Body mass index [BMI] 19.9 or less, adult; J96.10 Chronic respiratory failure, unspecified whether with hypoxia or hypercapnia; G40.909 Epilepsy, unspecified, not intractable, without status epilepticus; Z20.822 Contact with and (suspected) exposure to COVID-19; J44.9 Chronic obstructive pulmonary disease, unspecified; E03.9 Hypothyroidism, unspecified; F20.9 Schizophrenia, unspecified; R74.01 Elevation of levels of liver transaminase levels; I10 Essential (primary) hypertension; F17.210 Nicotine dependence, cigarettes, uncomplicated; Z88.0 Allergy status to penicillin; Z79.899 Other long term (current) drug therapy; Z91.199 Patient's noncompliance with other medical treatment and regimen due to unspecified reason; R33.9 Retention of urine, unspecified
CPT/HCPCS: 36415; 71045; 73630; 80048; 80053; 80305; 81003; 82150; 82533; 83036; 83605; 83690; 83735; 83880; 83930; 83935; 84100; 84300; 84436; 84439; 84443; 84479; 84484; 85025; 85610; 85730; 87040; 87081; 87086; 90471; 90715; 93005; 94640; 96365; 96375; 97112; 97530; 99285; J0360; J1630; J1885; J1940; J1956; J2270; J3475; J3490; J7613; Q0092

== ENCOUNTER 2022-10-06 12:51 | Inpatient (IN) | payer OTHER, MEDICAID ==
[~2022-10-06] VITALS: Ht 170.2 cm; Wt 68.9 kg
[~2022-10-06 12:51] MED LIST changes: -ACET-8905 PO; -ALBU-118 IH; +AMLO5TAB PO; -BACTO TP; -IBUP-1842 PO; -IBUP-2213 PO; +LEVO750P5 IV; +NACL PO; -OLAN15TA1 PO; +OLAN2.5T1 PO; +OLAN20TA1 PO; +QUET25TA46 PO; -ROB PO; -SULF-59 PO; +VALP-22 PO; -VALP250S5 PO
--- NOTE | 2022-10-06 13:30 | NUR ---
AWAKE AND ALERT X 2, COOPERATIVE, NON COMBATIVE WITH CARE.
[2022-10-06] MEDS ORDERED: NACL 0.9% 500 ML IV SCH (13:40)
[2022-10-06] MEDS ORDERED: INSULIN REGULAR, HUMAN 100 UNIT/ML VIAL SUBQ ONE (13:40)
[2022-10-06] MEDS ORDERED: SODIUM ZIRCONIUM CYCLOSILICATE 10 GM POWD.PACK PO ONE (13:40)
[2022-10-06] MEDS ORDERED: SODIUM BICARBONATE 8.4% PFS 50 MEQ/50 ML SYR IVP ONE (13:40)
[2022-10-06] MEDS ORDERED: DEXTROSE 50% 50 ML SYR IVP ONE (13:40)
[2022-10-06 14:22] LABS: HEMATOCRIT 30.7 % (36-52); HEMOGLOBIN 10.2 g/dL (12.0-18.0); LYMPHOCYTES # (AUTO) 0.8 K/uL (2.0-11.5); LYMPHOCYTES % (AUTO) 4.8 % (20.5-51.1); MEAN CORPUSCULAR HEMOGLOBIN 26 pg (27-31); MEAN CORPUSCULAR HGB CONC 33 g/dL (33-37); MEAN CORPUSCULAR VOLUME 79.2 fL (80-94); MONOCYTES # (AUTO) 0.6 K/uL (0.8-1.0); MONOCYTES % (AUTO) 3.5 % (1.7-9.3); NEUTROPHILS # (AUTO) 16.1 K/uL (1.8-7.7); NEUTROPHILS % (AUTO) 91.7 % (42.2-75.2); PLATELET COUNT (AUTO) 381 K/uL (140-450); RED BLOOD CELL COUNT(AUTO) 3.87 MIL/uL (4.20-6.10); RED CELL DISTRIBUTION WIDTH 16.1 % (11.6-13.7); WHITE BLOOD COUNT (AUTO) 17.5 K/uL (4.8-10.8)
[2022-10-06 14:45] LABS: ALBUMIN 2.7 g/dL (3.4-5.0); ANION GAP 12.3 (8-16); CARBON DIOXIDE 24.8 mmol/L (21-32); CREATININE 1.8 mg/dL (0.6-1.3); POTASSIUM 5.1 mmol/L (3.5-5.1); TOTAL BILIRUBIN 0.5 mg/dL (0.0-1.0)
--- NOTE | 2022-10-06 15:00 | NUR ---
PT STROKING GENITALIA, AGREED TO STOP SINCE STAFF CLOSED THE CURTAINS WHEN HE DOES IT.
[2022-10-06] MEDS ORDERED: NACL 3% 500 ML IV ONE (16:00)
[2022-10-06] MEDS ORDERED: DOCUSATE SODIUM 100 MG GELCAP PO PRN (17:10)
[2022-10-06] MEDS ORDERED: ONDANSETRON 4 MG/2 ML VIAL IM/IVP PRN (17:10)
[2022-10-06] MEDS ORDERED: ZOLPIDEM 5 MG TAB PO PRN (17:10)
[2022-10-06] MEDS ORDERED: guaiFENesin DM 200/20 MG-10 ML 10 ML UDC PO PRN (17:10)
[2022-10-06] MEDS ORDERED: NACL 0.9% 1,000 ML IV SCH (17:15)
[2022-10-06 17:40] LABS: FREE T4 (FREE THYROXINE) 0.77 ng/dL (0.76-1.46); MAGNESIUM 1.4 mg/dL (1.8-2.4); PHOSPHORUS 5.7 mg/dL (2.5-4.9); THYROID STIMULATING HORMONE 6.64 uIU/mL (0.34-3.74)
[2022-10-06 17:55] LABS: CHOL/HDL RATIO 1.8 (1-4.5)
[2022-10-06] MEDS: LEVOFLOXACIN 750 MG/D5W PREMIX 150 ML IV SCH (18:00)
--- NOTE | 2022-10-06 19:29 | NUR ---
PT RESTING IN BED, NO COMPLAINTS. WET DIAPER CHANGED, NO BM. PT TURNS TO SIDES WHEN INSTRUCTED. REFUSED MEAL EVEN SET UP BY STAFF
--- NOTE | 2022-10-06 19:30 | NUR ---
Assumed care of patient, resting comfortably at this time. Awake and alert. No c/o distress, pain or discomfort. VSS.
[2022-10-06 20:35] LABS: ANION GAP 9.6 (8-16); CARBON DIOXIDE 27.2 mmol/L (21-32); CREATININE 1.6 mg/dL (0.6-1.3); POTASSIUM 4.8 mmol/L (3.5-5.1)
--- NOTE | 2022-10-06 20:49 | NUR ---
Contacted Dr. Feliciano regarding sodium result awaiting response.
--- NOTE | 2022-10-06 21:30 | NUR ---
Pt resting comfortably at this time, repositioned and given blankets. Denies any discomfort.
--- NOTE | 2022-10-06 22:20 | NUR ---
Urine collected and sent to lab
[2022-10-06 22:21] LABS: APPEARANCE,URINE CLEAR (CLEAR); BILIRUBIN,URINE NEGATIVE (NEGATIVE); BLOOD, URINE 1+ (NEGATIVE); COLOR,URINE YELLOW (YELLOW); LEUKOCYTE ESTERASE ,URINE TRACE (NEGATIVE); NITRITE, URINE NEGATIVE (NEGATIVE); UGLUCOSE NEGATIVE (NEGATIVE)
[2022-10-06 22:41] LABS: RBC,URINE 0-5 /HPF (0-5)
--- NOTE | 2022-10-06 23:00 | NUR ---
Pt denies any discomfort at this time. No SOB. Respirations even and unlabored. Awake and responsive. Kept clean and dry and repositioned.
[2022-10-07] VITALS (16 sets, daily range): BP systolic 127–163; BP diastolic 73–99
--- NOTE | 2022-10-07 01:00 | NUR ---
Pt resting comfortably at this time. No s/s distress, rise and fall of chest noted. No s/s pain or discomfort.
--- NOTE | 2022-10-07 03:00 | NUR ---
Pt awake, denies any pain or discomfort at this time. Repositioned.
[2022-10-07] MEDS: NACL 0.9% 1,000 ML IV SCH ×2 (03:12→15:17)
--- NOTE | 2022-10-07 05:00 | NUR ---
Pt resting comfortably at this time, noted with rise and fall of chest. No SOB or distress. No s/s pain or discomfort.
[2022-10-07 06:39] LABS: HEMATOCRIT 30.6 % (36-52); HEMOGLOBIN 10.4 g/dL (12.0-18.0); LYMPHOCYTES # (AUTO) 0.7 K/uL (2.0-11.5); LYMPHOCYTES % (AUTO) 4.5 % (20.5-51.1); MEAN CORPUSCULAR HEMOGLOBIN 27 pg (27-31); MEAN CORPUSCULAR HGB CONC 34 g/dL (33-37); MEAN CORPUSCULAR VOLUME 79.2 fL (80-94); MONOCYTES # (AUTO) 0.7 K/uL (0.8-1.0); MONOCYTES % (AUTO) 4.6 % (1.7-9.3); NEUTROPHILS # (AUTO) 13.3 K/uL (1.8-7.7); NEUTROPHILS % (AUTO) 90.9 % (42.2-75.2); PLATELET COUNT (AUTO) 409 K/uL (140-450); RED BLOOD CELL COUNT(AUTO) 3.87 MIL/uL (4.20-6.10); RED CELL DISTRIBUTION WIDTH 15.7 % (11.6-13.7); WHITE BLOOD COUNT (AUTO) 14.7 K/uL (4.8-10.8)
--- NOTE | 2022-10-07 07:00 | NUR ---
Pt resting at this time. No c/o discomfort. Rise and fall of chest noted.
[2022-10-07 07:02] LABS: CARBON DIOXIDE 25.2 mmol/L (21-32); CREATININE 1.3 mg/dL (0.6-1.3); POTASSIUM 4.2 mmol/L (3.5-5.1)
--- NOTE | 2022-10-07 07:15 | NUR ---
Report given to Rachael HELLER
--- NOTE | 2022-10-07 07:40 | NUR ---
PT ADMITTED FROM ER, REPORT RECEIVED FROM CHRISTIAN HELLER. PT VSS. NAD NOTED. ON 2LPM N/C BASELINE HX OF COPD FROM [facility]. PT HAS WOUND TO COCCYX, CHRONIC AND PRESENT UPON ADMISSION. PT ALSO ADMITTED TO BLE CELLULITIS WITH GANGRENE TO RIGHT LATERAL FOOT WITH OPEN WOUND. PT AAOX2. HYPONATREMIC AT 114. PT HAD SMALL BOWEL MOVEMENT, CLEANED UPON TRANSFER TO ICU BED. NEW DRESSINGS APPLIED TO COCCYX AND RIGHT FOOT UNTIL OFFICIAL WOUND CARE ORDERS RECEIVED. PT ON NS IVF @ 85. PERIPHERAL IV 20G TO RIGHT AC AND RIGHT BICEP. NO FRIEDMAN CATHETER. PT INCONTINENT AT TIMES BUT PREFERS URINAL. SEIZURE PRECAUTIONS IN PLACE, HX OF SEIZURES AND HYPONATREMIC. WILL CONT TO MONITOR PT CLOSELY.
--- NOTE | 2022-10-07 07:45 | NUR ---
Patient will be admitted to care of GARLAND RODRIGUEZ. Admitted to ICU. Will go to room 4. Belongings list completed. Report to NOBLE HELLER.
--- NOTE | 2022-10-07 07:54 | NUR ---
TRANSFER OF CARE AT THIS TIME TO ICU BED 4
[2022-10-07] MEDS: PANTOPRAZOLE 40 MG TABEC PO SCH (09:40)
[2022-10-07] MEDS ORDERED: MAG SULF 2000 MG/WATER PREMIX 50 ML IV SCH (10:20)
--- NOTE | 2022-10-07 11:26 | NUR ---
PATIENT HAS BEEN SCREENED AND CATEGORIZED MODERATE NUTRITION RISK. PATIENT WILL BE SEEN WITHIN 3-5 DAYS OF ADMISSION. 10/09/22-10/11/[address]
[2022-10-07] MEDS: HYDROcodone/APAP 7.5/325 MG 1 TAB PO PRN (11:29)
--- NOTE | 2022-10-07 12:10 | NUR ---
PER MOLDING FITTER YANLI, PINA BACA NOTIFIED MD [facility] OF CONSULT FOR WOUND TO PATIENTS RIGHT LATERAL FOOT FOR PODIATRY ORDERED BY MD HAQUE.
--- NOTE | 2022-10-07 12:39 | NUR ---
DC PLANNING ASSESSMENT COMPLETE PLEASE REFER TO ASSESSMENT FOR ADDITIONAL DETAILS DC PLAN IS FOR PT TO RETURN TO [facility], WHEN MEDICALLY STABLE Addendum: 10/07/22 at 1242 by Kelly CASTILLO Amended: Links added.
[2022-10-07] MEDS ORDERED: RENAL DOSING PER PHARMACY MC PRN (12:55)
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
[2022-10-07 14:34] LABS: ANION GAP 12.2 (8-16); CARBON DIOXIDE 26.2 mmol/L (21-32); CREATININE 1.5 mg/dL (0.6-1.3); POTASSIUM 4.4 mmol/L (3.5-5.1)
--- NOTE | 2022-10-07 14:44 | NUR ---
PT REPEATEDLY HAS REMOVED DRESSINGS FROM HIS WOUNDS. WILL MAKE MD HAQUE AWARE. PT EDUCATED ON PERTINENCE OF KEEPING DRESSING ON COCCYX WOUND AND RIGHT FOOT BUT KEEPS REMOVING THEM. PT AAOX2, BASELINE SINCE ADMISSION. VSS. NAD NOTED. WILL CONT TO MONITOR PT.
[2022-10-07 18:18] LABS: ANION GAP 11.5 (8-16); CREATININE 1.5 mg/dL (0.6-1.3); POTASSIUM 4.5 mmol/L (3.5-5.1)
[2022-10-07 20:41] LABS: T4 (THYROXINE) 4.1 ug/dL (4.5 - 12.0)
[2022-10-08] VITALS (15 sets, daily range): BP systolic 127–178; BP diastolic 43–95
[2022-10-08] MEDS: PANTOPRAZOLE 40 MG TABEC PO SCH (08:11)
--- NOTE | 2022-10-08 09:03 | NUR ---
WOUND CARE NOTE: SKIN ASSESSMENT DONE WITH PRIMARY RN NOBLE, PT IS AWAKE, ALERT, PT. REFUSES KELI CATH, REFUSE DRESSING APPLY TO SACRAL AND FEET. PT. REFUSES WOUND PHOTO. PT ALLOW STAFF TO PROVIDE JOJO-CARE AND CHANGE GOWN. PT. REQUEST DIAPER. PT. ADMITTED WITH PRESSURE INJURIES. POC DISCUSSED WITH PRIMARY RN AND PT. PT. VERBALIZES UNDERSTANDING AND REQUEST X2 FOR DIAPERS. PER PRIMARY RN NO LBM. -PRESSURE INJURY STAGE 1 TO LEFT ELBOW 2X2CM AND RIGHT TROCHANTER 4X3CM -MASD TO GROINS, MEDIAL THIGHS, SCROTAL AND JOJO-ANAL AREA WHICH EXTENDED TO BILATERAL LOWER BUTTOCKS, SKIN MOIST, RED WITH RASHES. -PRESSURE INJURY UN-STAGEABLE TO SACRALCOCCYX 1X1CM 100% MOIST YELLOW SLOUGH TISSUE, NO ODOR, JOJO WOUND NON-BLANCHABLE REDNESS WITH MASD RASHES, FURTHER DAMAGE INDICATED. -PRESSURE INJURY UN-STAGEABLE TO RIGHT ISCHIUM 2X1CM 100% MOIST YELLOW SLOUGH TISSUE, NO ODOR, JOJO WOUND NON-BLANCHABLE REDNESS WITH MASD RASHES, FURTHER DAMAGE INDICATED. -LEFT FIFTH TOE DRY GANGRENE, RIGHT FOURTH AND FIFTH TOES AND INTERSPACES DRY GANGRENE. -LEFT AND RIGHT LATERAL FEET MULTIPLE DRY STABLE GANGRENE WITH LARGEST TO LEFT LATERAL 4X2CM RECOMMENDATIONS -PROVIDE GOOD JOJO-CARE AND APPLY NYSTATIN CREAM TO GROINS, MEDIAL THIGHS, SCROTAL AREA, JOJO-ANAL AREA, AND BILATERAL LOWER BUTTOCKS BID AND LIVESTOCK COUNTER -LEFT FIFTH TOE, RIGHT FOURTH AND FIFTH TOES AND INTERSPACES DRY GANGRENE, LEFT AND RIGHT LATERAL FEET GANGRENE PAINT WITH BETADINE SWAP STICKS BID AND LIVESTOCK COUNTER. NO COMPRESSION DRESSING PLEASE. -APPLY FOAM DRESSING TO BILATERAL ELBOWS, BILATERAL HIPS CHANGE Q3DAY AND PRN IF SOILING -PRESSURE REDISTRIBUTION SURFACE THERAPY ARVIND ISOFLEX DELVIS MATTRESS -POSITIONING: TURN AND REPOSITION PATIENT Q 2H OR SOONER USE PILLOWS TO KEEP BONY PROMINENCES FROM DIRECT CONTACT WITH SURFACES USE REPOSITIONING WEDGES TO PROVIDE 30-DEGREE ANGLE FOR SIDE LYING POSITIONS OFFLOADING OR FOAM DRESSING TO ALL TUBING TO PREVENT MEDICAL DEVICES RELATED PRESSURE INJURY -RE-EVALUATING AND MANAGING INCONTINENCE MONITOR SKIN CONDITION DURING POSITION CHANGE DO NOT MASSAGE REDNESS, BONY PROMINENCES FREQUENT JOJO-CARE AND PROVIDE BARRIER CREAMS PRN IF SOILING MOISTURE CONTROL BY OFFER BED SMITH/URINAL /ABSORBENT PAD TO WICK AND HOLD MOISTURE KEEP SKIN DRY AND PROTECT FROM FRICTION -MANAGE FRICTION/SHEAR/MOBILITY KEEP HOB AT THE LOWEST LEVEL OF ELEVATION NO MORE THAN 30 DEGREE UNLESS OTHERWISE CONTRAINDICATED USE LIFT SHEET OR TRANSFER DEVICE TO MOVE PATIENT AND PREVENT LATERAL SHEER. PROTECT HEELS, ELBOWS BONY PROMINENCES WITH SKIN BERRIES OR FOAM DRESSING IF EXPOSED TO FRICTION OFFLOAD BILATERAL HEELS BY PLACING PILLOWS UNDER CALVES AT ALL TIMES, UNLESS OTHERWISE CONTRAINDICATED -NUTRITION: PLEASE FOLLOW RD RECOMMENDATIONS AND OFFER NUTRITION SUPPLEMENTS IF ORDERED. PLEASE CONTACT WOUND CARE NURSE FOR ANY QUESTION AND CHANGE OF WOUND CONDITION. Addendum: 10/08/22 at 1156 by Noah Mckinley RN (Grace) ADD: CLEANSE SACROCOCCYX AND RIGHT ISCHIUM WITH NS. PAT DRY, APPLY HYDROGEL TO WOUND BED AND NYSTATIN CREAM TO JOJO-WOUND SKIN,COVER WITH DRY DRESSING QD AND PRN IF SOILING
--- NOTE | 2022-10-08 09:10 | NUR ---
CORRECTION: -PRESSURE INJURY STAGE 1 TO LEFT ISCHIAL 2X2CM NON-BLANCHABLE REDNESS
--- NOTE | 2022-10-08 09:15 | NUR ---
WOUND CARE JOSHUA RN AT BEDSIDE FOR WOUND CARE CONSULT. PT INCONTINENT, REFUSED CONDOM CATH AND FRIEDMAN CATHETER AGAIN WITH WOUND CARE NURSE PRESENT. JOSHUA RN TO ORDER POWDER TO HELP PATIENT WITH IAD SINCE PATIENT REFUSES TO KEEP WOUND DRESSINGS ON.
[2022-10-08 11:21] LABS: HEMATOCRIT 30.7 % (36-52); HEMOGLOBIN 10.5 g/dL (12.0-18.0); LYMPHOCYTES # (AUTO) 0.5 K/uL (2.0-11.5); LYMPHOCYTES % (AUTO) 3.2 % (20.5-51.1); MEAN CORPUSCULAR HEMOGLOBIN 27 pg (27-31); MEAN CORPUSCULAR HGB CONC 34 g/dL (33-37); MEAN CORPUSCULAR VOLUME 78.9 fL (80-94); MONOCYTES # (AUTO) 0.6 K/uL (0.8-1.0); NEUTROPHILS # (AUTO) 14.7 K/uL (1.8-7.7); NEUTROPHILS % (AUTO) 92.8 % (42.2-75.2); PLATELET COUNT (AUTO) 379 K/uL (140-450); RED BLOOD CELL COUNT(AUTO) 3.89 MIL/uL (4.20-6.10); WHITE BLOOD COUNT (AUTO) 15.8 K/uL (4.8-10.8)
[2022-10-08 11:26] LABS: ANION GAP 10.9 (8-16); CREATININE 1.7 mg/dL (0.6-1.3); POTASSIUM 4.9 mmol/L (3.5-5.1)
[2022-10-08] MEDS ORDERED: FOAM DRESSING TP PRN (12:00)
[2022-10-08] MEDS ORDERED: SKINTEGRITY HYDROGEL TP PRN (12:00)
[2022-10-08] MEDS: NACL 0.9% 1,000 ML IV SCH (13:15)
[2022-10-08] MEDS: GAUZE TP SCH (13:15)
--- NOTE | 2022-10-08 15:44 | NUR ---
10/08/22 RD INITIAL ASSESSMENT COMPLETED PLEASE REFER TO NUTRITION ASSESSMENT UNDER CARE ACTIVITY FOR ESTIMATED NUTRITIONAL NEEDS. 1. CONTINUE REGULAR DIET TOLERATED 2. RECOMMEND PROSOURCE BID FOR WOUND SUPPORT -PROVIDES 120 KCAL AND [address] TO FOLLOW-UP 3-5 DAYS, MODERATE RISK REVIEWED BY KACI JUÁREZ RD
[2022-10-08] MEDS ORDERED: HEPARIN PER PHARMACY MC PRN (15:50)
--- NOTE | 2022-10-08 15:55 | NUR ---
RECEIVED PT FROM ICU. REPORT GIVEN BY NOBLE. PLACED IN BED COMFORTABLY. ALERT AND ORIENTED X1. RESP. EVEN AND UNLABORED. ON CONTINUOUS O2 @ 2L/NC. IV SITE INTACT TO OSVALDO 20G, RAC 20G. WITH SKIN CONDITIONS: SEE WOUND NURSE NOTES FOR FURTHER DETAILS. NO C/O PAIN OR DISCOMFORT. CALL LIGHT KEPT WITHIN REACH. WILL CONTINUE TO MONITOR.
--- NOTE | 2022-10-08 15:55 | NUR ---
CARE ENDORSED TO PINA CORRAL AT BEDSIDE FOR TELEMETRY BED 122B. PT VSS. NAD NOTED. ALL QUESTIONS ANSWERED. ALL MEDS AND BELONGINGS TRANSFERRED WITH PATIENT WITH CHART. END OF CARE.
[2022-10-08 17:05] LABS: PROTHROMBIN TIME 14.9 secs (10.8-13.4)
[2022-10-08] MEDS: hePARIN / DEXT 5% PREMIX 250 ML IV SCH (18:04)
--- NOTE | 2022-10-08 18:04 | NUR ---
HEPARIN DRIP GIVEN BY KATHERIN HELLER. TOLERATED WELL.
[2022-10-08] MEDS: LEVOFLOXACIN 750 MG/D5W PREMIX 150 ML IV SCH (18:13)
--- NOTE | 2022-10-08 18:14 | NUR ---
LEVAQUIN IVF WAS GIVEN BY KATHERIN HELLER. TOLERATED WELL.
--- NOTE | 2022-10-08 19:20 | NUR ---
BEDSIDE REPORT GIVEN TO NIGHT NURSE LEILA FOR CONTINUITY OF CARE. HEPARIN DRIP INFUSING. NEXT PTT ORDER @ 1204 AM. REMAINS STABLE.
[2022-10-08] MEDS: NYSTATIN CRE 100 MU/GM 15 GM TUBE TP SCH (20:58)
[2022-10-08] MEDS ORDERED: NYSTATIN/TRIAMCINOLONE CRM 15 GM TUBE TP SCH (21:00)
--- NOTE | 2022-10-08 21:32 | NUR ---
DR. HUFF MADE AWARE OF THE REFUSAL.
--- NOTE | 2022-10-08 21:33 | NUR ---
PATIENT REFUSED CT CHEST WITHOUT CONTRAST. TRIED TO CONVINCED X3 BUT REFUSED.
[2022-10-09] MEDS: GAUZE TP SCH ×2 (01:00→13:00)
--- NOTE | 2022-10-09 01:42 | NUR ---
LEFT FIFTH TOE, RIGHT FOURTH AND FIFTH TOES AND INTERSPACES DRY GANGRENE, LEFT AND RIGHT LATERAL FEET GANGRENE PAINT WITH BETADINE SWAP STICKS BID AND SELENA.
--- NOTE | 2022-10-09 02:15 | NUR ---
RECEIVED A CALL FROM LAB REPORTING PTT RESULTS 57.2. NO CHANGED FROM PREVIOUS HEPARIN DOSE. PATIENT SLEEPING WITH SYMMETRICAL RISE AND FALL OF THE CHEST. CALL LIGHT WITHIN REACH. SAFETY MEASURES IN PLACE. WILL CONTINUE TO MONITOR PT.
[2022-10-09] MEDS: hePARIN / DEXT 5% PREMIX 250 ML IV SCH (02:16)
[2022-10-09 04:00] VITALS: BP 129/92
[2022-10-09] MEDS: NACL 0.9% 1,000 ML IV SCH (04:44)
--- NOTE | 2022-10-09 07:16 | NUR ---
GAVE REPORT TO ALBERT RN FOR CONTINUITY OF CARE. PATIENT STABLE.
--- NOTE | 2022-10-09 07:16 | NUR ---
RECEIVED PATIENT FROM PM NURSE FOR CONTINUITY OF CARE. PATIENT SEEN ON BED ASLEEP WITH NORMAL RISE AND FALL OF CHEST. PATIENT PLAN OF CARE REVIEWED.
--- NOTE | 2022-10-09 07:49 | NUR ---
PTT WITHIN THERAPEUTIC LEVEL. MAINTAIN SAME RATE PER PROTOCOL
[2022-10-09 08:00] VITALS: BP 156/93
[2022-10-09] MEDS: FUROSEMIDE 20 MG/2 ML VIAL IVP SCH (09:43)
[2022-10-09] MEDS: PANTOPRAZOLE 40 MG TABEC PO SCH (09:43)
[2022-10-09] MEDS: SKINTEGRITY HYDROGEL TP SCH (09:44)
[2022-10-09] MEDS: NYSTATIN CRE 100 MU/GM 15 GM TUBE TP SCH ×2 (09:44→21:00)
[2022-10-09] MEDS: HYDROcodone/APAP 7.5/325 MG 1 TAB PO PRN ×2 (09:58→21:56)
[2022-10-09 12:00] VITALS: BP 141/97
[2022-10-09 16:00] VITALS: BP 130/88
--- NOTE | 2022-10-09 19:19 | NUR ---
ENDORSED PATIENT TO PM SHIFT FOR CONTINUITY OF CARE
[2022-10-09 20:00] VITALS: BP 152/95
--- NOTE | 2022-10-09 20:00 | NUR ---
HAND-OFF REPORT RECEIVED FROM PATRIZIA HELLER FOR CONTINUITY OF CARE. HEPARIN GTT 800 UNITS/HR. NEXT PTT SCHEDULED FOR 0730 IN AM. O2 @ 2L/NC. BILATERAL EDEMA IN LOWER EXTREMITIES. DOES HAVE PAIN IN LOWER EXTREMITIES AND REQUESTING PAIN MEDS WITH HS MEDS. CONTINUE TO MONITOR AND ASSIST.
[2022-10-09] MEDS: CHLORHEXADINE GLUC 2% CLOTH TP SCH (23:00)
[2022-10-09] MEDS: MUPIROCIN CA NASAL 2% 1GM TUBE NS SCH (23:00)
[2022-10-10] VITALS: BP 117/70
[2022-10-10] MEDS: GAUZE TP SCH ×2 (01:00→13:00)
--- NOTE | 2022-10-10 03:46 | NUR ---
HEPARIN GTT NEW BAG HUNG. CONTINUES AT 800 UNITS/HR OR 8ML/HR. NO ACTIVE BLEEDING. NO C/O PAIN
[2022-10-10 04:00] VITALS: BP 148/84
--- NOTE | 2022-10-10 07:20 | NUR ---
RECEIVED PATIENT FROM PM NURSE FOR CONTINUATION OF CARE.
--- NOTE | 2022-10-10 07:30 | NUR ---
PTT RECEIEVED AND WITHIN THERAPEUTIC LEVEL. FOLLOW HEPARIN PROTOCOL
--- NOTE | 2022-10-10 07:30 | NUR ---
HAND-OFF REPORT TO A.M NURSE FOR CONTINUITY OF CARE.
[2022-10-10 07:39] LABS: ANION GAP 13.1 (8-16); CARBON DIOXIDE 22.5 mmol/L (21-32); CREATININE 2.9 mg/dL (0.6-1.3); POTASSIUM 5.6 mmol/L (3.5-5.1)
[2022-10-10 07:43] LABS: MAGNESIUM 1.4 mg/dL (1.8-2.4); PHOSPHORUS 5.5 mg/dL (2.5-4.9)
[2022-10-10 08:00] VITALS: BP 145/97
[2022-10-10 08:00] LABS: HEMATOCRIT 30.6 % (36-52); HEMOGLOBIN 10.2 g/dL (12.0-18.0); LYMPHOCYTES % (AUTO) 6.1 % (20.5-51.1); MEAN CORPUSCULAR HEMOGLOBIN 27 pg (27-31); MEAN CORPUSCULAR HGB CONC 33 g/dL (33-37); MEAN CORPUSCULAR VOLUME 79.5 fL (80-94); MONOCYTES # (AUTO) 0.6 K/uL (0.8-1.0); MONOCYTES % (AUTO) 3.4 % (1.7-9.3); NEUTROPHILS # (AUTO) 15.1 K/uL (1.8-7.7); NEUTROPHILS % (AUTO) 90.5 % (42.2-75.2); PLATELET COUNT (AUTO) 296 K/uL (140-450); RED BLOOD CELL COUNT(AUTO) 3.85 MIL/uL (4.20-6.10); WHITE BLOOD COUNT (AUTO) 16.7 K/uL (4.8-10.8)
[2022-10-10] MEDS: FUROSEMIDE 20 MG/2 ML VIAL IVP SCH (09:29)
[2022-10-10] MEDS: SKINTEGRITY HYDROGEL TP SCH (09:30)
[2022-10-10] MEDS: NYSTATIN CRE 100 MU/GM 15 GM TUBE TP SCH ×2 (09:30→20:41)
[2022-10-10] MEDS: PANTOPRAZOLE 40 MG TABEC PO SCH (09:30)
[2022-10-10] MEDS ORDERED: SODIUM ZIRCONIUM CYCLOSILICATE 10 GM POWD.PACK PO SCH (11:00)
[2022-10-10 12:00] VITALS: BP 150/84
[2022-10-10 16:00] VITALS: BP 130/88
[2022-10-10] MEDS: LEVOFLOXACIN 750 MG/D5W PREMIX 150 ML IV SCH (18:00)
--- NOTE | 2022-10-10 19:12 | NUR ---
RECEIVED REPORT FROM DAY SHIFT NURSE FOR CONTINUITY OF CARE. PT IS AWAKE, BED BOUND, A&O X2. CURRENTLY ON 2L NC WITH NO SIGNS OF ACUTE RESPIRATORY DISTRESS NOTED. PT IS INCONTINENT. IV SITE LOCATED AT RIGHT AC AND RIGHT UPPER ARM, 20 GAUGE, INTACT AND PATENT. PT HAS EDEMA TO LOWER EXTREMITIES, AND TWO SACRAL PRESSURE ULCERS. SAFETY MEASURES IN PLACE, CALL LIGHT WITHIN REACH.
--- NOTE | 2022-10-10 19:20 | NUR ---
ENDORSED PATIENT TO PM NURSE FOR CONTINUATION OF CARE
[2022-10-10 20:00] VITALS: BP 140/94
--- NOTE | 2022-10-10 20:00 | NUR ---
PT CRITICAL LAB VALUES FOLLOWS: SODIUM 118, POTASSIUM 6.2, BUN 88. AUGER PRESS OPERATOR WAS MADE AWARE. DR SCANLON ORDERED CALCIUM CHLORIDE 1 AMP IV X1, 10 UNITS REGULAR INSULIN IV X1, D50 IVP X1, HCO3 IV X1, AND KAYEXALATE 60GM PO X1.
[2022-10-10] MEDS: HYDROcodone/APAP 7.5/325 MG 1 TAB PO PRN (20:48)
--- NOTE | 2022-10-10 20:48 | NUR ---
PT COMPLAINT OF 9/10 PAIN IN LOWER EXTREMITIES. MEDICATED WITH NORCO 7.5/325 MG PER MD ORDER. PT TOLERATED WELL. WILL CONTINUE TO MONITOR THE PT.
[2022-10-10 20:49] LABS: ANION GAP 14.8 (8-16); CARBON DIOXIDE 22.4 mmol/L (21-32); CREATININE 3.4 mg/dL (0.6-1.3)
[2022-10-10 20:56] LABS: POTASSIUM 6.2 mmol/L (3.5-5.1)
[2022-10-10] MEDS ORDERED: SODIUM POLYSTYRENE 15 GM/60 ML UDBTL PO SCH ×2 (21:45→22:30)
[2022-10-10] MEDS ORDERED: INSULIN REGULAR, HUMAN 100 UNIT/ML VIAL IVP SCH ×2 (21:45→22:30)
[2022-10-10] MEDS ORDERED: DEXTROSE 50% 50 ML SYR IVP SCH ×2 (21:45→22:40)
[2022-10-10] MEDS ORDERED: CALCIUM CHLORIDE 10% 100 MG/ML SYR IVP SCH ×2 (21:50→22:30)
[2022-10-10] MEDS ORDERED: SODIUM BICARBONATE 8.4% PFS 50 MEQ/50 ML SYR IVP ONE (21:50)
[2022-10-10] MEDS ORDERED: SODIUM BICARBONATE 8.4% PFS 50 MEQ/50 ML SYR IVP SCH (22:35)
--- NOTE | 2022-10-10 22:50 | NUR ---
SCHEDULED STAT MEDICATIONS ADMINISTERED BY RN: DWIGHT. PT TOLERATED WELL. PLAN FOR POSSIBLE DIALYSIS ON 10/11/22 IF POTASSIUM DOES NOT IMPROVE.
[2022-10-10] MEDS: MUPIROCIN CA NASAL 2% 1GM TUBE NS SCH (23:00)
[2022-10-10] MEDS: CHLORHEXADINE GLUC 2% CLOTH TP SCH (23:03)
[2022-10-11] VITALS: BP 145/100
[2022-10-11] MEDS: GAUZE TP SCH ×2 (01:38→13:00)
--- NOTE | 2022-10-11 01:54 | NUR ---
WOUND CARE PERFORMED, DRESSINGS CHANGED. NO PAIN STATED, NO SIGNS OF DISTRESS NOTED, WILL CONTINUE TO MONITOR.
[2022-10-11 04:00] VITALS: BP 132/90
--- NOTE | 2022-10-11 05:59 | NUR ---
PT SLEPT WELL THROUGHOUT SHIFT. NO BM DURING SHIFT, VOIDED ONCE. CHANGED DIAPER AND CHUCKS, TOOK UPDATED PICTURES OF COCCYX WOUND. PT STABLE AT THIS TIME, WILL ENDORSE TO DAY SHIFT NURSE FOR CONTINUITY OF CARE.
--- NOTE | 2022-10-11 07:00 | NUR ---
RECEIVED REPORT FROM NIGHT NURSE PATRIZIA FOR CONTINUITY OF CARE. INITIAL ASSESSMENT DONE. ALERT AND ORIENTED X2. ON CONTINUOUS O2 @ 2L/NC. RESP. EVEN AND UNLABORED. CURRENTLY ON HEPARIN DRIP @ 800 UNITS. IV SITE INTACT TO OSVALDO DOUBLE LUMEN, AND RAC. NO C/O PAIN OR DISCOMFORT. CALL LIGHT KEPT WITHIN REACH. WILL CONTINUE TO MONITOR.
[2022-10-11 08:00] VITALS: BP 139/85
[2022-10-11 08:00] LABS: ANION GAP 11.9 (8-16); CARBON DIOXIDE 25.4 mmol/L (21-32); CREATININE 3.6 mg/dL (0.6-1.3); POTASSIUM 5.3 mmol/L (3.5-5.1)
--- NOTE | 2022-10-11 08:00 | NUR ---
Patient's Plan of Care was discussed and reviewed with RESOURCE DEVELOPMENT MANAGER: ELLIS
[2022-10-11 08:04] LABS: MAGNESIUM 1.5 mg/dL (1.8-2.4); PHOSPHORUS 6.7 mg/dL (2.5-4.9)
--- NOTE | 2022-10-11 08:05 | NUR ---
RECEIVED CRITICAL LAB RESULT FROM LAB: NA 122, BUN 90, PTT 81. DR. SCANLON NOTIFIED AWAITING FOR RESULT.
[2022-10-11 08:30] LABS: BASOPHILS # (AUTO) 0.1 K/uL (0.00-0.22); BASOPHILS % (AUTO) 0.3 % (0.0-2.0); HEMATOCRIT 30.8 % (36-52); HEMOGLOBIN 10.4 g/dL (12.0-18.0); LYMPHOCYTES # (AUTO) 0.4 K/uL (2.0-11.5); LYMPHOCYTES % (AUTO) 2.2 % (20.5-51.1); MEAN CORPUSCULAR HEMOGLOBIN 27 pg (27-31); MEAN CORPUSCULAR HGB CONC 34 g/dL (33-37); MEAN CORPUSCULAR VOLUME 79.5 fL (80-94); MONOCYTES # (AUTO) 0.8 K/uL (0.8-1.0); MONOCYTES % (AUTO) 4.6 % (1.7-9.3); NEUTROPHILS # (AUTO) 16.6 K/uL (1.8-7.7); NEUTROPHILS % (AUTO) 92.9 % (42.2-75.2); PLATELET COUNT (AUTO) 248 K/uL (140-450); RED BLOOD CELL COUNT(AUTO) 3.87 MIL/uL (4.20-6.10); RED CELL DISTRIBUTION WIDTH 16.2 % (11.6-13.7); WHITE BLOOD COUNT (AUTO) 17.9 K/uL (4.8-10.8)
--- NOTE | 2022-10-11 09:00 | NUR ---
PTT CAME IN AT 81.0 REVISED HEPARIN DRIP TO 700 UNITS PER HEPARIN DRIP INSTRUCTIONS. ORDERED PTT TO BE REPEATED IN 6 HOURS.
[2022-10-11] MEDS: FUROSEMIDE 20 MG/2 ML VIAL IVP SCH (09:15)
[2022-10-11] MEDS: hePARIN / DEXT 5% PREMIX 250 ML IV SCH ×2 (09:29→19:58)
--- NOTE | 2022-10-11 09:29 | NUR ---
PTT RESULT CAME IN 81. HEPARIN DRIP @ 700 UNITS PER PROTOCOL WAS GIVEN BY FERNANDO HELLER. TOLERATED WELL.
[2022-10-11] MEDS: FOAM DRESSING TP SCH (09:33)
[2022-10-11] MEDS: NYSTATIN CRE 100 MU/GM 15 GM TUBE TP SCH ×2 (09:33→20:23)
[2022-10-11] MEDS: PANTOPRAZOLE 40 MG TABEC PO SCH (09:33)
[2022-10-11] MEDS: SODIUM CHLORIDE 1 GM TAB PO SCH ×3 (09:33→17:36)
--- NOTE | 2022-10-11 09:33 | NUR ---
SCHEDULED MEDICATIONS GIVEN. TOLERATED WELL.
[2022-10-11] MEDS: SKINTEGRITY HYDROGEL TP SCH (09:34)
[2022-10-11 12:00] VITALS: BP 135/96
--- NOTE | 2022-10-11 13:40 | NUR ---
SCHEDULED PO MEDICATION AND NORCO PRN WAS GIVEN. TOLERATING WELL.
[2022-10-11] MEDS: HYDROcodone/APAP 7.5/325 MG 1 TAB PO PRN ×2 (13:41→20:23)
--- NOTE | 2022-10-11 14:07 | NUR ---
WOUND DRESSING DONE TO RT FOOT AND LT FOOT. TOLERATED WELL.
[2022-10-11] MEDS ORDERED: MAGNESIUM OXIDE 400 MG TAB PO SCH (14:44)
--- NOTE | 2022-10-11 14:44 | NUR ---
MAGNESIUM 1.5. DR. GRIMM NOTIFIED WITH NEW ORDER MAG OXIDE 400 MG PO ONCE. ORDER NOTED AND CARRIED OUT.
--- NOTE | 2022-10-11 15:03 | NUR ---
MAG OXIDE ONCE GIVEN. TOLERATED WELL.
--- NOTE | 2022-10-11 15:56 | NUR ---
COVID PCR TEST DONE. SEND TO LAB.
[2022-10-11 16:00] VITALS: BP 143/95
--- NOTE | 2022-10-11 16:30 | NUR ---
SEEN BY DR. SCANLON, RECOMMEND FOR HEMODIALYSIS. INFORMED DRJúnior PT WILL BE TRANSFER TO HIGHER LEVEL OF CARE. CALLED CONSERVATOR ALLAN NO ANSWER.
--- NOTE | 2022-10-11 17:36 | NUR ---
SODIUM CHLORIDE PO WAS GIVEN. TOLERATED WELL.
[2022-10-11] MEDS ORDERED: VANCOMYCIN PER PHARMACY MC PRN (18:00)
--- NOTE | 2022-10-11 18:50 | NUR ---
INSERTED IV TO COLLIN 22G WITH GOOD BLOOD RETURN. TOLERATED WELL.
--- NOTE | 2022-10-11 18:51 | NUR ---
PTT DRAWN, PENDING RESULT.
--- NOTE | 2022-10-11 19:15 | NUR ---
REPORT GIVEN TO NIGHT NURSE MARGARETTE FOR CONTINUITY OF CARE. ENDORSED TO MARGARETTE PT FOR TRANSFER TO HIGHER LEVEL OF CARE AT [facility], ACCEPTING SURGEON DR. CORDOVA. WILL CALL [facility] FOR TRANSPORT. REMAINS STABLE.
[2022-10-11 20:00] VITALS: BP 129/75
[2022-10-11] MEDS ORDERED: VANCOMYCIN 750 MG in DEXTROSE 5% 250 ML IV SCH (20:00)
--- NOTE | 2022-10-11 20:00 | NUR ---
ASSUMED CARE OF PATIENT AT THIS TIME. VSS. AFEBRILE, RESPIRATIONS EVEN AND UNLABORED. NO SOB NOTED. 02 SAT 99% ON ROOM AIR. HEPARIN GTT INFUSING AT 7ML/ HR WITH NO SIGNS OR SYMPTOMS OF BLEEDING NOTED. REMAINS ON CONTACT ISOLATION FOR MRSA OF NARES. NO ACUTE DISTRESS NOTED.WILL CONTINUE TO MONITOR FOR SAFETY. Laquita SUAREZ RN.
[2022-10-11] MEDS: MEROPENEM 500 MG in NACL 0.9% 50 ML IV SCH (22:06)
[2022-10-11] MEDS: MUPIROCIN CA NASAL 2% 1GM TUBE NS SCH (22:07)
[2022-10-11] MEDS: CHLORHEXADINE GLUC 2% CLOTH TP SCH (22:08)
[2022-10-12] VITALS: BP 132/74
[2022-10-12] MEDS: hePARIN / DEXT 5% PREMIX 250 ML IV SCH (01:05)
[2022-10-12] MEDS: GAUZE TP SCH ×2 (01:08→13:28)
--- NOTE | 2022-10-12 03:33 | NUR ---
RECEIV[place] A [place] FROM CH[place] [facility] [place] STATES [place]. CROCKETT THE VASCULAR SURGEON IS ACCEPTING THE PATIENT AND THE PATIENT WILL BE ADMITTED UNDER MEDICINE. CHARY STATES SOMEONE WILL CALL BACK IN THE MORNING TO START [place] [facility] Laquita SUAREZ RN.
[2022-10-12 04:00] VITALS: BP 108/59
[2022-10-12 05:11] LABS: BASOPHILS # (AUTO) 0.1 K/uL (0.00-0.22); BASOPHILS % (AUTO) 0.3 % (0.0-2.0); HEMATOCRIT 27.4 % (36-52); HEMOGLOBIN 9.4 g/dL (12.0-18.0); LYMPHOCYTES # (AUTO) 0.3 K/uL (2.0-11.5); LYMPHOCYTES % (AUTO) 1.7 % (20.5-51.1); MEAN CORPUSCULAR HEMOGLOBIN 27 pg (27-31); MEAN CORPUSCULAR HGB CONC 34 g/dL (33-37); MEAN CORPUSCULAR VOLUME 78.2 fL (80-94); MONOCYTES % (AUTO) 4.9 % (1.7-9.3); NEUTROPHILS # (AUTO) 17.9 K/uL (1.8-7.7); NEUTROPHILS % (AUTO) 93.1 % (42.2-75.2); PLATELET COUNT (AUTO) 145 K/uL (140-450); RED BLOOD CELL COUNT(AUTO) 3.51 MIL/uL (4.20-6.10); RED CELL DISTRIBUTION WIDTH 16.3 % (11.6-13.7); WHITE BLOOD COUNT (AUTO) 19.3 K/uL (4.8-10.8)
[2022-10-12 05:20] LABS: ANION GAP 14.1 (8-16); CARBON DIOXIDE 23.9 mmol/L (21-32); CREATININE 3.9 mg/dL (0.6-1.3)
[2022-10-12 05:45] LABS: MAGNESIUM 1.4 mg/dL (1.8-2.4); PHOSPHORUS 7.7 mg/dL (2.5-4.9)
--- NOTE | 2022-10-12 06:00 | NUR ---
REMAINS IN STABLE CONDITION. SLEPT WELL THROUGHOUT THE NIGHT WITH NO DISTRESS NOTED. Laquita SUAREZ RN.
--- NOTE | 2022-10-12 07:00 | NUR ---
ENDORSED PT TO NIGHTSKSFT NURSE FOR CONTINUITY OF CARE. PT IS RESTING IN BED, NO SIGNS OF DISTRESS. VITAL SIGNS STABLE, NO FURTHER NEEDS ARE TO BE MET AT THIS TIME. Addendum: 10/12/22 at 2023 by MI CACERES RN WRONG TIME, 1900 ENTRY
--- NOTE | 2022-10-12 07:00 | NUR ---
RECEIVED BEDSIDE REPORT FROM NIGHTSHIFT NURSE. PT IS ASLEEP IN BED, WOKE TO NAME AND TOUCH. AOX2. NO SIGNS OF DISTRESS, NO REPORTS OF PAIN. REORIENTED PT TO CALL LIGHT. WILL CONTINUE WITH PT CARE.
[2022-10-12 08:00] VITALS: BP 117/72
[2022-10-12] MEDS: SKINTEGRITY HYDROGEL TP SCH (09:00)
[2022-10-12] MEDS: NYSTATIN CRE 100 MU/GM 15 GM TUBE TP SCH ×2 (09:00→20:24)
[2022-10-12] MEDS: MEROPENEM 500 MG in NACL 0.9% 50 ML IV SCH ×2 (09:31→20:24)
[2022-10-12] MEDS: FUROSEMIDE 20 MG/2 ML VIAL IVP SCH (09:32)
[2022-10-12] MEDS: PANTOPRAZOLE 40 MG TABEC PO SCH (09:32)
[2022-10-12] MEDS: SODIUM CHLORIDE 1 GM TAB PO SCH ×3 (09:32→18:39)
[2022-10-12] MEDS: HYDROcodone/APAP 7.5/325 MG 1 TAB PO PRN (09:59)
[2022-10-12] MEDS: CALCIUM ACETATE 667 MG TAB PO SCH ×2 (11:57→18:39)
[2022-10-12] MEDS: MAG SULF 2000 MG/WATER PREMIX 50 ML IV PRN (11:58)
[2022-10-12 12:00] VITALS: BP 119/87
--- NOTE | 2022-10-12 13:00 | NUR ---
PT IS REFUSING TO BE CHANGED AND IS REFUSING WOUND CARE. EDUCATED PT ON BENEFITS OF WOUND CARE AND RISKS OF REFUSING, PT STILL REFUSE. WILL ASK AGAIN AND SEE IF PT WILL CHANGE HIS MIND.
--- NOTE | 2022-10-12 15:28 | NUR ---
10/12/22 RD FOLLOW UP COMPLETED PLEASE REFER TO NUTRITION ASSESSMENT UNDER CARE ACTIVITY FOR ESTIMATED NUTRITIONAL NEEDS. 1. CONTINUE REGULAR DIET WITH PROSOURCE BID -PROSOURCE BID PROVIDES 120 KCAL AND 30 GM PROTEIN DAILY 2. MONITOR PO INTAKE AND NUTRITION RELATED LAB VALUES 3. RD TO FOLLOW-UP 7 DAYS, LOW RISK REVIEWED BY KACI JUÁREZ RD
[2022-10-12 16:00] VITALS: BP 118/71
--- NOTE | 2022-10-12 19:00 | NUR ---
ENDORSED PT TO NIGHTSHIFT NURSE FOR CONTINUITY OF CARE. PT STILL REFUSING TO BE CHANGED AND IS REFUSING WOUND CARE, INFORMED NIGHTSHIFT NURSE. PT IS RESTING IN BED, NO SIGNS OF DISTRESS. VITAL SIGNS STABLE, NO FURTHER NEEDS ARE TO BE MET AT THIS TIME.
--- NOTE | 2022-10-12 19:01 | NUR ---
RECEIVED REPORT FROM MORNING SHIFT NURSE. PT IS AOX2-3, BEDBOUND, AND ABLE TO VERBALIZE NEEDS. PT IS ON 2L NC AND ON REGULAR DIET. PT HAS AN IV ON RIGHT UPPER ARM GAUGE 20 SALINE LOCK AND LEFT UPPER ARM GAUGE 22 SALINE LOCK. PT HAS WOUND ON LEFT 4TH TOE GANGRENE AND RIGHT 4TH AND 5TH TOE GANGRENE. PT HAS SACRAL COCCYX UNSTABLE ULCER. PT DENIES PAIN AND NO S/S OF RESPIRATORY DISTRESS NOTED. ALL SAFETY MEASURES IMPLEMENTED. BED IN LOW POSITION AND CALL LIGHT WITHIN REACH.
[2022-10-12 20:00] VITALS: BP 125/75
--- NOTE | 2022-10-12 20:00 | NUR ---
RECEIVED A CALL FROM PAUL (CONSERVATOR) REGARDING THE CONSENT FOR DIALYSIS-[facility] PLACEMENT. PAUL SHE TOLD ME THAT SHE CANT GIVE CONSENT BECAUSE IT WAS NOT EMERGENT, 2 LETTER FROM REQUESTING A CONSENT FOR PT AND SHOULD PASS IN COURT AND IT WILL BE PROCESS FOR ABOUT [address] THE [address] WILL DECIDE FOR THE CONSENT.
--- NOTE | 2022-10-12 20:24 | NUR ---
ALL SCHEDULED AND PRESCRIBED MEDICATION WAS GIVEN TO PT PER MD ORDER. ALL SAFETY MEASURES IMPLEMENTED. BED IN LOW POSITION AND CALL LIGHT WITHIN REACH.
[2022-10-12] MEDS: MUPIROCIN CA NASAL 2% 1GM TUBE NS SCH (22:25)
--- NOTE | 2022-10-12 22:25 | NUR ---
ALL SCHEDULED AND PRESCRIBED MEDICATION WAS GIVEN TO PT PER MD ORDER. ALL SAFETY MEASURES IMPLEMENTED. BED IN LOW POSITION AND CALL LIGHT WITHIN REACH.
[2022-10-12] MEDS: CHLORHEXADINE GLUC 2% CLOTH TP SCH (22:26)
[2022-10-13] VITALS: BP 106/70
[2022-10-13] MEDS: HYDROcodone/APAP 7.5/325 MG 1 TAB PO PRN (00:16)
--- NOTE | 2022-10-13 00:16 | NUR ---
PRN PAIN MEDICATION WAS GIVEN TO PT PER MD ORDER. ALL SAFETY MEASURES IMPLEMENTED. BED IN LOW POSITION AND CALL LIGHT WITHIN REACH.
[2022-10-13] MEDS: GAUZE TP SCH ×2 (01:15→13:13)
--- NOTE | 2022-10-13 01:17 | NUR ---
RECEIVED A CALL FROM LAB REGARDING PTT-51.77. NOT REPORTED TO MD DUE TO TRENDING DOWN.
--- NOTE | 2022-10-13 02:00 | NUR ---
PT IS ON SLEEP. CHEST RISE AND FALL SYMMETRICALLY NOTED. RESPIRATION IS EVEN AND UNLABORED. ALL SAFETY MEASURES IMPLEMENTED. BED IN LOW POSITION AND CALL LIGHT WITHIN REACH.
[2022-10-13 04:00] VITALS: BP 128/77
--- NOTE | 2022-10-13 04:00 | NUR ---
MORNING CARE WAS DONE TO PT. CHANGED LINENS, GOWN AND DIAPER. NO COMPLAIN OF PAIN. NO RESPIRATORY DISTRESS NOTED. ALL SAFETY MEASURES IMPLEMENTED. BED WHEELS ON LOCK, BED IN LOW POSITION AND CALL LIGHT WITHIN REACH.
[2022-10-13 05:56] LABS: BASOPHILS # (AUTO) 0.1 K/uL (0.00-0.22); BASOPHILS % (AUTO) 0.5 % (0.0-2.0); EOSINOPHILS % (AUTO) 0.1 % (0.0-4.0); HEMATOCRIT 28.1 % (36-52); HEMOGLOBIN 9.5 g/dL (12.0-18.0); LYMPHOCYTES # (AUTO) 0.5 K/uL (2.0-11.5); LYMPHOCYTES % (AUTO) 3.3 % (20.5-51.1); MEAN CORPUSCULAR HEMOGLOBIN 27 pg (27-31); MEAN CORPUSCULAR HGB CONC 34 g/dL (33-37); MEAN CORPUSCULAR VOLUME 78.2 fL (80-94); MONOCYTES # (AUTO) 1.2 K/uL (0.8-1.0); MONOCYTES % (AUTO) 7.6 % (1.7-9.3); NEUTROPHILS # (AUTO) 14.4 K/uL (1.8-7.7); NEUTROPHILS % (AUTO) 88.5 % (42.2-75.2); PLATELET COUNT (AUTO) 83 K/uL (140-450); RED BLOOD CELL COUNT(AUTO) 3.59 MIL/uL (4.20-6.10); RED CELL DISTRIBUTION WIDTH 16.5 % (11.6-13.7); WHITE BLOOD COUNT (AUTO) 16.3 K/uL (4.8-10.8)
[2022-10-13 06:28] LABS: ANION GAP 14.9 (8-16); CARBON DIOXIDE 24.4 mmol/L (21-32); POTASSIUM 4.3 mmol/L (3.5-5.1)
[2022-10-13 06:31] LABS: CREATININE 4.5 mg/dL (0.6-1.3); MAGNESIUM 2.1 mg/dL (1.8-2.4); PHOSPHORUS 7.8 mg/dL (2.5-4.9)
--- NOTE | 2022-10-13 07:07 | NUR ---
PT IS STABLE. ENDORSED PT TO MORNING SHIFT NURSE FOR CONTINUITY OF CARE.
--- NOTE | 2022-10-13 07:08 | NUR ---
RECEIVED BEDSIDE REPORT FROM NIGHTSHIFT NURSE. PT IS AWAKE, STABLE, NO SIGNS OF DISTRESS, NO REPORTS OF PAIN OR DISCOMFORT. ATTEMPTED TO CONTACT CONSERVATOR FOR CONSENT OF DIALYSIS CATH PLACEMENT. WAS INSTRUCTED TO CALL BACK AT 0800, WILL CALL BACK THEN. NO FURTHER NEEDS ARE TO BE MET AT THIS TIME, WILL CONTINUE WITH PT CARE.
[2022-10-13 08:00] VITALS: BP 131/87
--- NOTE | 2022-10-13 08:00 | NUR ---
RECEIVED PT ON 2L NASAL CANNULA. SATURATION 90%. TITRATED FROM 2L TO 3L. SATURATION 96%. AUDIBLE WHEEZES HEARD, PT ASKED FOR BREATHING TREATMENT. STARTED TREATMENT THEN PT REFUSED AFTER 5 MINS. PT CURRENTLY ON 3L NASAL CANNULA. WILL CONTINUE TO MONITOR.
[2022-10-13] MEDS: ALBUTEROL SULFATE/IPRATROPIU 3 ML SOL IH PRN (08:05)
[2022-10-13] MEDS ORDERED: VANCOMYCIN 750 MG in DEXTROSE 5% 250 ML IV SCH (09:00)
--- NOTE | 2022-10-13 09:00 | NUR ---
SPOKE TO CONSERVATOR REP (ALLAN AND BLAINE ARELLANO - ) REGARDING CONSENT FOR HEMODIALYSIS CATH PLACEMENT. INFORMED REP THAT PROCEDURE WAS EMERGENT AND IF NOT DONE WOULD BE LIFE THREATENING. WAS TOLD BY CONSERVATOR THAT MD CAN GO THROUGH WITH PROCEDURE LONG PT CONDITION IS EMERGENT/LIFE THREATENING, AND THAT MD DOCUMENTS PT CONDITION AND NEED FOR PROCEDURE. MD INFORMED. WILL CONTINUE WITH PT CARE.
[2022-10-13] MEDS: MEROPENEM 500 MG in NACL 0.9% 50 ML IV SCH ×2 (09:43→21:30)
[2022-10-13] MEDS: FUROSEMIDE 20 MG/2 ML VIAL IVP SCH (09:43)
[2022-10-13] MEDS: SODIUM CHLORIDE 1 GM TAB PO SCH ×3 (09:44→18:05)
[2022-10-13] MEDS: SKINTEGRITY HYDROGEL TP SCH (09:44)
[2022-10-13] MEDS: CALCIUM ACETATE 667 MG TAB PO SCH ×3 (09:44→18:05)
[2022-10-13] MEDS: NYSTATIN CRE 100 MU/GM 15 GM TUBE TP SCH ×2 (09:44→21:00)
[2022-10-13] MEDS: PANTOPRAZOLE 40 MG TABEC PO SCH (09:44)
--- NOTE | 2022-10-13 10:33 | NUR ---
DC PLANNING SPOKE WITH KAYLA GALICIA AT THE [facility] REGARDING BED AVAILABILITY.PER FRIDA THE HOSPITAL IS FULL. PROGRESS NOTES AND VITAL SIGNS FOR 09/13 FAXED TO [facility].TALKED TO KAVON AND REQUEST FOR A BED INITIATED THROUGH HOUSE SUP AT [facility] [place].CM TO FOLLOW. Addendum: 10/13/22 at 1637 by RADHA EDWARD CM DC PLANNING-LATE ENTRY SPOKE WITH KAVON FROM [facility] ,THE VASCULAR SURGEON WHO WHO ACCEPTED PATIENT NOT AVAILABLE AFTER 2 PM ANYMORE.THE ONE GENERAL ASSISTANT, MARTHA DIAZ CLAIMS PATIENT'S PVD IS CHRONIC AND CAN BE DONE AN OUTPATIENT.[facility] DENIED PATIENT'S TRANSFER.AWAITING BED AVAILABILITY AT [facility].CM TO FOLLOW. Addendum: 10/14/22 at 1435 by CECELIA TIDWELL CM PATIENT WILL BE NEEDING OUTPATIENT DIALYSIS SET UP. FAXED ALL PAPERWORK, EXCEPT DIALYSIS FLOW SHEET BECAUSE PATIENT IS YET TO RECEIVED FIRST ROUND, TO [facility] . WILL FOLLOW UP WITH ANY UPDATED INFORMATION. Addendum: 10/15/22 at 1553 by CECELIA TIDWELL CM ARRANGED PATIENTS TRANSPORTATION FOR 10/16/2022 WITH [facility] . PATIENT IS ON THE WILL CALL LIST FOR WHEN PATIENT IS READY TO GET PICKED UP NURSE JUST NEED TO CALL [facility] WHEN THEY HAVE ROOM NUMBER FROM [facility]. [facility] LOCATED AT [address] [id number]. Addendum: 10/18/22 at 8762 by Margo Johnson RN DC PLANNING: PATIENT HAS AN ORDER FOR [facility] FAXED TO CALLED HALE[facility] AT [facility] LEFT A MESSAGE. LOREE TO FOLLOW Addendum: 10/19/22 at 1127 by RADHA EDWARD CM DC PLANNING PATIENT WAS NOT DISCHARGED AT [facility] LAST TUESDAY .[facility] SAID PATIENT NEEDED A SITTER BUT PATIENT HAS NO SITTER ON THIS HOSPITAL STAY.VASCULAR PROCEDURE SCHEDULED AT [facility] NOT DONE.PATIENT'S PLATELET AND HGB LEVELS LOW.PATIENT ALSO HAS BACTEREMIA WITH HIGH WBC 18.8-.ID ON BOARD. 10/18.NA+ IMPROVED 134.CREAT.1.8.PATIENT WILL NOT BE NEEDING DIALYSIS ANYMORE PER ATTENDING. NEPHRO FOLLOWING.PATIENT IS POSITIVE FOR STREP AUREUS BLOOD AND FOOT ABSCESS.HGB DOWN TO 5.3.OCCULT BLOOD (-).GI CONSULT REQUESTED. LTAC EVAL INITITAED 10/18.CHART BEING REVIEWED BY [facility] .LOREE TO FOLLOW. Addendum: 10/19/22 at 1350 by RADHA EDWARD CM DC PLANNING-LATE ENTRY PATIENT WILL HAVE HEMODIALYSIS TODAY PER NEPHRO.2 UNITS BLOOD WITH ANTIBODIES WILL BE DELIVERED TODAY PER CHARGE NURSE ZABRINA.GI CONSULT REQUESTED.STOOL (-)FOR OCCULT BLOOD.CM TO FOLLOW. . Addendum: 10/20/22 at 1406 by RADHA EDWARD CM DC PLANNING HGB 7.5.NA 135.CREAT.1.5.TALKED TO REGARDING TRANSFER TO LTAC OR SNF.PATIENT NEEDS TUNNELED CATH FOR FUTURE HD.CM TO FOLLOW.PATIENT ON 4LNC AND NOT IN DISTRESS.LATEST BLOOD CULTURE SHOWS GM NEGATIVE RODS.CM TO FOLLOW. Addendum: 10/21/22 at 1657 by RADHA EDWARD CM DC PLANNING PATIENT'S HGB 6.7 .PATIENT TO GET 1 UNIT PRBC WHILE HAVING HEMODIALYSIS.[facility] DID NOT ACCEPT PATIENT YET UNTIL GI BLEEDING WORK UP SI DONE.GI CONSULT REQUESTED FOR POSSIBLE GI BLEEDING .PATIENT'S GETTING BT ALMOST EVERY OTHER DAY. TO SEE PATIENT.CM TO FOLLOW. Addendum: 10/26/22 at 1106 by Ximoara Brice CM REACHED OUT TO ALLAN ALNDRY (PUBLIC GUARDIAN) AT [phone] REGARDING PATIENT'S REFUSAL TO TREATMENT AND CLAIM THAT HE WANTED TO BE ON COMFORT CARE AND DNR. PER ALLAN, THEY HAVE TO SUBMIT A PETITION TO COURT REGARDING THIS MATTER. ALLAN REQUESTED TO SEND HER AN EMAIL SO SHE CAN FORWARD THE FORM THAT NEEDS TO SIGNED BY 2 DOCTORS. ALLAN ALSO STATED THAT THE SOONER SHE GETS THE SIGNED FORM THE QUICKER THEY CAN PROCESS, IT WILL NOT HAPPEN TODAY BUT MOST PROBABLY BY NEXT TUESDAY WE WILL HAVE AN ANSWER. EMAIL SENT TO ALLAN AT [employer],@[employer]GOV. Addendum: 10/26/22 at 1237 by RADHA EDWARD DC PLANNING PATIENT REQUESTING COMFORT MEASURES AND DNR PER UNIT NURSE..ABOVE FORM REQUESTED BY CONSERVATOR SIGNED BY .WAITING FOR Pio EDWARDS FOR PRIMARY MD SIGNATURE.LATEST PATIENT'S HGB 5.1.WILL NEED BLOOD TRANSFUSION AGAIN .PATIENT REFUSING ENDOSCOPY AND COLONOSCOPY .PATIENT HAS BLACK STOOLS (+) FOR OCCULT BLOOD.10/18 BLOOD CULTURE GROWING GM NEGATIVE RODS (MDRO).10/23 NO GROWTH FROM THE [facility] CATH .CREAT 2.0.NA 127.NEPHRO ON BOARD .[facility] UPDATED OF PATIENT'S STATUS.CM TO FOLLOW. Addendum: 10/26/22 at 1406 by RADHA EDWARD CM LATE ENTRY -ADDENDUM PATIENT'S HBG TODAY 5.4.REQUESTED FOR 2 UNITS BT.TOTAL 6 UNITS GIVEN DURING HOSPITAL STAY.PER PATIENT WILL NEED HD TOMORROW FOR CLEARANCE AND ULTRAFILTRATION.DR. PETERSON TO INSERT A KEYSHA CATHETER AGAIN.CM TO FOLLOW. Addendum: 10/27/22 at 1253 by RADHA EDWARD CM DC PLANNING SPOKE TO JAY AT [facility] TRANSFER CENTER.CONFIRMED THAT PATIENT ONLY WANTS COMFORT MEASURES AND DNR BUT THE DECLARATION FORM FOR HOSPICE AND DNR HAS TO BE COMPLETED FIRST BY 2 MDS AND APPROVED BY CONSERVATOR. [facility] CATH DONE BY DR. PETERSON 10/26 .FOR HEMODIALYSIS TODAY PER NEPHRO.2 UNITS PRBC GIVEN YESTERDAY WELL.PATIENT REFUSED BLOOD DRAW THIS AM.CM TO FOLLOW. Addendum: 10/27/22 at 1545 by RADHA EDWARD CM DC PLANNING UPDATED CLINICALS FAXED TO [facility].TRANSFER DENIED .PATIENT MIGHT ALSO REFUSE PLANNED VASCULAR PROCEDURE PER JAY THIS AM.HGB 6.4 NA+126.CM TO FOLLOW. Addendum: 10/28/22 at 1540 by RADHA EDWARD CM DC PLANNING HGB 6.9. TO GET 1 UNIT PRBC TRANSFUSION .TRANSFUSION.CLINICALS FAXED TO [facility].HEMODIALYSIS TO BE DONE AGAIN TOMORROW PER NEPHRO.OUTPATIENT DIALYSIS SCHEDULED BY AT [facility].DECLARATION DOCUMENTS FOR HOSPICE AND DNR FAXED TO ALLAN THE CONSERVATOR.LOREE TO FOLLOW. Addendum: 11/01/22 at 1427 by RADHA EDWARD CM DC PLANNING HEMODIALYSIS IN PROGRESS.BLOOD CULTURES NEGATIVE.UPDATED CLINICALS FAXED TO [facility] .SPOKE WITH LUKE AT [facility].AWAITING FOR BED AVAILABILITY AT [facility]. PATIENT WILL GO WITH [facility] AND ELDER LOPEZ.OUTPATIENT DIALYSIS AND OUTPATIENT VASCULAR PROCEDURE TO BE ARRANGED BY DR. SCANLON.PATIENT WILL BE ADMITTED UNDER DR.BRITANNY GRIMM.-- Addendum: 11/01/22 at 1443 by CECELIA TIDWELL CM RECEIVED ORDER FOR SETUP TRANSPORTATION ON WILL CALL LIST. FROM [facility] TO [place] [address] [id number]. ARRANGED WITH [facility] Addendum: 11/02/22 at 1252 by RADHA EDWARD CM DC PLANNING UNABLE TO TRANSFER PATIENT YESTERDAY AT [facility] DUE TO PATIENT'S COMPLAINT OF CHEST PAIN AND HIGH TROPONIN LEVEL.WAITING FOR CARDIAC CLEARANCE FROM DR.YOGESH CHUNG .ORDER PUT IN ON 11/01 AT 1307.ABOVE CX WAS CANCELLED AND WAS CONSULTED THIS AM AT 0915. WILL COME SEE PATIENT THIS AFTERNOON.UPDATED CLINICALS FOR TODAY FAXED TO [facility].DISCHARGE PENDING CARDIAC CLEARANCE FRO .CM TO FOLLOW. Addendum: 11/02/22 at 1659 by Xiomara Brice CM LOREE GARCIA INFORMED THIS BOOSTER PUMP OPERATOR THAT CARDIO CLEARED THE PATIENT FOR DC. DR. GRIMM MADE AWARE TO REACH OUT TO DR. KURTZ IF HE WANTS TO CONTINUE IV MICAFUNGIN. PER DR. KURTZ, TO CONTINUE FOR 2 WEEKS FROM THE START DATE. WILL PUT ORDER IN. Addendum: 11/02/22 at 1724 by RADHA EDWARD CM DC PLANNING SPOKE TO LUKE AT [facility]. [facility].NO ISOLATION BED AVAILABLE TODAY.[facility] SAID WAITING FOR APPROVAL FROM [facility]OL[facility] WHO WILL SPOKE WITH .WILL FOLLOW UP IN AM . Addendum: 11/03/22 at 1029 by RADHA EDWARD CM ENRIQUE PLANNING SPOKE TO BERTA AGUILAR AT [facility] . PATIENT WILL GO TO ROOM 127-B. REPORT TO BE GIVEN BY [facility] NURSE TO [facility] AT .ORDER FOR MICAFUNGIN IVPB IN PLACE.[facility] TRANSPORT TO BE ARRANGED BY ENRIQUE RAI KENNEL SUPERVISOR. N
[2022-10-13 12:00] VITALS: BP 135/79
--- NOTE | 2022-10-13 14:00 | NUR ---
PT REFUSED WOUND CARE. EDUCATED PT ON IMPORTANCE OF WOUND CARE AND RISK OF WORSENING CONDITION IF NOT DONE. PT STILL REFUSED AND BECAME VERY FRUSTRATED.
[2022-10-13 16:00] VITALS: BP 150/85
--- NOTE | 2022-10-13 19:30 | NUR ---
RECEIVED REPORT FROM DAY SHIFT NURSE JAVED FOR CONTINUITY OF CARE. PATIENT IS A&O X2. PATIENT IS ON NC 3L, BREATHING IS NORMAL WITH SYMMETRICAL RISE AND FALL OF CHEST. IV IS A 20G OSVALDO AND A 22G COLLIN, NO FLUIDS RUNNING AT THIS TIME. PATIENT IS SITTING QUIETLY IN BED IN HIGH-FOWLERS POSITION. BED IS IN LOWEST POSITION, WHEELS LOCKED, CALL LIGHT IN PLACE. WILL CONTINUE TO OBSERVE PATIENT.
--- NOTE | 2022-10-13 19:30 | NUR ---
ENDORSED PT TO NIGHTSHIFT NURSE FOR CONTINUITY OF CARE. PT WAS RESTING IN BED, NO SIGNS OF DISTRESS.
[2022-10-13 20:00] VITALS: BP 137/74
--- NOTE | 2022-10-13 21:36 | NUR ---
PATIENT REFUSED NYSTATIN MEDICATION. PATIENT STATED NOT TO TOUCH HIM. PATIENT DID ALLOW ME TO ADMINISTER 2100 IVPB. IVPB STARTED SUCCESSFULLY. PATIENT IS SITTING UP IN HIGH-FOWLERS POSITION. PATIENT APPEARS TO BE VERY WEAK AND HAS A LOW SOUNDING VOICE. BREATHING IS NORMAL WITH SYMMETRICAL RISE AND FALL OF CHEST. WILL CONTINUE TO OBSERVE PATIENT.
[2022-10-13] MEDS: MUPIROCIN CA NASAL 2% 1GM TUBE NS SCH (23:24)
[2022-10-13] MEDS: CHLORHEXADINE GLUC 2% CLOTH TP SCH (23:28)
[2022-10-14] VITALS: BP 134/78
[2022-10-14] MEDS: GAUZE TP SCH ×2 (01:00→13:00)
--- NOTE | 2022-10-14 01:18 | NUR ---
PATIENT ALLOWED ME TO ADMINISTER BACTROBAN INTO BOTH NARES AND WIPE EXTREMITIES WITH CHLORHEXIDINE WIPES (BUT ONLY WANTED THE FRONT OF THE LEGS WIPED NOT THE BACK SIDE THAT WAS TOUCHING THE BED). PATIENT REFUSED TO ALLOW ME TO APPLY BETADINE IN BETWEEN HIS TOES. PATIENT IS AWAKE, SITTING IN SEMI-FOWLERS POSITION. ASKED PATIENT IF HE WANTED TO LIE BACK A BIT, BUT PATIENT STATED NO, AND THAT HE WAS COMFORTABLE. ASKED PATIENT IF HE NEEDED CHANGING, PATIENT DENIES NEEDING CHANGING AND DOESN'T WANT ME TO CHECK. WILL CONTINUE TO OBSERVE PATIENT.
[2022-10-14 04:00] VITALS: BP 136/79
[2022-10-14 05:46] LABS: HEMATOCRIT 27.4 % (36-52); HEMOGLOBIN 9.4 g/dL (12.0-18.0); MEAN CORPUSCULAR HEMOGLOBIN 27 pg (27-31); MEAN CORPUSCULAR HGB CONC 34 g/dL (33-37); MEAN CORPUSCULAR VOLUME 77.6 fL (80-94); PLATELET COUNT (AUTO) 38 K/uL (140-450); RED BLOOD CELL COUNT(AUTO) 3.52 MIL/uL (4.20-6.10); RED CELL DISTRIBUTION WIDTH 16.4 % (11.6-13.7); WHITE BLOOD COUNT (AUTO) 15.1 K/uL (4.8-10.8)
[2022-10-14 06:06] LABS: ANION GAP 18.4 (8-16); CARBON DIOXIDE 22.6 mmol/L (21-32)
[2022-10-14 06:09] LABS: MAGNESIUM 2.1 mg/dL (1.8-2.4); PHOSPHORUS 8.4 mg/dL (2.5-4.9)
[2022-10-14 06:18] LABS: LYMPHOCYTES % (MANUAL) 18 % (20-46); MONOCYTES % (MANUAL) 6 % (5-12)
[2022-10-14 06:19] LABS: BASOPHILS % (MANUAL) 1 % (0-2); EOSINOPHILS % (MANUAL) 0 % (0-4)
[2022-10-14 06:38] LABS: CREATININE 5.2 mg/dL (0.6-1.3)
--- NOTE | 2022-10-14 07:30 | NUR ---
RECEIVED CRITICAL LAB OF CR 5.2. WAS TEXTING INTERNATIONAL LOGISTICS ANALYST PHYSICIAN DR. MEDRANO WHEN DR. PETERSON CALLED AND ASKED ABOUT THE PATIENT. DR. PETERSON ASKED IF CONSENT WAS DONE FOR PROCEDURE. INFORMED HIM THAT I WAS TOLD BY DAY SHIFT NURSE THAT MELISSA WANTED US TO GET AUTHORIZATION THROUGH COURT SYSTEM; BUT TWO DOCTORS SIGNED CONSENT FOR EMERGENCY PROCEDURE OF CATHETER FOR DIALYSIS. DR. PETERSON WANTED TO KNOW WHO; INFORMED THAT ONE SIGNATURE LOOKS LIKE CAPO AND I COULDN'T MAKE OUT THE OTHER (LATER FOUND OUT FROM CHARGE NURSE NAKIA IT WAS DR. MEDRANO). DR. PETERSON SAID THAT'S FINE AND ASKED ABOUT THE CR. I TOLD HIM I JUST GOT A CRITICAL ON THAT, CR. WAS 5.2. HE THEN ASKED ABOUT THE BUN AND POTASSIUM; INFORMED HIM OF THE CURRENT LABS. HE SAID OKAY, I NEED YOU TO ORDER US VASCULAR ACCESS AND PULL THE FOLLOWING ITEMS TO DO THE PROCEDURE: FLUSHES, STERILE GLOVES SIZE 7, STERILE GOWN, HEPARIN VIAL, AND CATHETER KIT; HE WOULD BE BY TODAY TO DO THE PROCEDURE. PULLED THE ITEMS AND PLACED THEM AT BEDSIDE, EXCEPT FOR HEPARIN VIAL WHICH I GAVE TO DAY SHIFT NURSE AUGIE TO GIVE TO DOCTOR. CALLED MELISSA LEMUS AND LEFT A MESSAGE WITH PROPOSAL DEVELOPMENT MANAGER THAT WAS GOING TO PAGE HER. MESSAGE STATED THAT WE HAD TWO DOCTORS SIGN CONSENT FOR EMERGENCY PROCEDURE AND THAT THE PROCEDURE WOULD BE DONE TODAY. ENDORSED INFORMATION TO DAY SHIFT NURSE GHOSH.
--- NOTE | 2022-10-14 07:45 | NUR ---
ENDORSED TO DAY SHIFT NURSE AUGIE FOR CONTINUITY OF CARE. PATIENT IS STABLE.
--- NOTE | 2022-10-14 07:46 | NUR ---
RECEIVED REPORT FROM STOCKROOM COORDINATOR NURSE FOR CONTINUITY OF CARE. PT IS AWAKE AND WITH NO SIGNS OF DISTRESS. CALL BUTTON WITHIN REACH. WILL CONTINUE TO MONITOR.
[2022-10-14 08:00] VITALS: BP 137/80
[2022-10-14] MEDS: FOAM DRESSING TP SCH (09:00)
[2022-10-14] MEDS: NYSTATIN CRE 100 MU/GM 15 GM TUBE TP SCH ×2 (09:00→22:38)
[2022-10-14] MEDS: SKINTEGRITY HYDROGEL TP SCH (09:00)
[2022-10-14] MEDS: PANTOPRAZOLE 40 MG TABEC PO SCH (09:12)
[2022-10-14] MEDS: SODIUM CHLORIDE 1 GM TAB PO SCH ×3 (09:13→19:02)
[2022-10-14] MEDS: MEROPENEM 500 MG in NACL 0.9% 50 ML IV SCH ×2 (09:16→22:37)
[2022-10-14] MEDS: CALCIUM ACETATE 667 MG TAB PO SCH ×3 (09:19→19:02)
[2022-10-14] MEDS: FUROSEMIDE 20 MG/2 ML VIAL IVP SCH (09:24)
[2022-10-14] MEDS ORDERED: SODIUM POLYSTYRENE 15 GM/60 ML UDBTL PO SCH (14:09)
[2022-10-14 16:00] VITALS: BP 132/79
--- NOTE | 2022-10-14 18:48 | NUR ---
PM MEDS HELD C/O CATHETER INSERTION FOR DIALYSIS. WILL ENDORSE TO NIGHT NURSE FOR ADMINISTRATION. ANTHONY
--- NOTE | 2022-10-14 19:34 | NUR ---
ENDORSED TO MAITRE D NURSE FOR CONTINUITY OF CARE. PT IS STABLE, NO SIGNS OF DISTRESS, CALL BUTTON WITHIN REACH.
--- NOTE | 2022-10-14 19:35 | NUR ---
RECEIVED REPORT FROM DAY SHIFT RN FOR CONTINUITY OF CARE. PT IS AAOX4 RESTING IN BED. PT IS DUE FOR HEMODIALYSIS TODAY. PT HAS RIGHT IJ HD CATH. PT HAS OSVALDO 20 GAUGE AND COLLIN 22 GAUGE SALINE LOCK. POC DISCUSSED. WILL CONTINUE TO MONITOR THE PT.
[2022-10-14 20:00] VITALS: BP 127/77
[2022-10-14] MEDS ORDERED: MEROPENEM 500 MG VIAL IV ONE (22:32)
--- NOTE | 2022-10-14 22:37 | NUR ---
SCHEDULE MEDICATIONS GIVEN. NO ADVERSE REACTION NOTED. PT HAS HD EARLIER IN SHIFT. NO OUTPUT. WAS JUST FOR CLEANING ACCORDING TO HD NURSE. PT IS DUE FOR HD TOMORROW AGAIN.
[2022-10-15] VITALS: BP 99/71
[2022-10-15] MEDS: GAUZE TP SCH ×2 (01:09→13:10)
--- NOTE | 2022-10-15 03:53 | NUR ---
VITAL SIGNS TAKEN AND STABLE. PT NOT IN ANY DISTRESS. HAS NO COMPLAINS. WILL CONTINUE TO MONITOR THE PT.
[2022-10-15 04:00] VITALS: BP 134/68
--- NOTE | 2022-10-15 05:16 | NUR ---
CONNOR FROM [facility] CALLED FOR UPDATE ON THE PT. UPDATE GIVEN. CONNOR SAID THERE IS STILL NO BED. WAITING FOR BED.
[2022-10-15 05:53] LABS: HEMATOCRIT 29.1 % (36-52); HEMOGLOBIN 9.9 g/dL (12.0-18.0); MEAN CORPUSCULAR HEMOGLOBIN 27 pg (27-31); MEAN CORPUSCULAR HGB CONC 34 g/dL (33-37); MEAN CORPUSCULAR VOLUME 78.1 fL (80-94); PLATELET COUNT (AUTO) 24 K/uL (140-450); RED BLOOD CELL COUNT(AUTO) 3.73 MIL/uL (4.20-6.10); WHITE BLOOD COUNT (AUTO) 19.3 K/uL (4.8-10.8)
[2022-10-15 06:13] LABS: MAGNESIUM 1.9 mg/dL (1.8-2.4); PHOSPHORUS 6.2 mg/dL (2.5-4.9)
[2022-10-15 06:15] LABS: ANION GAP 15.9 (8-16); CARBON DIOXIDE 25.2 mmol/L (21-32); CREATININE 3.7 mg/dL (0.6-1.3); POTASSIUM 4.1 mmol/L (3.5-5.1)
[2022-10-15 06:50] LABS: BASOPHILS % (MANUAL) 1 % (0-2); EOSINOPHILS % (MANUAL) 1 % (0-4); LYMPHOCYTES % (MANUAL) 30 % (20-46); MONOCYTES % (MANUAL) 8 % (5-12)
--- NOTE | 2022-10-15 07:15 | NUR ---
ENDORSED PT TO DAY SHIFT RN FOR CONTINUITY OF CARE. PT IS STABLE.
[2022-10-15 08:00] VITALS: BP 140/82
[2022-10-15] MEDS: CALCIUM ACETATE 667 MG TAB PO SCH ×3 (08:00→16:36)
[2022-10-15] MEDS: PANTOPRAZOLE 40 MG TABEC PO SCH (09:00)
[2022-10-15] MEDS: SODIUM CHLORIDE 1 GM TAB PO SCH ×3 (09:00→16:36)
[2022-10-15] MEDS: FUROSEMIDE 20 MG/2 ML VIAL IVP SCH (09:44)
[2022-10-15] MEDS: SKINTEGRITY HYDROGEL TP SCH (09:53)
[2022-10-15] MEDS: NYSTATIN CRE 100 MU/GM 15 GM TUBE TP SCH ×2 (09:55→20:36)
[2022-10-15] MEDS: MEROPENEM 500 MG in NACL 0.9% 50 ML IV SCH ×2 (10:18→20:33)
--- NOTE | 2022-10-15 11:51 | NUR ---
WOUND CARE NOTE: SKIN ASSESSMENT DONE WITH PRIMARY RN KATHERIN, PT IS AWAKE, ALERT, SKIN BREAKS TO LEFT ISCHIAL FROM STAGE 1 TO PRESSURE INJURY STAGE 2 5X6 CM SUPERFICIAL DEPTH, WOUND BED RED, MOIST, JOJO-WOUND SKIN MASD WITH RASHES. MASD RASHES IMPROVING. RIGHT ISCHIUM UN-STAGEABLE INCREASING SIZE. PT. INFORM OF WORSEN WOUNDS CONDITION. INFORM PT. BENEFIT OF CONDOM CATH FOR WOUND CARE AND MOISTURE CONTROL. PER PT. HE WILL THINK ABOUT IT. PT. REFUSES WOUND PHOTOS TAKEN, PER PT." NOT TODAY, GET IT OVER QUICKLY,I NEED TO LAY BACK. RECOMMEND TO CLEANSE SACROCOCCYX AND RIGHT AND LEFT ISCHIUM WITH NS. PAT DRY, APPLY SANTYL OINTMENT TO WOUND BED AND Z-GUARD TO JOJO-WOUND SKIN,COVER WITH DRY DRESSING QD AND PRN IF SOILING. -PREVIOUS PRESSURE INJURY STAGE 1 TO LEFT ISCHIAL FURTHER MEGHAN TO STAGE 2 5X6CM AND JOJO-WOUND WITH MASD SKIN DENUDED, MOIST. -PRESSURE INJURY STAGE 1 RIGHT TROCHANTER 4X3CM NON BLANCHABLE REDNESS -MASD TO GROINS, MEDIAL THIGHS, SCROTAL AND JOJO-ANAL AREA WHICH EXTENDED TO BILATERAL LOWER BUTTOCKS, SKIN MOIST, SKIN MOIST RED WITH NO RASHES. -PRESSURE INJURY UN-STAGEABLE TO SACRALCOCCYX 1X1CM 100% MOIST BROWN SLOUGH TISSUE, NO ODOR, JOJO WOUND NON-BLANCHABLE REDNESS WITH MASD 5X10CM, FURTHER DAMAGE INDICATED. -PRESSURE INJURY UN-STAGEABLE TO RIGHT ISCHIUM 3X5CM 100% MOIST YELLOW SLOUGH TISSUE, NO ODOR, JOJO WOUND NON-BLANCHABLE REDNESS WITH MASD, FURTHER DAMAGE INDICATED. -LEFT FIFTH TOE DRY GANGRENE, RIGHT FOURTH AND FIFTH TOES AND INTERSPACES DRY GANGRENE. -LEFT AND RIGHT LATERAL FEET MULTIPLE DRY STABLE GANGRENE WITH LARGEST TO LEFT LATERAL 4X2CM
[2022-10-15 12:00] VITALS: BP 119/68
[2022-10-15 12:08] LABS: HEPATITIS A ANTIBODY IGM Negative (Negative); HEPATITIS B CORE AB TOTAL Negative (Negative); HEPATITIS B SURFACE ANTIBODY Non Reactive (.); HEPATITIS B SURFACE ANTIGEN Negative (Negative)
--- NOTE | 2022-10-15 12:31 | NUR ---
[facility] appointment notification for Tuesday10/18/22 at 9:30 am for his procedure and needs to be 6 hours fasting.
[2022-10-15] MEDS ORDERED: VANCOMYCIN 750 MG in DEXTROSE 5% 250 ML IV SCH (15:00)
--- NOTE | 2022-10-15 15:48 | NUR ---
Patient ambulance for discharge in the morning on will call at [facility] per case management.
[2022-10-15 16:00] VITALS: BP 136/78
--- NOTE | 2022-10-15 19:30 | NUR ---
RECEIVED REPORT FROM DAY SHIFT RN FOR CONTINUITY OF CARE. PT IS CURRENTLY HAVING DIALYSIS. PT IS AWAKE AND ALERT. NOT IN ANY DISTRESS. POC DISCUSSED. WILL CONTINUE TO MONITOR THE PT.
[2022-10-15 20:00] VITALS: BP 130/81
[2022-10-16] VITALS: BP 146/94
[2022-10-16] MEDS: Z-GUARD PASTE TP SCH ×2 (01:04→12:39)
[2022-10-16] MEDS: GAUZE TP SCH ×2 (01:04→12:41)
--- NOTE | 2022-10-16 01:45 | NUR ---
OBSERVED PT. PT IS SLEEPING COMFORTABLY IN BED. PT IS NOT IN ANY DISTRESS. BREATHING EVEN AND UNLABORED. WILL CONTINUE TO MONITOR THE PT.
[2022-10-16 04:00] VITALS: BP 120/82
[2022-10-16 06:02] LABS: ANION GAP 9.4 (8-16); CARBON DIOXIDE 31.8 mmol/L (21-32); CREATININE 2.5 mg/dL (0.6-1.3); POTASSIUM 3.2 mmol/L (3.5-5.1)
[2022-10-16 06:03] LABS: BASOPHILS % (AUTO) 0.2 % (0.0-2.0); EOSINOPHILS % (AUTO) 0.1 % (0.0-4.0); HEMATOCRIT 28.3 % (36-52); HEMOGLOBIN 9.7 g/dL (12.0-18.0); LYMPHOCYTES # (AUTO) 0.9 K/uL (2.0-11.5); LYMPHOCYTES % (AUTO) 4.8 % (20.5-51.1); MEAN CORPUSCULAR HEMOGLOBIN 27 pg (27-31); MEAN CORPUSCULAR HGB CONC 34 g/dL (33-37); MEAN CORPUSCULAR VOLUME 78.9 fL (80-94); MONOCYTES # (AUTO) 1.5 K/uL (0.8-1.0); NEUTROPHILS # (AUTO) 16.1 K/uL (1.8-7.7); NEUTROPHILS % (AUTO) 86.9 % (42.2-75.2); PLATELET COUNT (AUTO) 26 K/uL (140-450); RED BLOOD CELL COUNT(AUTO) 3.59 MIL/uL (4.20-6.10); RED CELL DISTRIBUTION WIDTH 16.4 % (11.6-13.7); WHITE BLOOD COUNT (AUTO) 18.5 K/uL (4.8-10.8)
[2022-10-16 06:11] LABS: MAGNESIUM 1.6 mg/dL (1.8-2.4); PHOSPHORUS 3.9 mg/dL (2.5-4.9)
--- NOTE | 2022-10-16 07:15 | NUR ---
REPORT GIVEN TO DAY SHIFT RN FOR CONTINUITY OF CARE. PT IS STABLE.
--- NOTE | 2022-10-16 07:28 | NUR ---
FOUND PT WITH NC ON HIS CHEEK. AND PT SATURATION WAS 88%. REPLACED AND PT SATURATION IS NOW 95%. WILL CONTINUE TO MONITOR PATIENT.
--- NOTE | 2022-10-16 07:30 | NUR ---
RECEIVED REPORT FROM TRAINING AND DEVELOPMENT DIRECTOR NURSE, POC DISCUSSED. PT CURRENTLY RESTING WITH CHEST RISING AND FALLING. NO ACUTE S/S OF DISTRESS. ALL SAFETY MEASURES IN PLACE. CALL LIGHT WITHIN REACH.
--- NOTE | 2022-10-16 07:50 | NUR ---
PAGED MANZANO OF THE COURT, ALLAN LANDRY, MESSAGED LEFT TO [place] COURT. STATED THEY PLACED THE PAGE TO ALLAN STAT AND NEEDING URGENT RESPONDS TO OBTAIN CONSENT FOR PLT TRANSFUSION. DR BAILEY NOTIFIED ON WAITING FOR CONSENT AND TUNNELED CATH WAS UNABLE TO BE PLACED 10/15. CHARGE NURSE CHRISTIAN MADE AWARE.
[2022-10-16 08:00] VITALS: BP 126/76
--- NOTE | 2022-10-16 08:17 | NUR ---
JUST SPOKE WITH ROLA FROM [facility], STATES IF THE PT MEETS THE REQUIREMENTS TO BE DEEMED AN EMERGENCY, 2 MDS NEED TO DOCUMENT AND SIGN CONSENT. WILL NOTIFY DR FRANK, MACHINE COMPOSITOR, AND DR JIMENEZ, HOSPITALIST.
[2022-10-16] MEDS: MEROPENEM 500 MG in NACL 0.9% 50 ML IV SCH ×2 (08:19→20:18)
[2022-10-16] MEDS: CALCIUM ACETATE 667 MG TAB PO SCH ×3 (08:19→17:00)
[2022-10-16] MEDS: SODIUM CHLORIDE 1 GM TAB PO SCH ×3 (08:20→17:00)
[2022-10-16] MEDS: PANTOPRAZOLE 40 MG TABEC PO SCH (08:20)
[2022-10-16] MEDS: FUROSEMIDE 20 MG/2 ML VIAL IVP SCH (08:20)
[2022-10-16] MEDS: SANTYL TP SCH (08:21)
[2022-10-16] MEDS: NYSTATIN CRE 100 MU/GM 15 GM TUBE TP SCH ×2 (08:26→20:21)
--- NOTE | 2022-10-16 09:27 | NUR ---
CONSENT HAS BEEN SIGNED FOR TUNNELED CATH AND PLT TRANSFUSION BY TWO MDS, DR SAM COMMERCIAL SALES CONSULTANT AND DR JIMENEZ HOSPITALIST. DR JIMENEZ STATED PT CAN NOT BE DISCHARGED DUE TO INCREASE IN INFECTION. JAY FROM [facility] [place] TRANSPORTATION CALLED [employer] ASSEMBLER IN REGARDS TO TRANSFER, PAT [employer] ASSEMBLER CALLED RN AND PROVIDED PHONE NUMBER TO CALL [facility] BACK.
--- NOTE | 2022-10-16 09:40 | NUR ---
CALLED JAY, , FROM [facility], NO ANSWER. VOICEMAIL LEFT AND PROVIDED DIRECT PHONE NUMBER TO UNIT. WILL NOTIFY [facility] PLANT OPERATOR.
--- NOTE | 2022-10-16 10:02 | NUR ---
SPOKE WITH JAY WITH [facility], STATED THERE IS NO BEDS AT THIS TIME. UPDATE PROVIDED IN REGARDS TO PTS CONDITION. STATED THEY WILL CALL BACK IF A BED BECOMES AVAILABLE.
--- NOTE | 2022-10-16 11:12 | NUR ---
WENT TO BLOOD BANK TO FLOOR WORKER PLATELETS. THEY ASKED ME TO GO BACK IN 20 MINUTES SO THEY CAN PROCESS IN THE SYSTEM.
[2022-10-16 12:00] VITALS: BP 143/60
--- NOTE | 2022-10-16 12:05 | NUR ---
OBTAINED PLATELETS UNIT FROM BLOOD BANK. STARTED INFUSION ON PATIENT.
[2022-10-16] MEDS ORDERED: CRUSHER, PILL MC ONE (12:26)
[2022-10-16] MEDS: ACETAMINOPHEN 325 MG TAB PO PRN (12:38)
[2022-10-16] MEDS: POTASSIUM CHLORIDE 10 MEQ TABER PO PRN (12:39)
[2022-10-16] MEDS ORDERED: COMMUNICATION ORDER MC SCH (13:00)
--- NOTE | 2022-10-16 14:00 | NUR ---
PLATELETS INFUSION HAS BEEN COMPLETED. PT IN STABLE CONDITION.
--- NOTE | 2022-10-16 14:26 | NUR ---
WENT TO BLOOD BANK TO OBTAIN 2ND UNIT OF PLATELETS. BLOOD BANK HAD AN EMERGENCY AND NO LONGER HAS UNIT OF PLATELETS. THEY WILL HAVE TO ORDER AND THE PROCESSING TIME IS ESTIMATED AT 2-3 HOURS. NOTIFIED CHARGE NURSE OF DELAY REGARDING PLATELET TRANSFUSION.
--- NOTE | 2022-10-16 15:00 | NUR ---
PT IS REFUSING CONDOM CATH. I HAVE PROVIDED PATIENT EDUCATION AND ADDITIONAL RN HAS ALSO TALKED WITH PT AND PROVIDED EDUCATION ON BENEFITS. PT IS STILL REFUSING THE CONDOM CATH.
--- NOTE | 2022-10-16 15:16 | NUR ---
CALLED [facility], , SPOKE WITH FERNANDO. SHE CALLED [facility] MODEL AND MOLD MAKER PLASTER, HE STATED THAT HE SPOKE WITH [facility] MODEL AND MOLD MAKER PLASTER AND TOLD THEM THEY WILL ACCEPT THE PATIENT BUT NOT UNTIL TUESDAY DUE TO THEY REQUIRE PT TO HAVE A SITTER AND DID NOT COMPLETE THE ADMISSION PACKET. INFORMED THEM PT DOES NOT REQUIRE A SITTER. FERNANDO STATED SHE DOES NOT KNOW WHY FACILITY IS REQUIRING SITTER, THAT ALL SHE WAS TOLD IS NOT TO ACCEPT PT, NO ADMISSION PAPERWORK WAS PROVIDED AND CAN NOT ACCEPT PT UNTIL TUESDAY. CHARGE NURSE MADE AWARE AND CONTACTING MODEL AND MOLD MAKER PLASTER
[2022-10-16 16:00] VITALS: BP 114/76
--- NOTE | 2022-10-16 16:50 | NUR ---
RECEIVED 2ND UNIT OF PLATELETS FROM BLOOD BANK. STARTED INFUSING PLATELETS. PT IN STABLE CONDITTION, PT RESTING WITH CHEST RISING AND FALLING.
--- NOTE | 2022-10-16 17:20 | NUR ---
ATTEMPT TO GIVE SCHEDULED MEDICATION WITH FERNANDO RN, PT REFUSING REPEATEDLY. EDUCATED ON IMPORTANCE OF TAKING IT BECAUSE PT STATES HE WANTS TO LEAVE THE HOSPITAL. INFORMED HIM OF THE MEDICATION PURPOSE, PT STILL REFUSING AND CONTINUE TO PLACE BLANKET OVER HIS HEAD. PLT TRANSFUSION RUNNING, VSS.
--- NOTE | 2022-10-16 18:30 | NUR ---
ENDORSING TO ASSEMBLER CONVERTIBLE TOP NURSE, ORDER CBC 1 HOUR AFTER PLT TRANSFUSION IS COMPLETE TO REASSESS PLT DUE TO PLT STILL RUNNING.
--- NOTE | 2022-10-16 18:45 | NUR ---
SECOND UNIT PLATELETS HAVE COMPLETED INFUSING. PT STABLE CONDITION.
--- NOTE | 2022-10-16 19:05 | NUR ---
RECEIVED PT FROM MORNING SHIFT NURSE. PT IS AOX2-3, BEDBOUND AND ABLE TO VERBALIZE NEEDS. PT IS ON 3L NC AND ON REGULAR DIET. PT HAS RIGHT IJ DIALYSIS ACCESS AND HAS LEFT UPPER ARM GAUGE 22, SALINE LOCK. PT HAS SACRAL-COCCYX UNSTAGABLE ULCER AND HAS LEFT 4TH TOE GANGRENE AND RIGHT 4TH & 5TH TOE GANGRENE. PT DENIES PAIN AT THIS TIME. NO S/S OF RESPIRATORY DISTRESS NOTED. ALL SAFETY MEASURES IMPLEMENTED. BED IN LOW POSITION, BED WHEELS ON LOCK AND CALL LIGHT WITHIN REACH.
[2022-10-16 20:00] VITALS: BP 139/83
--- NOTE | 2022-10-16 20:18 | NUR ---
SCHEDULED AND PRESCRIBED MEDICATION WAS GIVEN TO PT PER MD ORDER. ALL SAFETY MEASURES IMPLEMENTED. BED IN LOW POSITION, BED WHEELS ON LOCK AND CALL LIGHT WITHIN REACH.
[2022-10-16 20:38] LABS: EOSINOPHILS % (AUTO) 0.2 % (0.0-4.0); HEMATOCRIT 25.6 % (36-52); HEMOGLOBIN 8.7 g/dL (12.0-18.0); LYMPHOCYTES # (AUTO) 0.9 K/uL (2.0-11.5); LYMPHOCYTES % (AUTO) 5.5 % (20.5-51.1); MEAN CORPUSCULAR HEMOGLOBIN 27 pg (27-31); MEAN CORPUSCULAR HGB CONC 34 g/dL (33-37); MEAN CORPUSCULAR VOLUME 77.9 fL (80-94); MONOCYTES % (AUTO) 6.2 % (1.7-9.3); NEUTROPHILS # (AUTO) 14.6 K/uL (1.8-7.7); NEUTROPHILS % (AUTO) 88.1 % (42.2-75.2); PLATELET COUNT (AUTO) 74 K/uL (140-450); RED BLOOD CELL COUNT(AUTO) 3.29 MIL/uL (4.20-6.10); RED CELL DISTRIBUTION WIDTH 15.9 % (11.6-13.7); WHITE BLOOD COUNT (AUTO) 16.6 K/uL (4.8-10.8)
--- NOTE | 2022-10-16 21:21 | NUR ---
NOTIFIED DR. JIMENEZ REGARDING PT PLATELET LEVEL OF 74
[2022-10-17] VITALS (7 sets, daily range): BP systolic 131–143; BP diastolic 75–99
[2022-10-17] MEDS: MAG SULF 2000 MG/WATER PREMIX 50 ML IV PRN ×2 (00:30→09:56)
--- NOTE | 2022-10-17 00:30 | NUR ---
MAGNESIUM WAS GIVEN TO PT DUE TO MAGNESIUM LEVEL OF 1.6
[2022-10-17] MEDS: GAUZE TP SCH ×2 (01:05→13:00)
[2022-10-17] MEDS: Z-GUARD PASTE TP SCH ×2 (01:05→13:00)
--- NOTE | 2022-10-17 02:00 | NUR ---
PT IS ON SLEEP. CHEST RISE AND FALL SYMMETRICALLY NOTED. RESPIRATION IS EVEN AND UNLABORED. ALL SAFETY MEASURES IMPLEMENTED. BED IN LOW POSITION, BED WHEELS ON LOCK AND CALL LIGHT WITHIN REACH.
--- NOTE | 2022-10-17 05:00 | NUR ---
MORNING CARE WAS DONE TO PT. CHANGED MAE'S, LINENS, BLANKET AND GOWN. ALL SAFETY MEASURES IMPLEMENTED. BED IN LOW POSITION, BED WHEELS ON LOCK AND CALL LIGHT WITHIN REACH.
[2022-10-17 05:28] LABS: HEMATOCRIT 24.7 % (36-52); HEMOGLOBIN 8.4 g/dL (12.0-18.0); LYMPHOCYTES # (AUTO) 0.8 K/uL (2.0-11.5); MEAN CORPUSCULAR HEMOGLOBIN 26 pg (27-31); MEAN CORPUSCULAR HGB CONC 34 g/dL (33-37); MEAN CORPUSCULAR VOLUME 77.3 fL (80-94); MONOCYTES # (AUTO) 1.3 K/uL (0.8-1.0); MONOCYTES % (AUTO) 6.5 % (1.7-9.3); NEUTROPHILS # (AUTO) 17.2 K/uL (1.8-7.7); NEUTROPHILS % (AUTO) 89.5 % (42.2-75.2); PLATELET COUNT (AUTO) 60 K/uL (140-450); WHITE BLOOD COUNT (AUTO) 19.3 K/uL (4.8-10.8)
[2022-10-17 05:58] LABS: ANION GAP 8.9 (8-16); CARBON DIOXIDE 32.1 mmol/L (21-32); CREATININE 1.9 mg/dL (0.6-1.3)
--- NOTE | 2022-10-17 06:11 | NUR ---
NOTIFIED DR. JIMENEZ REGARDING PT CRITICAL VALUE OF BUN-66.
[2022-10-17 06:46] LABS: MAGNESIUM 1.7 mg/dL (1.8-2.4); PHOSPHORUS 3.9 mg/dL (2.5-4.9)
--- NOTE | 2022-10-17 07:10 | NUR ---
PT IS STABLE. ENDORSED PT TO MORNING SHIFT NURSE FOR CONTINUITY OF CARE.
--- NOTE | 2022-10-17 07:29 | NUR ---
RECEIVED REPORT FROM WELDER MANUFACTURE NURSELUANA. PT STABLE IN BED ON ROOM AIR WITH CHEST RISING AND FALLING. ALL NIGHT EVENTS AND CHANGES IN POC DISCUSSED. ALL SAFETY MEASURES IN PLACE, CALL LIGHT WITHIN REACH.
[2022-10-17] MEDS: POTASSIUM CHLORIDE 10 MEQ TABER PO PRN (08:21)
[2022-10-17] MEDS: CALCIUM ACETATE 667 MG TAB PO SCH ×3 (08:21→17:44)
[2022-10-17] MEDS: FUROSEMIDE 20 MG/2 ML VIAL IVP SCH (08:22)
[2022-10-17] MEDS: SODIUM CHLORIDE 1 GM TAB PO SCH ×3 (08:22→17:44)
[2022-10-17] MEDS: PANTOPRAZOLE 40 MG TABEC PO SCH (08:22)
[2022-10-17] MEDS: MEROPENEM 500 MG in NACL 0.9% 50 ML IV SCH ×2 (08:23→22:05)
[2022-10-17] MEDS: FOAM DRESSING TP SCH (08:23)
--- NOTE | 2022-10-17 11:57 | NUR ---
DIALYSIS NURSE AT BEDSIDE, PT STABLE.
[2022-10-17] MEDS ORDERED: VANCOMYCIN 1,000 MG in DEXTROSE 5% 250 ML IV SCH (13:00)
[2022-10-17] MEDS: SANTYL TP SCH (13:00)
--- NOTE | 2022-10-17 13:21 | NUR ---
DR PETERSON AT BEDSIDE, PT STILL RECEIVING HD. DIALYSIS NURSE AT BEDSIDE
[2022-10-17] MEDS ORDERED: ALBUMIN HUMAN 25% 100 ML IV ONE (13:23)
[2022-10-17] MEDS ORDERED: ALBUMIN HUMAN 25% 100 ML IV SCH (13:30)
--- NOTE | 2022-10-17 13:48 | NUR ---
WOUND CARE PROVIDED PER ORDER. PT TOLERATED, NO ACUTE S/S OF DISTRESS. ALL SAFETY MEASURES IN PLACE.
--- NOTE | 2022-10-17 14:50 | NUR ---
DR SAM AT BEDSIDE ASSESSING PT. DIALYSIS NURSE STILL AT BEDSIDE.
--- NOTE | 2022-10-17 15:19 | NUR ---
HD COMPLETE, NURSE REPORTS 1.5 L REMOVED. BP 134/99, HR 101. NO SOB OR RESP DISTRESS. PT ALERT. ALL SAFETY MEASURE IN PLACE.
--- NOTE | 2022-10-17 18:24 | NUR ---
ROUNDED ON PT. PT RESTING IN BED WITH NC OFF, ON PULSE OX @ 98%. EASILY AROUSABLE. ALL SAFETY MEASURES IN PLACE, CALL LIGHT WITHIN REACH.
--- NOTE | 2022-10-17 20:00 | NUR ---
ROUNDS , NO S/SX OF ACUTE DISTRESS NOTED , WILL CPNT. TO MONITOR .
--- NOTE | 2022-10-17 22:00 | NUR ---
OUNDS , O2 SAT WNL , NO COMPLAIN MADE , CALL LIGHT WITHIN REACH .
--- NOTE | 2022-10-18 | NUR ---
AWAKE , NO S/SX OF acute distress noted , call light within reach , will cont. to monitor .
[2022-10-18] MEDS: GAUZE TP SCH ×2 (01:00→12:49)
[2022-10-18] MEDS: Z-GUARD PASTE TP SCH ×2 (01:00→12:50)
[2022-10-18 04:00] VITALS: BP 128/88
[2022-10-18 05:38] LABS: HEMATOCRIT 20.2 % (36-52); MEAN CORPUSCULAR HEMOGLOBIN 26 pg (27-31); MEAN CORPUSCULAR HGB CONC 34 g/dL (33-37); MEAN CORPUSCULAR VOLUME 76.9 fL (80-94); PLATELET COUNT (AUTO) 47 K/uL (140-450); RED BLOOD CELL COUNT(AUTO) 2.63 MIL/uL (4.20-6.10); RED CELL DISTRIBUTION WIDTH 16.3 % (11.6-13.7); WHITE BLOOD COUNT (AUTO) 18.8 K/uL (4.8-10.8)
[2022-10-18 05:44] LABS: ANION GAP 9.6 (8-16); CARBON DIOXIDE 29.4 mmol/L (21-32); CREATININE 1.7 mg/dL (0.6-1.3)
[2022-10-18 05:47] LABS: MAGNESIUM 1.8 mg/dL (1.8-2.4); PHOSPHORUS 2.6 mg/dL (2.5-4.9)
[2022-10-18 05:56] LABS: HEMOGLOBIN 6.9 g/dL (12.0-18.0)
--- NOTE | 2022-10-18 05:58 | NUR ---
per lab pt's hgb 6.9 , plt 47 , will relay to venancio salcedo . Addendum: 10/18/22 at 0743 by Ana Gilbert RN relayed lab result - msy read by dr Júnior murguia but no further order made .
[2022-10-18 06:41] LABS: BASOPHILS % (MANUAL) 1 % (0-2); EOSINOPHILS % (MANUAL) 0 % (0-4); LYMPHOCYTES % (MANUAL) 14 % (20-46); MONOCYTES % (MANUAL) 8 % (5-12)
--- NOTE | 2022-10-18 07:40 | NUR ---
endorsed , pt awake .
[2022-10-18 08:00] VITALS: BP 128/79
[2022-10-18] MEDS: CALCIUM ACETATE 667 MG TAB PO SCH ×4 (08:00→19:51)
[2022-10-18] MEDS: PANTOPRAZOLE 40 MG TABEC PO SCH ×2 (09:00→09:18)
[2022-10-18] MEDS: SODIUM CHLORIDE 1 GM TAB PO SCH ×4 (09:00→19:51)
[2022-10-18] MEDS: FUROSEMIDE 20 MG/2 ML VIAL IVP SCH (09:19)
[2022-10-18] MEDS: MEROPENEM 500 MG in NACL 0.9% 50 ML IV SCH ×2 (09:20→22:00)
[2022-10-18 12:00] VITALS: BP 132/71
[2022-10-18] MEDS: SANTYL TP SCH (12:53)
[2022-10-18 16:00] VITALS: BP 144/84
[2022-10-18 16:28] LABS: HEMATOCRIT 19.3 % (36-52); HEMOGLOBIN 6.4 g/dL (12.0-18.0)
[2022-10-18 18:05] LABS: PROTHROMBIN TIME 17.3 secs (10.8-13.4)
[2022-10-18] MEDS: PANTOPRAZOLE 40 MG INJ VIAL IVP SCH (19:54)
[2022-10-18 20:00] VITALS: BP 100/70
--- NOTE | 2022-10-18 20:48 | NUR ---
INFORM DR Júnior OSMAN - PT HAS NO BT YET .
[2022-10-19] VITALS: BP 105/60
--- NOTE | 2022-10-19 | NUR ---
STILL NO BLOOD AVAILABLE FOR THE PT . - WILL CONT. TO MONITOR PT , O2 SAT 96 % .
[2022-10-19] MEDS: Z-GUARD PASTE TP SCH ×2 (01:00→14:08)
[2022-10-19] MEDS: GAUZE TP SCH ×2 (01:00→14:08)
--- NOTE | 2022-10-19 02:41 | NUR ---
NPO . BS CHECK 83 .
[2022-10-19 04:00] VITALS: BP 102/60
--- NOTE | 2022-10-19 04:51 | NUR ---
REFUSED AM LAB - WILL ENDORSE .
--- NOTE | 2022-10-19 06:00 | NUR ---
morning care - done - no s/sx of bleeding , o2 sat wnl , bp wnl .
--- NOTE | 2022-10-19 07:02 | NUR ---
receive the patient from shift production associate monica Perez . aox2-3 with admitting diagnosis of hyponatremia . no complain of pain at this time . on 3L of nasal canula . will continue to monitor .
--- NOTE | 2022-10-19 07:40 | NUR ---
endorsed pt for cont. of care . endorsed to amelia . rn to inform md pt refused condom cath - but positive clear urine out per diaper , refused am lab . monica cisneros verbalized understanding . endorsed amelia to ff up the blood unit to lab - for bt - monica cisneros verbalizes understanding .
[2022-10-19 08:00] VITALS: BP 111/70
[2022-10-19] MEDS: SODIUM CHLORIDE 1 GM TAB PO SCH ×3 (09:42→19:27)
[2022-10-19] MEDS: PANTOPRAZOLE 40 MG INJ VIAL IVP SCH ×2 (09:42→20:39)
[2022-10-19] MEDS: MEROPENEM 500 MG in NACL 0.9% 50 ML IV SCH ×2 (09:42→20:40)
[2022-10-19] MEDS: FUROSEMIDE 20 MG/2 ML VIAL IVP SCH (09:43)
[2022-10-19] MEDS: CALCIUM ACETATE 667 MG TAB PO SCH ×3 (09:44→19:26)
[2022-10-19 10:02] LABS: BASOPHILS % (AUTO) 0.1 % (0.0-2.0); LYMPHOCYTES # (AUTO) 1.2 K/uL (2.0-11.5); LYMPHOCYTES % (AUTO) 6.6 % (20.5-51.1); MEAN CORPUSCULAR HEMOGLOBIN 26 pg (27-31); MEAN CORPUSCULAR HGB CONC 34 g/dL (33-37); MEAN CORPUSCULAR VOLUME 77.9 fL (80-94); MONOCYTES # (AUTO) 1.2 K/uL (0.8-1.0); MONOCYTES % (AUTO) 6.5 % (1.7-9.3); NEUTROPHILS # (AUTO) 15.6 K/uL (1.8-7.7); NEUTROPHILS % (AUTO) 86.8 % (42.2-75.2); PLATELET COUNT (AUTO) 79 K/uL (140-450); RED BLOOD CELL COUNT(AUTO) 2.01 MIL/uL (4.20-6.10); RED CELL DISTRIBUTION WIDTH 15.8 % (11.6-13.7)
[2022-10-19 10:10] LABS: HEMATOCRIT 15.6 % (36-52); HEMOGLOBIN 5.3 g/dL (12.0-18.0)
[2022-10-19 10:28] LABS: ANION GAP 10.6 (8-16); CARBON DIOXIDE 28.6 mmol/L (21-32); CREATININE 1.8 mg/dL (0.6-1.3); POTASSIUM 4.2 mmol/L (3.5-5.1)
[2022-10-19 12:00] VITALS: BP 111/76
--- NOTE | 2022-10-19 12:11 | NUR ---
md mcmillan made rounds . order for hemodialysis today . continue antibiotics . epogen to be given 3x/week
[2022-10-19] MEDS ORDERED: VANCOMYCIN 1,000 MG in DEXTROSE 5% 250 ML IV SCH (13:00)
[2022-10-19] MEDS: EPOETIN ALFA-EPBX 10,000 UNITS/ML VIAL IV SCH (14:06)
[2022-10-19] MEDS: SANTYL TP SCH (14:08)
--- NOTE | 2022-10-19 14:57 | NUR ---
10/19/22 RD FOLLOW UP COMPLETED PLEASE REFER TO NUTRITION ASSESSMENT UNDER CARE ACTIVITY FOR ESTIMATED NUTRITIONAL NEEDS. 1. MONITOR NPO STATUS 2. RECOMMEND RENAL DIET WITH NEPRO 1/DAY -NEPRO PROVIDES 420 KCAL AND 19 GM PROTEIN DAILY 3. MONITOR PO INTAKE AND NUTRITION RELATED LAB VALUES 4. RD TO FOLLOW-UP 3-5 DAYS, MODERATE RISK REVIEWED BY KACI JUÁREZ RD
[2022-10-19 16:00] VITALS: BP 138/87
--- NOTE | 2022-10-19 16:11 | NUR ---
md jewell made some rounds . for hemodialysis . will transfuse PRBC with hemoglobin of 5.3 . will continue to administer antibiotics
--- NOTE | 2022-10-19 17:15 | NUR ---
started on hemodialysis . with monica baldwin . transfuse 2 units of PRBC . tolerated the procedure .
[2022-10-19] MEDS: ALBUTEROL SULFATE/IPRATROPIU 3 ML SOL IH PRN (18:56)
--- NOTE | 2022-10-19 19:07 | NUR ---
will endorse to transfer pumper rn for continuity of care
--- NOTE | 2022-10-19 19:58 | NUR ---
LEANDRO HARRIS CALLED ON PT BECAUSE PT BECAME UNRESPONSIVE. UPON ARRIVAL, PATIENT WAS AWAKE, RESPONSIVE, AND SATURATION WAS 98%. PT . NO RESPIRATORY DISTRESS NOTED. WILL CONTINUE TO MONITOR PATIENT.
[2022-10-19 20:00] VITALS: BP 122/84
--- NOTE | 2022-10-19 20:10 | NUR ---
WENT TO CHECK ON PT. O2 SATURATION WAS DOWN TO 88%. PT ASKED TO HAVE THE MASK BACK. PLACED PT BACK ON NONREBREATHER. PT SATURATION NOW STAYING ABOVE 92%. WHEN PT FALLS ASLEEP TENDS TO DESATBUT NO DISTRESS IS NOTED. IF YOU WAKE HIM UP HE TAKES A DEEP BREATH AND IS FINE. WILL CONTINUE TO MONITOR PATIENT.
--- NOTE | 2022-10-19 21:07 | NUR ---
RECEIVED CALL FROM RN AT 1840 THAT PT WAS COMPLAINING OF BEING SHORT OF BREATH. FOUND PT ON NONREBREATHER INSTEAD OF 2L REPORTED. TOLD PT WAS DESATTING WHILE ON DIALYSIS, HENCE PLACED MASK ON. ASSESSED PATIENT, HE SOUNDED COARSE, COMPLAINING OF NOT BEING ABLE TO BREATH. GAVE PT DUONEB. PT REPORTED FEELING BETTER, PLACED ON 4 L SATURATION WAS 100%. PT RESTING COMFORTABLY. WILL CONTINUE TO MONITOR CLOSELY.
[2022-10-20] VITALS: BP 111/78
[2022-10-20] MEDS: Z-GUARD PASTE TP SCH ×2 (00:39→13:03)
[2022-10-20] MEDS: GAUZE TP SCH ×2 (00:39→12:23)
--- NOTE | 2022-10-20 01:30 | NUR ---
PT ASKED TO BE ON nc. SATURATION WAS 100%. PLACED PT ON 3L NC, PT O2 SATURATION CONTINUES TO BE 100%. PT RESTING COMFORTABLY, BUT STILL UNABLE TO SLEEP DEEPLY. WILL CONTINUE TO MONITOR.
[2022-10-20 04:00] VITALS: BP 96/63
[2022-10-20 08:00] VITALS: BP 117/72
[2022-10-20] MEDS: CALCIUM ACETATE 667 MG TAB PO SCH ×3 (08:38→17:04)
[2022-10-20] MEDS: FUROSEMIDE 20 MG/2 ML VIAL IVP SCH (08:40)
[2022-10-20] MEDS: PANTOPRAZOLE 40 MG INJ VIAL IVP SCH ×2 (08:40→20:29)
[2022-10-20] MEDS: MEROPENEM 500 MG in NACL 0.9% 50 ML IV SCH ×2 (08:41→20:28)
[2022-10-20] MEDS: SODIUM CHLORIDE 1 GM TAB PO SCH ×3 (08:42→17:04)
[2022-10-20] MEDS: FOAM DRESSING TP SCH (09:03)
[2022-10-20 09:11] LABS: BASOPHILS % (AUTO) 0.1 % (0.0-2.0); HEMATOCRIT 22.8 % (36-52); HEMOGLOBIN 7.5 g/dL (12.0-18.0); LYMPHOCYTES # (AUTO) 1.2 K/uL (2.0-11.5); LYMPHOCYTES % (AUTO) 6.8 % (20.5-51.1); MEAN CORPUSCULAR HEMOGLOBIN 27 pg (27-31); MEAN CORPUSCULAR HGB CONC 33 g/dL (33-37); MONOCYTES # (AUTO) 1.1 K/uL (0.8-1.0); MONOCYTES % (AUTO) 6.1 % (1.7-9.3); NEUTROPHILS # (AUTO) 15.2 K/uL (1.8-7.7); PLATELET COUNT (AUTO) 105 K/uL (140-450); RED BLOOD CELL COUNT(AUTO) 2.81 MIL/uL (4.20-6.10); RED CELL DISTRIBUTION WIDTH 16.3 % (11.6-13.7); WHITE BLOOD COUNT (AUTO) 17.5 K/uL (4.8-10.8)
[2022-10-20 09:32] LABS: ALBUMIN 1.5 g/dL (3.4-5.0); ANION GAP 8.6 (8-16); CARBON DIOXIDE 29.2 mmol/L (21-32); CREATININE 1.5 mg/dL (0.6-1.3); POTASSIUM 3.8 mmol/L (3.5-5.1); TOTAL BILIRUBIN 0.8 mg/dL (0.0-1.0)
--- NOTE | 2022-10-20 11:48 | NUR ---
WOUND ASSESSMENT AND WOUND CARE DONE. PRIMARY RN OBTAINED WOUND PHOTOS. PT. WITH GENERALIZES EDEMA, +3 TO BLE AND FEET. PT. WORSEN SACRAL AND ISCHIAL WOUNDS. NO SANTYL OINTMENT AVAILABLE AT BED SIDE. SPOKE TO PHARMACIST PREMA, ORDER CLARIFY AND OBTAIN NEW TUBE OF SANTYL OINT TO PRIMARY RN SANTI. POC DISCUSSED WITH PT. PT. IS CONFUSES AT THIS TIME. POC DISCUSSED WITH PRIMARY PHYSICIAN AND CHARGE NURSE WORSEN WOUND CONDITION. PER CHARGE NURSE PT IS NOT STABLE TO TRANSFER.
--- NOTE | 2022-10-20 11:49 | NUR ---
WOUND CARE NOTE: -UN STAGEABLE PRESSURE INJURY LEFT ISCHIAL 3X3CM 100% DARK BROWN WITH ENTIRE AREA 5X6 CM SUPERFICIAL DEPTH, MOIST, JOJO-WOUND SKIN MASD WITH RASHES. MASD -PRESSURE INJURY STAGE 1 RIGHT TROCHANTER 2X3CM BLANCHABLE REDNESS AREA IMPROVING -MASD TO GROINS, MEDIAL THIGHS, SCROTAL AND JOJO-ANAL AREA WHICH EXTENDED TO BILATERAL LOWER BUTTOCKS, SKIN RASHES REOCCURRED -DTI LEFT LATERAL FEMUR 1X1CM -DTI right LATERAL l knee 2x2CM -PRESSURE INJURY UN-STAGEABLE TO SACRALCOCCYX 6X10CM 75% MOIST BROWN SLOUGH TISSUE, 25% PALE RED TISSUE, NO ODOR, JOJO WOUND NON-BLANCHABLE REDNESS WITH MASD FURTHER DAMAGE INDICATED. -PRESSURE INJURY UN-STAGEABLE TO RIGHT ISCHIUM 3X5CM 100% MOIST DARK BROWN SLOUGH TISSUE, NO ODOR, JOJO WOUND NON-BLANCHABLE REDNESS WITH MASD, FURTHER DAMAGE INDICATED. -LEFT FIFTH TOE DRY GANGRENE, RIGHT FOURTH AND FIFTH TOES AND INTERSPACES DRY GANGRENE. -LEFT AND RIGHT LATERAL FEET MULTIPLE DRY STABLE GANGRENE WITH LARGEST TO LEFT LATERAL 4X2CM
[2022-10-20 12:00] VITALS: BP 101/68
[2022-10-20] MEDS: SANTYL TP SCH (13:03)
[2022-10-20 16:00] VITALS: BP 114/66
--- NOTE | 2022-10-20 19:04 | NUR ---
WOUND CARE FOR PATIENT DONE, SANTYL CREAM AT BEDSIDE, & PATIENT'S DIET START CLEAR LIQUID FROM DINNER. PER CM, PATIENT MIGHT TRANSFER TO SIDNEY FOR CONTINUE CARE. WILL CONTINUE TO MONITOR Addendum: 10/20/22 at 1944 by Linda Dimas RN ENDORSE PATIENT IN STABLE CONDITION TO PM SHIFT NURSE AFTER PATIENT START CLEAR LIQUID DIET. PIV LAC SALINE LOCK
--- NOTE | 2022-10-20 19:35 | NUR ---
RECEIVED PT FROM AM NURSE FOR CONYINUITY OF CARE. PT IS STABLE
[2022-10-20 20:00] VITALS: BP 103/66
[2022-10-21] VITALS: BP 128/75
--- NOTE | 2022-10-21 01:00 | NUR ---
PATIENT ASLEEP,NO DISTRESS NOTED
[2022-10-21] MEDS: GAUZE TP SCH ×2 (01:03→13:44)
[2022-10-21] MEDS: Z-GUARD PASTE TP SCH ×2 (01:04→13:44)
[2022-10-21] MEDS: ACETAMINOPHEN 325 MG TAB PO PRN ×2 (03:54→20:15)
[2022-10-21 04:00] VITALS: BP 115/72
[2022-10-21 06:37] LABS: ALBUMIN 1.5 g/dL (3.4-5.0); ANION GAP 10.2 (8-16); CARBON DIOXIDE 27.4 mmol/L (21-32); CREATININE 1.6 mg/dL (0.6-1.3); POTASSIUM 3.6 mmol/L (3.5-5.1); TOTAL BILIRUBIN 0.6 mg/dL (0.0-1.0)
[2022-10-21 06:56] LABS: BASOPHILS % (AUTO) 0.1 % (0.0-2.0); EOSINOPHILS % (AUTO) 0.1 % (0.0-4.0); HEMATOCRIT 20.1 % (36-52); LYMPHOCYTES # (AUTO) 0.8 K/uL (2.0-11.5); MEAN CORPUSCULAR HEMOGLOBIN 28 pg (27-31); MEAN CORPUSCULAR HGB CONC 33 g/dL (33-37); MEAN CORPUSCULAR VOLUME 82.2 fL (80-94); MONOCYTES # (AUTO) 0.8 K/uL (0.8-1.0); MONOCYTES % (AUTO) 4.7 % (1.7-9.3); NEUTROPHILS # (AUTO) 15.2 K/uL (1.8-7.7); NEUTROPHILS % (AUTO) 90.1 % (42.2-75.2); PLATELET COUNT (AUTO) 105 K/uL (140-450); RED BLOOD CELL COUNT(AUTO) 2.44 MIL/uL (4.20-6.10); RED CELL DISTRIBUTION WIDTH 16.4 % (11.6-13.7); WHITE BLOOD COUNT (AUTO) 16.8 K/uL (4.8-10.8)
[2022-10-21 07:03] LABS: HEMOGLOBIN 6.7 g/dL (12.0-18.0)
--- NOTE | 2022-10-21 07:30 | NUR ---
RECEIVED REPORT FROM PRODUCTION CONTROL SPECIALIST NURSE, POC DISCUSSED, PT CURRENTLY RESTING WITH CHEST RISING AND FALLING, NO ACUTE S/S OF DISTRESS, ALL SAFETY MEASURES IN PLACE, CALL LIGHT WITHIN REACH.
[2022-10-21 08:00] VITALS: BP 114/58
[2022-10-21] MEDS: FUROSEMIDE 20 MG/2 ML VIAL IVP SCH (09:41)
[2022-10-21] MEDS: PANTOPRAZOLE 40 MG INJ VIAL IVP SCH ×2 (09:41→20:14)
[2022-10-21] MEDS: EPOETIN ALFA-EPBX 10,000 UNITS/ML VIAL IV SCH (09:41)
[2022-10-21] MEDS: SODIUM CHLORIDE 1 GM TAB PO SCH ×3 (09:42→17:11)
[2022-10-21] MEDS: CALCIUM ACETATE 667 MG TAB PO SCH ×3 (09:45→17:12)
[2022-10-21] MEDS: MEROPENEM 500 MG in NACL 0.9% 50 ML IV SCH ×2 (10:35→20:13)
[2022-10-21 12:00] VITALS: BP 105/76
[2022-10-21 13:33] LABS: PROTHROMBIN TIME 16.3 secs (10.8-13.4)
[2022-10-21] MEDS: SANTYL TP SCH (13:44)
[2022-10-21 16:00] VITALS: BP 167/74
--- NOTE | 2022-10-21 16:45 | NUR ---
RECEIVED A CALL FROM BLOOD BANK. THE PRBCS WILL BE DELAYED DUE TO ANTIBODY'S AND THEM HAVING TO SUBMIT IT TO [facility]. INFORMED MY CHARGE NURSE WELL OF THE DELAY.
--- NOTE | 2022-10-21 17:41 | NUR ---
PT IS SLEEPING WITH CHEST RISING AND FALLING.
--- NOTE | 2022-10-21 19:20 | NUR ---
RECEIVED PT FROM AM NURSE FOR CONTINUITY OF CARE. PATIENT IS STABLE
[2022-10-21 20:00] VITALS: BP 115/79
[2022-10-21] MEDS ORDERED: VANCOMYCIN 1,000 MG in DEXTROSE 5% 250 ML IV SCH (21:00)
--- NOTE | 2022-10-21 22:50 | NUR ---
CALLED LABS TO FOLLOW UP AVILABILITY OF BLOOD FOR TRANSFUSION. LABS SAID NOT READY YET
[2022-10-22] VITALS: BP 123/77
[2022-10-22] MEDS: GAUZE TP SCH ×2 (01:11→13:00)
[2022-10-22] MEDS: Z-GUARD PASTE TP SCH ×2 (01:12→13:00)
--- NOTE | 2022-10-22 02:00 | NUR ---
CLEANED AND REPOSITIONED PATIENT , WOUND DRESSING CHANGED TOLERATED WELL
[2022-10-22] MEDS: ACETAMINOPHEN 325 MG TAB PO PRN (02:44)
[2022-10-22 04:00] VITALS: BP 128/78
[2022-10-22 06:36] LABS: BASOPHILS % (AUTO) 0.1 % (0.0-2.0); EOSINOPHILS % (AUTO) 0.1 % (0.0-4.0); LYMPHOCYTES # (AUTO) 1.1 K/uL (2.0-11.5); LYMPHOCYTES % (AUTO) 7.9 % (20.5-51.1); MEAN CORPUSCULAR HEMOGLOBIN 28 pg (27-31); MEAN CORPUSCULAR HGB CONC 34 g/dL (33-37); MEAN CORPUSCULAR VOLUME 81.3 fL (80-94); MONOCYTES # (AUTO) 0.8 K/uL (0.8-1.0); MONOCYTES % (AUTO) 5.5 % (1.7-9.3); NEUTROPHILS # (AUTO) 12.1 K/uL (1.8-7.7); NEUTROPHILS % (AUTO) 86.4 % (42.2-75.2); PLATELET COUNT (AUTO) 103 K/uL (140-450); RED BLOOD CELL COUNT(AUTO) 2.06 MIL/uL (4.20-6.10); RED CELL DISTRIBUTION WIDTH 16.8 % (11.6-13.7)
[2022-10-22 06:56] LABS: ALBUMIN 1.4 g/dL (3.4-5.0); ANION GAP 8.7 (8-16); CARBON DIOXIDE 26.8 mmol/L (21-32); CREATININE 1.6 mg/dL (0.6-1.3); POTASSIUM 3.5 mmol/L (3.5-5.1); TOTAL BILIRUBIN 0.5 mg/dL (0.0-1.0)
--- NOTE | 2022-10-22 07:15 | NUR ---
RECEIVED BEDSIDE REPORT FROM NIGHT NURSE LIBRADO FOR CONTINUITY OF CARE. INITIAL ASSESSMENT DONE. ALERT AND ORIENTED X 3. RESP. EVEN AND UNLABORED. ON 2L/NC. SATTING 99%. PER LIBRADO PT REFUSED PT SCHEDULED FOR DIALYSIS AND BLOOD TRANSFUSION. AWAITING RESULT FOR CROSSMATCH. IV SITE INTACT, ON SALINE LOCK. RIJ INTACT. NOT IN ANY DISTRESS NOTED. CALL LIGHT KEPT WITHIN REACH. PT WILL MONITOR CLOSELY..
--- NOTE | 2022-10-22 07:20 | NUR ---
ENDORSED PT TO AM NURSE FOR CONTINUITY OF CARE. PT IS STABLE
--- NOTE | 2022-10-22 07:49 | NUR ---
RECEIVED CALLED FROM LAB SPOKE TO BRENT. CRITICAL LABS: HEMOGLOBIN 5.7, BUN 93. PT SCHEDULED FOR DIALYSIS SOON BLOOD IS AVAILABLE.
[2022-10-22 07:50] LABS: HEMATOCRIT 16.8 % (36-52); HEMOGLOBIN 5.7 g/dL (12.0-18.0)
[2022-10-22 08:00] VITALS: BP 111/75
[2022-10-22] MEDS: CALCIUM ACETATE 667 MG TAB PO SCH ×3 (08:26→17:00)
[2022-10-22] MEDS: SODIUM CHLORIDE 1 GM TAB PO SCH (08:26)
--- NOTE | 2022-10-22 08:26 | NUR ---
SCHEDULED PO MEDICATIONS GIVEN. TOLERATED WELL.
[2022-10-22] MEDS: MEROPENEM 500 MG in NACL 0.9% 50 ML IV SCH ×2 (09:00→22:30)
[2022-10-22] MEDS: PANTOPRAZOLE 40 MG INJ VIAL IVP SCH ×2 (09:00→22:30)
--- NOTE | 2022-10-22 09:18 | NUR ---
MADE FOLLOW TO LAB, PER STAFF BLOOD STILL PENDING DELIVERY FROM [facility].
[2022-10-22] MEDS: FUROSEMIDE 20 MG/2 ML VIAL IVP SCH ×2 (11:30→22:30)
--- NOTE | 2022-10-22 11:33 | NUR ---
MEROPENEM IV AND LASIX IVP WAS GIVEN BY TIKA HELLER. TOLERATED WELL.
[2022-10-22 12:00] VITALS: BP 124/81
--- NOTE | 2022-10-22 12:52 | NUR ---
1 PACKED RBC BLOOD TRANSFUSION STARTED. VERIFIED WITH 2 LICENSED STAFF.
[2022-10-22] MEDS: SANTYL TP SCH (13:00)
--- NOTE | 2022-10-22 13:06 | NUR ---
RECEIVED CALLED FROM [facility]. SPOKE TO KAROL FROM TRANSFER CENTER. ALL QUESTIONS ANSWERED. PER KAROL STILL WAITING FOR BED AVAILABILITY.
[2022-10-22] MEDS ORDERED: ALBUMIN HUMAN 25% 200 ML IV SCH (13:27)
--- NOTE | 2022-10-22 14:00 | NUR ---
10/22/22 RD FOLLOW UP COMPLETED PLEASE REFER TO NUTRITION ASSESSMENT UNDER CARE ACTIVITY FOR ESTIMATED NUTRITIONAL NEEDS. 1. CONTINUE CLEAR LIQUID TOLERATED 2. RECOMMEND ENSURE CLEAR BID TO OPTIMIZE NUTRITIONAL NEEDS -PROVIDES 480 KCALS AND 16 GM PROTEIN DAILY 3. RECOMMEND RENAL DIET WITH SAM BID FOR WOUND SUPPORT WHEN/IF MEDICALLY APPROPRIATE TO ADVANCE DIET -SAM BID PROVIDES 420 160 KCAL AND 5 GM PROTEIN DAILY 4. MONITOR PO INTAKE AND NUTRITION RELATED LAB VALUES 5. RD TO FOLLOW-UP 3-5 DAYS, MODERATE RISK REVIEWED BY KACI JUÁREZ RD
[2022-10-22] MEDS: ACETAMINOPHEN 325 MG TAB PO SCH ×3 (14:33→20:00)
--- NOTE | 2022-10-22 14:33 | NUR ---
SCHEDULE MEDICATIONS GIVEN. TOLERATED WELL.
[2022-10-22 15:19] LABS: FOLIC ACID 2.1 ng/mL (>3.0)
[2022-10-22 16:00] VITALS: BP 117/85
[2022-10-22] MEDS ORDERED: FUROSEMIDE 20 MG TAB PO SCH (16:00)
--- NOTE | 2022-10-22 16:14 | NUR ---
BLOOD TRANSFUSION COMPLETED. NO ADVERSE REACTION NOTED.
--- NOTE | 2022-10-22 16:25 | NUR ---
2ND BAG 1 PACKED RBC BLOOD TRANSFUSION STARTED. VERIFIED WITH 2 LICENSED STAFF. NO ADVERSE REACTION NOTED.
[2022-10-22] MEDS: ALBUTEROL SULFATE/IPRATROPIU 3 ML SOL IH PRN (19:30)
--- NOTE | 2022-10-22 19:30 | NUR ---
2ND BLOOD TRANSFUSION COMPLETED. NO ADVERSE REACTION NOTED. NO ITCHING, SOB NOTED.
--- NOTE | 2022-10-22 19:35 | NUR ---
BEDSIDE REPORT GIVEN TO MARGARETTE HELLER, FOR CONTINUITY OF CARE. CURRENTLY ON HEMODIALYSIS. REMAINS STABLE.
[2022-10-22 20:00] VITALS: BP 109/73
--- NOTE | 2022-10-22 20:00 | NUR ---
ASSUMED CARE OF PATIENT AT THIS TIME. PATIENT IS ON DIALYSIS AT THE BEDSIDE AT THIS TIME. HL INTACT AND PATENT TO LEFT UPPER ARM. O2 ON AT 2LNC AT THIS TIME WITH O2 SAT OF 96%. DENIES PAIN AT THIS TIME. NO ACUTE DISTRESS NOTED. VSS. AFEBRILE. WILL CONTINUE TO MONITOR FOR SAFETY. Laquita SUAREZ RN.
[2022-10-23] VITALS: BP 116/70
--- NOTE | 2022-10-23 00:30 | NUR ---
SLEEPING COMFORTABLY WITH NO ACUTE DISTRESS NOTED. Laquita SUAREZ RN.
[2022-10-23] MEDS: Z-GUARD PASTE TP SCH ×2 (01:47→13:00)
[2022-10-23] MEDS: GAUZE TP SCH ×2 (01:47→13:00)
[2022-10-23 04:00] VITALS: BP 110/72
[2022-10-23 05:51] LABS: BASOPHILS % (AUTO) 0.1 % (0.0-2.0); EOSINOPHILS % (AUTO) 0.1 % (0.0-4.0); HEMATOCRIT 23.7 % (36-52); HEMOGLOBIN 7.8 g/dL (12.0-18.0); LYMPHOCYTES # (AUTO) 0.8 K/uL (2.0-11.5); LYMPHOCYTES % (AUTO) 5.2 % (20.5-51.1); MEAN CORPUSCULAR HEMOGLOBIN 27 pg (27-31); MEAN CORPUSCULAR HGB CONC 33 g/dL (33-37); MEAN CORPUSCULAR VOLUME 80.7 fL (80-94); MONOCYTES # (AUTO) 0.9 K/uL (0.8-1.0); MONOCYTES % (AUTO) 5.7 % (1.7-9.3); NEUTROPHILS # (AUTO) 13.4 K/uL (1.8-7.7); NEUTROPHILS % (AUTO) 88.9 % (42.2-75.2); PLATELET COUNT (AUTO) 65 K/uL (140-450); RED BLOOD CELL COUNT(AUTO) 2.94 MIL/uL (4.20-6.10); WHITE BLOOD COUNT (AUTO) 15.1 K/uL (4.8-10.8)
--- NOTE | 2022-10-23 06:00 | NUR ---
REMAINS IN STABLE CONDITION. NO ACUTE DISTRESS NOTED. SLEPT WELL THROUGHOUT THE NIGHT. PINA SAMANIEGO.
[2022-10-23 06:18] LABS: ALBUMIN 2.2 g/dL (3.4-5.0); ANION GAP 11.5 (8-16); CREATININE 1.4 mg/dL (0.6-1.3); POTASSIUM 3.5 mmol/L (3.5-5.1); TOTAL BILIRUBIN 1.3 mg/dL (0.0-1.0)
--- NOTE | 2022-10-23 07:00 | NUR ---
RECEIVED BEDSIDE REPORT FROM CLERK GENERAL FOR CONTINUITY OF CARE. ASSESSMENT DONE. ALERT AND ORIENTED X 3. RESP. EVEN AND UNLABORED. ON 2L/NC. SATTING 98%. IV SITE INTACT, ON SALINE LOCK. RIJ INTACT. NOT IN ANY DISTRESS NOTED. CALL LIGHT KEPT WITHIN REACH. PT WILL MONITOR CLOSELY.
[2022-10-23 08:00] VITALS: BP 115/71
--- NOTE | 2022-10-23 08:00 | NUR ---
Patient's Plan of Care was discussed and reviewed with ASSESSMENT NURSE PRACTITIONER: AVEL
--- NOTE | 2022-10-23 08:19 | NUR ---
DR. PETERSON NOTIFIED, PT HAD ORDER TO REMOVED KEYSHA CATH. PER DR. PETERSON, OK TO REMOVED, ZABRINA CHARGE NURSE MADE AWARE.
[2022-10-23] MEDS: CALCIUM ACETATE 667 MG TAB PO SCH ×3 (08:39→17:13)
--- NOTE | 2022-10-23 08:39 | NUR ---
SCHEDULED MEDICATION GIVEN. TOLERATED WELL.
[2022-10-23] MEDS: EPOETIN ALFA-EPBX 10,000 UNITS/ML VIAL IV SCH (09:00)
[2022-10-23] MEDS: FUROSEMIDE 20 MG/2 ML VIAL IVP SCH ×2 (09:18→20:18)
[2022-10-23] MEDS: PANTOPRAZOLE 40 MG INJ VIAL IVP SCH ×2 (09:18→20:18)
[2022-10-23] MEDS: MEROPENEM 500 MG in NACL 0.9% 50 ML IV SCH ×2 (09:18→20:18)
[2022-10-23] MEDS: FOAM DRESSING TP SCH (10:00)
[2022-10-23 12:00] VITALS: BP 135/81
--- NOTE | 2022-10-23 12:00 | NUR ---
RT IJ CATHETER WAS REMOVED BY PRETTY HELLER. RECEIVED NEW ORDER FROM DR. KURTZ, CATHETER TIP FOR CULTURE. ORDER NOTED AND CARRIED OUT. SPECIMEN WAS SEND TO LAB.
[2022-10-23] MEDS: SANTYL TP SCH (13:00)
[2022-10-23 16:00] VITALS: BP 117/85
[2022-10-23] MEDS ORDERED: VANCOMYCIN 1,000 MG in DEXTROSE 5% 250 ML IV SCH (16:00)
--- NOTE | 2022-10-23 16:25 | NUR ---
VANCOMYCIN IV AND RETACRIT WAS GIVEN BY ALBERT HELLER. TOLERATED WELL.
--- NOTE | 2022-10-23 17:30 | NUR ---
TONIA CORRAL REPORTED 2ND CONSECUTIVE BLACK TARRY BOWEL MOVEMENT. NOTIFIED DR. LAUREANO AND DR. HAQUE. PER DR. LAUREANO, NO STOOL STUDIES NECESSARY. AWAITING DR. HAQUE'S REPLY.
--- NOTE | 2022-10-23 18:40 | NUR ---
RECEIVED NEW ORDER FROM DR. HAQUE, STOOL OCCULT TEST. ORDER NOTED AND CARRIED OUT. SPECIMEN COLLECTED AND SEND TO LAB.
--- NOTE | 2022-10-23 19:15 | NUR ---
REPORT GIVEN TO NIGHT NURSE MARGARETTE FOR CONTINUITY OF CARE. REMAINS STABLE.
[2022-10-23] MEDS: ALBUTEROL SULFATE/IPRATROPIU 3 ML SOL IH PRN (19:30)
[2022-10-23 20:00] VITALS: BP 100/58
--- NOTE | 2022-10-23 20:00 | NUR ---
ASSUMED CARE OF PATIENT AT THIS TIME. VSS. AFEBRILE. RESPIRATIONS EVEN AND UNLABORED. LEFT UPPER ARM HL INTACT AND PATENT WITH NO REDNESS OR IRRITATION TO SITE. NO ACUTE DISTRESS NOTED. WILL CONTINUE TO MONITOR FOR SAFETY. Laquita SUAREZ RN.
[2022-10-24] VITALS: BP 121/78
--- NOTE | 2022-10-24 00:30 | NUR ---
PATIENT IS SLEEPING COMFORTABLY WITH NO ACUTE DISTRESS NOTED. Laquita SUAREZ RN.
[2022-10-24] MEDS: Z-GUARD PASTE TP SCH ×2 (01:44→14:16)
[2022-10-24] MEDS: GAUZE TP SCH ×2 (01:44→14:15)
[2022-10-24 04:00] VITALS: BP 124/81
--- NOTE | 2022-10-24 06:00 | NUR ---
NO ACUTE DISTRESS NOTED. REMAINS IN STABLE CONDITION. Laquita SUAREZ RN.
[2022-10-24 06:51] LABS: EOSINOPHILS % (AUTO) 0.1 % (0.0-4.0); MEAN CORPUSCULAR HEMOGLOBIN 26 pg (27-31); MEAN CORPUSCULAR HGB CONC 33 g/dL (33-37); MEAN CORPUSCULAR VOLUME 79.3 fL (80-94); PLATELET COUNT (AUTO) 73 K/uL (140-450)
[2022-10-24 06:54] LABS: ALBUMIN 1.7 g/dL (3.4-5.0); ANION GAP 13.2 (8-16); CARBON DIOXIDE 25.2 mmol/L (21-32); CREATININE 1.7 mg/dL (0.6-1.3); POTASSIUM 3.4 mmol/L (3.5-5.1); TOTAL BILIRUBIN 0.9 mg/dL (0.0-1.0)
--- NOTE | 2022-10-24 07:03 | NUR ---
receive the patient from the mine shifter rn in rm [id number] bedbound with admitting diagnosis of hyponatremia .
[2022-10-24 08:00] VITALS: BP 147/81
--- NOTE | 2022-10-24 08:09 | NUR ---
LOC AWAKE AND ALERT VERBALLY RESPONSIVE; PATIENT ASSESSMENT COMPLETED; RECEIVED ON SUPPLEMENTAL OXYGEN AT 2 LPM VIA NC; PATIENT ADAMANTLY REFUSES PRN HHN THERAPY FOR SOB; EDUCATION PROVIDED TO PATIENT ON THE BENEFITS OF HHN THERAPY
[2022-10-24] MEDS: PANTOPRAZOLE 40 MG INJ VIAL IVP SCH ×2 (08:43→20:26)
[2022-10-24] MEDS: FUROSEMIDE 20 MG/2 ML VIAL IVP SCH (08:43)
[2022-10-24] MEDS: CALCIUM ACETATE 667 MG TAB PO SCH ×3 (08:43→17:06)
[2022-10-24] MEDS: MEROPENEM 500 MG in NACL 0.9% 50 ML IV SCH ×2 (08:44→22:30)
--- NOTE | 2022-10-24 09:30 | NUR ---
[facility] [place] called to inquire about the transfer for vascular surgery when bed is available
[2022-10-24 09:50] LABS: BASOPHILS % (AUTO) 0.2 % (0.0-2.0); LYMPHOCYTES # (AUTO) 1.2 K/uL (2.0-11.5); LYMPHOCYTES % (AUTO) 6.9 % (20.5-51.1); MONOCYTES # (AUTO) 0.7 K/uL (0.8-1.0); MONOCYTES % (AUTO) 4.4 % (1.7-9.3); NEUTROPHILS # (AUTO) 14.7 K/uL (1.8-7.7); NEUTROPHILS % (AUTO) 88.4 % (42.2-75.2); RED BLOOD CELL COUNT(AUTO) 2.29 MIL/uL (4.20-6.10); RED CELL DISTRIBUTION WIDTH 15.8 % (11.6-13.7)
[2022-10-24 09:59] LABS: HEMATOCRIT 18.2 % (36-52); HEMOGLOBIN 6.1 g/dL (12.0-18.0)
[2022-10-24 10:00] LABS: WHITE BLOOD COUNT (AUTO) 16.7 K/uL (4.8-10.8)
--- NOTE | 2022-10-24 10:42 | NUR ---
laboratory called the RN to inform the RN hemoglobin of 6.7 . but PRBC not available from [place] due the antibody of the patient . MD yoder
[2022-10-24 12:00] VITALS: BP 128/79
[2022-10-24] MEDS: SANTYL TP SCH (14:16)
[2022-10-24 16:00] VITALS: BP 125/73
--- NOTE | 2022-10-24 18:38 | NUR ---
will endorse to water systems designer rn for continuity of care for [facility] discharge ifor the availabilty of bed for vascular surgery .
[2022-10-24 20:00] VITALS: BP 90/58
--- NOTE | 2022-10-24 20:03 | NUR ---
Keo from [facility] called that [facility] cannot take pt at this time due to no isolation room
[2022-10-24] MEDS: ACETAMINOPHEN 325 MG TAB PO PRN (20:15)
[2022-10-24] MEDS ORDERED: FUROSEMIDE 40 MG/4 ML VIAL IVP SCH (21:35)
[2022-10-24] MEDS ORDERED: MAG SULF 2000 MG/WATER PREMIX 50 ML IV ONE (21:40)
--- NOTE | 2022-10-24 21:48 | NUR ---
GIVE 1 DOSE OF LASIX IV PUSH NOW THEN LASIX DRIP - STOP LASIX IF SBP BELOW 95 . Addendum: 10/25/22 at 0514 by Ana Gilbert RN AT 2148 DR. PARRA AND THE PHARMACIST TALKING ABOUT THE LASIX . DR. PARRA WILL REVISE THE LASIX ORDER .
[2022-10-25] VITALS: BP 122/60
--- NOTE | 2022-10-25 | NUR ---
BP RE CHECK 122/60 , HR 92 - ON TELE MONITOR .
[2022-10-25] MEDS: GAUZE TP SCH ×2 (01:00→13:17)
[2022-10-25] MEDS: Z-GUARD PASTE TP SCH ×2 (01:00→13:18)
--- NOTE | 2022-10-25 01:10 | NUR ---
BP RE CHECK 125/ 66 , MT 87 , NO COMPLAIN MADE AT THIS TIME .
[2022-10-25] MEDS: FUROSEMIDE 20 MG/2 ML VIAL IVP SCH ×4 (01:14→18:12)
[2022-10-25 04:00] VITALS: BP 108/67
--- NOTE | 2022-10-25 04:55 | NUR ---
RENDERING BEDSIDE CARE , PT REFUSING WOUND NIMA BROWNE CNA IS AT BEDSIDE - SHE IS THE WITNESS PT REFUSAL - WILL ENDORSE .
[2022-10-25 05:39] LABS: BASOPHILS % (AUTO) 0.2 % (0.0-2.0); EOSINOPHILS % (AUTO) 0.1 % (0.0-4.0); LYMPHOCYTES # (AUTO) 1.1 K/uL (2.0-11.5); LYMPHOCYTES % (AUTO) 7.9 % (20.5-51.1); MEAN CORPUSCULAR HEMOGLOBIN 27 pg (27-31); MEAN CORPUSCULAR HGB CONC 34 g/dL (33-37); MEAN CORPUSCULAR VOLUME 79.1 fL (80-94); MONOCYTES # (AUTO) 0.7 K/uL (0.8-1.0); MONOCYTES % (AUTO) 4.9 % (1.7-9.3); NEUTROPHILS # (AUTO) 12.2 K/uL (1.8-7.7); NEUTROPHILS % (AUTO) 86.9 % (42.2-75.2); PLATELET COUNT (AUTO) 80 K/uL (140-450); RED BLOOD CELL COUNT(AUTO) 1.92 MIL/uL (4.20-6.10); RED CELL DISTRIBUTION WIDTH 15.9 % (11.6-13.7); WHITE BLOOD COUNT (AUTO) 14.1 K/uL (4.8-10.8)
--- NOTE | 2022-10-25 06:00 | NUR ---
RE CHECK BP - 90/ 58 - WILL ENDORSE .
[2022-10-25 06:29] LABS: ALBUMIN 1.6 g/dL (3.4-5.0); ANION GAP 14.1 (8-16); CARBON DIOXIDE 23.2 mmol/L (21-32); POTASSIUM 3.3 mmol/L (3.5-5.1); TOTAL BILIRUBIN 0.7 mg/dL (0.0-1.0)
--- NOTE | 2022-10-25 06:55 | NUR ---
INFORMED DR. PARRA ABOUT THE LATEST TRENDING UP BUN AND CREA . INFORMED DR. PARRA PT IS FOR BT TODAY - NO OBJECTION FROM HIM . - WILL ENDORSE
[2022-10-25 06:58] LABS: HEMATOCRIT 15.2 % (36-52); HEMOGLOBIN 5.1 g/dL (12.0-18.0)
--- NOTE | 2022-10-25 07:00 | NUR ---
RELAYED TO DR. HAQUE ABOUT THE TRENDING DOWN HGB AND HCT - WILL ENDORSE .
--- NOTE | 2022-10-25 07:20 | NUR ---
RECEIVED REPORT FROM MONORAIL HELPER NURSE FOR CONTINUITY OF CARE. PT STABLE AT THIS TIME RESTING IN BED.
--- NOTE | 2022-10-25 07:40 | NUR ---
ENDORSED PT TO PINA GONZALES ENDORSED TO CHRISTIAN THE BLOOD UNIT IS ALREADY AVAILABLE , CHRISTIAN RN VERBALIZES UNDERSTANDING .
[2022-10-25] MEDS: ALBUTEROL SULFATE/IPRATROPIU 3 ML SOL IH PRN (07:57)
--- NOTE | 2022-10-25 07:57 | NUR ---
EDUCATION PROVIDED TO PATIENT ON CURRENT PULMONARY STATUS (ie: AUDIBLE RHONCHI, INCREASED WOB); BENEFIT OF PARTICIPATING IN HHN THERAPY; PULMONARY EXERCISE (ie: DEEP BREATH AN COUGH) DURING HHN THERAPY TO MOBILIZE SECRETIONS; SUPPLEMENTAL OXYGEN AT 2 LPM VIA NC AND SATURATION; PATIENT IS NOW AGREEABLE TO PARTICIPATE IN HHN THERAPY
[2022-10-25 08:00] VITALS: BP 100/65
[2022-10-25] MEDS ORDERED: POTASSIUM CHLORIDE 20% 40 MEQ/15 ML UDC GT PRN (08:05)
[2022-10-25] MEDS ORDERED: FUROSEMIDE 100 MG in DEXTROSE 5% 100 ML IV SCH (09:00)
[2022-10-25] MEDS: MEROPENEM 500 MG in NACL 0.9% 50 ML IV SCH ×2 (09:39→22:28)
[2022-10-25] MEDS: PANTOPRAZOLE 40 MG INJ VIAL IVP SCH ×2 (09:40→22:28)
[2022-10-25] MEDS: CALCIUM ACETATE 667 MG TAB PO SCH ×3 (09:40→17:00)
[2022-10-25] MEDS: SODIUM PHOS / POTASSIUM PHOS 1 PKT PDR PO SCH ×2 (09:41→21:00)
[2022-10-25 12:00] VITALS: BP 97/64
[2022-10-25] MEDS: SANTYL TP SCH (13:17)
[2022-10-25] MEDS: MORPHINE SULFATE 4 MG/ML SYR IVP PRN (13:56)
--- NOTE | 2022-10-25 14:00 | NUR ---
STARTED FIRST ITRANSFUSSION AT 1105 AND IT ENDED AT 1350 WITH NO TRANSFUSION REACTION. HAD TO PLACE A NEW IV AT 1215 IN THE R UPPER ARM DUE TO FIRST IV LEAKING.
[2022-10-25 16:00] VITALS: BP 144/77
--- NOTE | 2022-10-25 16:30 | NUR ---
STARTED SECOND TRANSFUSION AT 1415 AND IT WAS DONE BY 1630. NO REACTIONS
--- NOTE | 2022-10-25 19:36 | NUR ---
ENDORSED PT TO DENTAL LABORATORY ASSISTANT NURSE FOR CONTINUITY CARE. PT STABLE AT THIS TIME.
[2022-10-25 20:00] VITALS: BP 122/65
--- NOTE | 2022-10-25 23:08 | NUR ---
Dr. Willson informed me that patient wanted to "be comfort care only," and told him he wanted to be DNR. Dr. Willson asked me to inform Dr. Ronald Feliciano, the primary, which I did. I reaffirmed with the patient first. The patient told me he did not want any "more treatment and he wanted comfort measures only," and to be a DNR. I also reaffirmed this with Dr. Willson. No new orders given by Dr. Feliciano at this time. Will continue to monitor patient.
[2022-10-26] VITALS: BP 122/81
[2022-10-26] MEDS: MORPHINE SULFATE 4 MG/ML SYR IVP PRN ×3 (00:27→17:55)
[2022-10-26] MEDS: FUROSEMIDE 20 MG/2 ML VIAL IVP SCH ×4 (00:27→17:54)
--- NOTE | 2022-10-26 00:28 | NUR ---
Patient refusing hill catheter. States, "he wants to be left alone and comfort care only."
[2022-10-26] MEDS: GAUZE TP SCH ×2 (01:00→13:03)
[2022-10-26] MEDS: Z-GUARD PASTE TP SCH ×2 (01:00→13:03)
--- NOTE | 2022-10-26 07:10 | NUR ---
RECEIVED REPORT FROM GEODETIC TECHNICIAN NURSE FOR CONTINUITY OF CARE. PT STABLE AT THIS TIME RESTING IN BED.
--- NOTE | 2022-10-26 07:37 | NUR ---
DR LAUREANO WANTS CONVEYOR MAINTENANCE MECHANIC TO CALL PTS CONSERVATOR AND TALK ABOUT PATIENTS CARE AND MAKE THEM AWARE THAT THE PATIENT WANTS TO BE PLACED ON COMFORT MEASURES AT THIS TIME.
[2022-10-26 08:00] VITALS: BP 130/74
--- NOTE | 2022-10-26 08:20 | NUR ---
CALLED CASE MANAGEMENT AND LEFT A MESSAGE NOTIFYING THEM AWARE OF THE DRS REQUEST
[2022-10-26] MEDS: EPOETIN ALFA-EPBX 10,000 UNITS/ML VIAL IV SCH (08:42)
[2022-10-26] MEDS: SODIUM PHOS / POTASSIUM PHOS 1 PKT PDR PO SCH ×2 (08:45→21:28)
[2022-10-26] MEDS: CALCIUM ACETATE 667 MG TAB PO SCH ×3 (08:45→17:00)
[2022-10-26] MEDS: MEROPENEM 500 MG in NACL 0.9% 50 ML IV SCH (08:50)
[2022-10-26] MEDS: PANTOPRAZOLE 40 MG INJ VIAL IVP SCH ×2 (08:53→21:28)
[2022-10-26] MEDS: FOAM DRESSING TP SCH (09:05)
--- NOTE | 2022-10-26 09:25 | NUR ---
LAB CALLED TO NOTIFY ME THAT PT IS REFUSING LABS. NOTIFIED
[2022-10-26 12:00] VITALS: BP 121/73
[2022-10-26 12:38] LABS: BASOPHILS % (AUTO) 0.3 % (0.0-2.0); EOSINOPHILS % (AUTO) 0.1 % (0.0-4.0); LYMPHOCYTES # (AUTO) 0.9 K/uL (2.0-11.5); LYMPHOCYTES % (AUTO) 8.1 % (20.5-51.1); MEAN CORPUSCULAR HEMOGLOBIN 27 pg (27-31); MEAN CORPUSCULAR HGB CONC 33 g/dL (33-37); MONOCYTES # (AUTO) 0.5 K/uL (0.8-1.0); MONOCYTES % (AUTO) 4.5 % (1.7-9.3); PLATELET COUNT (AUTO) 78 K/uL (140-450); RED BLOOD CELL COUNT(AUTO) 1.97 MIL/uL (4.20-6.10); RED CELL DISTRIBUTION WIDTH 17.2 % (11.6-13.7); WHITE BLOOD COUNT (AUTO) 11.5 K/uL (4.8-10.8)
[2022-10-26 12:50] LABS: HEMATOCRIT 16.1 % (36-52); HEMOGLOBIN 5.4 g/dL (12.0-18.0)
[2022-10-26 12:56] LABS: ANION GAP 12.4 (8-16); CARBON DIOXIDE 24.1 mmol/L (21-32); CREATININE 2.6 mg/dL (0.6-1.3); POTASSIUM 3.5 mmol/L (3.5-5.1)
[2022-10-26 13:02] LABS: LIPASE 214 U/L (73-393)
[2022-10-26] MEDS: SANTYL TP SCH (13:03)
--- NOTE | 2022-10-26 13:39 | NUR ---
10/26/22 RD FOLLOW UP COMPLETED PLEASE REFER TO NUTRITION ASSESSMENT UNDER CARE ACTIVITY FOR ESTIMATED NUTRITIONAL NEEDS. 1. CONTINUE CLEAR LIQUID DIET TOLERATED 2. RD RECOMMENDS ENSURE CLEAR BID TO OPTIMIZE NUTRITIONAL NEEDS, PROVIDES 480 KCALS AND 16 GM PROTEIN DAILY. 3. RD RECOMMENDS RENAL DIET WITH SAM BID FOR WOUND SUPPORT WHEN/IF MEDICALLY APPROPRIATE TO ADVANCE DIET. SAM BID PROVIDES 420 160 KCAL AND 5 GM PROTEIN DAILY 4. MONITOR GI, PO INTAKE, AND NUTRITION RELATED LAB VALUES. 5. RD TO FOLLOW-UP 3-5 DAYS, MODERATE RISK BRUNA DEGROOT RD
[2022-10-26 16:00] VITALS: BP 132/79
--- NOTE | 2022-10-26 16:40 | NUR ---
LAB CALLED TO REPORT CRITICAL LAB VALUES: 1250: HGB 5.4 AND HCT 16.1 1319: BUN 138, CREATINE 2.6 AND TROPONIN 141 1635: TROPONIN 102 Addendum: 10/26/22 at 1999 by Rachael Mathew RN 'S MADE AWARE OF RESULTS.
--- NOTE | 2022-10-26 16:59 | NUR ---
CALLED CONSERVATOR BECAUSE DR LAUREANO WOULD LIKE TO DO AN EGD TOMORROW DUE TO PTS SIGNIFICANT BLOOD LOSS. GOT MESSAGE SYSTEM PAULIE AND HE INFORMED ME THAT HE WOULD SEND THE CONSERVATOR A MESSAGE TO CALL US.
--- NOTE | 2022-10-26 18:58 | NUR ---
RECEIVED CALL FROM CONSERVATOR AND PROVIDED HER WITH THE NUMBER FOR DR LAUREANO TO DISCUSS THE NEED FOR THE EGD TOMORROW.
--- NOTE | 2022-10-26 19:25 | NUR ---
ENDORSED PT TO WARP PLACER NURSE FOR CONTINUITY CARE. PT STABLE AT THIS TIME.
[2022-10-26 20:00] VITALS: BP 93/58
--- NOTE | 2022-10-26 20:00 | NUR ---
Received patient from previous shift, is alert and oriented x3, voiced no c/o at this time, faxed consent to officer on duty for consent of upper endoscopy and also called supervisor in charge to give her patient's primary care name and office's number.
[2022-10-27] VITALS: BP 121/73
[2022-10-27] MEDS: FUROSEMIDE 20 MG/2 ML VIAL IVP SCH ×5 (00:54→23:57)
[2022-10-27] MEDS: Z-GUARD PASTE TP SCH ×2 (01:00→12:38)
[2022-10-27] MEDS: GAUZE TP SCH ×2 (01:00→12:38)
[2022-10-27 04:00] VITALS: BP 132/79
--- NOTE | 2022-10-27 07:30 | NUR ---
RECEIVED REPORT FROM REPAIR MECHANIC NURSE FOR CONTINUITY OF CARE. PATIENT LYING DOWN IN BED, SLEEPING, AROUSABLE BY VOICE. NO DISTRESS NOTED. ON 4L VIA NC. ABDOMINAL DISTENTION NOTED, NO FRIEDMAN CATH IN PLACE. IV SITE INTACT, PATENT, ON SALINE LOCK. HAS MULTIPLE WOUNDS, DRESSINGS INTACT. SAFETY MEASURES IN PLACE, CALL LIGHT WITHIN REACH. WILL CONTINUE TO MONITOR.
[2022-10-27 08:00] VITALS: BP 95/81
[2022-10-27] MEDS: CALCIUM ACETATE 667 MG TAB PO SCH ×3 (08:00→17:00)
[2022-10-27] MEDS: SODIUM PHOS / POTASSIUM PHOS 1 PKT PDR PO SCH ×2 (09:00→23:33)
--- NOTE | 2022-10-27 09:55 | NUR ---
RIGHT IJ KEYSHA HD CATH PLACED AT BEDSIDE BY DR. PETERSON. PATIENT TOLERATED WELL. NO DISTRESS NOTED. DENIES PAIN AFTER PROCEDURE. WILL CONTINUE TO MONITOR.
[2022-10-27] MEDS: PANTOPRAZOLE 40 MG INJ VIAL IVP SCH ×2 (10:17→23:35)
--- NOTE | 2022-10-27 10:25 | NUR ---
WOUND CARE RE-EVALUATION NOTE: PT. WITH F/C AND HEMATURIA OBSERVED. PT . SACRAL WOUNDS CONTAMINATION WITH LARGE LOOSE BLACK STOOL. PER PRIMARY RN PT. IS SCHEDULE FOR GI PROCEDURE. NEW SKIN BREAKS TO ENTIRE SPINAL BONY PROMINENCE MULTIPLE DTI WITH LARGEST 5X1.5CM. JOJO-WOUND SKIN NON-BLANCHABLE REDNESS., FURTHER DAMAGE INDICATED. -PRESSURE INJURY STAGE 1 RIGHT TROCHANTER 2X2CM BLANCHABLE REDNESS AREA IMPROVING -MASD TO GROINS, MEDIAL THIGHS, SCROTAL AND JOJO-ANAL AREA WHICH EXTENDED TO BILATERAL LOWER BUTTOCKS, SKIN RASHES REOCCURRED -DTI LEFT LATERAL FEMUR 1X1CM -DTI RIGHT LATERAL KNEE 2X2CM -PRESSURE INJURY UN-STAGEABLE TO SACRALCOCCYX 6X10 CM 75% MOIST BROWN SLOUGH TISSUE, 25% PALE RED TISSUE, NO ODOR, JOJO WOUND NON-BLANCHABLE REDNESS WITH MASD FURTHER DAMAGE INDICATED. -UN STAGEABLE PRESSURE INJURY LEFT ISCHIAL 3X3CM 100% DARK BROWN WITH ENTIRE AREA 5X6 CM SUPERFICIAL DEPTH, MOIST, JOJO-WOUND SKIN MASD WITH RASHES. MASD -PRESSURE INJURY UN-STAGEABLE TO RIGHT ISCHIUM 3X5CM 100% MOIST DARK BROWN SLOUGH TISSUE, NO ODOR, JOJO WOUND NON-BLANCHABLE REDNESS WITH MASD, FURTHER DAMAGE INDICATED. -LEFT FIFTH TOE DRY GANGRENE, RIGHT FOURTH AND FIFTH TOES AND INTERSPACES DRY GANGRENE. -LEFT AND RIGHT LATERAL FEET MULTIPLE DRY STABLE GANGRENE WITH LARGEST TO LEFT LATERAL 4X2CM
--- NOTE | 2022-10-27 10:32 | NUR ---
RECOMMEND SURGICAL DEBRIDEMENT TO SACRAL AND ISCHIAL WOUNDS WHEN PT. CONDITION STABLE. CONTINUE SANTYL ONIT AT THIS TIME. INFORM PRIMARY RN CHARY JOJO-CARE Q2H AND DRESSING CHANGE PRN, PREVENT FECAL CONTAMINATION.
[2022-10-27 12:00] VITALS: BP 97/84
[2022-10-27] MEDS ORDERED: ALBUMIN HUMAN 25% 200 ML IV PRN (12:05)
[2022-10-27] MEDS: SANTYL TP SCH (12:38)
[2022-10-27 14:00] LABS: ANION GAP 13.8 (8-16); CARBON DIOXIDE 24.2 mmol/L (21-32); CREATININE 2.7 mg/dL (0.6-1.3)
[2022-10-27 14:06] LABS: BASOPHILS % (AUTO) 0.1 % (0.0-2.0); EOSINOPHILS % (AUTO) 0.1 % (0.0-4.0); LYMPHOCYTES # (AUTO) 0.8 K/uL (2.0-11.5); LYMPHOCYTES % (AUTO) 6.8 % (20.5-51.1); MEAN CORPUSCULAR HEMOGLOBIN 28 pg (27-31); MEAN CORPUSCULAR HGB CONC 34 g/dL (33-37); MEAN CORPUSCULAR VOLUME 82.8 fL (80-94); MONOCYTES # (AUTO) 0.5 K/uL (0.8-1.0); MONOCYTES % (AUTO) 4.4 % (1.7-9.3); NEUTROPHILS # (AUTO) 10.6 K/uL (1.8-7.7); NEUTROPHILS % (AUTO) 88.6 % (42.2-75.2); PLATELET COUNT (AUTO) 96 K/uL (140-450); RED BLOOD CELL COUNT(AUTO) 2.26 MIL/uL (4.20-6.10); RED CELL DISTRIBUTION WIDTH 16.5 % (11.6-13.7)
[2022-10-27] MEDS ORDERED: diphenhydrAMINE 50 MG/ML VIAL ONE (14:11)
[2022-10-27] MEDS ORDERED: MIDAZOLAM 2 MG/2 ML VIAL ONE (14:11)
[2022-10-27] MEDS ORDERED: fentaNYL citrate 0.05 MG/ML VIAL ONE (14:11)
[2022-10-27 14:20] LABS: HEMATOCRIT 18.7 % (36-52); HEMOGLOBIN 6.4 g/dL (12.0-18.0)
[2022-10-27 16:00] VITALS: BP 100/48
--- NOTE | 2022-10-27 17:00 | NUR ---
EGD RESCHEDULED FOR TOMORROW MORNING PER DR. LAUREANO
--- NOTE | 2022-10-27 17:30 | NUR ---
HD STARTED ON PATIENT. HD NURSE TO GIVE 2 UNITS PRBC. WILL CONTINUE TO MONITOR.
--- NOTE | 2022-10-27 19:30 | NUR ---
HAND-OFF REPORT RECEIVED FROM CHARY HELLER FOR CONTINUITY OF CARE FOLLOWING BEDSIDE ROUNDS. PT RECEIVED DURING HEMODIALYSIS FOR FILTERING ONLY. NO VOLUME REMOVED. ENDORSED:EGD FOR A.M. NPO AFTER MIDNIGHT AND CONSENT ALREADY FAXED TO RADIOLOGY FOR 2ND MD SIGNATURE (DAWSON). CHECKLIST IN PROGRESS ALREADY. INFORMED IF PT REFUSES ANY CARE, PROCEED WITH THOROUGH EXPLANATION AND PT IS THEN NORMALLY COMPLIANT. VANCO CHANGED TO MEREM. RIJ KEYSHA PLACED TODAY. KUB REVEALED DISTENDED BLADDER AND NO SBO. FRIEDMAN CATH PLACED WITH 3700 ML MILDLY HEMATURIC OUTPUT. PT RECEIVED A/0X3-4. CONTD TO ASSIST WITH MEDS ORDERED AND ASSIST NEEDED.
--- NOTE | 2022-10-27 19:30 | NUR ---
GAVE REPORT TO STRAIGHT CUTTER NURSE FOR CONTINUITY OF CARE. PATIENT IN STABLE CONDITION.
--- NOTE | 2022-10-27 19:52 | NUR ---
1930 PATIENT REFUSED HHNTX AND LETTING ME LISTEN TO HIS LUNGS
[2022-10-27 20:00] VITALS: BP 98/60
[2022-10-27] MEDS ORDERED: VANCOMYCIN 1,000 MG in DEXTROSE 5% 250 ML IV SCH (21:00)
[2022-10-27] MEDS: MEROPENEM 500 MG in NACL 0.9% 50 ML IV SCH (23:54)
--- NOTE | 2022-10-27 23:57 | NUR ---
LASIX HELD. B/P 80/59 HR 73
[2022-10-28] VITALS: BP 80/59
--- NOTE | 2022-10-28 | NUR ---
NPO AFTER MIDNIGHT FOR EGD. PT PROTESTING. PT EDUCATION PERTAINING TO RATIONALE FOR NPO STATUS. PT QUIETED. CONTINUE TO EDUCATE NEEDED.
[2022-10-28] MEDS: Z-GUARD PASTE TP SCH ×2 (01:00→16:20)
[2022-10-28] MEDS: GAUZE TP SCH ×2 (01:00→16:19)
[2022-10-28 04:00] VITALS: BP 105/60
[2022-10-28 05:17] LABS: BASOPHILS % (AUTO) 0.2 % (0.0-2.0); EOSINOPHILS % (AUTO) 0.1 % (0.0-4.0); LYMPHOCYTES # (AUTO) 0.9 K/uL (2.0-11.5); LYMPHOCYTES % (AUTO) 9.3 % (20.5-51.1); MEAN CORPUSCULAR HEMOGLOBIN 29 pg (27-31); MEAN CORPUSCULAR HGB CONC 35 g/dL (33-37); MONOCYTES # (AUTO) 0.6 K/uL (0.8-1.0); NEUTROPHILS % (AUTO) 84.4 % (42.2-75.2); PLATELET COUNT (AUTO) 85 K/uL (140-450); RED BLOOD CELL COUNT(AUTO) 2.37 MIL/uL (4.20-6.10); RED CELL DISTRIBUTION WIDTH 15.2 % (11.6-13.7); WHITE BLOOD COUNT (AUTO) 9.5 K/uL (4.8-10.8)
[2022-10-28 05:29] LABS: ANION GAP 12.5 (8-16); CARBON DIOXIDE 26.6 mmol/L (21-32); CREATININE 1.7 mg/dL (0.6-1.3); MAGNESIUM 1.8 mg/dL (1.8-2.4); PHOSPHORUS 5.4 mg/dL (2.5-4.9); POTASSIUM 4.1 mmol/L (3.5-5.1)
[2022-10-28 05:54] LABS: HEMATOCRIT 19.9 % (36-52); HEMOGLOBIN 6.9 g/dL (12.0-18.0)
--- NOTE | 2022-10-28 06:00 | NUR ---
PT REFUSED LAB DRAW. PT REACHING CONCERNING NEED FOR LAB VALUES IN LIGHT OF ON-GOING CARE BY MD AND PLANNED PROCEDURE FOR TODAY. PT COMPLIANT.
[2022-10-28] MEDS: FUROSEMIDE 20 MG/2 ML VIAL IVP SCH ×3 (07:02→18:00)
[2022-10-28] MEDS ORDERED: fentaNYL citrate 0.05 MG/ML VIAL ONE (07:23)
[2022-10-28] MEDS ORDERED: MIDAZOLAM 2 MG/2 ML VIAL ONE (07:24)
--- NOTE | 2022-10-28 07:30 | NUR ---
PT VENTING CONCERNING NPO STATUS. STATED "I WOULD NOT BE LET IN HEAVEN I WAS DOING THIS AND IT WOULD LEAD TO HIS DEMISE. MORE PT TEACHING CONCERNING NPO STATUS IN LIGHT OF PRESERVING HIS LUNG HEALTH AND PREVENTING ASPIRATION DURING PROCEDURE. PT NOT VERBALLY PROTESTING NOW...SILENCE INSTEAD AND A COLD STARE. ENDORSE TO ON-COMING NURSE TO CONTINUE WITH EDUCATION AND DEMONSTRATION OF COMFORT MEASURES WITHIN SCOPE OF MD ORDERS. HAND-OFF REPORT TO KATHERIN HELLER FOR CONTINUITY OF CAR.
[2022-10-28] MEDS ORDERED: GLUCAGON 1 MG VIAL ONE ×2 (07:34→09:35)
[2022-10-28] MEDS: CALCIUM ACETATE 667 MG TAB PO SCH ×3 (08:00→16:21)
[2022-10-28] MEDS ORDERED: MIDAZOLAM 2 MG/2 ML VIAL IVP ONE (08:10)
[2022-10-28 08:26] VITALS: BP 105/57
[2022-10-28] MEDS: SODIUM PHOS / POTASSIUM PHOS 1 PKT PDR PO SCH ×2 (09:27→22:29)
[2022-10-28] MEDS: PANTOPRAZOLE 40 MG INJ VIAL IVP SCH ×2 (09:27→22:48)
[2022-10-28] MEDS: EPOETIN ALFA-EPBX 10,000 UNITS/ML VIAL IV SCH (09:27)
[2022-10-28] MEDS: MEROPENEM 500 MG in NACL 0.9% 50 ML IV SCH (09:28)
[2022-10-28 12:00] VITALS: BP 136/76
[2022-10-28 16:00] VITALS: BP 103/76
[2022-10-28] MEDS: SANTYL TP SCH (16:18)
--- NOTE | 2022-10-28 23:23 | NUR ---
192 HAND-OFF REPORT RECEIVED FROM KATHERIN HELLER FOLLOWING BEDSIDE ROUNDS. ENDORSED: I UNIT OF RBC PRESENTLY INFUSING WITH START TIME AT 1800; PT CHRISSY WELL; H&H TO BE ORDERED 2 HOURS AFTER COMPLETION; EGD REVEALED GASTRITIS/CLOTS; CULTURE POSITIVE FOR YEAST; RENAL PUREE DIET. PT RECEIVED REPORTED, CALM IN BED, SUPINE WITH O2/NC @4L. REPORTED CASE MANAGEMENT WORKING ON TRANSFER POSSIBLY TO [place]. 7488 BLOOD TRANSFUSION COMPLETED. NO REACTION. [id number] 97%
[2022-10-29] MEDS: FUROSEMIDE 20 MG/2 ML VIAL IVP SCH ×4 (00:02→17:49)
--- NOTE | 2022-10-29 00:04 | NUR ---
CORRECTION: IV SITE COLLIN
[2022-10-29] MEDS: Z-GUARD PASTE TP SCH ×2 (01:00→12:37)
[2022-10-29] MEDS: GAUZE TP SCH ×2 (01:00→12:37)
[2022-10-29 02:46] LABS: HEMATOCRIT 25.4 % (36-52); HEMOGLOBIN 8.7 g/dL (12.0-18.0)
--- NOTE | 2022-10-29 05:50 | NUR ---
BP= 122/74 HR=96/OK FOR Khoi OSORIO GIVEN
[2022-10-29 07:26] LABS: ANION GAP 12.3 (8-16); CARBON DIOXIDE 26.9 mmol/L (21-32); CREATININE 1.1 mg/dL (0.6-1.3); POTASSIUM 3.2 mmol/L (3.5-5.1)
--- NOTE | 2022-10-29 07:30 | NUR ---
HAND-OFF REPORT TO RETURNING NURSE KATHERIN HELLER. ENDORSED H&H TRENDING UP. 8.7.4. NO REACTION FROM TRANSFUSION. DRESSINGS CHANGED ON BOTTOM AND LEGS. ENDORSED WILL CHANGE FOOT DRESSINGS TONIGHT. 1 LARGE BLACK TARRY STOOL THIS A.M. RESTING QUIETLY NOW AT SHIFT CHANGE AFTER A.M CARE. CONTINUES WITH 02 SETTINGS UNCHANGED. PENDING TRANSFER. RELINQUISHED CARE OF PT AT THIS TIME.
[2022-10-29 07:31] LABS: BASOPHILS % (AUTO) 0.1 % (0.0-2.0); EOSINOPHILS % (AUTO) 0.2 % (0.0-4.0); HEMATOCRIT 25.7 % (36-52); HEMOGLOBIN 8.8 g/dL (12.0-18.0); LYMPHOCYTES # (AUTO) 0.9 K/uL (2.0-11.5); LYMPHOCYTES % (AUTO) 8.4 % (20.5-51.1); MEAN CORPUSCULAR HEMOGLOBIN 30 pg (27-31); MEAN CORPUSCULAR HGB CONC 34 g/dL (33-37); MEAN CORPUSCULAR VOLUME 86.6 fL (80-94); MONOCYTES # (AUTO) 0.7 K/uL (0.8-1.0); MONOCYTES % (AUTO) 6.1 % (1.7-9.3); NEUTROPHILS # (AUTO) 9.5 K/uL (1.8-7.7); NEUTROPHILS % (AUTO) 85.2 % (42.2-75.2); PLATELET COUNT (AUTO) 113 K/uL (140-450); RED BLOOD CELL COUNT(AUTO) 2.97 MIL/uL (4.20-6.10); RED CELL DISTRIBUTION WIDTH 15.2 % (11.6-13.7); WHITE BLOOD COUNT (AUTO) 11.1 K/uL (4.8-10.8)
[2022-10-29 07:32] LABS: MAGNESIUM 1.5 mg/dL (1.8-2.4); PHOSPHORUS 5.5 mg/dL (2.5-4.9)
[2022-10-29] MEDS: MICAFUNGIN SODIUM 100 MG in NACL 0.9% 100 ML IV SCH (07:51)
[2022-10-29] MEDS: CALCIUM ACETATE 667 MG TAB PO SCH ×3 (07:53→17:00)
[2022-10-29 08:00] VITALS: BP 90/69
[2022-10-29] MEDS ORDERED: PANT40PK PO (08:51)
[2022-10-29] MEDS: SODIUM PHOS / POTASSIUM PHOS 1 PKT PDR PO SCH ×2 (09:20→22:11)
[2022-10-29] MEDS: FOAM DRESSING TP SCH (09:20)
[2022-10-29] MEDS: EPOETIN ALFA-EPBX 10,000 UNITS/ML VIAL IV SCH (09:20)
[2022-10-29] MEDS: PANTOPRAZOLE 40 MG INJ VIAL IVP SCH ×2 (09:20→22:10)
[2022-10-29] MEDS: POTASSIUM CHLORIDE 10 MEQ TABER PO PRN (10:28)
[2022-10-29 12:00] VITALS: BP 123/76
[2022-10-29] MEDS: SANTYL TP SCH (12:36)
[2022-10-29 12:52] LABS: BASOPHILS % (AUTO) 0.1 % (0.0-2.0); EOSINOPHILS % (AUTO) 0.2 % (0.0-4.0); HEMATOCRIT 25.7 % (36-52); HEMOGLOBIN 8.7 g/dL (12.0-18.0); LYMPHOCYTES # (AUTO) 0.9 K/uL (2.0-11.5); MEAN CORPUSCULAR HEMOGLOBIN 29 pg (27-31); MEAN CORPUSCULAR HGB CONC 34 g/dL (33-37); MEAN CORPUSCULAR VOLUME 86.8 fL (80-94); MONOCYTES # (AUTO) 0.7 K/uL (0.8-1.0); MONOCYTES % (AUTO) 6.3 % (1.7-9.3); NEUTROPHILS # (AUTO) 9.8 K/uL (1.8-7.7); NEUTROPHILS % (AUTO) 85.4 % (42.2-75.2); PLATELET COUNT (AUTO) 117 K/uL (140-450); RED BLOOD CELL COUNT(AUTO) 2.96 MIL/uL (4.20-6.10); RED CELL DISTRIBUTION WIDTH 15.3 % (11.6-13.7); WHITE BLOOD COUNT (AUTO) 11.4 K/uL (4.8-10.8)
[2022-10-29] MEDS ORDERED: ALBUMIN HUMAN 25% 50 ML IV SCH ×2 (13:59→15:00)
--- NOTE | 2022-10-29 14:12 | NUR ---
10/29/22 RD FOLLOW UP COMPLETED PLEASE REFER TO NUTRITION ASSESSMENT UNDER CARE ACTIVITY FOR ESTIMATED NUTRITIONAL NEEDS. 1. CONTINUE RENAL, PUREE DIET TOLERATED 2. RD RECOMMENDS RENAL DIET WITH SAM BID FOR WOUND SUPPORT. SAM BID PROVIDES [phone] KCAL AND 5 GM PROTEIN DAILY 3. MONITOR GI, PO INTAKE, AND NUTRITION RELATED LAB VALUES. 4. RD TO FOLLOW-UP 3-5 DAYS, MODERATE RISK BRUNA DEGROOT, RD
[2022-10-29 16:00] VITALS: BP 105/58
[2022-10-29] MEDS: MAG SULF 2000 MG/WATER PREMIX 50 ML IV PRN (17:49)
--- NOTE | 2022-10-29 19:20 | NUR ---
PT WAS ALERT AND ORIENTED, TALKATIVE, AND COOPERATIVE. ABLE TO ASSES PT. PT SATURATION, HR AND RR WERE WITHIN NORMAL LIMITS. LUNGS SOUNDED CLEAR. NO DISTRESS NOTED. WILL CONTINUE TO MONITOR PATIENT.
--- NOTE | 2022-10-29 19:30 | NUR ---
HAND-OFF REPORT RECEIVED FROM KATHERIN HELLER FOR CONTINUITY OF CARE. DIALYSIS TO CLEAN PERFORMED TODAY. NO VOLUME REMOVED. REPORTED PT SYSTOLIC B/P DOWN TO LOW 70'S. ALBUMIN GIVEN. MONITOR AND ASSIST. HOLD LASIX NEEDED. PT RECEIVED IN BED STATED "WORN-OUT" PROVIDE QUIET ENVIRONMENT TO RELAX. FRIEDMAN TO GRAVITY FLOW.
[2022-10-29 20:00] VITALS: BP 129/78
[2022-10-30] VITALS: BP 89/78
[2022-10-30] MEDS: Z-GUARD PASTE TP SCH ×2 (01:00→13:00)
[2022-10-30] MEDS: GAUZE TP SCH ×2 (01:00→13:00)
[2022-10-30 04:00] VITALS: BP 122/72
--- NOTE | 2022-10-30 04:00 | NUR ---
ALL DRESSINGS CHANGED TODAY ON FEET, LEGS AND BOTTOM. PT CHRISSY. WELL. ALL DRESSINGS SOAKED ON FEET TO LOOSEN FIRST BEFORE REMOVAL. BETADINE MOP TO ALL AREAS. BOTTOM WOUNDS APPEAR HEALING. Z GUARD APPLIED TO BOTTOM WOUNDS AFTER CLEANSING WITH NS, THEN REDRESSED. COMFORT MEASURES AFTER BATH AND LIGHTS OUT. CHRISSY WELL.
[2022-10-30 05:11] LABS: BASOPHILS % (AUTO) 0.2 % (0.0-2.0); EOSINOPHILS % (AUTO) 0.4 % (0.0-4.0); HEMATOCRIT 23.2 % (36-52); HEMOGLOBIN 7.9 g/dL (12.0-18.0); LYMPHOCYTES # (AUTO) 1.1 K/uL (2.0-11.5); MEAN CORPUSCULAR HEMOGLOBIN 30 pg (27-31); MEAN CORPUSCULAR HGB CONC 34 g/dL (33-37); MEAN CORPUSCULAR VOLUME 87.1 fL (80-94); MONOCYTES # (AUTO) 0.7 K/uL (0.8-1.0); MONOCYTES % (AUTO) 6.7 % (1.7-9.3); NEUTROPHILS # (AUTO) 8.8 K/uL (1.8-7.7); NEUTROPHILS % (AUTO) 82.7 % (42.2-75.2); PLATELET COUNT (AUTO) 124 K/uL (140-450); RED BLOOD CELL COUNT(AUTO) 2.66 MIL/uL (4.20-6.10); RED CELL DISTRIBUTION WIDTH 15.7 % (11.6-13.7); WHITE BLOOD COUNT (AUTO) 10.6 K/uL (4.8-10.8)
[2022-10-30 05:48] LABS: ALBUMIN 1.5 g/dL (3.4-5.0); ANION GAP 8.3 (8-16); CARBON DIOXIDE 29.4 mmol/L (21-32); CREATININE 0.6 mg/dL (0.6-1.3); MAGNESIUM 1.6 mg/dL (1.8-2.4); PHOSPHORUS 3.3 mg/dL (2.5-4.9); POTASSIUM 3.7 mmol/L (3.5-5.1); TOTAL BILIRUBIN 0.6 mg/dL (0.0-1.0)
[2022-10-30] MEDS: FUROSEMIDE 20 MG/2 ML VIAL IVP SCH ×4 (06:00→18:48)
--- NOTE | 2022-10-30 07:30 | NUR ---
HAND-OFF REPORT TO GIRMA HELLER FOLLOWING BEDSIDE ROUND. INFORMED OF PT DROP IN B/P AND NOW UP TO 120'S SYSTOLIC. RELINQUISHED PT TO CARE OF DAY SHIFT NURSE. PT SLEEPING.
--- NOTE | 2022-10-30 07:31 | NUR ---
RECEIVED ENDORSEMENT FROM CASHIER CLERK NURSE FOR CONTINUITY OF CARE. PT IS AWAKE, NO SIGN OF DISTRESS. CALL LIGHT WITHIN REACH. ANTHONY Addendum: 10/30/22 at 1102 by ILIA PIERCE RN RECEIVED ENDORSEMENT FROM CASHIER CLERK NURSE FOR CONTINUITY OF CARE. PT IS ASLEEP, AWAKEN BY NAME, NO SIGN OF DISTRESS. CALL LIGHT WITHIN REACH. ANTHONY
[2022-10-30 08:00] VITALS: BP 112/77
[2022-10-30] MEDS: CALCIUM ACETATE 667 MG TAB PO SCH ×3 (08:00→17:00)
[2022-10-30] MEDS: SODIUM PHOS / POTASSIUM PHOS 1 PKT PDR PO SCH (08:32)
[2022-10-30] MEDS: MICAFUNGIN SODIUM 100 MG in NACL 0.9% 100 ML IV SCH (08:34)
[2022-10-30] MEDS: PANTOPRAZOLE 40 MG INJ VIAL IVP SCH (08:54)
[2022-10-30 12:00] VITALS: BP_SYST 113; BP_SYST 118; BP_DIAS 64; BP_DIAS 72
[2022-10-30] MEDS: SANTYL TP SCH (13:00)
[2022-10-30 16:00] VITALS: BP 113/64
--- NOTE | 2022-10-30 17:00 | NUR ---
CLEANED THE PATIENT'S WOUND AND CHANGED DRESSING. NOTICED BRUISING ON UPPER RIGHT SIDE OF HIS UPPER BODY, LEFT AND RIGHT POSTERIOR OF THE ARM. PHOTOS ON THE CHART OF REFERENCE.
[2022-10-30] MEDS: MAG SULF 2000 MG/WATER PREMIX 50 ML IV PRN (18:41)
--- NOTE | 2022-10-30 19:28 | NUR ---
ENDORSED PT TO SIGNS AND DISPLAYS SALESPERSON NURSE ADELFO FOR CONTINUITY OF CARE. PT IS STABLE, NO SIGN OF DISTRESS AND CALL LIGHT WITHIN REACH. MNURUM
[2022-10-30 20:00] VITALS: BP 121/76
[2022-10-31] VITALS: BP 122/69
[2022-10-31] MEDS: PANTOPRAZOLE 40 MG INJ VIAL IVP SCH ×3 (00:21→21:00)
[2022-10-31] MEDS: SODIUM PHOS / POTASSIUM PHOS 1 PKT PDR PO SCH ×3 (00:21→21:00)
[2022-10-31] MEDS: FUROSEMIDE 20 MG/2 ML VIAL IVP SCH ×5 (00:23→23:15)
[2022-10-31 04:00] VITALS: BP 109/74
[2022-10-31] MEDS: GAUZE TP SCH ×2 (06:00→11:55)
[2022-10-31] MEDS: Z-GUARD PASTE TP SCH ×2 (06:00→11:56)
--- NOTE | 2022-10-31 07:30 | NUR ---
HAND-OFF REPORT TO MARGO HELLER FOR CONTINUITY OF CARE. BATH COMPLETED. LARGE LOOSE TARRY BLACK STOOL. ALL DRESSINGS CHANGED. PT SITTING UP AND BEING ASSISTED WITH BREAKFAST.
--- NOTE | 2022-10-31 07:30 | NUR ---
RECEIVED REPORT FROM CONTRACTOR GENERAL BUILDING NURSE FOR CONTINUITY OF CARE, POC DISCUSSED. CONTRACTOR GENERAL BUILDING NURSE, ADELFO JEFFERSON PT. ENDORSED PT REFUSING MEDICATION AND MORNING AM LAB DRAW. PT ON TELE MONITOR SHOWING SR AT 94, ON 3L NC WITH CHEST RISING AND FALLING EVEN AND UNLABORED, NO ACUTE S/S OF DISTRESS. ALL SAFETY MEASURES IN PLACE.
[2022-10-31 08:00] VITALS: BP 108/75
[2022-10-31] MEDS: CALCIUM ACETATE 667 MG TAB PO SCH ×3 (08:31→17:45)
[2022-10-31] MEDS: MICAFUNGIN SODIUM 100 MG in NACL 0.9% 100 ML IV SCH (08:32)
[2022-10-31 09:52] LABS: BASOPHILS % (AUTO) 0.3 % (0.0-2.0); EOSINOPHILS % (AUTO) 0.3 % (0.0-4.0); HEMATOCRIT 27.4 % (36-52); LYMPHOCYTES # (AUTO) 1.1 K/uL (2.0-11.5); MEAN CORPUSCULAR HEMOGLOBIN 29 pg (27-31); MEAN CORPUSCULAR HGB CONC 33 g/dL (33-37); MEAN CORPUSCULAR VOLUME 89.1 fL (80-94); MONOCYTES # (AUTO) 0.7 K/uL (0.8-1.0); MONOCYTES % (AUTO) 5.8 % (1.7-9.3); NEUTROPHILS # (AUTO) 10.2 K/uL (1.8-7.7); PLATELET COUNT (AUTO) 117 K/uL (140-450); RED BLOOD CELL COUNT(AUTO) 3.08 MIL/uL (4.20-6.10); RED CELL DISTRIBUTION WIDTH 15.9 % (11.6-13.7)
--- NOTE | 2022-10-31 10:04 | NUR ---
RECEIVED ON SUPPLEMENTAL OXYGEN AT 2 LPM VIA NC; AWAKE AND ALERT GOOD CHEST RISE; PATIENT ADAMANTLY REFUSES ANY DIAGNOSTIC ASSESSMENT (IE: CHEST AUSCULTATION; PULSE OXIMETER READINGS FOR OXYGEN SATURATION AND HEART RATE)
[2022-10-31 10:22] LABS: ALBUMIN 1.4 g/dL (3.4-5.0); ANION GAP 10.4 (8-16); CARBON DIOXIDE 27.8 mmol/L (21-32); MAGNESIUM 1.7 mg/dL (1.8-2.4); PHOSPHORUS 3.5 mg/dL (2.5-4.9); POTASSIUM 3.2 mmol/L (3.5-5.1); TOTAL BILIRUBIN 0.5 mg/dL (0.0-1.0)
[2022-10-31] MEDS: POTASSIUM CHLORIDE 10 MEQ TABER PO PRN (10:49)
[2022-10-31] MEDS: MAG SULF 2000 MG/WATER PREMIX 50 ML IV PRN (10:50)
[2022-10-31 11:15] LABS: LYMPHOCYTES % (AUTO) 8.8 % (20.5-51.1); NEUTROPHILS % (AUTO) 84.8 % (42.2-75.2)
[2022-10-31] MEDS: MORPHINE SULFATE 4 MG/ML SYR IVP PRN (11:55)
[2022-10-31] MEDS: SANTYL TP SCH (11:56)
[2022-10-31 12:00] VITALS: BP 149/91
[2022-10-31 16:00] VITALS: BP 148/92
--- NOTE | 2022-10-31 18:53 | NUR ---
ALL NEEDS MET THROUGHOUT THE SHIFT. ALL SAFETY MEASURES IN PLACE, CALL LIGHT WITHIN REACH.
--- NOTE | 2022-10-31 19:10 | NUR ---
HAND-OFF REPROT RECEIVED FROM MARGO HELLER FOLLOWING BEDSIDE ROUNDS. ENDORSED: POTASSIUM AND MAG REPLACED, MED FOR PAIN X1, HD FOR TUESDAY AND SR-ST ON MONITOR (LOW 100'S). PT RECEIVED RESTING QUIETLY IN BED, A/0X4. FRIEDMAN TO GRAVITY DRAIN DARK CLEAR MERRICK URINE.PROVIDE COMFORT AND MONITOR. BED IN LOWEST POSITION.
[2022-10-31 20:00] VITALS: BP 107/67
--- NOTE | 2022-10-31 20:00 | NUR ---
DISCUSSED POC WITH PT CONCERNING IMPORTANCE OF TAKING MEDS ORDERED AND GETTING LAB DRAWS FOR MD TO ASSESS WHAT BEST MEDS TO GIVE. PT AGREED TO LET LAB DRAW IN A.M AND TO ACCEPT MEDS. "I WISH THEY WOULD JUST LET ME REST AND NOT BOTHER ME. I AM SO DRY, I AM SO DRY" . SIPS OF WATER GIVEN. POSITIONED FOR COMFORT.
[2022-11-01] VITALS: BP 113/70
[2022-11-01] MEDS: Z-GUARD PASTE TP SCH ×2 (01:00→13:07)
[2022-11-01] MEDS: GAUZE TP SCH ×2 (01:00→13:07)
[2022-11-01 04:00] VITALS: BP 110/72
[2022-11-01] MEDS: FUROSEMIDE 20 MG/2 ML VIAL IVP SCH ×3 (06:00→18:10)
--- NOTE | 2022-11-01 06:30 | NUR ---
PT REFUSED A.M LASIX. URINE OUTPUT FROM FOR SHIFT 1600M.. HD SCHEDULED FOR TODAY.
[2022-11-01 07:24] LABS: BASOPHILS # (AUTO) 0.1 K/uL (0.00-0.22); BASOPHILS % (AUTO) 0.4 % (0.0-2.0); EOSINOPHILS # (AUTO) 0.1 K/uL (0-0.4); EOSINOPHILS % (AUTO) 0.4 % (0.0-4.0); HEMATOCRIT 23.3 % (36-52); HEMOGLOBIN 7.6 g/dL (12.0-18.0); LYMPHOCYTES # (AUTO) 1.1 K/uL (2.0-11.5); LYMPHOCYTES % (AUTO) 8.6 % (20.5-51.1); MEAN CORPUSCULAR HEMOGLOBIN 29 pg (27-31); MEAN CORPUSCULAR HGB CONC 33 g/dL (33-37); MEAN CORPUSCULAR VOLUME 89.7 fL (80-94); MONOCYTES # (AUTO) 0.7 K/uL (0.8-1.0); MONOCYTES % (AUTO) 5.8 % (1.7-9.3); NEUTROPHILS # (AUTO) 10.9 K/uL (1.8-7.7); NEUTROPHILS % (AUTO) 84.8 % (42.2-75.2); PLATELET COUNT (AUTO) 97 K/uL (140-450); RED CELL DISTRIBUTION WIDTH 16.4 % (11.6-13.7); WHITE BLOOD COUNT (AUTO) 12.9 K/uL (4.8-10.8)
--- NOTE | 2022-11-01 07:30 | NUR ---
HAND-OFF REPORT TO ONCOMING NURSE SANTI RN WITH BEDSIDE ROUNDS. ALL QUESTIONS ANSWERED. ENDORSED: HD FOR TODAY. PT REFUSED A.M LASIX BUT ACCEPTED 0000 DOSE. URINE OUTPUT 1600 FOR SHIFT. PT RESTING IN BED AWAKE.
[2022-11-01 08:00] VITALS: BP 120/70
--- NOTE | 2022-11-01 08:23 | NUR ---
0100 PT ACCEPTING MEDS ORDERED. SIPS OF WATER GIVEN. COMFORT MEASURES. DENIES FURTHER NEEDS. "JUST LEAVE ME ALONE MAMA AND LET ME REST". CPMTO Addendum: 11/01/22 at 0826 by Agency [facility] RN NOTE: "CPMTO" IS A TYPO. PLEASE DISREGARD
[2022-11-01 09:01] LABS: ALBUMIN 1.3 g/dL (3.4-5.0); CARBON DIOXIDE 27.8 mmol/L (21-32); CREATININE 0.7 mg/dL (0.6-1.3); MAGNESIUM 1.6 mg/dL (1.8-2.4); PHOSPHORUS 3.6 mg/dL (2.5-4.9); POTASSIUM 3.8 mmol/L (3.5-5.1); TOTAL BILIRUBIN 0.5 mg/dL (0.0-1.0)
[2022-11-01] MEDS: PANTOPRAZOLE 40 MG INJ VIAL IVP SCH ×2 (09:31→21:47)
[2022-11-01] MEDS: CALCIUM ACETATE 667 MG TAB PO SCH ×3 (09:32→18:09)
[2022-11-01] MEDS: MICAFUNGIN SODIUM 100 MG in NACL 0.9% 100 ML IV SCH (09:32)
[2022-11-01] MEDS: SODIUM PHOS / POTASSIUM PHOS 1 PKT PDR PO SCH ×2 (09:33→21:49)
[2022-11-01] MEDS: EPOETIN ALFA-EPBX 10,000 UNITS/ML VIAL IV SCH (09:36)
[2022-11-01] MEDS: FOAM DRESSING TP SCH (09:37)
[2022-11-01] MEDS: MAG SULF 2000 MG/WATER PREMIX 50 ML IV PRN (10:17)
--- NOTE | 2022-11-01 11:47 | NUR ---
RECEIVE DIALYSIS NURSE WATT'S CALL FOR PATIENT CURRENT BUN (34) & CREATININE (0.7) URINE OUT PUT FROM YESTERDAY (2400ML) FOR POSSIBLE DIALYSIS TODAY (ORDER IS IN PLACE). WILL CONTINUE TO MONITOR; ADDITIONAL, PUBLIC GUARDIAN FROM [facility] IS HER TO INVESTIGATE PATIENT'S STATUS WHICH INCLUDING WHEN PATIENT HAD HIS FIRST DIALYSIS. WILL CONTINUE TO MONITOR
[2022-11-01 12:00] VITALS: BP 120/70
[2022-11-01] MEDS: SANTYL TP SCH (13:07)
[2022-11-01 16:00] VITALS: BP 134/84
--- NOTE | 2022-11-01 19:25 | NUR ---
RECEIVED PT ON BED, ON BED REST. AWAKE, ALERT AND VERBALLY RESPONSIVE. BILATERAL UPPER AND LOWER EXTREMITIES WITH SWELLING. MULTIPLE WOUNDS COVERED WITH DRY AND CLEAN DRESSING. IV SITE IS ON LEFT UPPER ARM 22G, INTACT AND PATENT. SKIN DISCOLORATION PRESENT ON RIGHT SIDE OF LATERAL CHEST. PT DENIES OF PAIN AT THIS TIME. RIGHT IJ INTACT AND COVERED BY DRY AND CLEAN DRESSING.
[2022-11-01 20:00] VITALS: BP 139/61
--- NOTE | 2022-11-01 22:00 | NUR ---
PT IS STILL AWAKE, PT STATED HE DOES NOT FEEL SLEEPY. PT STATED HE HAS TOLERABLE PAIN AT THIS TIME OF 06/08.
--- NOTE | 2022-11-01 23:00 | NUR ---
PT COMPLAINTS OF BODY PAIN 11/06, PAIN MEDICATION MORPHINE 3MG IV PUSH ADMINISTERED.
[2022-11-02] VITALS (7 sets, daily range): BP systolic 102–128; BP diastolic 55–80
[2022-11-02] MEDS: FUROSEMIDE 20 MG/2 ML VIAL IVP SCH ×5 (00:31→23:29)
[2022-11-02] MEDS: GAUZE TP SCH ×2 (00:38→12:46)
[2022-11-02] MEDS: Z-GUARD PASTE TP SCH ×2 (00:40→12:47)
--- NOTE | 2022-11-02 05:00 | NUR ---
PERSONAL HYGIENE GIVEN, CHANGE WOUND DRESSING. PT HAS SOFT BM.
[2022-11-02 05:01] LABS: BASOPHILS # (AUTO) 0.1 K/uL (0.00-0.22); BASOPHILS % (AUTO) 0.5 % (0.0-2.0); EOSINOPHILS % (AUTO) 0.2 % (0.0-4.0); HEMATOCRIT 25.6 % (36-52); HEMOGLOBIN 8.3 g/dL (12.0-18.0); LYMPHOCYTES # (AUTO) 1.1 K/uL (2.0-11.5); MEAN CORPUSCULAR HEMOGLOBIN 29 pg (27-31); MEAN CORPUSCULAR HGB CONC 33 g/dL (33-37); MEAN CORPUSCULAR VOLUME 89.7 fL (80-94); MONOCYTES # (AUTO) 0.7 K/uL (0.8-1.0); MONOCYTES % (AUTO) 4.8 % (1.7-9.3); NEUTROPHILS # (AUTO) 12.3 K/uL (1.8-7.7); NEUTROPHILS % (AUTO) 86.5 % (42.2-75.2); PLATELET COUNT (AUTO) 116 K/uL (140-450); RED BLOOD CELL COUNT(AUTO) 2.85 MIL/uL (4.20-6.10); RED CELL DISTRIBUTION WIDTH 16.7 % (11.6-13.7); WHITE BLOOD COUNT (AUTO) 14.3 K/uL (4.8-10.8)
[2022-11-02 05:17] LABS: ALBUMIN 1.3 g/dL (3.4-5.0); ANION GAP 5.5 (8-16); CARBON DIOXIDE 31.1 mmol/L (21-32); CREATININE 0.5 mg/dL (0.6-1.3); MAGNESIUM 1.5 mg/dL (1.8-2.4); PHOSPHORUS 2.9 mg/dL (2.5-4.9); POTASSIUM 3.6 mmol/L (3.5-5.1); TOTAL BILIRUBIN 0.5 mg/dL (0.0-1.0)
--- NOTE | 2022-11-02 07:15 | NUR ---
PT IS ON STABLE CONDITION, SAFETY MEASURES ARE IN PLACE. ENDORSED TO DAY SHIFT NURSE SANTI FOR CONTINUITY OF CARE.
--- NOTE | 2022-11-02 08:32 | NUR ---
PT AWAKE BUT SLEEPY. PT DIDN'T WANT TO BE TOUCHED. ABLE TO READ PULSOX ON HAND BUT HE WANTED OT OFF. TOUGH TO GET A READING BECAUSE OF EDEMA. ASKED PT IF I COULD PUT ONE ON HIS EAR , BUT PT REFUSED. PT WOULD NOT LET ME LISTEN TO LUNGS.
[2022-11-02] MEDS: MICAFUNGIN SODIUM 100 MG in NACL 0.9% 100 ML IV SCH (08:34)
[2022-11-02] MEDS: CALCIUM ACETATE 667 MG TAB PO SCH ×3 (08:40→16:47)
[2022-11-02] MEDS: PANTOPRAZOLE 40 MG INJ VIAL IVP SCH ×2 (08:40→21:07)
[2022-11-02] MEDS: SODIUM PHOS / POTASSIUM PHOS 1 PKT PDR PO SCH ×2 (08:41→21:07)
[2022-11-02] MEDS ORDERED: MAG SULF 2000 MG/WATER PREMIX 50 ML IV SCH (09:28)
--- NOTE | 2022-11-02 11:49 | NUR ---
11/02/22 RD FOLLOW UP COMPLETED PLEASE REFER TO NUTRITION ASSESSMENT UNDER CARE ACTIVITY FOR ESTIMATED NUTRITIONAL NEEDS. 1. CONTINUE ON RENAL DIET, PUREE TOLERATED AND ADVANCE TO MECHANICAL SOFT ONCE MEDICALLY APPROPRIATE. 2. CONTINUE ON SAM BID FOR WOUNDS, THIS WILL PROVIDE 160 CALORIES AND 5 GRANS OF PROTEIN. 3. MONITOR GI, PO INTAKE, AND NUTRITION RELATED LAB VALUES. 4. RD TO FOLLOW-UP 3-5 DAYS, MODERATE RISK BRUNA DEGROOT, RD
[2022-11-02] MEDS: SANTYL TP SCH (12:47)
[2022-11-02] MEDS: ACETAMINOPHEN 325 MG TAB PO PRN (16:48)
--- NOTE | 2022-11-02 18:43 | NUR ---
RECEIVE PCP DISCHARGE ORDER AND FIND OUT THAT PATIENT WILL RETURN [facility] ([phone]) UNDER CARE OF DR. GRIMM. DISCHARGE IN PROCESS D/T PENDING ISOLATION BED FINALIZATION ISSUE. PATIENT CURRENT IS CLEAR TO GO BACK AFTER CORRECTING HYPONATREMIA/HYPERKALEMIA, ACUTE KIDNEY INJURY, AND HEART INJURY (ESTIMATE EF BETWEEN 55% TO 60%) WITH POSITIVE YEAST INFECTION IN BLOOD, WHICH IS TREATING BY MYCAMINE DAILY. WOUND CARE DONE FOR DAY. WILL F/U
--- NOTE | 2022-11-02 20:00 | NUR ---
RECEIVED REPORT FROM DAY SHIFT RN FOR CONTINUITY OF CARE. PT IS AAOX4 RESTING IN BED. PT HAS RIGHT IJ HD CATH.COLLIN 22 GAUGE ,SALINE LOCKED. DC WAS HELD DUE TO YEAST INFECTION FROM BLOOD.PT HAS FRIEDMAN CATHETER IN PLACE , DRAINING CLEAR YELLOW URINE. POC DISCUSSED. WILL CONTINUE TO MONITOR THE PT.
--- NOTE | 2022-11-02 21:00 | NUR ---
SCHEDULED MEDICATIONS GIVEN. PT TOLERATED WELL. PT REPOSITIONED. ALL NEEDS MET AT THIS TIME. ALL PRECAUTIONS IN PLACE. WILL CONTINUE TO MONITOR.
[2022-11-02] MEDS ORDERED: MORPHINE SULFATE 2 MG/ML SYR IVP PRN (22:10)
[2022-11-03] VITALS: BP 105/69
--- NOTE | 2022-11-03 | NUR ---
SCHEDULED MEDICATIONS GIVEN. PT TOLERATED WELL. PT REPOSITIONED. ALL NEEDS MET AT THIS TIME. ALL PRECAUTIONS IN PLACE. WILL CONTINUE TO MONITOR.
[2022-11-03] MEDS: GAUZE TP SCH (01:24)
[2022-11-03] MEDS: Z-GUARD PASTE TP SCH (01:24)
[2022-11-03 04:00] VITALS: BP 110/74
--- NOTE | 2022-11-03 04:00 | NUR ---
SCHEDULED MEDICATIONS GIVEN. PT TOLERATED WELL. PT REPOSITIONED. ALL NEEDS MET AT THIS TIME. ALL PRECAUTIONS IN PLACE. WILL CONTINUE TO MONITOR.
[2022-11-03 05:06] LABS: BASOPHILS # (AUTO) 0.1 K/uL (0.00-0.22); BASOPHILS % (AUTO) 0.8 % (0.0-2.0); EOSINOPHILS # (AUTO) 0.1 K/uL (0-0.4); EOSINOPHILS % (AUTO) 0.6 % (0.0-4.0); HEMATOCRIT 26.7 % (36-52); HEMOGLOBIN 8.7 g/dL (12.0-18.0); LYMPHOCYTES # (AUTO) 1.2 K/uL (2.0-11.5); LYMPHOCYTES % (AUTO) 9.7 % (20.5-51.1); MEAN CORPUSCULAR HEMOGLOBIN 29 pg (27-31); MEAN CORPUSCULAR HGB CONC 33 g/dL (33-37); MEAN CORPUSCULAR VOLUME 89.2 fL (80-94); MONOCYTES # (AUTO) 0.6 K/uL (0.8-1.0); MONOCYTES % (AUTO) 4.9 % (1.7-9.3); NEUTROPHILS # (AUTO) 10.2 K/uL (1.8-7.7); PLATELET COUNT (AUTO) 118 K/uL (140-450); RED BLOOD CELL COUNT(AUTO) 2.99 MIL/uL (4.20-6.10); RED CELL DISTRIBUTION WIDTH 16.4 % (11.6-13.7); WHITE BLOOD COUNT (AUTO) 12.1 K/uL (4.8-10.8)
[2022-11-03 05:20] LABS: ALBUMIN 1.4 g/dL (3.4-5.0); ANION GAP 5.8 (8-16); CARBON DIOXIDE 32.8 mmol/L (21-32); CREATININE 0.7 mg/dL (0.6-1.3); MAGNESIUM 1.6 mg/dL (1.8-2.4); PHOSPHORUS 3.6 mg/dL (2.5-4.9); POTASSIUM 3.6 mmol/L (3.5-5.1); TOTAL BILIRUBIN 0.5 mg/dL (0.0-1.0)
[2022-11-03] MEDS: FUROSEMIDE 20 MG/2 ML VIAL IVP SCH (05:57)
--- NOTE | 2022-11-03 06:48 | NUR ---
PT IS STABLE. NO ACUTE EVENTS THROUGHOUT THE NIGHT. NO S/SX OF DISTRESS AT THE MOMENT.ALL NEEDS MET. ALL PRECAUTIONS IN PLACE. CALL LIGHT WITHIN REACH. WILL ENDORSE TO DAY SHIFT NURSE.
[2022-11-03] MEDS: MICAFUNGIN SODIUM 100 MG in NACL 0.9% 100 ML IV SCH (08:26)
[2022-11-03] MEDS: PANTOPRAZOLE 40 MG INJ VIAL IVP SCH (08:27)
[2022-11-03] MEDS: SODIUM PHOS / POTASSIUM PHOS 1 PKT PDR PO SCH (08:27)
[2022-11-03] MEDS: EPOETIN ALFA-EPBX 10,000 UNITS/ML VIAL IV SCH (08:30)
[2022-11-03] MEDS: CALCIUM ACETATE 667 MG TAB PO SCH (08:31)
[2022-11-03] MEDS: MAG SULF 2000 MG/WATER PREMIX 50 ML IV PRN (09:52)
== END 2022-11-03 12:20 | disposition home or self-care (01) | DRG 314 ==
LOC: MED 12:51 → MTU 15:34 → MIC 10-07 06:22 → MTU 10-08 15:55
PROVIDERS: ADMIT Family Medicine; ATTEND Family Medicine
PROC: 5A1D70Z Performance of Urinary Filtration, Intermittent, Less than 6 Hours Per Day (ICD-10-PCS; 2022-10-12)
PROC: 02HV33Z Insertion of Infusion Device into Superior Vena Cava, Percutaneous Approach (ICD-10-PCS; principal; 2022-10-14)
PROC: B548ZZA Ultrasonography of Superior Vena Cava, Guidance (ICD-10-PCS; 2022-10-14)
PROC: 5A1D70Z Performance of Urinary Filtration, Intermittent, Less than 6 Hours Per Day (ICD-10-PCS; 2022-10-14)
PROC: 5A1D70Z Performance of Urinary Filtration, Intermittent, Less than 6 Hours Per Day (ICD-10-PCS; 2022-10-14)
PROC: 5A1D70Z Performance of Urinary Filtration, Intermittent, Less than 6 Hours Per Day (ICD-10-PCS; 2022-10-15)
PROC: 02HV33Z Insertion of Infusion Device into Superior Vena Cava, Percutaneous Approach (ICD-10-PCS; 2022-10-16)
PROC: B548ZZA Ultrasonography of Superior Vena Cava, Guidance (ICD-10-PCS; 2022-10-16)
PROC: 5A1D70Z Performance of Urinary Filtration, Intermittent, Less than 6 Hours Per Day (ICD-10-PCS; 2022-10-16)
PROC: 30233R1 Transfusion of Nonautologous Platelets into Peripheral Vein, Percutaneous Approach (ICD-10-PCS; 2022-10-17)
PROC: 5A1D70Z Performance of Urinary Filtration, Intermittent, Less than 6 Hours Per Day (ICD-10-PCS; 2022-10-17)
PROC: 5A1D70Z Performance of Urinary Filtration, Intermittent, Less than 6 Hours Per Day (ICD-10-PCS; 2022-10-19)
PROC: 5A1D70Z Performance of Urinary Filtration, Intermittent, Less than 6 Hours Per Day (ICD-10-PCS; 2022-10-21)
PROC: 30233N1 Transfusion of Nonautologous Red Blood Cells into Peripheral Vein, Percutaneous Approach (ICD-10-PCS; 2022-10-25)
PROC: 02HV33Z Insertion of Infusion Device into Superior Vena Cava, Percutaneous Approach (ICD-10-PCS; 2022-10-26)
PROC: B548ZZA Ultrasonography of Superior Vena Cava, Guidance (ICD-10-PCS; 2022-10-26)
PROC: 02HV33Z Insertion of Infusion Device into Superior Vena Cava, Percutaneous Approach (ICD-10-PCS; 2022-10-27)
PROC: B548ZZA Ultrasonography of Superior Vena Cava, Guidance (ICD-10-PCS; 2022-10-27)
PROC: 5A1D70Z Performance of Urinary Filtration, Intermittent, Less than 6 Hours Per Day (ICD-10-PCS; 2022-10-27)
PROC: 0DB68ZX Excision of Stomach, Via Natural or Artificial Opening Endoscopic, Diagnostic (ICD-10-PCS; 2022-10-28)
PROC: 0W3P8ZZ Control Bleeding in Gastrointestinal Tract, Via Natural or Artificial Opening Endoscopic (ICD-10-PCS; 2022-10-28)
PROC: 5A1D70Z Performance of Urinary Filtration, Intermittent, Less than 6 Hours Per Day (ICD-10-PCS; 2022-10-28)
PROC: 5A1D70Z Performance of Urinary Filtration, Intermittent, Less than 6 Hours Per Day (ICD-10-PCS; 2022-10-29)
PROC: 5A1D70Z Performance of Urinary Filtration, Intermittent, Less than 6 Hours Per Day (ICD-10-PCS; 2022-11-01)
DX: T80.211A Bloodstream infection due to central venous catheter, initial encounter (principal); A41.02 Sepsis due to Methicillin resistant Staphylococcus aureus; B37.7 Candidal sepsis; G93.41 Metabolic encephalopathy; J69.0 Pneumonitis due to inhalation of food and vomit; J15.212 Pneumonia due to Methicillin resistant Staphylococcus aureus; J96.01 Acute respiratory failure with hypoxia; A41.59 Other Gram-negative sepsis; E87.1 Hypo-osmolality and hyponatremia; N17.9 Acute kidney failure, unspecified; L03.116 Cellulitis of left lower limb; L03.115 Cellulitis of right lower limb; J44.0 Chronic obstructive pulmonary disease with (acute) lower respiratory infection; J44.1 Chronic obstructive pulmonary disease with (acute) exacerbation; I31.9 Disease of pericardium, unspecified; I96 Gangrene, not elsewhere classified; F20.9 Schizophrenia, unspecified; G40.909 Epilepsy, unspecified, not intractable, without status epilepticus; E03.9 Hypothyroidism, unspecified; D69.6 Thrombocytopenia, unspecified; Y83.8 Other surgical procedures as the cause of abnormal reaction of the patient, or of later complication, without mention of misadventure at the time of the procedure; E87.6 Hypokalemia; D64.9 Anemia, unspecified; Z20.822 Contact with and (suspected) exposure to COVID-19; F29 Unspecified psychosis not due to a substance or known physiological condition; E87.5 Hyperkalemia; L08.9 Local infection of the skin and subcutaneous tissue, unspecified; N18.9 Chronic kidney disease, unspecified; I12.9 Hypertensive chronic kidney disease with stage 1 through stage 4 chronic kidney disease, or unspecified chronic kidney disease; Y84.8 Other medical procedures as the cause of abnormal reaction of the patient, or of later complication, without mention of misadventure at the time of the procedure; Z88.0 Allergy status to penicillin; Y92.89 Other specified places as the place of occurrence of the external cause; Z87.891 Personal history of nicotine dependence
CPT/HCPCS: 36415; 71045; 73620; 73630; 74018; 80048; 80053; 80202; 81001; 82150; 82272; 82607; 82728; 82746; 82948; 83036; 83540; 83605; 83690; 83735; 83880; 84100; 84436; 84439; 84443; 84479; 84484; 85014; 85018; 85025; 85045; 85379; 85384; 85610; 85730; 86677; 86704; 86706; 86708; 86709; 86803; 86870; 86886; 86900; 86901; 86920; 87040; 87070; 87075; 87081; 87086; 87186; 87205; 87340; 87635-QW; 93005; 93925; 93970; 94640; 96361; 96372; 96374; 96375; 99291; 99292; A6248; C9113; J1200; J1610; J1644; J1815; J1940; J1956; J2185; J2248; J2250; J2270; J3010; J3370; J3475; J3490; J7060; P9016; P9035; P9046; Q0092; Q0163; Q5106